=== PATIENT | female | born 1950 | race Caucasian/White ===

== ENCOUNTER 2025-06-26 08:58 | Outpatient (AMB) | payer MEDICARE, SELFPAY ==
--- NOTE | 2025-06-26 09:21 | MHC.OFFVIS ---
Intake Visit Reasons: 2 month syncope Allergies Sulfa (Sulfonamide Antibiotics) Allergy (Unknown, Verified 06/21/25 10:07) Unknown HPI Comments Details: No further syncopal episodes. She did not have her 30 -day event monitor. She had a single syncopal episode on 01/12/25.? When she went to bed the night before she was feeling fine.? She got up in the early hours of the morning and that she was returning from the bathroom she suddenly felt extremely dizzy and wanted to sit on the floor but apparently passed out and fell down and fractured her coccyx.? She found herself on the floor.? Her slept through this as? he also has Alzheimer's disease.? When she got up and sat on the chair and felt very weak.? She was seen at the hospital the next day and was admitted to [facility] for 2 or 3 days and with a negative workup.? She apparently had an extensive workup including imaging studies, cardiac monitoring and EEG which were all negative.? She developed a UTI and was discharged on an antibiotic? but a few days after discharge she developed sepsis from the UTI with a temperature of 104 with?encephalopathy, chills and was readmitted to [facility] for 3 more days for a change of antibiotics.? She has since recovered from it, but she still feels like she has a slight brain fog and feels generally weak.? She's had no further syncopal episodes. Also c/o chronic low back pain , s/p fusion of L spine at [facility] about 11 years ago. Has been thru PT, epidural inj without relief. [facility] Medical History (Updated 06/26/25 @ 09:30 by Joan Kilpatrick MD) Syncope Review of Systems Const Details: Sleep:? Difficulty getting to sleepadmits.? Difficulty maintaining sleepadmits.? Urge to move legsadmits.? Teeth grindingadmits.? Shouting or Kicking during sleepdenies.? Abnormal behavior during sleepdenies.? Excessive sleepdenies.? Snoringadmits.? Daytime sleepinessdenies. ???General/Constitutional:? Change in appetitedenies.? Chillsdenies.? Fatigueadmits.? Feverdenies.? Weight gaindenies.? Weight lossdenies. ???Ophthalmologic:? Blurred visiondenies.? Diminished visual acuitydenies. ???ENT:? Stuffinessdenies.? Decreased hearingadmits.? Dry mouthdenies.? Ear paindenies.? Nosebleeddenies.? Ringing in the earsdenies.? Sinus paindenies.? Sore throatdenies.? Swollen glandsdenies. ???Endocrine:? Cold intolerancedenies.? Excessive thirstdenies.? Frequent urinationdenies.? Heat intolerancedenies. ???Respiratory:? Shortness of breathdenies.? Chest paindenies.? Coughdenies. ???Breast:? Breast lumpdenies.? Nipple dischargedenies. ???Cardiovascular:? Chest pain at restdenies.? Chest pain with exertiondenies.? Claudicationdenies.? Dizzinessdenies.? Fluid accumulation in the legsdenies.? Irregular heartbeatdenies.? Palpitationsdenies. ???Gastrointestinal:? Abdominal paindenies.? Constipationdenies.? Diarrheadenies.? Difficulty swallowingdenies.? Heartburndenies.? Nauseadenies.? Rectal bleedingdenies. ???Hematology:? Easy bruisingadmits.? Prolonged bleedingdenies. ???Genitourinary:? Frequent urinationadmits.? Urgencydenies.? Incontinencedenies.? Erectile Dysfunctiondenies. ???Musculoskeletal:? Neck painadmits.? Back painadmits.? Muscle achesadmits.? Painful jointsadmits.? Sciaticadenies.? Weaknessdenies. ???Podiatric:? Difficulty walkingdenies.? Foot numbnessdenies. ???Neurologic:? Difficulty swallowingdenies.? Balance difficultyadmits.? Coordinationnormal.? Difficulty speakingdenies.? Dizzinessadmits.? Faintingadmits.? Gait abnormalitydenies.? Headacheadmits.? Loss of strengthdenies.? Loss of use of extremitydenies.? Low back paindenies.? Memory lossadmits.? Seizuresdenies.? Ticsdenies.? Tingling/Numbnessdenies.? Transient loss of visiondenies.? Tremordenies. ???Psychiatric:? Anxietyadmits.? Auditory/visual hallucinationsdenies.? Delusionsdenies.? Depressed moodadmits.? Stressorsadmits.? Substance abusedenies.? Suicidal thoughtsdenies. Physical Exam Neuro Other: Neurological: Abnormal neurological findings:??none.?Mental Status:??alert and oriented X 3,?Normal attention, orientation, memory and affect.?Cranial Nerves:??Pupils are equal, round and reactive to light. Fundoscopy shows normal disc bilaterally. External occular muscles are intact. Visual nichols are full, no ptosis. Face is symmetrical, no facial weakness or droop. Facial sensations are normal. Tongue protrudes in midline. Palate elevates symmetrically. Shoulder shrugging is normal..?Motor Examination:??Normal muscle tone, bulk and strength,?No atrophy or fasciculations,?No drift of the extended upper extremities,?Deep tendon reflexes are 2+?,?Plantars are flexor?.?Motor Strength:?Proximal Muscles (out of 5):5Distal Muscles (out of 5):5Neck Flexors (out of 5):5Neck Extensors (out of 5):5Deltoid (out of 5):5Biceps (out of 5):5Triceps (out of 5):5Serratus Anterior (out of 5):5Wrist Extensors (out of 5):5APB (out of 5):5Finger Spread (out of 5):5Ileopsoas (out of 5):5Quadriceps (out of 5):5Hamstrings (out of 5):5Tibialis Anterior (out of 5):5Peronei (out of 5):5EDB (out of 5):5Gastrocnemius (out of 5):5Straight Leg Raising:??90 degrees.?Sensory Exam:??Normal light touch, temperature, pinprick, vibration and joint-position sensations?,?Rhomberg sign is absent.?Coordination:??no ataxia,?no titubation,?rmzbcv-ij-ckke, rodd-juuw-vcwa test and rapid alternating movements were normal.?Gait Exam:??Within normal limits.?Cerebellar Signs:??Jtqkuf-tn-nizz and oqin-hw-fyvo is normal,?no dysdiadochokinesia?.?Extrapyramidal System:??No tremor, rigidity with normal facial expressions,?No bradykinesia, no bradyphrenia. Normal arm swing and posture. No propulsion or retropulsion.?Speech:??Normal,?no dysphasia or dysarthria..? Mini Mental Status Exam: Level of Consciousness:??Alert.?Orientation:??Knows correct year, month, date, day and season,?Knows correct city, county and state. Knows correct location and floor.?Registration:??Able to register 3 objects.?Attention:??Serial 7's performed accurately.?Recall:??Able to recall 3 out of 3 objects.?Language:??Normal spontaneous speech, fluency, repetition,naming, comprehension, reading and writing.?Total Score:??30/30.? General Examination: GENERAL APPEARANCE:??normal,?in no acute distress.?HEAD:??normocephalic,?atraumatic.?EYES:??sclera non-icteric,?conjunctiva clear.?EARS:??auditory canal clear,?tympanic membrane intact, clear.?NOSE:??no lesions.?ORAL CAVITY:??gums normal,?mucosa moist,?no lesions.?THROAT:??clear.?NECK/THYROID:??no cervical lymphadenopathy,?thyroid normal,?neck supple, full range of motion,?no carotid bruit.?SKIN:??no rashes,?no significant birthmarks.?HEART:??S1, S2 normal,?no murmurs.?LUNGS:??clear anteriorly and posteriorly.?CHEST:??no gross rib deformity,?clear to auscultation.?BACK:??normal exam of spine.?EXTREMITIES:??no edema.?PERIPHERAL PULSES:??normal.?PSYCH:??alert, oriented,?cognitive function intact,?cooperative with exam.? Assessment & Plan Assessment & Plan (1) Syncope: Code(s): R55 - Syncope and collapse Category: Medical Plan: Negative w/u at [facility]. Did not have 30 day event monitor (2) Chronic low back pain: Code(s): M54.50 - Low back pain, unspecified; G89.29 - Other chronic pain Category: Medical Plan: Will gather records including last imaging studies. Will advise after review of her imaging studies. Coding Level of Care Code Est Pt Level 4 (73166) Diagnoses Syncope R55 Chronic low back pain M54.50; G89.29
== END 2025-06-26 09:39 | disposition home or self-care (01) ==
LOC: HO.HSM 08:59
PROVIDERS: PCP Family Medicine Sports Medicine; Visit Provider Psychiatry & Neurology Neurology
DX: R55 Syncope and collapse (principal); M54.50 Low back pain, unspecified; G89.29 Other chronic pain
CPT/HCPCS: 99214

== ENCOUNTER → 2025-06-26 08:58 | Outpatient (BNVA) | payer MEDICARE, SELFPAY | PROVIDERS: PCP Family Medicine Sports Medicine; Visit Provider Psychiatry & Neurology Neurology | DX: R55 Syncope and collapse (principal); M54.50 Low back pain, unspecified; G89.29 Other chronic pain | CPT/HCPCS: 99212 ==

== ENCOUNTER 2025-06-28 11:44 | Outpatient (REF) | payer MEDICARE, SELFPAY ==
--- OUTSIDE RECORDS SUMMARY | 2025-06-28 12:50 | XMS_ITS | Encounter Summary ---
Author Organization [facility] Address [facility] [employer] [facility] [address] [place] [address] Phone Care Team Providers Care Wine Steward Name Role Phone Jailyn Grewal DO Unavailable Sondra Bettyeminh Leggett DIETITIAN CONSULTANT Unavailable [phone] Ninoska Sanchez MD Unavailable [phone] Best Aaron MD Unavailable [phone] Saurav Cornelius MD Unavailable [phone] Best Aaron MD Unavailable Best Aaron MD Primary Care Provider [phone] Pippa Shirley MD Primary Care Provider [phone] Jailyn Grewal DO Unavailable Pippa Shirley MD Unavailable Encounter Details Date Type Department Care Team (Late st Contact Info) Description 07/08/2023 Procedure Pass [facility], [facility] - [address] [place] [address] Social History Tobacco Use Types Packs/Day Years Used Date Smoking Tobacco: Never Smokeless Tobacco: Never Comments:Never Alcohol Use Standard Drinks/Week Comments Yes 1 (1 standard drink = 0.6 oz pur e alcohol) Occasional Child or Family Care Answer Date Record ed Do you have problems with on e of the following making it difficult for you to work, study, or receive health care? No 04/01/2021 Education Answer Date Recorded Are you interested in more education? Not on navdeep e 04/04/2023 Are you concerned about learning? Not on file 04/04/2023 No 04/04/2023 No 04/04/2023 Food Answer Date Recorded Within the past 6 months we worried whether our food would run out before we got money to buy more. Never True 04/01/2021 Within the past 6 months the food we bought just didn't last and we didn't have enough money to get more. Never True Paying for Meds Answer Date Recorded Do you have trouble paying for medicines? No 04/01/2021 Paying Utility Bills Answer Date Record ed Do you have trouble paying your heating or elect ricity bill? No 04/01/2021 Transportation Answer Date Recorded Has the lack of transportati on kept you from medical appointments or from getting medications? No 04/01/2021 Unemployment Answer Date Recorded Are you currently unemployed or working on a part-time or temporary basis, and looking for work? No 04/01/2021 Digital Access Answer Date Recorded No 04/08/2023 No 04/08/2023 Reliable internet access at home? Not on file 04/08/2023 Device with a working camera? Not on file Comments No Sex and Gender Information Value Date Recorded Sex Assigned at Female 06/14/2018 11:15 PM EDT Legal Sex Female 5:49 PM EST Gender Identity Female 07/01/2024 1:45 PM EDT Sexual Orientation Straight 06/14/2018 11 :15 PM EDT Occupation Industry Job Start Date Job End Date Retired Not on file Not on file Not on file documented as of this encounter Plan of Treatment Upcoming Encounters Date Type Department Care Team (Late st Contact Info) Description 07/04/2025 8:45 AM EDT Office Visit [facility] General Surgical Care [address] [place] [address] Bettye Amaro, DIETITIAN CONSULTANT 15 [facility], [address] [place] [address] 08/16/2025 4:30 PM EDT Office Visit [facility] Medicine [address] [place] [address] Pippa Shirley MD [address] [address] [email or web address] 02/28/2026 8:30 AM EDT Office Visit [facility] Neurology [address] [place] [address] Albert Lynn MD [address] [address] documented as of this encounter Visit Diagnoses Not on filedocumented in this encounter Additional Health Concerns Assessment Noted Time PHQ-2 Depression Total Score: 2 09/08/20 22 4:13 PM EDT documented as of this encounter Care Teams Wine Steward Relationship Specialty Start Date End Date Best Aaron MD [address] [place] [address] 7 [place] [address] PCP - General Family Medicine 10/19/19 02/09/24 Pippa Shirley MD [address] [place] [address] 7 [place] [address] [email or web address] PCP - General Family Medicine 02/10/24 Jailyn Grewal DO [address] [place] [address] [address] [place] [address] Historical LMR Provider 09/04/17 Sondra Bettye Betsey, ROBERTO [address] [place] [address], [address] [place] [address] Historical LMR Provider 09/04/17 Ninoska Sanchez MD [address] [place] [address] 7 [place] [address] Historical LMR Provider 09/04/17 Best Aaron MD [address] [place] [address] 7 [place] [address] Historical LMR Provider 09/04/17 Saurav Cornelius MD [address] [place], [place] [address] [place] [phone] [email or web address] Historical LMR Provider 09/04/17 Best Aaron MD [address] [place] [address] 7 [place] [address] Insurance Assigned Provider 09/18/1702/19/24 Jailyn Grewal DO [address] [place] [address] [address] [place] [address] Insurance Assigned Provider 02/19/24 Pippa Shirley MD [address] [place] [address], [address] [place] [address] [email or web address] Insurance Assigned Provider 02/18/25 documented as of this encounter Additional Source Comments The information contained in this document represents components of the legal health record. It is not the complete legal health record.[facility]
== END 2025-06-28 11:45 | disposition home or self-care (01) ==
LOC: CF 11:44
DX: Z13.89 Encounter for screening for other disorder (principal)

== ENCOUNTER 2025-09-17 15:34 | Outpatient (AMB) | payer MEDICARE, BC, SELFPAY ==
--- NOTE | 2025-09-17 15:35 | MHC.OFFVIS ---
Vital Signs 09/17/25 16:21 Height 5 ft 7 in BMI Reason not done Patient refused/unable BP 134/70 Blood Pressure Location Rt brachial Position Sitting Pulse 72 Pulse Source Pulse Oximeter Pulse Oximetry (%) 98 Oxygen Delivery Method Room Air Intake Visit Reasons: Chronic Bilateral Low Back Pain Allergies Sulfa (Sulfonamide Antibiotics) Allergy (Unknown, Verified 06/21/25 10:07) Unknown HPI Comments Details: The patient is a 75-year-old female presenting with chronic lower back pain. The pain has been persistent since 2014 following a back surgery, specifically a non-instrumented laminectomy from L3 through L5. Imaging has shown facet arthropathy and ligamentum flavum hypertrophy and multilevel lumbar spinal stenosis per lumbar MRI of 2022, contributing to her symptoms. The patient describes her pain as constant, with a severity of 7 to 8 out of 10 during movement, and slightly better when sitting or by evening. The pain is characterized as pinching, cramping, crushing, stabbing, and sharp, often making her feel tired and dull. It radiates to her buttocks and into lateral hips and lower extremities laterally and anteriorly with associated heaviness, weakness, numbness and tingling in her lower legs and toes and affects her daily activities, mobility, including caring for herself, functioning, and sleeping. Patient reports right leg pain and associated symptoms are more severe than the left leg. The patient has a history of multilevel degenerative changes in the cervical spine, with no acute fracture or malalignment noted on recent CT imaging. 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 She has tried various interventions including nbmd-whv-dwvivbo ibuprofen and Tylenol, nerve blocks, disc and epidural injections at [facility], physical therapy, and acupuncture, all with minimal relief. The patient denies smoking and uses alcohol very seldom, consuming three regular cups of decaf coffee daily. She lives alone and has experienced falls, with difficulty regaining balance, standing, pushing, or pulling without significant pain. In January of this year, she was hospitalized for a urinary tract infection and sepsis, following concerns of internal bleeding after a fall. She was treated for the infection but experienced hallucinations and required further hospitalization. 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 - Onset: Chronic since 2015 following back surgery - Quality: Constant, pinching, cramping, crushing, stabbing, sharp, thorbbing, radiating, numbness, tingling - Location: Lower back, radiating to buttocks, hips and legs with associated weakness, loss of balance and occasional falls - Severity: 7 to 8 out of 10 during movement, slightly better when sitting or by evening - Exacerbating factors: Movement, walking, standing, pushing, pulling - Relieving factors: Sitting, evening rest, minimal relief with Tylenol and Ibuprofen - Interference: Affects daily activities, mobility, caring for self, functioning, sleeping - Affect: Pain causes fatigue and impacts daily functioning - Analgesia: Currently using sznr-uej-vaseqzj ibuprofen and Tylenol with minimal relief; pain level at 7 to 8 out of 10 - Adverse Effects: None reported from current medications - Activities of Daily Living: Pain interferes with self-care, mobility, and sleep - Aberrant Drug Related Behaviors: None reported Oswestry Low Back Pain Disability Score=27 [facility] Medical History (Updated 09/17/25 @ 20:32 by JACQUI Winchester) Syncope Review of Systems Const Details: - Musculoskeletal: Reports chronic lower back pain, radiating to buttocks, hips and legs, weakness in legs, and groin pain - Neurological: Reports tingling and numbness in legs - General: Reports fatigue and difficulty with balance All systems reviewed & are unremarkable except as noted in HPI and below Physical Exam Vital Signs: Last Vital Signs Pulse 72 09/17/25 16:21 BP 134/70 09/17/25 16:21 Pulse Ox 98 09/17/25 16:21 Oxygen Delivery Method Room Air 09/17/25 16:21 General: Appears afebrile. Alert and oriented. Mood and affect appropriate. Follows and participates in conversation appropriately. Respiratory effort is unlabored. No cough. Able to transition from sit to stand unassisted. Difficulty getting up from sitting position due to pain. Ambulates with bilaterally normal heel strike and toe off, reports weakness and pain in both legs, R>L. General: Yes no CVA tenderness Back/Spine/Pelvis Other: Limited lumbar ROM due to pain and unsteadiness associated with moderate-severe pain episodes. Lumbar flexion and bending forward reproduces iyecgzhl-gy-sakjhx pain, lumbar extension and axial rotations reproduce otom-bq-xndomewp pain. Demonstrates 5/5 left and 4/5 right strength of quadriceps bilaterally as well as flexion/dorsiflexion of bilateral feet against resistance. 2+ pedal pulses bilaterally. Seated/Supine straight leg rise with dorsiflexion negative bilaterally. +1 patellar and diminished achilles reflexes bilaterally. Facet loading test positive bilaterally. Limited Josemanuel?s, Pelvic compression and Stinchfield tests are positive bilaterally. Mild to moderate groin pain with I/E left hip rotations. Valsalva maneuver is positive. Back: no CVA tenderness Cervical Spine: cervical ROM normal, cervical muscular tenderness, pain with cervical ROM and No Cervical spine tenderness Thoracic/Lumbar Spine: thoracic and lumbar spine normal to inspection, Thoracic/lumbar spine scar(s), Lasegue's sign positive bilateral and localized, pain with thoraco-lumbar ROM, paraspinal muscle tenderness, thoraco-lumbar ROM limited, Thoracic/lumbar scoliosis, No thoracic spinal tenderness and lumbar spinal tenderness Sacroiliac joints: bilaterally tender to palpation Extrem General: Yes capillary refill normal, Yes no clubbing, cyanosis or edema and Yes no calf tenderness Results Reviewed Results Reviewed: Assessment & Plan Assessment & Plan (1) Chronic low back pain: Code(s): M54.50 - Low back pain, unspecified; G89.29 - Other chronic pain Category: Medical (2) Lumbar post-laminectomy syndrome: Code(s): M96.1 - Postlaminectomy syndrome, not elsewhere classified Category: Medical (3) Lumbosacral spondylosis: Code(s): M47.817 - Spondylosis without myelopathy or radiculopathy, lumbosacral region Category: Medical (4) Sacroiliac joint pain: Code(s): M53.3 - Sacrococcygeal disorders, not elsewhere classified Category: Medical (5) Degenerative lumbar spinal stenosis: Code(s): M48.061 - Spinal stenosis, lumbar region without neurogenic claudication Category: Medical (6) Lumbar scoliosis: Code(s): M41.9 - Scoliosis, unspecified Category: Medical (7) Spondylolisthesis, lumbar region: Code(s): M43.16 - Spondylolisthesis, lumbar region Category: Medical Plan The plan includes obtaining updated x-rays to assess for degenerative changes in the spine and lumbar spine MRI to assess for neural integrity and compression and follow up on previous MRI findings. Interventional pain management options were discussed, including therapeutic versus diagnostic injections, neuromodulation with PNS trial, SCS trial vs implant and radiofrequency ablation. Patient will return to the clinic to discuss results of the MRI and xray findings when it is done and consider interventional therapy vs Neurosurgical evaluation as indicated. Patient is aware to call if pain worsens or if she develops any red flag symptoms to seek emergency care. All questions and concerns have been answered and patient agreed with the treatment plan. Follow up for MRI/xray results and sooner as needed. Patient was informed and verbally consented to the use of an ambient scribe for clinic note documentation during this visit. Orders: Orders MR lumbar spine wo con Today M41.9 - Scoliosis, unspecified, M43.16 - Spondylolisthesis, lumbar region, M47.817 - Spondylosis without myelopathy or radiculopathy, lumbosacral region, M48.061 - Spinal stenosis, lumbar region without neurogenic claudication, M96.1 - Postlaminectomy syndrome, not elsewhere classified XR lumbar spine 6V w bending Today G89.29 - Other chronic pain, M47.817 - Spondylosis without myelopathy or radiculopathy, lumbosacral region, M54.50 - Low back pain, unspecified, M96.1 - Postlaminectomy syndrome, not elsewhere classified XR sacroiliac joint min 3V Today M53.3 - Sacrococcygeal disorders, not elsewhere classified, M96.1 - Postlaminectomy syndrome, not elsewhere classified Coding Level of Care Code New Pt Level 4 (59153) Diagnoses Chronic low back pain M54.50; G89.29 Lumbar post-laminectomy syndrome M96.1 Lumbosacral spondylosis M47.817 Sacroiliac joint pain M53.3 Degenerative lumbar spinal stenosis M48.061 Lumbar scoliosis M41.9 Spondylolisthesis, lumbar region M43.16
[2025-09-17 16:21] VITALS: BP 134/70; PULSE 72; O2SAT 98
--- OUTSIDE RECORDS SUMMARY | 2025-09-17 16:43 | XMS_ITS | Encounter Summary ---
Author Organization [facility] Address [facility] [email or web address] [facility] [place] [address] [place] [address] Phone Care Team Providers Care Caisson Worker Name Role Phone Jailyn Grewal DO Unavailable Sondra Bettyeminh Leggett FOOD SERVICE TRAY ATTENDANT Unavailable Ninoska Sanchez MD Unavailable [phone] Best Aaron MD Unavailable [phone] Saurav Cornelius MD Unavailable [phone] Best Aaron MD Unavailable Best Aaron MD Primary Care Provider Pippa Shirley MD Primary Care Provider [phone] Jailyn Grewal DO Unavailable Pippa Shirley MD Unavailable Encounter Details Date Type Department Care Team (Late st Contact Info) Description 07/08/2023 Procedure Pass [facility], [facility] - [address] [place] [address] Social History Tobacco Use Types Packs/Day Years [...] Care Team (Late st Contact Info) Description 05/01/2025 Procedure Pass [facility], Ct Scan - [address] [address] 10/18/2025 3:15 PM EST Appointment [facility], Ct Scan [address] [address] Vladimir Mccoy MD [address] [place] [address] [email or web address] 12/20/2025 2:00 PM EST Office Visit [address] [address] Pippa Shirley MD [address] [place] [address] 7 [place] [address] [email or web address] 12/31/2025 11:30 AM EST Office Visit [facility] [address] [place] [address] Unknown, Unknown, Angela Sen PA-C [address] [place] [address] [email or web address] 02/28/2026 8:30 AM EDT Office Visit [facility] Neurology [address] [place] [address] Albert Lynn MD [address] [facility], 2nd [place] [address] [email or web address] documented as of this encounter Visit Diagnoses Not on filedocumented in this encounter Additional Health Concerns Assessment Noted Time PHQ-2 Depression Total Score: 2 09/08/20 22 4:13 PM EDT documented as of this encounter Care Teams Caisson Worker Relationship Specialty Start Date End Date Best Aaron MD [address] [place] [address] 7 [place] [id number] PCP - General Family Medicine 10/19/19 02/09/24 Pippa Shirley MD [address] [place] [address] 7 [place] [address] [email or web address] PCP - General Family Medicine 02/10/24 Jailyn Grewal DO [address] [place] [address] 7 [place] [phone] [email or web address] Historical LMR Provider 09/04/17 Bettye Amaro CNP [address] [place] [address] [email or web address] Historical LMR Provider 09/04/17 Ninoska Sanchez MD [address] [place] [address] 7 [place] [id number] [email or web address] Historical LMR Provider 09/04/17 Best Aaron MD [address] [place] [address] 7 [place] [id number] [email or web address] Historical LMR Provider 09/04/17 Saurav Cornelius MD [address] [place], [place] [address] [place] [phone] [email or web address] Historical LMR Provider 09/04/17 Best Aaron MD [address] [place] [address] 7 [place] [phone] Insurance Assigned Provider 09/18/1702/19/24 Jailyn Grewal DO [address] [place] [address], [address] [place] [id number] Insurance Assigned Provider 02/19/24 Pippa Shirley MD [address] [place] [address], [address] [place] [id number] [email or web address] Insurance Assigned Provider 02/18/25 documented as of this encounter Additional Source Comments The information contained in this document represents components of the legal health record. It is not the complete legal health record.[facility]
--- OUTSIDE RECORDS SUMMARY | 2025-09-17 16:44 | XMS_ITS | Encounter Summary ---
Author Organization [facility] Address [address] [employer] [facility] [address] [place] [address] Phone Care Team Providers Care Security Systems Specialist Name Role Phone Jailyn Grewal DO Unavailable Bettye Amaro DIRECTOR OF HEALTH CARE MARKETING Unavailable Ninoska Sanchez MD Unavailable Best Aaron MD Unavailable Saurav Cornelius MD Unavailable Pippa Shirley MD Primary Care Provider Jailyn Grewal DO Unavailable Pippa Shirley MD Unavailable [phone] Encounter Details Date Type Department Care Team (Late st Contact Info) Description 07/01/2024 Procedure Pass [facility], Ct Scan - [address] [address] Social History Tobacco Use Types Packs/Day Years [...] on file documented as of this encounter Functional Status * Calculated C-SSRS Risk Score (Lifetime/Recent) Answer Date of Assessment Author No Risk Indicated 07/01/2024 1:45 PM EDT Bessie Guadarrama, RN * [place] Suicide Severity Rating Scale (Screener/Recent Self-Report) Question Answer Date of Assessment Author 1. Wish to be (Past 1 Month) No 024 1:45 PM EDT Bessie Hines, RN 2. Non-Specific Active Suici wayne Thoughts (Past 1 Month) No 07/01/2024 1:45 PM EDT Jose Hines RN 6. Suicidal Behavior (Lifetime) No 1:45 PM EDT Bessie Hines, RN documented as of this encounter Plan of Treatment Upcoming Encounters Date Type Department Care Team (Late st Contact Info) Description 05/01/2025 Procedure Pass [address] [address] 10/18/2025 3:15 PM EST Appointment [address] [address] Vladimir Mccoy MD [address] [place] [address] 12/20/2025 2:00 PM EST Office Visit [address] [address] Pippa Shirley MD [address] [place] [address], [facility] 7 [place] [address] [email or web address] 12/31/2025 11:30 AM EST Office Visit [facility] [address] [place], [place] [phone] Unknown, Unknown, Angela Sen PA-C [address] [phone] [email or web address] 02/28/2026 8:30 AM EDT Office Visit [facility] [address] [place] [address] Albert Lynn MD 22 [facility], [address] [place] [address] documented as of this encounter Visit Diagnoses Not on filedocumented in this encounter Additional Health Concerns Assessment Noted Time PHQ-2 Depression Total Score: 2 09/08/20 22 4:13 PM EDT documented as of this encounter Care Teams Security Systems Specialist Relationship Specialty Start Date End Date Pippa Shirley MD [address] [place] [address] 7 [place] [address] [email or web address] PCP - General Family Medicine 02/10/24 Jailyn Grewal DO [address] [place] [address] 7 [place] [address] Historical LMR Provider 09/04/17 Bettye Amaro CNP [address] [address] Historical LMR Provider 09/04/17 Ninoska Sanchez MD [address] [place] [address] 7 [place] [address] Historical LMR Provider 09/04/17 Best Aaron MD [address] [place] [address] 7 [place] [address] Historical LMR Provider 09/04/17 Saurav Cornelius MD [address] [place], [place] [address] [place] [phone] [email or web address] Historical LMR Provider 09/04/17 Jailyn Grewal DO [address] [place] [address], [address] [place] [address] [email or web address] Insurance Assigned Provider 02/19/24 Pippa Shirley MD [address] [place] [address], [address] [place] [address] [email or web address] Insurance Assigned Provider 02/18/25 documented as of this encounter Additional Source Comments The information contained in this document represents components of the legal health record. It is not the complete legal health record.[facility]
--- OUTSIDE RECORDS SUMMARY | 2025-09-17 16:44 | XMS_ITS | Clinical Summary ---
Author Organization [facility] Address Formerly [facility] [place] ([facility]) [facility] [address] [place] [id number] Phone Care Team Providers Care Factory Representative Name Role Phone Jailyn Grewal DO Unavailable [phone] Bettye Amaro CRAFT SUPERINTENDENT Unavailable Ninoska Sanchez MD Unavailable Best Aaron MD Unavailable Saurav Cornelius MD Unavailable Pippa Shirley MD Primary Care Provider Pippa Shirley MD Unavailable [phone] Allergies Active Allergy Reactions Criticality Noted Date Comments Bupropion Hcl 12/29/2023 Side effects Sumatriptan Other (See Comments) High 07/09/2017 Feels like blood rushing through my body Sulfa (Sulfonamide Antibiotics) Itching,Rash High 04/07/2012 Medications cholecalciferol (VITAMIN D3) 5,000 unit capsule Take 1,000 Units by mouth 2 (two) times a day. 1 Active valacyclovir HCl (VALACYCLOVIR ORAL) Apply 1 application. topically as needed (cold sores). apply every 3 hours as needed for coldsores x 7 days 1 Active sodium fluoride-potassiu m nitrate (PREVIDENT 5000 SENSITIVE) 1.1-5 % Pste 2 Active atorvastatin (LIPITOR) 10 MG tabletIndications :Hyperlipidemia TAKE ONE TABLET BY MOUTH EVERY DAY 90 tablet 3 5 Active chlorthalidone (HYGROTON) 25 MG tabletIndications :Essential hypertension Take 1 tablet (25 mg total) by mouth every morning. 5 Active traZODone (DESYREL) 50 MG tablet TAKE ONE TABLET BY MOUTH DAILY AT BEDTIME 90 tablet 3 5 Active sertraline (ZOLOFT) 100 MG tabletIndications :Moderate episode of recurrent major depressive disorder Take 2 tablets (200 mg total) by mouth daily. 180 tablet 1 5 Active LORazepam (ATIVAN) 0.5 MG tablet Take 2 tablets (1 mg total) by mouth every 8 (eight) hours as needed for anxiety. 60 tablet 1 5 Active latanoprost (XALATAN) 0.005 % ophthalmic solution Place 1 drop into each eye daily. 2.5 mL 3 5 Active olmesartan (BENICAR) 20 mg tablet TAKE ONE TABLET BY MOUTH EVERY DAY 90 tablet 3 5 Active cephalexin (KEFLEX) 500 MG capsule Take 1 capsule (500 mg total) by mouth 2 (two) times a day for 3 days. 6 capsule 5 08/29/20 25 Active Problems Problem Noted Date Diagnosed Date Binge eating disorder 03/27/2025 Assessment & Plan (03/27/2025 4:00 PM EDT): She is using binge eating behaviors daily at this point. Her overall health has been poor and she is stressed. I recommend she start behavioral therapy and work with a dietitian experience with binge eating disorder. I am tapering her off Wellbutrin because of her general memory issues and malaise. She did not like how she felt on Wellbutrin. The GLP-1 receptor agonist treatment did put her binge eating disorder into remission, however she suffered number of other side effects and discontinued them additionally she no longer qualifies with her current body weight. Moderate recurrent major depression 03/09/2025 Assessment & Plan (03/09/2025 9:57 AM EDT): Mood stable on sertraline 150 mg daily. Continue current regimen. Normocytic anemia 02/02/2025 Assessment & Plan (08/16/2025 4:51 PM EDT): Last H/H improved, repeat ordered. No overt signs of bleeding, recent FIT negative. Assessment & Plan (06/08/2025 10:32 AM EDT): Awaiting repeat lab work, ordered today. Should H/H continue to be downtrending will provide FIT. Assessment & Plan (02/02/2025 2:27 PM EDT): Downtrending H/H on recent CBC, with no overt bleeding. She is not maintained on anticoagulation or any platelet therapy. Will evaluate further for underlying cause of anemia with lab work today. If downtrending H/H or ERI present, will evaluate with FIT for possible occult GI bleeding. Sacroiliitis, not elsewhere classified Chronic nonintractable headache 05/29/2024 Assessment & Plan (08/09/2024 2:02 PM EDT): No new red flag signs or symptoms. Recent MR Brain unremarkable. Discussed increased water intake and neck muscle stretching. Follow-up if worsen. Assessment & Plan (05/29/2024 3:39 PM EDT): Chronic intermittent non-intractable headaches, without neuro symptoms. Given new BPPV will evaluate for intracranial pathology with MR Brain. Overweight 12/08/2023 Overview (07/04/2025): Before AOM: WHO class I, AACE stage I AOM's tried: Wellbutrin (did not like how she felt on it), topiramate (caused cognitive side effects and fatigue), Zepbound (caused nausea and fatigue on the lowest dose. Had 1 episode of syncope while on it) Assessment & Plan (08/16/2025 4:52 PM EDT): Unfortunately she did not tolerate any medications for weight loss. She does meet with a nutritoinist who recommends a therapist which Frannie is not interested in currently. Assessment & Plan (07/04/2025 9:02 AM EDT): Unfortunately Peggy did not tolerate any of the antiobesity medications that we tried. She is struggling to maintain high-protein low carbohydrate diet and she is not exercising because of back pain. I do not have further pharmacotherapy to offer her. I encouraged her to start seeing a therapist and dietitian focused on binge eating disorder. She will return to care with her primary care provider Assessment & Plan (03/27/2025 3:58 PM EDT): Peggy overall has been having poor health. She tolerated GLP-1 receptor agonists side effects poorly and I agree with her decision to discontinue them. She will taper off of topiramate. She is not finding helpful for controlling her binge eating urges and it could be contributing to her general feeling of malaise and forgetfulness. She did not like how she felt on Wellbutrin. At this point I do not recommend any further pharmacotherapy for her binge eating disorder. I think she should start working with a therapist and a dietitian experienced with binge eating disorder. she will continue following with her PCP regarding her other health issues and she will follow-up here with me in 3 months. Assessment & Plan (12/13/2024 9:33 AM EST): Reduce Zepbound to 2.5. Sent pen to pharmacy. She will check casas. If > 400$ we will send vial to [facility] Reduce topiramate to 25 mg BID. Muscle mass is low. Asked her to restart resistance training. She is reluctant due to back pain. I asked her to see her PCP about this & to do PT. Needs to increase calorie intake. She was having a protein shake & a kazakh yogurt during the day & she will add that back in. FU 1 month Assessment & Plan (09/13/2024 9:00 AM EDT): Overall she is lost a good amount of weight on the various medications we have tried. She does not want to get back on Wegovy due to side effects. I think she is probably just is likely to have side effects on Saxenda. She felt very good on Zepbound but her kje-yh-ttrdch cost was still high. It is possible she had to meet a deductible so I asked her to call the pharmacy to see what the cost would be for a refill, using the savings card. In the meantime she will continue her current dose of topiramate. I emphasized the importance of her doing resistance training and getting adequate protein. She will message me about what happens with her prescription and she will follow-up in office in 3 months Assessment & Plan (08/09/2024 1:50 PM EDT): Followed by weight management clinic, previously on Wegovy but had side effects. Was prescribed Zepbound but is awaiting for paperwork to afford it. Discussed risks/benefits of further weight loss management, she will try to take the Zepbound if she is able to afford it and find it in supply. Assessment & Plan (07/19/2024 9:58 AM EDT): She discontinued Wegovy because of side effects. She is interested in trying a different GLP-1 receptor agonist. She was actually able to get her secondary prescription plan to cover the Wegovy. She was counseled both on Saxenda and Zepbound. We will try for Zepbound. She was given a printed prescription so that she could take it to any pharmacy she finds it in stock. Possible side effects were reviewed with her as below. She was advised to continue topiramate 25 mg twice daily for the time being. If she is unable to get Zepbound we can try for Saxenda. If she is unable to get that we will increase her topiramate dose she can increase her topiramate dose as previously discussed (25 mg in a.m., 50 mg in p.m.) I have recommended the following Anti-Obesity Medication: Tirzepatide I have reviewed the following possible side effects: Nausea, vomiting, constipation, gastroparesis, SBO, pancreatitis, and rats studies an increased risk of medullary thyroid cancer and MEN2, suicidal thoughts, diabetic retinopathy, optic neuropathy, low blood sugar This medication is not recommended in and in patients with a personal or family history of medullary thyroid cancer or multiple endocrine neoplasia 2A or 2B. Assessment & Plan (05/29/2024 3:35 PM EDT): Now stopped Wegovy which I think is for the best given her rapid weight loss and poor po intake leading to fatigue. Now maintained on topiramate monotherapy. Following with obesity medicine. Assessment & Plan (04/19/2024 12:41 PM EDT): In terms of her weight loss she is responding very well to Wegovy. Unfortunately she has lost some muscle mass and I emphasized the importance of regular exercise and adequate protein caloric intake. She also needs to drink more water. I reviewed the risk of sarcopenia associated with the use of these medications in older adults. She complains of malaise and weakness but states it started months before starting Wegovy. I want her to go back to the 0.25 mg dose to see if she feels any better on that dose. Assessment & Plan (01/19/2024 11:14 AM EST): I encouraged her to call around to pharmacies to see if she can find Wegovy in stock. Saxenda is not in stock in any local pharmacies. She did not tolerate Wellbutrin. She is amenable to trying topiramate They will start at start at 25 mg and we will titrate up as tolerated. I have explained that this medication works by suppressing appetite, working on the reward center of the brain, and may stimulate lipolysis in some patients. I have reviewed the following possible side effects: Taste alteration, paresthesias, memory loss, constipation, somnolence, kidney stones. Assessment & Plan (12/08/2023 4:15 PM EST): Pt was educated on the pathophysiology of obesity, which is a chronic, relapsing, often progressive neuroendocrine disease with behavioral components. We discussed treatment approaches including lifestyle changes, pharmacotherapy & bariatric surgery. We discussed their personal treatment goals. We discussed targeting a weight loss goal of 5-10% over the next 6 months as this modest amount of weight loss has been shown to decrease blood pressure, insulin resistance, sleep apnea, liver inflammation, arthritic pain and improve dyslipidemia. I recommend the following labs as part of their initial evaluation, the results of which will direct further treatment recommendations: Fasting lipid, CMP, A1c, TSH w reflex, Vit D, Uric acid, CBC, fasting insulin Patient was given the following initial meal plan recommendations:A protein shake or a protein bar or [place] yogurt or cottage cheese to be consumed at breakfast and mid afternoon daily. 4 -6 ounces of protein with 6 ounces of vegetables or small salad with a noncreamy salad dressing of not more than 2 tablespoons at lunch and dinner daily. At dinner the patient may half 1/2 cup of carbohydrate. A small protein based snack or serving of fruit may also be consumed 2-3 hours after dinner. They should aim to drink 64 oz of water daily. I recommend they not regularly drink soda, juice, alcohol, high calorie caffeinated beverages. We discussed the innumerable benefits of daily exercise. I recommend patient work with our dietitian and movement specialist, Meagan Genao RD and have asked them to schedule an appt. We discussed obesogenic medications that she is on. She does not feel she is particularly benefiting from gabapentin so she is going to try reducing the dose from 600 mg to 300 mg daily Her obesity is complicated by depression & BED. We are starting Wellbutrin for obesity & these comorbid conditions. Possible side effects reviewed. Hypercalcemia 04/28/2022 Assessment & Plan (08/16/2025 4:52 PM EDT): Due for repeat BMP, ordered. Can discontinue chlorthalidone should she continue to have hypercalcemia. Assessment & Plan (02/02/2025 2:22 PM EDT): Possible that chlorthalidone is causing persistent hypercalcemia, mildly elevated on last check. Will continue to monitor this. Given multiple recent medication changes will hold off on discontinuing this medication this time. Will consider at follow-up visit. Assessment & Plan (08/09/2024 1:57 PM EDT): Persistent hypercalcemia with prior PTH WNL on semi-recent testing. Will recheck BMP. Discussed if still elevated will refer to endocrinology for further evaluation. No symptoms of hypercalcemia currently. Assessment & Plan (04/19/2024 12:40 PM EDT): She is concerned about her high calcium level. This is chronic. She had a borderline PTH in the past. She is seeing her PCP in a few days. I ordered a PTH for them to review when she sees him Caregiver stress 07/08/2021 Assessment & Plan (03/09/2025 9:58 AM EDT): Caregiver for her with Alzheimer's. Supportive listening provided for patient today. Discussed supportive care for the patient to avoid caregiver fatigue and burnout. Assessment & Plan (08/09/2024 1:46 PM EDT): Caregiver for her with Alzheimer's. Discussed supportive care for the patient to avoid caregiver fatigue and burnout. Slow transit constipation 07/08/2021 Assessment & Plan (08/09/2024 2:01 PM EDT): >>ASSESSMENT AND PLAN FOR CONSTIPATION WRITTEN ON 07/23/2021 1:28 PM BY ERIKA COOK MD Reviewed use of miralax, can increase the dose Q 3days until desired results achieved, may be best to continue that dose a month then taper off Assessment & Plan (08/09/2024 2:01 PM EDT): Maintained on PRN Miralax and docusate. Discussed fiber intake and increased water intake. Continue current regimen. Degenerative lumbar spinal stenosis 01/08/2021 Assessment & Plan (08/16/2025 4:53 PM EDT): Requesting referral for neuromodulator with physiatry, referral to [facility] placed. Degenerative disc disease, lumbar 08/06/2020 Assessment & Plan (05/29/2024 3:39 PM EDT): Chronic back pain following spinal surgery 8 years ago, requesting referral to neurosurgery at [facility]. Referral placed today. No red flag s/s. Chronic bilateral low back pain without sciatica 02/19/2020 Assessment & Plan (02/19/2020 11:51 AM EDT): Recommend NSAID, gentle stretching, gabapentin at bedtime. POssible med side effects reviewed. Sent HEP via [place]. Since she is already going to PT will see if they can also do LBP work on her. Pt advised to follow up if sx worsen or fail to improve. Granuloma annulare 11/16/2019 Assessment & Plan (08/09/2024 1:59 PM EDT): Followed by dermatology with regular CSI injections Situational stress 11/01/2018 Vitamin D insufficiency 03/21/2018 Assessment & Plan (08/09/2024 1:58 PM EDT): Last Vit D level elevated, decreased to 2000 IU daily. Will recheck Vit D level today. Anxiety 09/26/2017 Assessment & Plan (06/08/2025 10:33 AM EDT): Has had increased anxiety symptoms in the setting of caring for her with Alzheimer's. Patient is not interested in meeting with a therapist at this time given time constraints. Will increase sertraline to 200 mg daily as well as increase lorazepam to 1 mg every 8 hours as needed. Follow-up in 8 weeks to reassess. Depression 09/26/2017 Assessment & Plan (08/16/2025 4:53 PM EDT): Mood overall stable with sertraline 150mg daily, although does have significant stressors. Will CTM. Assessment & Plan (08/09/2024 1:51 PM EDT): Mood stable with sertraline 150mg daily. Is looking to get involved in a support group. Continue current regimen. Assessment & Plan (05/29/2024 3:38 PM EDT): Mood stable with sertraline 150mg daily. Continue current medication. Eczema 09/26/2017 Essential hypertension 09/26/2017 Assessment & Plan (08/16/2025 4:51 PM EDT): BP at goal, continue olmesartan 20 mg daily with chlorthalidone 25mg daily. Assessment & Plan (06/08/2025 10:32 AM EDT): BP at goal, continue olmesartan 20 mg daily. Assessment & Plan (03/09/2025 9:57 AM EDT): BP at goal today, now maintained on olmesartan due to AE to lisinopril. Continue current regimen. Assessment & Plan (02/02/2025 2:21 PM EDT): BP at goal today, currently maintained on lisinopril and chlorthalidone. Concerned that lisinopril is causing a dry nonproductive cough. Given this we will switch lisinopril to olmesartan 20 mg daily. Follow-up in 4 weeks to reassess, will repeat BMP at that time. Assessment & Plan (01/17/2025 11:23 AM EST): Was hypotensive in the hospital. Chlorthalidone held, continue to hold for now and monitor BP. Follow up with PCP as scheduled. Assessment & Plan (08/09/2024 1:47 PM EDT): BP at goal today, maintained on lisinopril 40mg daily and chlorthalidone 25mg daily. Continue current regimen. Assessment & Plan (05/29/2024 3:34 PM EDT): BP at goal today, maintained on lisinopril 40mg daily and chlorthalidone 25mg daily. Continue current regimen. Assessment & Plan (09/30/2020 6:13 PM EST): BP is above goal. I do think anxiety is contributing to her elevated pressures. Treatment options discussed. Restart HCTZ at 12.5mg daily. I have asked her to check her BP no more than twice per day over the next week. Reviewed proper techniques to checking BP. EKG in office WNL. FU with 1wk. Migraine 09/26/2017 Mixed hyperlipidemia 09/26/2017 Assessment & Plan (08/16/2025 4:52 PM EDT): Due for repeat lipid panel, ordered. Assessment & Plan (08/09/2024 1:53 PM EDT): Last LDL-C acceptable, maintained on atorvastatin 10mg. Continue current regimen. Muscle tension headache 09/26/2017 Assessment & Plan (02/02/2025 2:22 PM EDT): Advised can get massage therapy however this not covered by insurance. I have also advised her to discuss her cervical muscle strain with the A physical therapist. HEP provided for patient to start daily stretching. Follow-up in 4 weeks to reassess Primary insomnia 09/26/2017 Assessment & Plan (08/16/2025 4:53 PM EDT): Sleep has been good with trazodone 50mg nightly. Assessment & Plan (08/09/2024 1:52 PM EDT): Maintained on trazodone 50mg nightly which works well for her, discussed trying to cut back to 25mg dosage nightly. Primary osteoarthritis involving multiple joints 09/26/2017 Assessment & Plan (06/08/2025 10:33 AM EDT): Discussed ibuprofen and acetaminophen dosing for arthritis pain. Discussed consideration of CSI, she is not interested at this time. Tendinitis of right rotator cuff 09/26/2017 Osteoarthritis of hip 09/05/2012 Overview (01/05/2015): Osteoarthritis of hip - 715.15 Resolved Problems Problem Noted Date Diagnosed Date Resolved Date Generalized abdominal pain 03/12/2025 1 Assessment & Plan (06/08/2025 10:34 AM EDT): Ongoing generalized abdominal pain, s/p imaging which was unremarkable and prior workup which was unremarkable. Patient thinks her abdominal pain is related to her underlying stress and anxiety. Discussed referral to gastroenterology for further evaluation, she declines. Not having any urinary symptoms, will hold off on repeat urinalysis at this time. Assessment & Plan (03/12/2025 5:35 PM EDT): Patient has had worsening generalized abdominal pain, both in bilateral lower quadrants as well as epigastric locations, reproducible with mild palpation on exam today. No fevers but subjective chills. Unclear etiology of symptoms, will obtain lab work as well as CT A/P to further evaluate. As she has had an atypical presentation of urosepsis I will go ahead and send out her urine for culture. No indication for empiric antibiotics at this time. Discussed close follow-up should symptoms worsen. Chronic cough 02/02/2025 06/08/2025 Assessment & Plan (03/09/2025 9:57 AM EDT): Resolved after discontinuation of ACEi. Hold off on additional imaging at this time. Assessment & Plan (02/02/2025 2:25 PM EDT): Chronic nonproductive cough, concerned this is secondary to her lisinopril. Will switch to ARB as discussed separately. Follow-up in 4 weeks to reassess. Will get imaging at that time should symptoms persist. Lungs are CTAB on exam today. BPPV (benign paroxysmal positional vertigo) 05/29/2024 02/02/2025 Assessment & Plan (08/09/2024 1:58 PM EDT): No recent issues. Assessment & Plan (05/29/2024 3:37 PM EDT): Improved with meclizine use. Referral to vestibular PT placed today. Class 1 obesity due to exces s calories without serious comorbidity with body mass index (BMI) of 31.0 to 31.9 in adult 05/31/2023 Assessment & Plan (05/31/2023 2:53 PM EDT): Peggy previous provider placed her on week IV for weight loss and she has noticed about a few pounds weight loss since initiation. Would like to go up on this med. I wrote for 0.5 mg-injected once a week for the next 4 weeks. She denies any side effects to this medication. Follow-up in a month. She will try to go back on weight watchers. Exercise is difficult secondary to back pain. She will call if there are any other issues or concerns. She understands and agrees. Class 1 obesity due to exces s calories with serious comorbidity and body mass index (BMI) of 33.0 to 33.9 in adult 04/16/2023 12/08/2023 Overview (12/08/2023): WHO class I, AACE stage I Sore throat 11/23/2022 12/11/2022 Assessment & Plan (11/23/2022 12:35 PM EST): Did discuss this is very likely from flu a give her 's recent illness. Flu and strep negative in office, covid pending. Advised to continue supportive management, can also drink warm tea with honey, throat lozenges, and chloroseptic. Intertriginous candidiasis 09/28/2022 0 08/09/2024 Overview (09/28/2022): Right groin and under pannus area Assessment & Plan (09/28/2022 10:37 AM EST): Recommend using chronically a medicated nontalcum powder, and I sent a prescription for nystatin to use twice daily until this is better Urinary frequency 07/08/2021 03/09/2025 Overview (07/23/2021): X 3 weeks, UA is completely normal Assessment & Plan (02/02/2025 2:24 PM EDT): Ongoing urinary frequency and dysuria, with POC urine dip positive for WBC and blood. She is currently day 2 of Macrobid without improvement in symptoms. Given this we will ensure adequate antibiosis with urine culture, ordered for today. Continue Macrobid until culture results return. No evidence of ascending infection at this time. Assessment & Plan (08/09/2024 2:04 PM EDT): Chronic urinary frequency, worse in the last 1.5 months. Will evaluate with U/A today, if negative may be related to OAB as had been discussed previously. Assessment & Plan (07/23/2021 1:27 PM EDT): May be OAB or related to the severe constipation If the BMs improve and the urine frequency does not, may be OAB' would avoid anticholniergic at this time as that would worsen the constipation Rosacea 08/06/2020 08/09/2024 Status post right rotator cuff repair 12/28/2019 08/09/2024 PONV (postoperative nausea and vomiting) 11/16/2019 12/13/2024 Syncope 11/16/2019 05/29/2024 Poison tip 07/03/2019 07/23/2021 Assessment & Plan (07/03/2019 8:41 AM EDT): Peggy presents with poison tip which is still present likely due to the inappropriate usage of the steroid taper. I dosed her back on 40 mg and we will taper this down as per my new script today. I went over this taper at length and she is understanding of this now. I also advised her to use cold compresses as needed. She will call if there is any other issues. S/P left rotator cuff repair 11/01/2018 08/09/2024 Chronic pain of both shoulders 03/21/2018 10/22/2022 Proximal leg weakness 03/21/20182024 Sicca syndrome 03/21/2018 04/01/2021 Chronic fatigue 03/21/2018 08/16/2025 GERD (gastroesophageal reflux disease) 09/26/2017 08/06/2022 Overactive bladder 09/26/2017 Sleep apnea 09/26/2017 01/10/2025 Assessment & Plan (05/29/2024 3:34 PM EDT): Upcoming sleep medicine consultation to re-evaluate given daytime somnolence. Encounters Date Type Department Care Team Description 09/04/2025 10:30 AM EDT Office Visit [address] [id number] Roxi Virgen MD Visit for suture removal (Primary Dx); Skin tear of left upper arm without complication, initial encounter 08/29/2025 Telephone [facility] -[facility] [address] [place] [address] Pippa Shirley MD Care Coordination ([facility] Virtual AWV Outreach/) 08/28/[address] [address] Pippa Shirley MD Follow-up (UC) 08/26/2025 2:40 PM EDT Office Visit [facility] at [address] [place] [address] Yrn Lentz PA-C Laceration of skin of left hand, initial encounter (Primary Dx) 08/16/2025 4:30 PM EDT Office Visit [address] [address] Pippa Shirley MD Mixed hyperlipidemia (Primary Dx); Screening for condition; Chronic bilateral low back pain without sciatica; Normocytic anemia; Essential hypertension; Hypercalcemia; Overweight; Degenerative lumbar spinal stenosis; Primary insomnia; Moderate episode of recurrent major depressive disorder 08/07/2025 5:07 PM EDT - 08/07/2025 11:59 PM EDT Hospital Encounter [facility] Specimen Processing [address] [place] [address] Pippa Shirley MD Discharge Disposition: Home or Self Care 07/04/2025 8:45 AM EDT Office Visit [facility] [address] [place] [address] Bettye Amaro CNP Moderate binge-eating disorder (Primary Dx); Overweight from Last 3 Months Immunizations Immunization Administration Dates Next Due COVID-19 (Pre-09/06) Pfizer Vaccine, mRNA, PF 01/27/2021,12/18/2020 INFLUENZA, SPLIT VIRUS, TRIV ALENT W/ PRESERVATIVE IM 08/21/2016,10/09/2015,09/05/2014 Influenza High-Dose Quadriva lent Preservative Free IM 11/25/2023,08/06/2022,08/06/2020 Influenza High-Dose Trivalen t Preservative Free IM 08/16/2025,08/09/2024,09/21/2019,09/02,08/31/2017,08/21/2016,10/01/2015 Influenza Quadrivalent Adjuv anted Preservative Free IM 09/01/2021 Influenza Quadrivalent Prese rvative Free IM 09/23/2010 Influenza trivalent preserva tive free intradermal 08/22/2013,08/18/2012,09/03/2009 Pneumococcal conjugate PCV13 10/09/2015 Pneumococcal polysaccharide PPSV23 12/03,10/01/2015,09/10/2011(Defer red: Other - n/a) RSV Vaccine (bivalent) 08/20/2025 Td (adult) 5 Lf Tetanus Toxo id, PF, Adsorbed 02/18/1994 Tdap 08/26/2025,06/07/2020,01/19/2013 Zoster live 01/19/2013 Zoster recombinant 08/20/2020,09/13/2019 Family History Medical History Relation Comments CV disease Father Breast cancer Maternal Aunt 1 Breast cancer Maternal Aunt 2 Diabetes mellitus Maternal Grandmother Breast cancer Mother CV disease Mother Diabetes mellitus Mother CV disease Paternal Grandfather Relation Status Comments Father Maternal Aunt 1 Maternal Aunt 2 Maternal Grandmother Mother Paternal Grandfather Social History Tobacco Use Types Packs/Day Years Used Date Smoking Tobacco: Never Smokeless Tobacco: Never Tobacco Cessation:Counseling Given: Not Answered Comments:Never Alcohol Use Standard Drinks/Week Comments Not Currently 3 (1 standard drink = 0.6 oz pur [...] with a working camera? Not on file Intimate Partner Violence Answer Date R ecorded Are you denied basic needs s uch as food, clothing, or medical care? No 01/11/2025 In the past 12 months have y ou been in a relationship with a person who hurts, threatens, or tries to control you? No 01/11/2025 Are you denied basic needs s uch as food, clothing, or medical care? No 01/11/2025 In the past 12 months have y ou been in a relationship with a person who hurts, threatens, or tries to control you? No 01/11/2025 Comments No Sex and Gender Information Value Date Recorded Sex Assigned at Female 06/14/2018 11:15 PM EDT Legal Sex Female 5:49 PM EST Gender Identity Female 07/01/2024 1:45 PM EDT Sexual Orientation Straight 06/14/2018 11 :15 PM EDT Occupation Industry Job Start Date Job End Date Retired Not on file Not on file Not on file Last Filed Vital Signs Vital Sign Reading Time Taken Comments Blood Pressure 128/82 09/04/2025 10:31 AM EDT Pulse 64 09/04/2025 10:31 AM EDT Temperature 36.9 C (98.5 F) 08/26/2025 3:40 PM EDT Respiratory Rate 20 08/26/2025 3:40 PM EDT Oxygen Saturation 98% 09/04/2025 10:31 AM EDT Inhaled Oxygen Concentration 21% 01/11/2021 4 :20 PM EST Weight 79.4 kg (175 lb) 08/26/2025 3:40 PM EDT Height 170.2 cm (5' 7 ) 09/04/2025 10:31 AM EDT Body Mass Index 27.41 08/26/2025 3:40 PM EDT Plan of Treatment Upcoming Encounters Date Type Department Care Team (Late st Contact Info) Description 05/01/2025 Procedure Pass [address] [address] 10/18/2025 3:15 PM EST Appointment [address] [address] Vladimir Mccoy MD [address] [place] [address] 12/20/2025 2:00 PM EST Office Visit [facility] [address] [place] [address] Pippa Shirley MD 234 [facility], [address] [place] [address] [email or web address] 12/31/2025 11:30 AM EST Office Visit [facility] [address] [place] [address] Unknown, Unknown, Angela Sen PA-C [address] [place] [address] [email or web address] 02/28/2026 8:30 AM EDT Office Visit [facility] Neurology [address] [place] [address] Albert Lynn MD 22 [facility], 2nd [place] [address] [email or web address] Health Maintenance Due Date Last Done Comments HEPATITIS C SCREENING 01/27/1968 COLOGUARD 1995 FOBT 1995 SIGMOIDOSCOPY 1995 VIRTUAL COLONOSCOPY 1995 DEPRESSION SCREENING 08/08/2025 08/08/2024 COVID-19 VACCINE ( season) 2025 08/20/2025, 08/09/2024, 11/25/2023, Additional history exists MAMMOGRAM 02/27/2026 02/27/2025, 11/0 05/2023, 07/07/2022, Additional history exists BLOOD PRESSURE 03/05/2026 09/04/2025 CREATININE LEVEL 03/13/2026 03/13/2025, , 01/17/2025, Additional history exists POTASSIUM LEVEL 03/13/2026 03/13/2025, 01/14, 01/17/2025, Additional history exists FIT TEST 08/07/2026 08/07/2025 LIPID PANEL 04/21/2029 04/21/2024, 01/13, 01/23/2022, Additional history exists COLONOSCOPY 10/22/2033 10/22/2023, 06/23/2018 COLORECTAL CANCER SCREENING 10/22/2033 Adult Td,Tdap Booster 08/26/2035 08/26/2025 , 06/07/2020, 01/19/2013, Additional history exists PNEUMOCOCCAL VACCINES (50+ years) Completed 12/03/2016, 10/09/2015, 10/01/2015 OSTEOPOROSIS SCREENING INITIAL (ONE-TIME) Completed 08/17/2019 ZOSTER VACCINES Completed 08/20/2020, 08/17, 01/19/2013 INFLUENZA VACCINE Completed 08/16/2025, , 11/25/2023, Additional history exists SMOKING STATUS SCREENING (Once After 26 Yrs) Completed 08/16/2025 RSV VACCINE Completed 08/20/2025 HEPATITIS A VACCINES Aged Out No long er eligible based on patient's age to complete this topic HIB VACCINES Aged Out No longer eligi ble based on patient's age to complete this topic MENINGOCOCCAL VACCINES (ACWY) Aged Out No longer eligible based on patient's age to complete this topic MENINGOCOCCAL VACCINES (B) Aged Out N o longer eligible based on patient's age to complete this topic Medical Devices Implanted Type Area Insurance Counselor Device Identifier Shelf Expiration Date Model / Serial / Lot Right Hip Woodbridge Suture 6.5mm Cuff Wedge Titanium Bx/5ea - [id number] Implanted:Qty: 1 on 08/18/2018 by Prince Rodriguez MD at [facility] Left: Shoulder [employer] 03/09/2020 3910-100- 045 / / [id number] Description:The implant type , laterality (when applicable), size, and expiration date have been visually and verbally confirmed by the Surgeon, Circulating RN and Scrub Personnel. Woodbridge Suture 6.5mm Wedge Ii Titanium 2 Strand Force Fiber Bx/5ea - [id number] Implanted:Qty: 1 on 11/23/2019 by Prince Rodriguez MD at [facility] Right: Shoulder [employer] 04/27/2021 3910-100- 045 / / [id number] Description:The implant type , laterality (when applicable), size, and expiration date have been visually and verbally confirmed by the Surgeon, Circulating RN and Scrub Personnel. Woodbridge Suture 6.5mm Wedge Ii Titanium 2 Strand Force Fiber Bx/5ea - [id number] Implanted:Qty: 1 on 11/23/2019 by Prince Rodriguez MD at [facility] Right: Shoulder [employer] 01/22/2021 3910-100- 045 / / [id number] Description:The implant type , laterality (when applicable), size, and expiration date have been visually and verbally confirmed by the Surgeon, Circulating RN and Scrub Personnel. Procedures Procedure Name Priority Date/Time Associated Diagnosis Comments LACERATION REPAIR Routine 08/26/2025 4:5 6 PM EDT Laceration of skin of left hand, initial encounter FECAL IMMUNOCHEMICAL BLOOD TEST X1 (FIT) Routine 08/07/2025 5:07 PM EDT Anemia, unspecified type COMPREHENSIVE METABOLIC PANEL (CMP) Routine 03/13/2025 3:57 PM EDT Generalized abdominal pain BI MAMMOGRAM SCREENING WITH TOMOSYNTHESIS WITH CAD (BILATERAL) Routine 02/27/2025 7:55 AM EDT Breast screening LIPID PANEL Routine 04/21/2024 11:22 AM EDT Mixed hyperlipidemia HM COLONOSCOPY FOR RESULT ENTRY ONLY Routine 10/22/2023 1:55 PM EST BD DXA AXIAL (SPINE) WITH HIP Routine 08/17/2019 7:59 AM EDT Screening for condition from Last 3 Months or Most Recently Relevant to Health Maintenance Results * LACERATION REPAIR (08/26/2025 4:56 PM EDT) Other Narrative Yrn Lentz PA-C - 08/26/2025 4:56 PM EDT Yrn Lentz PA-C 08/26/2025 5:00 PM Laceration/Wound Repair Date/Time: 08/26/2025 4:56 PM Performed by: Yrn Lentz PA-C Authorized by: Yrn Lentz PA-C Injury: Body area: Upper extremity Location details: Left hand Laceration length (cm): 5 Foreign bodies: No foreign bodies Tendon involvement: None Nerve involvement: None Vascular damage?: No Patient sedated?: No Anesthesia: Local anesthesia used? Yes Local anesthetic: lidocaine 1% without epinephrine Lidocaine without Epinephrine total (ml): 3 Procedure Details: Preparation: Patient was prepped and draped in usual sterile fashion Irrigation solution: Saline Irrigation method: Syringe Amount of cleaning: Standard Debridement: None Undermining: None Skin closure: 3-0 Prolene, Steri-Strips and glue Number of sutures: 3 Suture technique: Simple Approximation: Close Dressinx4 sterile gauze, antibiotic ointment and non-adhesive packing strip Patient tolerance: Patient tolerated the procedure well with no immediate complications us Yrn trujillo PA-C PROCEDURE/MINOR SURGICAL ORDERABLES Final Result * Fecal immunochemical test x1 (FIT) (08/07/2025 5:07 PM EDT) Pathologist [facility] Immuno Fecal Occult Negative Negative [facility] Stool (Stool) 08/07/2025 5:0 7 PM EDT 08/07/2025 5:10 PM EDT us Pippa Shirley MD LAB BODY FLUIDS AND STOOL O RDERABLES Final Result [address] [address] * (ABNORMAL) Comprehensive metabolic panel (03/13/2025 3:57 PM EDT) [facility] SODIUM 136 133 - 146 mmol/L [facility] POTASSIUM 3.9 3.3 - 5.1 mmol/L [facility] CHLORIDE 100 96 - 108 mmol/L [facility] CO2 27 21 - 35 mmol/L [facility] BUN 22(H) 6 - 19 mg/dL [facility] CREATININE 0.80 0.5 - 1.5 mg/dL [facility] GLUCOSE 88 70 - 99 mg/dL [facility] ALBUMIN 4.3 3.9 - 4.8 g/dL [facility] TOTAL PROTEIN 6.8 6.5 - 8.0 g/dL [facility] CALCIUM 10.3 8.4 - 10.3 mg/dL [facility] ALKALINE PHOSPHATASE 110 39 - 117 U/L [facility] TOTAL BILIRUBIN 0.4 0.0 - 1.2 mg/dL [facility] AST 34 0 - 37 U/L [facility] ALT 36 0 - 40 U/L [facility] GLOBULIN 2.5 1 - 4.8 g/dL [facility] EGFR 77 >59 mL/min/1.7 3m2 [facility] Comment:Estimated glomerular filtration rate calculated using the CKD-EPI refit equation. ANION GAP 13 10 - 20 mmol/L [facility] Blood 03/13/2025 3:57 PM EDT 03/13/2025 4:00 PM EDT us Pippa Shirley MD LAB BLOOD BKR ORDERABLES Fi nal Result [address] [address] * BI MAMMOGRAM SCREENING WITH TOMOSYNTHESIS WITH CAD (BILATERAL) (02/27/2025 7:55 AM EDT) Anatomical Region Laterality Modality Breast Left, Breast Right, Breast Bilateral Bila teral Mammography 02/27/2025 12:0 4 PM EDT Impressions 02/27/2025 12:06 PM EDT No mammographic evidence of malignancy in either breast. Annual screening mammography is recommended. BI-RADS 1 NEGATIVE The patient will be notified of the results and recommendations. Narrative 02/27/2025 12:06 PM EDT BI MAMMOGRAM SCREENING WITH TOMOSYNTHESIS WITH CAD (BILATERAL) Additional patient information: Screening. COMPARISON: Comparison is made with relevant prior imaging. Breast composition: There are scattered areas of fibroglandular density. FINDINGS: No abnormal masses, suspicious calcifications, or other significant findings are identified mammographically in either breast. Procedure Note Karen Pittman MD - 02/27/2025 BI MAMMOGRAM SCREENING WITH TOMOSYNTHESIS WITH CAD (BILATERAL) Additional patient information: Screening. COMPARISON: Comparison is made with relevant prior imaging. Breast composition: There are scattered areas of fibroglandular density. FINDINGS: No abnormal masses, suspicious calcifications, or other significantfindings are identified mammographically in either breast. IMPRESSION: No mammographic evidence of malignancy in either breast. Annual screening mammography is recommended. BI-RADS 1 NEGATIVE The patient will be notified of the results and recommendations. us Pippa Shirley MD IMG MG EXAMS Final Resul t * (ABNORMAL) Lipid panel (04/21/2024 11:22 AM EDT) HDL 62 mg/dL [facility] Comment: Interpretation <40 mg/dL: Low HDL cholesterol (major risk factor for CHD) Greater than or equal to 60 mg/dL: High HDL cholesterol ( negative risk factor for CHD) HDL - cholesterol is affected by a number of factors, e.g. smoking, excerise, hormones, sex and age. CHOLESTEROL 193 0 - 240 mg/dL [facility] TRIGLYCERIDES 116 30 - 160 mg/dL [facility] LDL 108 50 - 129 mg/dL [facility] Comment: LDL levels in terms of risk for coronary heart disease: <100 mg/dL: Optimal 100-129 mg/dL: Near or above optimal 130-159 mg/dL: Borderline high 160-189 mg/dL: High >190 mg/dL: Very High CARDIAC RISK RATIO 3.1(L) 3.3 - 4.4 C [facility] Blood 04/21/2024 11:2 2 AM EDT 04/21/2024 11:31 AM EDT us Best Aaron MD LAB BLOOD BKR ORDERABLES Jennifer l Result [address] [address] * COLONOSCOPY FOR RESULT ENTRY ONLY (10/22/2023 1:55 PM EST) us Historical Provider HEALTH MAINTENANCE Final Result * BD DXA AXIAL (SPINE) WITH HIP (08/17/2019 7:59 AM EDT) Anatomical Region Laterality Modality Bone Density Bone Density 08/17/2019 8:11 AM EDT Impressions 08/17/2019 8:13 AM EDT New lumbar spine osteopenia. Normal left hip bone density. POS - [id number] Narrative 08/17/2019 8:13 AM EDT COMPARISON: 01/05/2007. BONE DENSITY FINDINGS: History: This is a 69-year-old postmenopausal female. Evaluation of the lumbar spine and left hip was performed and felt to be technically adequate. Patient has a right hip replacement. Mild mid lumbar dextroscoliosis. Total bone mineral density in the L1-L4 vertebral bodies was calculated at 0.931 gm/cm2 with a T-score of -1.1 falling within the WHO classification of osteopenia. Z-score of 1.0.Fracture risk increased. 13.4% decrease in bone density which is statistically significant. Total bone mineral density in the left hip was calculated at 0.924 gm/cm2 with a T-score of -0.2 falling within the WHO classification of normal. Z-score of 1.3. Procedure Note Blaine May MD - 08/17/2019 COMPARISON: 01/05/2007. BONE DENSITY FINDINGS: History: This is a 69-year-old postmenopausal female. Evaluation of the lumbar spine and left hip was performed and felt to betechnically adequate. Patient has a right hip replacement. Mild mid lumbar dextroscoliosis. Total bone mineral density in the L1-L4 vertebral bodies was calculated at0.931 gm/cm2 with a T-score of -1.1 falling within the WHO classificationof osteopenia. Z-score of 1.0.Fracture risk increased. 13.4% decreasein bone density which is statistically significant. Total bone mineral density in the left hip was calculated at 0.924 gm/if5pvsx a T-score of -0.2 falling within the WHO classification of normal.Z-score of 1.3. IMPRESSION: New lumbar spine osteopenia. Normal left hip bone density. POS - [id number] Best DUGGAN BD BONE DENSITY DEXA Jennifer l Result from Last 3 Months or Most Recently Relevant to Health Maintenance Insurance MEDICARE PART A & B [facility] MEDICARE PART A & B [facility] MEDIC[facility] PART A & B [facility] MEDIC[facility] A & B [facility] MEDICARE PART A & B [facility] MEDIC[facility] A & B [facility] MEDICARE PART A & B [facility] MEDICARE PART A & B MEDICARE PART A & B MEDICARE PART A & B [facility] Advance Directives For more information, please contact: [phone] (9AM - 5PM [facility], Wednesday-Wednesday) Documents on File Type Date Recorded Patient Orthotist Expl anation Healthcare Proxy 01/06/2021 Living Will 01/06/2021 * Full Code (Latest Code Status on File) Date Activated Date Inactivated Comments 01/08/2021 12:24 PM Question Answer Comments Code Status Confirmed With: Patient Healthcare Agents on File Name Relationship Healthcare Agent Pepperar p Communication Lola Marques Daughter .Primary Health Care Agent (Proxy form on file) [email or web address] Factory Representative Relationship Specialty Start Date End Date Pippa Shirley MD [address] [place] [address], [address] [place] [address] [email or web address] PCP - General Family Medicine 02/10/24 Jailyn Grewal DO [address] [place] [address], [address] [place] [address] Historical LMR Provider 09/04/17 Bettye Amaro CNP [address] [facility], 2nd [place] [address] Historical LMR Provider 09/04/17 Ninoska Sanchez MD [address] [place] [address], [address] [place] [address] Historical LMR Provider 09/04/17 Best Aaron MD [address] [place] [address] [place] [address] Historical LMR Provider 09/04/17 Saurav Cornelius MD [address] [place], [place] [address] [place] [phone] [email or web address] Historical LMR Provider 09/04/17 Pippa Shirley MD [address] [place] [address] [place] [address] [email or web address] Insurance Assigned Provider 02/18/25 Additional Source Comments The information contained in this document represents components of the legal health record. It is not the complete legal health record.[facility]
--- OUTSIDE RECORDS SUMMARY | 2025-09-17 16:44 | XMS_ITS | Encounter Summary ---
Author Organization [facility] Address [address] [employer] [facility] [address] [place] [address] Phone Care Team Providers Care Solution Lead Name Role Phone Jailyn Grewal DO Unavailable Bettye Amaro ONLINE AFFILIATE MARKETING MANAGER Unavailable Ninoska Sanchez MD Unavailable Best Aaron MD Unavailable Saurav Cornelius MD Unavailable Pippa Shirley MD Primary Care Provider Jailyn Grewal DO Unavailable Pippa Shirley MD Unavailable Encounter Details Date Type Department Care Team (Late st Contact Info) Description 07/01/2024 Procedure Pass [facility], Ct Scan - [address] [address] Social History Tobacco Use Types Packs/Day Years [...] 1:45 PM EDT Bessie Guadarrama, RN * [place] Suicide Severity Rating Scale (Screener/Recent Self-Report) Question [...] st Contact Info) Description 05/01/2025 Procedure Pass [address] [address] 10/18/2025 3:15 PM EST Appointment [address] [address] Vladimir Mccoy MD 30 [place] [address] 12/20/2025 2:00 PM EST Office Visit [address] [address] Pippa Shirley MD [address] [place] [address], [facility] 7 [place] [address] [email or web address] 12/31/2025 11:30 AM EST Office Visit [facility] 10 [place], [place] [phone] Unknown, Unknown, Angela Sen PA-C [address] [id number] [email or web address] 02/28/2026 8:30 AM EDT Office Visit [facility] Neurology [address] [place] [address] Albert Lynn MD 22 [facility], [address] [place] [address] documented as of this encounter Visit Diagnoses Not on filedocumented in this encounter Additional Health Concerns Assessment Noted Time PHQ-2 Depression Total Score: 2 09/08/20 22 4:13 PM EDT documented as of this encounter Care Teams Solution Lead Relationship Specialty Start Date End Date Pippa Shirley MD [address] [place] [address] 7 [place] [address] [email or web address] PCP - General Family Medicine 02/10/24 Jailyn Grewal DO [address] [place] [address] 7 [place] [address] Historical LMR Provider 09/04/17 Bettye Amaro CNP [address] [address] Historical LMR Provider 09/04/17 Ninoska Sanchez MD [address] [place] [address] 7 [place] [address] Historical LMR Provider 09/04/17 Best Aaron MD [address] [place] [address] 7 [place] [address] Historical LMR Provider 09/04/17 Saurav Cornelius MD [address] [place], [place] [address] [place] [phone] [email or web address] Historical LMR Provider 09/04/17 Jailyn Grewal DO [address] [place] [address], [address] [place] [address] [email or web address] Insurance Assigned Provider 02/19/24 Pippa Shirley MD [address] [place] [address], [address] [place] [address] [email or web address] Insurance Assigned Provider 02/18/25 documented as of this encounter Additional Source Comments The information contained in this document represents components of the legal health record. It is not the complete legal health record.[facility]
--- OUTSIDE RECORDS SUMMARY | 2025-09-17 16:44 | XMS_ITS | Encounter Summary ---
Author Organization [facility] Address [facility] [address] [place] [address] Phone Care Team Providers Care Belt Press Operator Name Role Phone Jailyn Grewal DO Unavailable Sondra Bettyeminh Leggett MIDDLE STITCHER Unavailable Ninoska Sanchez MD Unavailable [phone] Best Aaron MD Unavailable [phone] Saurav Cornelius MD Unavailable [phone] Best Aaron MD Unavailable Best Aaron MD Primary Care Provider Pippa Shirley MD Primary Care Provider [phone] Jailyn Grewal DO Unavailable Pippa Shirley MD Unavailable Encounter Details Date Type Department Care Team (Late st Contact Info) Description 03/09/2023 Procedure Pass [facility] Endoscopy Admitting Dept Virtual Department [address] [place] [address] Social History Tobacco Use Types Packs/Day Years [...] Answer Date Recorded Are you interested in help w ith more adult education (for example, completing high school, GED, job training, learning the [place] language, technical skills, or developing parenting skills)? No 04/01/2021 Food Answer Date Recorded Within the past [...] basis, and looking for work? No 04/01/2021 Comments No Sex and Gender Information Value [...] Encounters Date Type Department Care Team (Late Contact Info) Description 05/01/2025 Procedure Pass [facility], [facility] Scan - [facility] 30 [place] [address] 10/18/2025 3:15 PM EST Appointment [facility], Ct Scan - [facility] 30 [place] [address] Vladimir Mccoy MD 30 [place] [address] 12/20/2025 2:00 PM EST Office Visit [facility] [address] [place] [address] Pippa Shirley MD 234 [facility], [facility] 7 [place] [address] [email or web address] 12/31/2025 11:30 AM EST Office Visit [facility] 10 [place] [address] Unknown, Unknown, Angela Sen PA-C [address] [place] [address] [email or web address] 02/28/2026 8:30 AM EDT Office Visit [facility] Neurology [address] [place] [address] Albert Lynn MD [address] [place] [address], 2nd [place] [address] [email or web address] documented as of this encounter Visit Diagnoses Not on filedocumented in this encounter Additional Health Concerns Infection Onset Date Last Indicated Resolved Time COVID-19 06/15/2023 06/15/2023 07/06/2023 1:23 AM EDT Assessment Noted Time PHQ-2 Depression Total Score: 2 09/08/20 22 4:13 PM EDT documented as of this encounter Care Teams Belt Press Operator Relationship Specialty Start Date End Date Best Aaron MD [address] [place] [address], [address] [place] [address] PCP - General Family Medicine 10/19/19 02/09/24 Pippa Shirley MD [address] [place] [address], [facility] 7 [place] [address] [email or web address] PCP - General Family Medicine 02/10/24 Jailyn Grewal DO [address] [place] [address], [facility] 7 [place] [address] Historical LMR Provider 09/04/17 Bettye Amaro CNP [address] [place] [address], [address] [place] [address] [email or web address] Historical LMR Provider 09/04/17 Ninoska Sanchez MD [address] [place] [address] 7 [place] [address] [email or web address] Historical LMR Provider 09/04/17 Best Aaron MD [address] [place] [address] 7 [place] [address] [email or web address] Historical LMR Provider 09/04/17 Saurav Cornelius MD [address] [place], [place] [address] [place] [phone] [email or web address] Historical LMR Provider 09/04/17 Best Aaron MD [address] [place] [address] 7 [place] [address] Insurance Assigned Provider 09/18/1702/19/24 Jailyn Grewal DO [address] [place] [address], [address] [place] [address] Insurance Assigned Provider 02/19/24 Pippa Shirley MD [address] [place] [address], [address] [place] [address] [email or web address] Insurance Assigned Provider 02/18/25 documented as of this encounter Additional Source Comments The information contained in this document represents components of the legal health record. It is not the complete legal health record.[facility]
--- OUTSIDE RECORDS SUMMARY | 2025-09-17 16:44 | XMS_ITS | Encounter Summary ---
Author Organization [facility] Address [facility] [address] [place] [address] Phone Care Team Providers Care It Trainer Name Role Phone Alysa Benito RAILROAD DISPATCHER Unavailable Jailyn Grewal DO Unavailable Esperanza Cisneros RAILROAD DISPATCHER Unavailable Bettye Amaro WARD AIDE Unavailable Caprice Johns RAILROAD DISPATCHER Unavailable [phone] Noe Fitzpatrick MD Unavailable Adelaida Awad MD Unavailable Kadi Nazario RAILROAD DISPATCHER Unavailable Ninoska Sanchez MD Unavailable Best Aaron MD Unavailable Yashira Felix RAILROAD DISPATCHER Unavailable [phone] Belinda Wolfe MD Unavailable [phone] Carlos Miranda MD Unavailable Juanis Boyd MD Unavailable Saurav Cornelius MD Unavailable Giulia Alarcon MD Unavailable Albert Ley MD Unavailable [phone] Luis Carlos De Jesus WARD AIDE Unavailable Best Aaron MD Unavailable Best Aaron MD Primary Care Provider [phone] [facility] Primary Care Provider [phone] Jailyn Grewal DO Unavailable [phone] Pippa Shirley MD Unavailable [phone] Encounter Details Date Type Department Care Team (Latest Contact Info) Description 04/03/2021 Transcribe Orders Virtual Department 30 [place] [address] Shaina Hebert MD [address] [place] [address], [facility] 102 [place] [address] [email or web address] Breast screening (Primary Dx) Social History Tobacco Use Types Packs/Day Years [...] high school, GED, job training, learning the [place] language, technical skills, or developing parenting skills)? [...] st Contact Info) Description 05/01/2025 Procedure Pass [address] [address] 10/18/2025 3:15 PM EST Appointment [address] [address] Vladimir Mccoy MD 30 [place] [address] 12/20/2025 2:00 PM EST Office Visit [facility] Medicine 234 [place] [address] Pippa Shirley MD 234 [facility], [address] [place] [address] [email or web address] 12/31/2025 11:30 AM EST Office Visit [facility] 10 [place] [address] Unknown, Unknown, Angela Sen PA-C [address] [address] [email or web address] 02/28/2026 8:30 AM EDT Office Visit [facility] Neurology 22 [place] [address] Albert Lynn MD 22 [facility], 2nd [place] [address] [email or web address] documented as of this encounter Results * BI MAMMOGRAM SCREENING WITH TOMOSYNTHESIS WITH CAD (BILATERAL) (07/03/2021 9:17 AM EDT) Anatomical Region Laterality Modality Breast Left, Breast Right, Breast Bilateral Bila teral Mammography 07/03/2021 10:2 4 AM EDT Impressions 07/03/2021 10:27 AM EDT No findings suspicious for malignancy. In the absence of a worrisome palpable abnormality, annual screening mammography is recommended. BI-RADS CATEGORY: 2 - Benign finding. DENSITY: There are scattered fibroglandular densities. Narrative 07/03/2021 10:27 AM EDT COMPARISON: 03/08/2015 through 07/02/2020. Bilateral 3-D tomosynthesis with 2-D reconstructions in the CC and MLO projection. Computer-aided detection system also utilized. No new mass, asymmetry, architectural distortion or suspicious calcifications have become apparent on either side. Scattered bilateral subcentimeter circumscribed masses unchanged. Procedure Note Pawan Quezada MD - 07/03/2021 COMPARISON: 03/08/2015 through 07/02/2020. Bilateral 3-D tomosynthesis with 2-D reconstructions in the CC and MLOprojection. Computer-aided detection system also utilized. No new mass, asymmetry, architectural distortion or suspiciouscalcifications have become apparent on either side. Scattered bilateral subcentimeter circumscribed masses unchanged. IMPRESSION: No findings suspicious for malignancy. In the absence of a worrisomepalpable abnormality, annual screening mammography is recommended. BI-RADS CATEGORY: 2 - Benign finding. DENSITY: There are scattered fibroglandular densities. Shaina Hebert MD IMG MG EXAMS Final Result documented in this encounter Visit Diagnoses Diagnosis Breast screening- Primary Breast screening, unspecified Breast screening Breast screening, unspecified documented in this encounter Additional Health Concerns Infection Onset Date Last Indicated Resolved Time CoV-Risk 03/10/2022 03/10/2022 03/21/2022 1:24 AM EDT CoV-Risk 11/23/2022 11/23/2022 12/04/2022 1:22 AM EST COVID-19 06/15/2023 06/15/2023 07/06/2023 1:23 AM EDT Assessment Noted Time PHQ-2 Depression Total Score: 1 06/06/20 9:11 AM EDT documented as of this encounter Care Teams It Trainer Relationship Specialty Start Date End Date Best Aaron MD [address] [place] [address] 7 [place] [address] [email or web address] PCP - General Family Medicine 10/19/19 02/09/24 Pippa Shirley MD [address] [place] [address] 7 [place] [address] [email or web address] PCP - General Family Medicine 02/10/24 Alysa Benito NP 1 [facility] [place] [address] Historical LMR Provider 09/04/17 2 Jailyn Grewal DO [address] [place] [address], [address] [place] [address] [email or web address] Historical LMR Provider 09/04/17 Esperanza Cisneros, BRIEN 29 [place] [address] Historical LMR Provider 09/04/17 2 Bettye Amaro, ROBERTO [address] [address] [email or web address] Historical LMR Provider 09/04/17 Caprice Johns NP [address] [place] [address] [email or web address] Historical LMR Provider 09/04/17 11/22/21 Noe Fitzpatrick MD [address] [place] [address] [email or web address] Historical LMR Provider 09/04/17 11/22/21 Adelaida Awad MD [address] [place] [address] [email or web address] Historical LMR Provider 09/04/17 Kadi Nazario NP [address] [place] [address] Historical LMR Provider 09/04/17 2 Ninoska Sanchez MD [address] [place] [address], [address] [place] [address] Historical LMR Provider 09/04/17 Best Aaron MD [address] [place] [address] Historical LMR Provider 09/04/17 Yashira Felix NP [address] [place] [address] Historical LMR Provider 09/04/17 2 Belinda Wolfe MD [address] [place] [address] Historical LMR Provider 09/04/17 2 Carlos Miranda MD [address] [place] [address] Historical LMR Provider 09/04/17 11/22/21 Juanis Boyd MD [address] [place] [address] Historical LMR Provider 09/04/17 11/22/21 Saurav Cornelius MD [address] [place], [place] [address] [place] [address] [email or web address] Historical LMR Provider 09/04/17 Giulia Alarcon MD [address] [place] [address] Historical LMR Provider 09/04/17 11/22/21 Albert Ley MD [address] [place] [address] Historical LMR Provider 09/04/17 2 Luis Carlos De Jesus CNP [address] [place] [address], [address] [place] [address] [email or web address] Historical LMR Provider 09/04/17 Best Aaron MD [address] [place] [address] 7 [place] [address] Insurance Assigned Provider 09/18/17 02/19/24 Jailyn Grewal DO [address] [place] [address] 7 [place] [address] [email or web address] Insurance Assigned Provider 02/19/24 02/18/25 Pippa Shirley MD [address] [place] [address] 7 [place] [address] [email or web address] Insurance Assigned Provider 02/18/25 documented as of this encounter Additional Source Comments The information contained in this document represents components of the legal health record. It is not the complete legal health record.[facility]
--- OUTSIDE RECORDS SUMMARY | 2025-09-17 16:44 | XMS_ITS | Encounter Summary ---
Author Organization [facility] Address [facility] [employer] [facility] [address] [place] [address] Phone Care Team Providers Care Injection Molding Machine Setter Name Role Phone Jailyn Grewal DO Unavailable Sondra Bettyeminh Leggett MANAGER PERFORMANCE IMPROVEMENT Unavailable Ninoska Sanchez MD Unavailable [phone] Best Aaron MD Unavailable [phone] Saurav Cornelius MD Unavailable [phone] Best Aaron MD Unavailable Best Aaron MD Primary Care Provider [phone] Pippa Shirley MD Primary Care Provider [phone] Jailyn Grewal DO Unavailable Pippa Shirley MD Unavailable [phone] Reason for Referral * MRI/CAT Scan - Closed Specialty Diagnoses / Procedures Referred By Controbert t Referred To Contact Radiology Diagnoses Radiculopathy, lumbar region History of falling Spinal stenosis, lumbar region with neurogenic claudication Procedures MRI Lumbar Spine Marquita Roldan NP Phone: tel: fax: [email or web address] Referral ID Status Reason Start Date Expiration Date Visits Re quested Visits Authorized [id number] Closed 07/08/2023 1 1 Encounter Details Date Type Department Care Team (Latest Contact Info) Description 07/08/2023 Transcribe Orders Virtual Department 30 [place] [address] Marquita Roldan NP [address] [place] [phone] [email or web address] Radiculopathy, lumbar region (Primary Dx); History of falling; Spinal stenosis, lumbar region with neurogenic claudication Social History Tobacco Use Types Packs/Day Years [...] st Contact Info) Description 05/01/2025 Procedure Pass [address] [address] 10/18/2025 3:15 PM EST Appointment [address] [address] Vladimir Mccoy MD 30 [place] [address] 12/20/2025 2:00 PM EST Office Visit [facility] 234 [place] [address] Pippa Shirley MD 234 [facility], [address] [place] [address] [email or web address] 12/31/2025 11:30 AM EST Office Visit [facility] 10 [place] [address] Unknown, Unknown, Angela Sen PA-C [address] [place] [address] [email or web address] 02/28/2026 8:30 AM EDT Office Visit [facility] Neurology [address] [place] [address] [place] [address] Albert Lynn MD [address] [place] [address], 2[address] [place] [address] documented as of this encounter Results * MRI LUMBAR SPINE (BONE) WITHOUT CONTRAST (08/02/2023 6:12 PM EDT) Anatomical Region Laterality Modality L-spine Magnetic Resonan ce 08/05/2023 5:10 PM EDT Impressions 08/06/2023 12:29 AM EDT L3-S1 posterior decompression. Adjacent segment degeneration with worsening left paracentral disc protrusion at L2-3. This causes moderate left lateral recess, mild spinal canal, and severe left neuroforaminal stenoses. There is likely compression of the transiting left L3 nerve root. Similar moderate to severe right and mild left neuroforaminal stenosis at L4-5. Similar mild neuroforaminal stenosis at L3-4. L2-3 endplate marrow edema, may reflect an axial pain generator. Narrative 08/06/2023 12:29 AM EDT MRI LUMBAR SPINE (BONE) WITHOUT CONTRAST TECHNIQUE: MRI LUMBAR SPINE (BONE) WITHOUT CONTRAST COMPARISON: MRI LUMBAR SPINE (NEURO) WITHOUT CONTRAST FINDINGS: ALIGNMENT: Dextroconvex lumbar scoliosis centered at L2 with a rotatory component. 2 mm L3-4 anterolisthesis. MARROW: No compression fracture or marrow replacing lesion. DISCS: Disc desiccation L1-L5. Endplate marrow edema at L2-3. CONUS: Normal appearance and terminates at L1-L2. PARASPINAL SOFT TISSUES: Mild to moderate posterior paraspinal muscle atrophy. Post surgical changes from L3-L4, L4-5, and L5-S1 laminectomy. FINDINGS BY LEVEL: T12-L1:Facet arthropathy and thickening of ligamentum flavum. No spinal canal neuroforaminal stenosis. L1-2: Facet arthropathy. No spinal canal or neuroforaminal stenosis. L2-3: Diffuse disc bulge with worsening left paracentral disc protrusion (5:22), facet arthropathy, and thickening of ligamentum flavum. Mild spinal canal stenosis. Moderate left lateral recess stenosis. Severe left and no right neuroforaminal stenosis. L3-4: Diffuse disc bulge, facet arthropathy, and thickening of ligamentum flavum. No spinal canal stenosis. Mild neuroforaminal stenosis. L4-5: Posterior decompression. Diffuse disc bulge with posterior annular fissure and facet arthropathy. No spinal canal stenosis. Moderate to severe right and mild left neuroforaminal stenosis. L5-S1: Severe decompression. Facet arthropathy. No spinal canal or neuroforaminal stenosis. Procedure Note Sung Velazquez MD - 08/06/2023 MRI LUMBAR SPINE (BONE) WITHOUT CONTRAST TECHNIQUE: MRI LUMBAR SPINE (BONE) WITHOUT CONTRAST COMPARISON: MRI LUMBAR SPINE (NEURO) WITHOUT CONTRAST FINDINGS: ALIGNMENT: Dextroconvex lumbar scoliosis centered at L2 with a rotatorycomponent. 2 mm L3-4 anterolisthesis. MARROW: No compression fracture or marrow replacing lesion. DISCS: Disc desiccation L1-L5. Endplate marrow edema at L2-3. CONUS: Normal appearance and terminates at L1-L2. PARASPINAL SOFT TISSUES: Mild to moderate posterior paraspinal muscleatrophy. Post surgical changes from L3-L4, L4-5, and L5-S1 laminectomy. FINDINGS BY LEVEL: T12-L1:Facet arthropathy and thickening of ligamentum flavum. No spinalcanal neuroforaminal stenosis. L1-2: Facet arthropathy. No spinal canal or neuroforaminal stenosis. L2-3: Diffuse disc bulge with worsening left paracentral disc protrusion(5:22), facet arthropathy, and thickening of ligamentum flavum. Mildspinal canal stenosis. Moderate left lateral recess stenosis. Severe leftand no right neuroforaminal stenosis. L3-4: Diffuse disc bulge, facet arthropathy, and thickening of ligamentumflavum. No spinal canal stenosis. Mild neuroforaminal stenosis. L4-5: Posterior decompression. Diffuse disc bulge with posterior annularfissure and facet arthropathy. No spinal canal stenosis. Moderate tosevere right and mild left neuroforaminal stenosis. L5-S1: Severe decompression. Facet arthropathy. No spinal canal orneuroforaminal stenosis. IMPRESSION: L3-S1 posterior decompression. Adjacent segment degeneration with worsening left paracentral discprotrusion at L2-3. This causes moderate left lateral recess, mild spinalcanal, and severe left neuroforaminal stenoses. There is likelycompression of the transiting left L3 nerve root. Similar moderate to severe right and mild left neuroforaminal stenosis atL4-5. Similar mild neuroforaminal stenosis at L3-4. L2-3 endplate marrow edema,may reflect an axial pain generator. Marquita Roldan NP IMG MR XSPECIALTY Final Result documented in this encounter Visit Diagnoses Diagnosis Radiculopathy, lumbar region- Primary Thoracic or lumbosacral neuritis or radiculitis, unspecified History of falling Spinal stenosis, lumbar region with neurogenic claudication Radiculopathy, lumbar region Thoracic or lumbosacral neuritis or radiculitis, unspecified History of falling Spinal stenosis, lumbar region with neurogenic claudication documented in this encounter Additional Health Concerns Assessment Noted Time PHQ-2 Depression Total Score: 2 09/08/20 22 4:13 PM EDT documented as of this encounter Care Teams Injection Molding Machine Setter Relationship Specialty Start Date End Date Best Aaron MD [address] [place] [address], [facility] 7 [place] [address] PCP - General Family Medicine 10/19/19 02/09/24 Pippa Sihrley MD [address] [place] [address], [address] [place] [address] [email or web address] PCP - General Family Medicine 02/10/24 Jailyn Grewal DO [address] [place] [address] 7 [place] [address] Historical LMR Provider 09/04/17 Sondra Bettye Betsey, ROBERTO [address] [place] [address], 2nd [place] [address] Historical LMR Provider 09/04/17 Ninoska Sanchez MD [address] [place] [address] 7 [place] [address] Historical LMR Provider 09/04/17 Best Aaron MD [address] [place] [address] 7 [place] [address] Historical LMR Provider 09/04/17 Saurav Cornelius MD [address] [place], [place] [address] [place] [address] [email or web address] Historical LMR Provider 09/04/17 Best Aaron MD [address] [place] [address] 7 [place] [address] [email or web address] Insurance Assigned Provider 09/18/1702/19/24 Jailyn Grewal DO [address] [place] [address] 7 [place] [address] Insurance Assigned Provider 02/19/24 Pippa Shirley MD [address] [place] [address], [address] [place] [address] [email or web address] Insurance Assigned Provider 02/18/25 documented as of this encounter Additional Source Comments The information contained in this document represents components of the legal health record. It is not the complete legal health record.[facility]
--- OUTSIDE RECORDS SUMMARY | 2025-09-17 16:44 | XMS_ITS | Encounter Summary ---
Author Organization [facility] Address [facility] [employer] [facility] [address] [place] [address] Phone Care Team Providers Care Paper Baling Machine Operator Name Role Phone Jailyn Grewal DO Unavailable Sondra Bettyeminh Leggett SERVICE CENTER MANAGER Unavailable Ninsoka Sanchez MD Unavailable [phone] Best Aaron MD Unavailable [phone] Saurav Cornelius MD Unavailable [phone] Best Aaron MD Unavailable Best Aaron MD Primary Care Provider Pippa Shirley MD Primary Care Provider [phone] Jailyn Grewal DO Unavailable Pippa Shirley MD Unavailable [phone] Encounter Details Date Type Department Care Team (Latest Contact Info) Description 07/07/2023 Ancillary Orders [facility], X-Ray - [facility] [address] [place] [address] Marquita Roldan, PIN DRAFTING MACHINE OPERATOR [address] [place] [address] [email or web address] Vertebrogenic low back pain; History of fall Social History Tobacco Use Types Packs/Day Years [...] st Contact Info) Description 05/01/2025 Procedure Pass [facility], Ct Scan - [address] [address] 10/18/2025 3:15 PM EST Appointment [facility], Ct Scan [address] [address] Vladimir Mccoy MD 30 [place] [address] 12/20/2025 2:00 PM EST Office Visit [address] [address] Pippa Shirley MD [address] [place] [address], [facility] [address] [place] [address] [email or web address] 12/31/2025 11:30 AM EST Office Visit [facility] [address] [place] [address] Unknown, Unknown, Angela Sen PA-C [address] [place] [address] [email or web address] 02/28/2026 8:30 AM EDT Office Visit [facility] Neurology [address] [place] [address] [place] [address] Albert Lynn MD [address] [place] [address], 2nd [place] [address] documented as of this encounter Results * XR LUMBOSACRAL SPINE 4 OR MORE VIEWS (07/07/2023 11:23 AM EDT) Anatomical Region Laterality Modality L-spine Computed Radiogr aphy 07/09/2023 11:0 2 PM EDT Impressions 07/09/2023 11:06 PM EDT Similar dextroconvex lumbar scoliosis centered at L2. Post surgical changes from L4-5 posterior decompression Similar moderate facet predominant lumbar spine degenerative change. Narrative 07/09/2023 11:06 PM EDT XR LUMBOSACRAL SPINE 4 OR MORE VIEWS COMPARISON: XR LUMBOSACRAL SPINE 4 OR MORE VIEWS FINDINGS: ALIGNMENT: Dextroconvex scoliosis centered at L2. 4 mm L3-4 anterolisthesis. VERTEBRAE: Vertebral body heights preserved. L4-5 posterior decompression without fusion. DISCS: Disc height loss at the lower thoracic spine, L2-3, L4-5, and L5-S1. FACETS: Facet arthropathy L2-S1. PARASPINAL SOFT TISSUES: Constipation. Right hip arthroplasty. Procedure Note Sung Velazquez MD - 07/09/2023 XR LUMBOSACRAL SPINE 4 OR MORE VIEWS COMPARISON: XR LUMBOSACRAL SPINE 4 OR MORE VIEWS FINDINGS: ALIGNMENT: Dextroconvex scoliosis centered at L2. 4 mm L3-4anterolisthesis. VERTEBRAE: Vertebral body heights preserved. L4-5 posterior decompressionwithout fusion. DISCS: Disc height loss at the lower thoracic spine, L2-3, L4-5, andL5-S1. FACETS: Facet arthropathy L2-S1. PARASPINAL SOFT TISSUES: Constipation. Right hip arthroplasty. IMPRESSION: Similar dextroconvex lumbar scoliosis centered at L2. Post surgical changes from L4-5 posterior decompression Similar moderate facet predominant lumbar spine degenerative change. Marquita Roldan PIN DRAFTING MACHINE OPERATOR IMG XR SPINE Final Result documented in this encounter Visit Diagnoses Diagnosis Vertebrogenic low back pain History of fall Personal history of fall Vertebrogenic low back pain History of fall Personal history of fall documented in this encounter Additional Health Concerns Assessment Noted Time PHQ-2 Depression Total Score: 2 09/08/20 22 4:13 PM EDT documented as of this encounter Care Teams Paper Baling Machine Operator Relationship Specialty Start Date End Date Best Aaron MD [address] [place] [address] 7 [place] [address] PCP - General Family Medicine 10/19/19 02/09/24 Pippa Shirley MD [address] [place] [address] 7 [place] [address] [email or web address] PCP - General Family Medicine 02/10/24 Jailyn Grewal DO [address] [place] [address] 7 [place] [address] Historical LMR Provider 09/04/17 Bettye Amaro CNP [address] [place] [address] Historical LMR Provider 09/04/17 Ninoska Sanchez MD [address] [place] [address] 7 [place] [address] Historical LMR Provider 09/04/17 Best Aaron MD [address] [place] [address] 7 [place] [address] Historical LMR Provider 09/04/17 Saurav Cornelius MD [address] [place], [place] [address] [place] [phone] [email or web address] Historical LMR Provider 09/04/17 Best Aaron MD [address] [place] [address], [address] [place] [address] [email or web address] Insurance Assigned Provider 09/18/1702/19/24 Jailyn Grewal DO [address] [place] [address], [address] [place] [address] Insurance Assigned Provider 02/19/24 Pippa Shirley MD [address] [place] [address], [address] [place] [address] [email or web address] Insurance Assigned Provider 02/18/25 documented as of this encounter Additional Source Comments The information contained in this document represents components of the legal health record. It is not the complete legal health record.[facility]
--- OUTSIDE RECORDS SUMMARY | 2025-09-17 16:44 | XMS_ITS | Encounter Summary ---
Author Organization [facility] Address [facility] [employer] [facility] [address] [place] [address] Phone Care Team Providers Care Rides Attendant Name Role Phone Jailyn Grewal DO Unavailable Sondra Bettyeminh Leggett SEED PELLETER Unavailable Ninoska Sanchez MD Unavailable [phone] Best Aaron MD Unavailable [phone] Saurav Cornelius MD Unavailable [phone] Best Aaron MD Unavailable Best Aaron MD Primary Care Provider Pippa Shirley MD Primary Care Provider [phone] Jailyn Grewal DO Unavailable Pippa Shirley MD Unavailable [phone] Encounter Details Date Type Department Care Team (Late st Contact Info) Description 01/13/2022 Procedure Pass [facility], [place] [address] [place] [address] Social History Tobacco Use Types Packs/Day Years [...] high school, GED, job training, learning the Colombian language, technical skills, or developing parenting skills)? [...] (Late Contact Info) Description 05/01/2025 Procedure Pass [facility], Ct Scan - [address] [address] 10/18/2025 3:15 PM EST Appointment [facility], Ct Scan - [facility] 30 [place] [address] Vladimir Mccoy MD 30 [place] [address] 12/20/2025 2:00 PM EST Office Visit [facility] [address] [place] [address] Pippa Shirley MD 234 [facility] 7 [place] [address] [email or web address] 12/31/2025 11:30 AM EST Office Visit [facility] Gastroenterology Clinic 10 [place] [address] Unknown, Unknown, Angela Sen PA-C [address] [address] [email or web address] 02/28/2026 8:30 AM EDT Office Visit [facility] Neurology [address] [place] [address] Albert Lynn MD [address] [place] [address], 2nd [place] [address] [email or web address] documented as of this encounter Visit Diagnoses Not on filedocumented in this encounter Additional Health Concerns Infection Onset Date Last Indicated Resolved Time CoV-Risk 03/10/2022 03/10/2022 03/21/2022 1:24 AM EDT CoV-Risk 11/23/2022 11/23/2022 12/04/2022 1:22 AM EST COVID-19 06/15/2023 06/15/2023 07/06/2023 1:23 AM EDT Assessment Noted Time PHQ-2 Depression Total Score: 1 06/06/20 19 9:11 AM EDT documented as of this encounter Care Teams Rides Attendant Relationship Specialty Start Date End Date Best Aaron MD [address] [place] [address] 7 [place] [address] PCP - General Family Medicine 10/19/19 02/09/24 Pippa Shirley MD [address] [place] [address] 7 [place] [address] [email or web address] PCP - General Family Medicine 02/10/24 Jailyn Grewal DO [address] [place] [address] 7 [place] [address] Historical LMR Provider 09/04/17 Bettye Amaro, ROBERTO [address] [place] [address], 2nd [place] [address] Historical LMR Provider 09/04/17 Ninoska Sanchez MD [address] [place] [address] 7 [place] [address] Historical LMR Provider 09/04/17 Best Aaron MD [address] [place] [address] 7 [place] [address] Historical LMR Provider 09/04/17 Saurav Cornelius MD [address] [place], [place] [address] [place] [address] [email or web address] Historical LMR Provider 09/04/17 Best Aaron MD [address] [place] [address], [facility] 7 [place] [address] [email or web address] Insurance Assigned Provider 09/18/1702/19/24 Jailyn Grewal DO [address] [place] [address] 7 [place] [address] [email or web address] Insurance Assigned Provider 02/19/24 Pippa Shirley MD [address] [place] [address] 7 [place] [address] [email or web address] Insurance Assigned Provider 02/18/25 documented as of this encounter Additional Source Comments The information contained in this document represents components of the legal health record. It is not the complete legal health record.[facility]
--- OUTSIDE RECORDS SUMMARY | 2025-09-17 16:44 | XMS_ITS | Encounter Summary ---
Author Organization [facility] Address [employer] [facility] [address] [place] [address] Phone Care Team Providers Care Dining Room Busser Name Role Phone Jailyn Grewal DO Unavailable Sondra Bettyeminh Leggett TEAM ASSEMBLY LINE MACHINE OPERATOR Unavailable Ninoska Sanchez MD Unavailable Best Aaron MD Unavailable aSurav Cornelius MD Unavailable Pippa Shirley MD Primary Care Provider [phone] Jailyn Grewal DO Unavailable Pippa Shirley MD Unavailable Encounter Details Date Type Department Care Team (Latest Contact Info) Description 09/05/2024 Transcribe Orders [facility] Department [address] [place] [address] Pippa Shirley MD 234 [facility], [address] [place] [address] [email or web address] Breast screening (Primary Dx) Social History Tobacco [...] as food, clothing, or medical care? No 08/08/2024 In the past 12 months have y ou been in a relationship with a person who hurts, threatens, or tries to control you? No 08/08/2024 Are you denied basic needs s uch as food, clothing, or medical care? No 08/08/2024 In the past 12 months have y ou been in a relationship with a person who hurts, threatens, or tries to control you? No 08/08/2024 Comments No Sex and Gender Information Value [...] st Contact Info) Description 05/01/2025 Procedure Pass [facility], [address] [address] 10/18/2025 3:15 PM EST Appointment [address] [address] Vladimir Mccoy MD 30 [place] [address] 12/20/2025 2:00 PM EST Office Visit [facility] [address] [address] Pippa Shirley MD [address] [place] [address], [address] [place] [address] [email or web address] 12/31/2025 11:30 AM EST Office Visit [facility] 10 [place] [address] Unknown, Unknown, Angela Sen PA-C [address] [place] [address] [email or web address] 02/28/2026 8:30 AM EDT Office Visit [facility] Neurology [address] [place] [address] [place] [address] Albert Lynn MD 22 [facility], 2nd [place] [address] [email or web address] documented as of this encounter Results * [...] be notified of the results and recommendations. Pippa Shirley MD IMG MG EXAMS Final Resul t documented in this encounter Visit Diagnoses Diagnosis Breast screening- Primary Breast screening, unspecified Breast screening Breast screening, unspecified documented in this encounter Additional Health Concerns Assessment Noted Time PHQ-2 Depression Total Score: 2 08/08/20 24 5:13 PM EDT documented as of this encounter Care Teams Dining Room Busser Relationship Specialty Start Date End Date Pippa Shirley MD [address] [place] [address] 7 [place] [address] [email or web address] PCP - General Family Medicine 02/10/24 Jailyn Grewal DO [address] [place], [place] [address] [address] Historical LMR Provider 09/04/17 Bettye Amaro CNP [address] [place] [address], [address] [place] [address] Historical LMR Provider 09/04/17 Ninoska Sanchez MD [address] [place] [address] 7 [place] [address] Historical LMR Provider 09/04/17 Best Aaron MD [address] [place] [address] 7 [place] [address] Historical LMR Provider 09/04/17 Saurav Cornelius MD [address] [place], [place] [address] [place] [address] [email or web address] Historical LMR Provider 09/04/17 Jailyn Grewal DO [address] [place] [address], [address] [place] [address] [email or web address] Insurance Assigned Provider 02/19/24 Pippa Shirley MD 234 [facility] 7 [place] [address] [email or web address] Insurance Assigned Provider 02/18/25 documented as of this encounter Additional Source Comments The information contained in this document represents components of the legal health record. It is not the complete legal health record.[facility]
--- OUTSIDE RECORDS SUMMARY | 2025-09-17 16:44 | XMS_ITS | Encounter Summary ---
Author Organization [facility] Address [facility] [employer] [facility] [address] [place] [address] Phone Care Team Providers Care Oil Driller Name Role Phone Alysa Benito LEATHER FLESHER Unavailable Jailyn Grewal DO Unavailable Esperanza Cisneros LEATHER FLESHER Unavailable Bettye Amaro PERIANESTHESIA RN Unavailable Caprice Johns LEATHER FLESHER Unavailable [phone] Noe Fitzpatrick MD Unavailable Adelaida Awad MD Unavailable Kadi Nazario LEATHER FLESHER Unavailable Ninoska Sanchez MD Unavailable Best Aaron MD Unavailable Yashira Felix LEATHER FLESHER Unavailable Belinda Wolfe MD Unavailable Carlos Miranda MD Unavailable Juanis Boyd MD Unavailable Saurav Cornelius MD Unavailable Giulia Alarcon MD Unavailable Albert Ley MD Unavailable [phone] LalitomarineLuis Carlos king PERIANESTHESIA RN Unavailable Best Aaron MD Unavailable Best Aaron MD Primary Care Provider [phone] Pippa Shirley MD Primary Care Provider Jailyn Grewal DO Unavailable Pippa Shirley MD Unavailable [phone] Reason for Visit * Reason Comments Medication Refill Encounter Details Date Type Department Care Team (Late st Contact Info) Description 08/12/2021 Refill [facility] [address] [place] [address] Jailyn Grewal, DO 234 [facility], [address] [place] [address] [email or web address] Medication Refill Social History Tobacco Use Types Packs/Day Years [...] high school, GED, job training, learning the Albanian language, technical skills, or developing parenting skills)? [...] on file documented as of this encounter Progress Notes * Chika Torres [place] - 08/12/2021 7:21 AM EDT Lipid pended CHOLESTEROL MEDICATION REFILL Last office visit: 07/08/2021 Next office visit: 10/21/2021 Last lipid panel: Lab Results Component Value Date CHOL 211 05/30/2020 HDL 89 05/30/2020 LDL 105 05/30/2020 TRIG 85 05/30/2020 CHOLHDL 2.4 (L) 05/30/2020 Last CMP/BMP: Lab Results Component Value Date NA 137 02/25/2021 K 4.2 02/25/2021 CL 100 02/25/2021 CO2 27 02/25/2021 BUN 14 02/25/2021 CRE 0.60 02/25/2021 GLU 93 02/25/2021 CA 10.8 (H) 02/25/2021 GFR 92 02/25/2021 ANION 14 02/25/2021 documented in this encounter Plan of Treatment Upcoming Encounters Date Type Department Care Team (Late st Contact Info) Description 05/01/2025 Procedure Pass [facility], Ct Scan - [address] [address] 10/18/2025 3:15 PM EST Appointment [facility], Ct Scan - [address] [address] Vladimir Mccoy MD 30 [place] [address] 12/20/2025 2:00 PM EST Office Visit [address] [address] Pippa Shirley MD [address] [place] [address], [address] [place] [address] [email or web address] 12/31/2025 11:30 AM EST Office Visit [facility] Gastroenterology Clinic 10 [place] [address] Unknown, Unknown, Angela Sen PA-C [address] [place] [address] [email or web address] 02/28/2026 8:30 AM EDT Office Visit [facility] [address] [place] [address] [place] [address] Albert Lynn MD 22 [facility], 2nd [place] [address] documented as of this encounter Visit Diagnoses Diagnosis Hyperlipidemia Other and unspecified hyperlipidemia documented in this encounter Additional Health Concerns Infection Onset Date Last Indicated Resolved Time CoV-Risk 03/10/2022 03/10/2022 03/21/2022 1:24 AM EDT CoV-Risk 11/23/2022 11/23/2022 12/04/2022 1:22 AM EST COVID-19 06/15/2023 06/15/2023 07/06/2023 1:23 AM EDT Assessment Noted Time PHQ-2 Depression Total Score: 1 06/06/20 19 9:11 AM EDT documented as of this encounter Care Teams Oil Driller Relationship Specialty Start Date End Date Best Aaron MD [address] [place] [address] 7 [place] [address] PCP - General Family Medicine 10/19/19 02/09/24 Pippa Shirley MD [address] [place] [address] 7 [place] [address] [email or web address] PCP - General Family Medicine 02/10/24 Alysa Benito NP 1 [place] [address] Historical LMR Provider 09/04/17 2 Jailyn Grewal DO [address] [place] [address] 7 [place] [address] [email or web address] Historical LMR Provider 09/04/17 Esperanza Cisneros NP 29 [place] [address] Historical LMR Provider 09/04/17 2 Bettye Amaro CNP [address] [address] Historical LMR Provider 09/04/17 Caprice Johns NP 30 [place] [address] [email or web address] Historical LMR Provider 09/04/17 11/22/21 Noe Fitzpatrick MD [address] [place] [address] [email or web address] Historical LMR Provider 09/04/17 11/22/21 Adelaida wAad MD [address] [place] [address], [address] [place] [address] [email or web address] Historical LMR Provider 09/04/17 Kadi Nazario NP [address] [place] [address] Historical LMR Provider 09/04/17 2 Ninoska Sanchez MD [address] [place] [address] 7 [place] [address] [email or web address] Historical LMR Provider 09/04/17 Best Aaron MD [address] [place] [address] 7 [place] [address] [email or web address] Historical LMR Provider 09/04/17 Yashira Felix NP 30 [place] [address] Historical LMR Provider 09/04/17 2 Belinda Wolfe MD [address], [place] [address] Historical LMR Provider 09/04/17 2 Carlos Miranda MD [address] [place] [address] Historical LMR Provider 09/04/17 11/22/21 Juanis Boyd MD [address] [place] [address] 7 [place] [address] [email or web address] Historical LMR Provider 09/04/17 11/22/21 Saurav Cornelius MD [address] [place] [address] [address] [place] [address] [email or web address] Historical LMR Provider 09/04/17 Giulia Alarcon MD [address] [place] [address] Historical LMR Provider 09/04/17 11/22/21 Albert Ley MD [address] [place] [address] Historical LMR Provider 09/04/17 2 Luis Carlos De Jesus, ROBERTO [address] [place] [address], [address] [place] [address] Historical LMR Provider 09/04/17 Best Aaron MD [address] [place] [address] 7 [place] [address] Insurance Assigned Provider 09/18/17 02/19/24 Jailyn Grewal DO 234 [facility], [address] [place] [address] [email or web address] Insurance Assigned Provider 02/19/24 02/18/25 Pippa Shirley MD 234 [facility], [address] [place] [address] [email or web address] Insurance Assigned Provider 02/18/25 documented as of this encounter Additional Source Comments The information contained in this document represents components of the legal health record. It is not the complete legal health record.[facility]
--- OUTSIDE RECORDS SUMMARY | 2025-09-17 16:44 | XMS_ITS | Encounter Summary ---
Author Organization [facility] Address Formerly [facility] [employer] [facility] [address] [place] [address] Phone Care Team Providers Care Pharmacy Technician Name Role Phone Jailyn Grewal DO Unavailable Sondra Bettyeminh Leggett PARTY PLAN SALES AGENT Unavailable Ninoska Sanchez MD Unavailable Best Aaron MD Unavailable Saurav Cornelius MD Unavailable Pippa Shirley MD Primary Care Provider Jailyn Grewal DO Unavailable Pippa Shirley MD Unavailable [phone] Encounter Details Date Type Department Care Team (Late st Contact Info) Description 05/29/2024 Procedure Pass [address] [place] [address] Social History Tobacco Use Types Packs/Day Years [...] st Contact Info) Description 05/01/2025 Procedure Pass [facility], Ct Scan [address] [address] 10/18/2025 3:15 PM EST Appointment [address] [address] Vladimir Mccoy MD 30 [place] [address] 12/20/2025 2:00 PM EST Office Visit [address] [address] Pippa Shirley MD [address] [place] [address] 7 [place] [address] [email or web address] 12/31/2025 11:30 AM EST Office Visit [facility] [address] [place] [address] Unknown, Ceferino, Angela Sen PA-C [address] [place] [address] [email or web address] 02/28/2026 8:30 AM EDT Office Visit [facility] Neurology [address] [place] [address] Albert Lynn MD [address] [place] [address] documented as of this encounter Visit Diagnoses Not on filedocumented in this encounter Additional Health Concerns Assessment Noted Time PHQ-2 Depression Total Score: 2 09/08/20 22 4:13 PM EDT documented as of this encounter Care Teams Pharmacy Technician Relationship Specialty Start Date End Date Pippa Shirley MD [address] [place] [address], [facility] 7 [place] [address] [email or web address] PCP - General Family Medicine 02/10/24 Jailyn Grewal DO [address] [place] [address] 7 [place] [address] Historical LMR Provider 09/04/17 Bettye Amaro, ROBERTO [address] [place] [address], [address] [place] [address] Historical LMR Provider 09/04/17 Ninoska Sanchez MD [address] [place] [address] [address] [place] [address] Historical LMR Provider 09/04/17 Best Aaron MD [address] [place] [address] [address] [place] [address] Historical LMR Provider 09/04/17 Saurav Cornelius MD [address] [place], [place] [address] [place] [address] [email or web address] Historical LMR Provider 09/04/17 Jaiyln Grewal DO [address] [place] [address] [address] [place] [address] Insurance Assigned Provider 02/19/24 Pippa Shirley MD [address] [place] [address], [address] [place] [address] [email or web address] Insurance Assigned Provider 02/18/25 documented as of this encounter Additional Source Comments The information contained in this document represents components of the legal health record. It is not the complete legal health record.[facility]
--- OUTSIDE RECORDS SUMMARY | 2025-09-17 16:44 | XMS_ITS | Encounter Summary ---
Author Organization [facility] Address [facility] [facility] [address] [place] [address] Phone Care Team Providers Care Labor Relations Supervisor Name Role Phone Jailyn Grewal DO Unavailable Sondra Bettyeminh Leggett BURNER OPERATOR Unavailable [phone] Ninoska Sanchez MD Unavailable [phone] Best Aaron MD Unavailable [phone] Saurav Cornelius MD Unavailable [phone] Best Aaron MD Unavailable Best Aaron MD Primary Care Provider Pippa Shirley MD Primary Care Provider [phone] Jailyn Grewal DO Unavailable Pippa Shirley MD Unavailable Encounter Details Date Type Department Care Team (Late st Contact Info) Description 03/29/2023 Procedure Pass [facility], [facility] - [address] [place] [address] Social History Tobacco Use Types Packs/Day Years [...] high school, GED, job training, learning the Namibian language, technical skills, or developing parenting skills)? [...] st Contact Info) Description 05/01/2025 Procedure Pass [facility], Ct Scan - [facility] 30 [place] [address] 10/18/2025 3:15 PM EST Appointment [facility], Ct Scan - [facility] 30 [place] [address] Vladimir Mccoy MD 30 [place] [address] 12/20/2025 2:00 PM EST Office Visit [facility] [address] [place] [address] Pippa Shirley MD [address] [facility], [facility] 7 [place] [address] [email or web address] 12/31/2025 11:30 AM EST Office Visit [facility] 10 [place] [address] Unknown, Unknown, Angela Sen PA-C [address] [place] [address] [email or web address] 02/28/2026 8:30 AM EDT Office Visit [facility] Neurology [address] [place] [address] Albert Lynn MD [address] [place] [address], 2nd [place] [address] [email or web address] documented as of this encounter Visit Diagnoses Not on filedocumented in this encounter Additional Health Concerns Infection Onset Date Last Indicated Resolved Time COVID-19 06/15/2023 06/15/2023 07/06/2023 1:23 AM EDT Assessment Noted Time PHQ-2 Depression Total Score: 2 09/08/20 22 4:13 PM EDT documented as of this encounter Care Teams Labor Relations Supervisor Relationship Specialty Start Date End Date Best Aaron MD [address] [place] [address], [address] [place] [address] PCP - General Family Medicine 10/19/19 02/09/24 Pippa Shirley MD [address] [place] [address], [facility] 7 [place] [address] [email or web address] PCP - General Family Medicine 02/10/24 Jailyn Grewal DO [address] [place] [address], [facility] 7 [place] [address] Historical LMR Provider 09/04/17 Bettye Amaro CNP [address] [place] [address], [address] [place] [address] [email or web address] Historical LMR Provider 09/04/17 Ninoska Sanchez MD [address] [place] [address] 7 [place] [address] [email or web address] Historical LMR Provider 09/04/17 Best Aaron MD [address] [place] [address] 7 [place] [address] [email or web address] Historical LMR Provider 09/04/17 Saurav Cornelius MD [address] [place], [place] [address] [place] [phone] [email or web address] Historical LMR Provider 09/04/17 Best Aaron MD [address] [place] [address] 7 [place] [address] Insurance Assigned Provider 09/18/1702/19/24 Jailyn Grewal DO [address] [place] [address], [address] [place] [address] Insurance Assigned Provider 02/19/24 Pippa Shirley MD [address] [place] [address], [address] [place] [address] [email or web address] Insurance Assigned Provider 02/18/25 documented as of this encounter Additional Source Comments The information contained in this document represents components of the legal health record. It is not the complete legal health record.[facility]
--- OUTSIDE RECORDS SUMMARY | 2025-09-17 16:44 | XMS_ITS | Encounter Summary ---
Author Organization [facility] Address [address] [facility] [address] [place] [address] Phone Care Team Providers Care Produce Team Member Name Role Phone Jailyn Grewal DO Unavailable Bettye Amaro RETAIL SALES CONSULTANT Unavailable Ninoska Sanchez MD Unavailable Best Aaron MD Unavailable Saurav Cornelius MD Unavailable Pippa Shirley MD Primary Care Provider [phone] Jailny Grewal DO Unavailable Pippa Shirley MD Unavailable [phone] Encounter Details Date Type Department Care Team (Late st Contact Info) Description 01/11/2025 Procedure Pass [facility], Ct Scan - [address] [address] Social History Tobacco Use Types Packs/Day Years Used Date Smoking Tobacco: Never Smokeless Tobacco: Never Comments:Never Alcohol Use Standard Drinks/Week Comments Not Currently 1 (1 standard drink = 0.6 oz [...] Date of Assessment Author No Risk Indicated 01/11/2025 1:49 PM Alessandra Victor RN * Shannon Suicide Severity Rating Scale (Screener/Recent Self-Report) Question Answer Date of Assessment Author 1. Wish to be (Past 1 Month) No 01/11/2025 1:49 PM Puma Victor ph, RN 2. Non-Specific Active Suici wayne Thoughts (Past 1 Month) No 01/11/2025 1:49 PM Puma Victor RN 6. Suicidal Behavior (Lifetime) No 1:49 PM Puma Victor RN documented as of this encounter Plan of Treatment Upcoming Encounters Date Type Department Care Team (Late st Contact Info) Description 05/01/2025 Procedure Pass [address] [address] 10/18/2025 3:15 PM EST Appointment [address] [address] Vladimir Mccoy MD 30 [place] [address] 12/20/2025 2:00 PM EST Office Visit [facility] Medicine [address] [place] [address] Pippa Shirley MD [address] [place] [address], [address] [place] [address] [email or web address] 12/31/2025 11:30 AM EST Office Visit [facility] 10 [place] [address] Unknown, Unknown, Angela Sen PA-C [address] [address] [email or web address] 02/28/2026 8:30 AM EDT Office Visit [facility] Neurology 22 [place] [address] Alebrt Lynn MD [address] [address] [email or web address] documented as of this encounter Visit Diagnoses Not on filedocumented in this encounter Additional Health Concerns Assessment Noted Time PHQ-2 Depression Total Score: 2 08/08/20 24 5:13 PM EDT documented as of this encounter Care Teams Produce Team Member Relationship Specialty Start Date End Date Pippa Shirley MD 234 [facility] 7 [place] [address] [email or web address] [email or web address] PCP - General Family Medicine 02/10/24 Jailyn Grewal DO [address] [place] [address], [facility] 7 [place] [address] [email or web address] Historical LMR Provider 09/04/17 Bettye Amaro, RETAIL SALES CONSULTANT [address] [address] [email or web address] Historical LMR Provider 09/04/17 Ninoska Sanchez MD [address] [place] [address] 7 [place] [address] Historical LMR Provider 09/04/17 Best Aaron MD [address] [place] [address] 7 [place] [address] Historical LMR Provider 09/04/17 Saurav Cornelius MD [address] [place], [place] [address] [place] [phone] [email or web address] Historical LMR Provider 09/04/17 Jailyn Grewal DO [address] [place] [address], [address] [place] [address] Insurance Assigned Provider 02/19/24 Pippa Shirley MD [address] [place] [address], [address] [place] [address] [email or web address] [email or web address] Insurance Assigned Provider 02/18/25 documented as of this encounter Additional Source Comments The information contained in this document represents components of the legal health record. It is not the complete legal health record.[facility]
--- OUTSIDE RECORDS SUMMARY | 2025-09-17 16:44 | XMS_ITS | Encounter Summary ---
Author Organization [facility] Address [facility] [place] [address] [place] [address] Phone Care Team Providers Care Track Announcer Name Role Phone Jailyn Grewal DO Unavailable Sondra Bettyeminh Leggett PLANT ASSIGNER Unavailable Ninoska Sanchez MD Unavailable [phone] Best Aaron MD Unavailable [phone] Saurav Cornelius MD Unavailable [phone] Best Aaron MD Unavailable Best Aaron MD Primary Care Provider Pippa Shirley MD Primary Care Provider [phone] Jailyn Grewal DO Unavailable Pippa Shirley MD Unavailable Encounter Details Date Type Department Care Team (Late st Contact Info) Description 05/15/2022 Procedure Pass [facility] - [address] [place] [address] Social History Tobacco Use Types Packs/Day Years [...] GED, job training, learning the [place] language, technical skills, or developing parenting skills)? [...] st Contact Info) Description 05/01/[address] [facility], Ct Scan - [address] [address] 10/18/2025 3:15 PM EST Appointment [facility], Ct Scan - [address] [address] Vladimir Mccoy MD 30 [place] [address] 12/20/2025 2:00 PM EST Office Visit [facility] 234 [place] [address] Pippa Shirley MD 234 [facility], [facility] 7 [place] [address] [email or web address] 12/31/2025 11:30 AM EST Office Visit [facility] 10 [place] [address] Unknown, Unknown, Angela Sen PA-C [address] [address] [email or web address] 02/28/2026 8:30 AM EDT Office Visit [facility] Neurology [address] [place] [address] Albert Lynn MD [address] [place] [address], 2nd [place] [address] documented as of this encounter Visit Diagnoses Not on filedocumented in this encounter Additional Health Concerns Infection Onset Date Last Indicated Resolved Time CoV-Risk 11/23/2022 11/23/2022 12/04/2022 1:22 AM EST COVID-19 06/15/2023 06/15/2023 07/06/2023 1:23 AM EDT Assessment Noted Time PHQ-2 Depression Total Score: 1 06/06/20 9:11 AM EDT documented as of this encounter Care Teams Track Announcer Relationship Specialty Start Date End Date Best Aaron MD [address] [place] [address] 7 [place] [address] PCP - General Family Medicine 10/19/19 02/09/24 Pippa Shirley MD [address] [place] [address] 7 [place] [address] [email or web address] PCP - General Family Medicine 02/10/24 Jailyn Grewal DO [address] [place] [address] 7 [place] [address] Historical LMR Provider 09/04/17 Bettye Amaro CNP [address] [place] [address], 2nd [place] [address] Historical LMR Provider 09/04/17 Ninoska Sanchez MD [address] [place] [address] 7 [place] [address] Historical LMR Provider 09/04/17 Best Aaron MD [address] [place] [address] 7 [place] [address] Historical LMR Provider 09/04/17 Saurav Cornelius MD [address] [place], [place] [address] [place] [phone] [email or web address] Historical LMR Provider 09/04/17 Best Aaron MD [address] [place] [address], [address] [place] [address] [email or web address] Insurance Assigned Provider 09/18/1702/19/24 Jailyn Grewal DO [address] [place] [address], [facility] 7 [place] [address] [email or web address] Insurance Assigned Provider 02/19/24 Pippa Shirley MD [address] [place] [address], [address] [place] [address] [email or web address] Insurance Assigned Provider 02/18/25 documented as of this encounter Additional Source Comments The information contained in this document represents components of the legal health record. It is not the complete legal health record.[facility]
--- OUTSIDE RECORDS SUMMARY | 2025-09-17 16:44 | XMS_ITS | Encounter Summary ---
Author Organization [facility] Address [facility] [email or web address] [facility] [address] [place] [address] Phone Care Team Providers Care Chair Springer Name Role Phone Jailyn Grewal DO Unavailable Sondra Bettyeminh Leggett POLE INSPECTOR Unavailable Ninoska Sanchez MD Unavailable [phone] Best Aaron MD Unavailable [phone] Saurav Cornelius MD Unavailable [phone] Best Aaron MD Unavailable Best Aaron MD Primary Care Provider Pippa Shirley MD Primary Care Provider [phone] Jailyn Grewal DO Unavailable Pippa Shirley MD Unavailable [phone] Encounter Details Date Type Department Care Team (Latest Contact Info) Description 03/27/2023 Ancillary Orders [facility], X-Ray - [facility] [address] [place] [address] Marquita Roldan, CORPORATE INVESTIGATOR [address] [place] [id number] [email or web address] Postlaminectomy syndrome Social History Tobacco Use Types Packs/Day Years [...] high school, GED, job training, learning the [place] language, technical skills, or developing parenting skills)? [...] st Contact Info) Description 05/01/2025 Procedure Pass [facility], Ct Scan - [address] [address] 10/18/2025 3:15 PM EST Appointment [facility] Ct Scan - [address] [address] Vladimir Mccoy MD 30 [place] [address] 12/20/2025 2:00 PM EST Office Visit [address] [address] Pippa Shirley MD [address] [place] [address], [address] [place] [address] [email or web address] 12/31/2025 11:30 AM EST Office Visit [facility] [address] [place] [address] Unknown, Unknown, Angela Sen PA-C [address] [place] [address] [email or web address] 02/28/2026 8:30 AM EDT Office Visit [facility] Neurology [address] [place] [address] Albert Lynn MD 22 [facility], 2nd [place] [address] [email or web address] documented as of this encounter Results * XR LUMBOSACRAL SPINE 4 OR MORE VIEWS (03/27/2023 11:00 AM EDT) Anatomical Region Laterality Modality L-spine Computed Radiogr aphy 03/28/2023 11:0 4 PM EDT Impressions 03/28/2023 11:09 PM EDT Dextro convex lumbar scoliosis centered at L2 with a rotatory component. Findings of prior L4-L5 posterior decompression. Facet predominant degenerative changes, most pronounced at L4-5 and L5-S1. Narrative 03/28/2023 11:09 PM EDT XR LUMBOSACRAL SPINE 4 OR MORE VIEWS COMPARISON: XR LUMBOSACRAL SPINE 2-3 VIEWS FINDINGS: ALIGNMENT: Dextroconvex lumbar scoliosis centered at L2 with a rotatory component. VERTEBRAE: Vertebral body heights preserved. L4-L5 posterior decompression. DISCS: Disc height loss and endplate sclerosis and marginal osteophytes L3-4, L4-5, and L5-S1. FACETS: Facet arthropathy at L2-S1. PARASPINAL SOFT TISSUES: Partially visualized right total hip arthroplasty. Minimal sacroiliac joint degenerative change. Mild aortic vascular calcification. Procedure Note Sung Velazquez MD - 03/28/2023 XR LUMBOSACRAL SPINE 4 OR MORE VIEWS COMPARISON: XR LUMBOSACRAL SPINE 2-3 VIEWS FINDINGS: ALIGNMENT: Dextroconvex lumbar scoliosis centered at L2 with a rotatorycomponent. VERTEBRAE: Vertebral body heights preserved. L4-L5 posteriordecompression. DISCS: Disc height loss and endplate sclerosis and marginal osteophytesL3-4, L4- 5, and L5-S1. FACETS: Facet arthropathy at L2-S1. PARASPINAL SOFT TISSUES: Partially visualized right total hiparthroplasty. Minimal sacroiliac joint degenerative change. Mild aorticvascular calcification. IMPRESSION: Dextro convex lumbar scoliosis centered at L2 with a rotatory component. Findings of prior L4-L5 posterior decompression. Facet predominant degenerative changes, most pronounced at L4-5 andL5-S1. Marquita Roldan NP IMG XR SPINE Final Result documented in this encounter Visit Diagnoses Diagnosis Postlaminectomy syndrome Postlaminectomy syndrome documented in this encounter Additional Health Concerns Infection Onset Date Last Indicated Resolved Time COVID-19 06/15/2023 06/15/2023 07/06/2023 1:23 AM EDT Assessment Noted Time PHQ-2 Depression Total Score: 2 09/08/20 22 4:13 PM EDT documented as of this encounter Care Teams Chair Springer Relationship Specialty Start Date End Date Best Aaron MD [address] [place] [address] 7 [place] [address] PCP - General Family Medicine 10/19/19 02/09/24 Pippa Shirley MD [address] [place] [address] [place] [address] [email or web address] PCP - General Family Medicine 02/10/24 Jailyn Grewal DO [address] [place] [address] [place] [address] Historical LMR Provider 09/04/17 Bettye Amaro CNP [address] [place] [address], [address] [place] [address] Historical LMR Provider 09/04/17 Ninoska Sanchez MD [address] [place] [address] 7 [place] [address] Historical LMR Provider 09/04/17 Best Aaron MD [address] [place] [address] 7 [place] [address] Historical LMR Provider 09/04/17 Saurav Cornelius MD [address] [place] [address] [address] [place] [phone] [email or web address] Historical LMR Provider 09/04/17 Best Aaron MD [address] [place] [address], [address] [place] [address] Insurance Assigned Provider 09/18/1702/19/24 Jailyn Grewal DO [address] [place] [address], [address] [place] [address] Insurance Assigned Provider 02/19/24 Pippa Shirley MD [address] [place] [address], [address] [place] [address] [email or web address] Insurance Assigned Provider 02/18/25 documented as of this encounter Additional Source Comments The information contained in this document represents components of the legal health record. It is not the complete legal health record.[facility]
--- OUTSIDE RECORDS SUMMARY | 2025-09-17 16:44 | XMS_ITS | Encounter Summary ---
Author Organization [facility] Address [facility] [address] [place] [address] Phone Care Team Providers Care Senior Qa Automation Engineer Name Role Phone Alysa Benito DRAGGER Unavailable Jailyn Grewal DO Unavailable Esperanza Cisneros DRAGGER Unavailable Bettye Amaro OFFICE COORDINATOR RECEPTIONIST Unavailable Caprice Johns DRAGGER Unavailable [phone] Noe Fitzpatrick MD Unavailable Adelaida Awad MD Unavailable Kadi Nazario DRAGGER Unavailable Ninoska Sanchez MD Unavailable Best Aaron MD Unavailable Yashira Felix DRAGGER Unavailable Belinda Wolfe MD Unavailable [phone] Carlos Miranda MD Unavailable [phone] Juanis Boyd MD Unavailable Saurav Cornelius MD Unavailable Giulia Alarcon MD Unavailable Albert Ley MD Unavailable [phone] LalitomarineLuis Carlos king OFFICE COORDINATOR RECEPTIONIST Unavailable Best Aaron MD Unavailable [phone] Best Aaron MD Primary Care Provider [phone] Pippa Shirley MD Primary Care Provider [phone] Jailyn Grewal DO Unavailable [phone] Pippa Shirley MD Unavailable [phone] Encounter Details Date Type Department Care Team (Late st Contact Info) Description 04/03/2021 Procedure Pass [facility] - [address] [place] [address] Social History Tobacco Use Types Packs/Day Years [...] high school, GED, job training, learning the Djiboutian language, technical skills, or developing parenting skills)? [...] st Contact Info) Description 05/01/2025 Procedure Pass [address] [address] 10/18/2025 3:15 PM EST Appointment [address] [address] Vladimir Mccoy MD 30 [place] [address] 12/20/2025 2:00 PM EST Office Visit [facility] [address] [place] [address] Pippa Shirley MD [address] [facility], [address] [place] [address] [email or web address] 12/31/2025 11:30 AM EST Office Visit [facility] 10 [place] [address] Unknown, Unknown, Angela Sen PA-C [address] [place] [address] [email or web address] 02/28/2026 8:30 AM EDT Office Visit [facility] Neurology 22 [place] [address] Albert Lynn MD 22 [facility], 2nd [place] [address] [email or web address] documented as of this encounter Visit Diagnoses Not on filedocumented in this encounter Additional Health Concerns Infection Onset Date Last Indicated Resolved Time CoV-Risk 03/10/2022 03/10/2022 03/21/2022 1:24 AM EDT CoV-Risk 11/23/2022 11/23/2022 12/04/2022 1:22 AM EST COVID-19 06/15/2023 06/15/2023 07/06/2023 1:23 AM EDT Assessment Noted Time PHQ-2 Depression Total Score: 1 06/06/20 9:11 AM EDT documented as of this encounter Care Teams Senior Qa Automation Engineer Relationship Specialty Start Date End Date Best Aaron MD [address] [place] [address] [email or web address] PCP - General Family Medicine 10/19/19 02/09/24 Pippa Shirley MD [address] [place] [address] 7 [place] [address] [email or web address] PCP - General Family Medicine 02/10/24 Alysa Benito DRAGGER [address] [place] [address] [place] [address] Historical LMR Provider 09/04/17 2 Jailyn Grewal DO [address] [place] [address] 7 [place] [address] [email or web address] Historical LMR Provider 09/04/17 Esperanza Cisneros NP 29 [place] [address] Historical LMR Provider 09/04/17 2 Bettye Amaro, ROBERTO [address] [address] [email or web address] Historical LMR Provider 09/04/17 Caprice Johns NP [address] [place] [address] [email or web address] Historical LMR Provider 09/04/17 11/22/21 Noe Fitzpatrick MD 4 [place] [address] [email or web address] Historical LMR Provider 09/04/17 11/22/21 Adelaida Awad MD [address] [address] [email or web address] Historical LMR Provider 09/04/17 Kadi Nazario, BRIEN [address] [place] [address] Historical LMR Provider 09/04/17 2 Ninoska Sanchez MD [address] [place] [address], [facility] 7 [place] [address] Historical LMR Provider 09/04/17 Best Aaron MD [address] [place] [address] Historical LMR Provider 09/04/17 Yashira Felix NP [address] [place] [address] Historical LMR Provider 09/04/17 2 Belinda Wolfe MD [address] [place] [address] Historical LMR Provider 09/04/17 2 Carlos Miranda MD [address] [place] [address] Historical LMR Provider 09/04/17 11/22/21 Juanis Boyd MD [address] [place] [address] Historical LMR Provider 09/04/17 11/22/21 Saurav Cornelius MD [address] [place], [place] [address] [place] [address] [email or web address] Historical LMR Provider 09/04/17 Giulia Alarcon MD [address] [place] [address] Historical LMR Provider 09/04/17 11/22/21 Albert Ley MD 61 [place] [address] Historical LMR Provider 09/04/17 2 Luis Carlos De Jesus CNP 22 [facility] [place] [address] Historical LMR Provider 09/04/17 Best Aaron MD [address] [place] [address], [facility] 7 [place] [address] Insurance Assigned Provider 09/18/17 02/19/24 Jailyn Grewal DO [address] [place] [address], [facility] 7 [place] [address] Insurance Assigned Provider 02/19/24 02/18/25 Pippa Shirley MD [address] [place] [address], [facility] 7 [place] [address] [email or web address] Insurance Assigned Provider 02/18/25 documented as of this encounter Additional Source Comments The information contained in this document represents components of the legal health record. It is not the complete legal health record.[facility]
--- OUTSIDE RECORDS SUMMARY | 2025-09-17 16:44 | XMS_ITS | Encounter Summary ---
Author Organization [facility] Address [facility] [employer] [facility] [address] [place] [address] Phone Care Team Providers Care Manager Supply Chain Planning Name Role Phone Jailyn Grewal DO Unavailable Sondra Bettyeminh Leggett NUCLEAR WORKER TECHNICIAN Unavailable Ninoska Sanchez MD Unavailable [phone] Best Aaron MD Unavailable [phone] Saurav Cornelius MD Unavailable [phone] Best Aaron MD Unavailable Best Aaron MD Primary Care Provider Pippa Shirley MD Primary Care Provider [phone] Jailyn Grewal DO Unavailable Pippa Shirley MD Unavailable [phone] Encounter Details Date Type Department Care Team (Late st Contact Info) Description 03/27/2023 Ancillary Orders [facility] Main [address] [place] [address] Marquita Roldan, RADIO DIVISION LIEUTENANT [address] [place] [phone] [email or web address] Social History Tobacco Use Types Packs/Day Years [...] high school, GED, job training, learning the Ukrainian language, technical skills, or developing parenting skills)? [...] st Contact Info) Description 05/01/2025 Procedure Pass [facility] - [address] [address] 10/18/2025 3:15 PM EST Appointment [facility] - [address] [address] Vladimir Mccoy MD 30 [place] [address] 12/20/2025 2:00 PM EST Office Visit [address] [address] Pippa Shirley MD [address] [place] [address], [facility] 7 [place] [address] [email or web address] 12/31/2025 11:30 AM EST Office Visit [facility] G[facility]ology Clinic [address] [place] [address] Unknown, Unknown, Angela Sen PA-C [address] [address] [email or web address] 02/28/2026 8:30 AM EDT Office Visit [facility] Neurology [address] [place] [address] Albert Lynn MD [address] [place] [address], 2nd [place] [address] [email or web address] documented as of this encounter Visit Diagnoses Not on filedocumented in this encounter Additional Health Concerns Infection Onset Date Last Indicated Resolved Time COVID-19 06/15/2023 06/15/2023 07/06/2023 1:23 AM EDT Assessment Noted Time PHQ-2 Depression Total Score: 2 09/08/20 22 4:13 PM EDT documented as of this encounter Care Teams Manager Supply Chain Planning Relationship Specialty Start Date End Date Best Aaron MD [address] [place] [address] 7 [place] [address] PCP - General Family Medicine 10/19/19 02/09/24 Pippa Shirley MD [address] [place] [address] 7 [place] [address] [email or web address] PCP - General Family Medicine 02/10/24 Jailyn Grewal DO [address] [place] [address] 7 [place] [address] Historical LMR Provider 09/04/17 Bettye Amaro CNP [address] [place] [address], 2nd [place] [address] Historical LMR Provider 09/04/17 Ninoska Sanchez MD [address] [place] [address] 7 [place] [address] Historical LMR Provider 09/04/17 Best Aaron MD [address] [place] [address] 7 [place] [address] Historical LMR Provider 09/04/17 Saurav Cornelius MD [address] [place], [place] [address] [place] [phone] [email or web address] Historical LMR Provider 09/04/17 Best Aaron MD [address] [place] [address] 7 [place] [address] [email or web address] Insurance Assigned Provider 09/18/1702/19/24 Jailyn Grewal DO [address] [place] [address] 7 [place] [address] [email or web address] Insurance Assigned Provider 02/19/24 Pippa Shirley MD [address] [place] [address] 7 [place] [address] [email or web address] Insurance Assigned Provider 02/18/25 documented as of this encounter Additional Source Comments The information contained in this document represents components of the legal health record. It is not the complete legal health record.[facility]
--- OUTSIDE RECORDS SUMMARY | 2025-09-17 16:44 | XMS_ITS | Encounter Summary ---
Author Organization [facility] Address [facility] [employer] [facility] [address] [place] [address] Phone Care Team Providers Care Ticketing Agent Name Role Phone Jailyn Grewla DO Unavailable Sondra Bettyeminh Leggett GATEHOUSE ATTENDANT Unavailable Ninoska Sanchez MD Unavailable [phone] Best Aaron MD Unavailable [phone] Saurav Cornelius MD Unavailable [phone] Best Aaron MD Unavailable Best Aaron MD Primary Care Provider Pippa Shirley MD Primary Care Provider [phone] Jailyn Grewal DO Unavailable Pippa Shirley MD Unavailable [phone] Reason for Referral * Physical Therapy (Routine) - Closed Specialty Diagnoses / Procedures Referred By Burke t Referred To Contact Physical Therapy Diagnoses Encounter for rehabilitation Marquita Roldan NP Phone: tel: fax: mailto:[email or web address] [address] [place] [address] Phone: tel: Referral ID Status Reason Start Date Expiration Date Visits Re quested Visits Authorized [id number] Closed 10/20/2023 99 99 Encounter Details Date Type Department Care Team (Latest Contact Info) Description 10/20/2023 Transcribe Orders [facility] [address] [place] [address] Marquita Roldan NP [address] [place] [phone] [email or web address] Encounter for rehabilitation (Primary Dx) Social History Tobacco Use Types [...] st Contact Info) Description 05/01/2025 Procedure Pass [address] [address] 10/18/2025 3:15 PM EST Appointment [address] [address] Vladimir Mccoy MD 30 [place] [address] 12/20/2025 2:00 PM EST Office Visit [facility] [address] [place] [address] Pippa Shirley MD 234 [facility], [address] [place] [address] [email or web address] 12/31/2025 11:30 AM EST Office Visit [facility] Gastro[facility] Clinic 10 [place] [address] Unknown, Unknown, Angela Sen PA-C [address] [place] [address] [email or web address] 02/28/2026 8:30 AM EDT Office Visit [facility] Neurology [address] [place] [address] Albert Lynn MD [address] [place] [address], 2nd [place] [address] [email or web address] documented as of this encounter Procedures Procedure Name Priority Date/Time Associated Diagnosis Comments AMB REFERRAL TO [facility] PHYSICAL THERAPY Routine 12/21/2023 1:47 PM EST Encounter for rehabilitation documented in this encounter Results * Ambulatory referral to [facility] Physical Therapy (12/21/2023 1:47 PM EST) Other us Marquita Roldan SOFTWARE INSTALLER AMB [facility] REFERRALS Final Result documented in this encounter Visit Diagnoses Diagnosis Encounter for rehabilitation- Primary documented in this encounter Additional Health Concerns Assessment Noted Time PHQ-2 Depression Total Score: 2 09/08/20 22 4:13 PM EDT documented as of this encounter Care Teams Ticketing Agent Relationship Specialty Start Date End Date Best Aaron MD [address] [place] [address], [facility] 7 [place] [address] [email or web address] PCP - General Family Medicine 10/19/19 02/09/24 Pippa Shirley MD [address] [place] [address], [address] [place] [address] [email or web address] PCP - General Family Medicine 02/10/24 Jailyn Grewal DO [address] [place] [address], [address] [place] [address] Historical LMR Provider 09/04/17 Sondra Bettye Betsey, ROBERTO [address] [place] [address], 2nd [place] [address] Historical LMR Provider 09/04/17 Ninoska Sanchez MD [address] [place] [address] 7 [place] [address] Historical LMR Provider 09/04/17 Best Aaron MD [address] [place] [address] 7 [place] [address] Historical LMR Provider 09/04/17 Saurav Cornelius MD [address] [place], [place] [address] [place] [phone] [email or web address] Historical LMR Provider 09/04/17 Best Aaron MD [address] [place] [address] [place] [address] [email or web address] Insurance Assigned Provider 09/18/1702/19/24 Jailyn Grewal DO [address] [place] [address], [address] [place] [address] Insurance Assigned Provider 02/19/24 Pippa Shirley MD [address] [place] [address], [address] [place] [address] [email or web address] Insurance Assigned Provider 02/18/25 documented as of this encounter Additional Source Comments The information contained in this document represents components of the legal health record. It is not the complete legal health record.[facility]
--- OUTSIDE RECORDS SUMMARY | 2025-09-17 16:44 | XMS_ITS | Encounter Summary ---
Author Organization [facility] Address [address] [employer] [facility] [address] [place] [address] Phone Care Team Providers Care World History Teacher Name Role Phone Jailyn Grewal DO Unavailable Bettye Amaro OUTREACH SPECIALIST Unavailable Ninoska Sanchez MD Unavailable Best Aaron MD Unavailable Saurav Cornelius MD Unavailable Pippa Shirley MD Primary Care Provider Jailyn Grewal DO Unavailable Pippa Shirley MD Unavailable Encounter Details Date Type Department Care Team (Late st Contact Info) Description 01/11/2025 Procedure Pass [facility] Ct Scan - [address] [address] Social History Tobacco Use Types Packs/Day Years [...] 01/11/2025 1:49 PM Alessandra Victor RN * [place] Suicide Severity Rating Scale (Screener/Recent Self-Report) Question [...] st Contact Info) Description 05/01/2025 Procedure Pass [address] [address] 10/18/2025 3:15 PM EST Appointment [address] [address] Vladimir Mccoy MD 30 [place] [address] 12/20/2025 2:00 PM EST Office Visit [facility] Medicine [address] [place] [address] Pippa Shirley MD [address] [place] [address], [address] [place] [address] [email or web address] 12/31/2025 11:30 AM EST Office Visit [facility] Gastroenterology Clinic 10 [place] [address] Unknown, Unknown, Angela Sen PA-C [address] [address] [email or web address] 02/28/2026 8:30 AM EDT Office Visit [facility] Neurology 22 [place] [address] Albert Lynn MD [address] [address] [email or web address] documented as of this encounter Visit Diagnoses Not on filedocumented in this encounter Additional Health Concerns Assessment Noted Time PHQ-2 Depression Total Score: 2 08/08/20 24 5:13 PM EDT documented as of this encounter Care Teams World History Teacher Relationship Specialty Start Date End Date Pippa Shirley MD 234 [facility] 7 [place] [address] [email or web address] PCP - General Family Medicine 02/10/24 Jailyn Grewal DO [address] [place] [address], [facility] 7 [place] [address] [email or web address] Historical LMR Provider 09/04/17 Bettye Amaro, OUTREACH SPECIALIST [address] [address] [email or web address] Historical LMR Provider 09/04/17 Ninoska Sanchez MD [address] [place] [address] 7 [place] [address] Historical LMR Provider 09/04/17 Best Aaron MD [address] [place] [address] [place] [address] Historical LMR Provider 09/04/17 Saurav Cornelius MD [address] [place], [place] [address] [place] [phone] [email or web address] Historical LMR Provider 09/04/17 Jailyn Grewal DO [address] [place] [address], [address] [place] [address] Insurance Assigned Provider 02/19/24 Pippa Shirley MD [address] [place] [address], [address] [place] [address] [email or web address] Insurance Assigned Provider 02/18/25 documented as of this encounter Additional Source Comments The information contained in this document represents components of the legal health record. It is not the complete legal health record.[facility]
--- OUTSIDE RECORDS SUMMARY | 2025-09-17 16:44 | XMS_ITS | Encounter Summary ---
Author Organization [facility] Address [address] [facility] [address] [place] [address] Phone Care Team Providers Care Patient Portal Concierge Name Role Phone Jailyn Grewal DO Unavailable Bettye Amaro PAINT SPRAYER SANDBLASTER Unavailable Ninoska Sanchez MD Unavailable Best Aaron MD Unavailable Saurav Cornelius MD Unavailable Pippa Shirley MD Primary Care Provider Jailyn Grewal DO Unavailable Pippa Shirley MD Unavailable Encounter Details Date Type Department Care Team (Late st Contact Info) Description 01/11/2025 Procedure Pass [facility] Ct Scan - [address] [address] Social History Tobacco Use Types Packs/Day Years [...] 01/11/2025 1:49 PM Alessandra Victor RN * [place] Suicide Severity Rating Scale (Screener/Recent Self-Report) Question [...] st Contact Info) Description 05/01/2025 Procedure Pass [address] [address] 10/18/2025 3:15 PM EST Appointment [address] [address] Vladimir Mccoy MD 30 [place] [address] 12/20/2025 2:00 PM EST Office Visit [facility] [address] [place] [address] Pippa Shirley MD [address] [place] [address], [address] [place] [address] [email or web address] 12/31/2025 11:30 AM EST Office Visit [facility] Gastroenterology Clinic 10 [place] [address] Unknown, Unknown, Angela Sen PA-C [address] [address] [email or web address] 02/28/2026 8:30 AM EDT Office Visit [facility] Neurology 22 [place] [address] Albert Lynn MD [address] [address] [email or web address] documented as of this encounter Visit Diagnoses Not on filedocumented in this encounter Additional Health Concerns Assessment Noted Time PHQ-2 Depression Total Score: 2 08/08/20 24 5:13 PM EDT documented as of this encounter Care Teams Patient Portal Concierge Relationship Specialty Start Date End Date Pippa Shirley MD 234 [facility] 7 [place] [address] [email or web address] PCP - General Family Medicine 02/10/24 Jailyn Grewal DO [address] [place] [address], [facility] 7 [place] [address] [email or web address] Historical LMR Provider 09/04/17 Bettye Amaro, PAINT SPRAYER SANDBLASTER [address] [address] [email or web address] Historical LMR Provider 09/04/17 Ninoska Sanchez MD [address] [place] [address] 7 [place] [address] Historical LMR Provider 09/04/17 Best Aaron MD [address] [place] [address] [place] [address] Historical LMR Provider 09/04/17 Saurav Cornelius MD [address] [place], [place] [address] [place] [phone] [email or web address] Historical LMR Provider 09/04/17 Jailyn Grewal DO [address] [place] [address], [address] [place] [address] Insurance Assigned Provider 02/19/24 Pippa Shirley MD [address] [place] [address], [address] [place] [address] [email or web address] Insurance Assigned Provider 02/18/25 documented as of this encounter Additional Source Comments The information contained in this document represents components of the legal health record. It is not the complete legal health record.[facility]
--- OUTSIDE RECORDS SUMMARY | 2025-09-17 16:44 | XMS_ITS | Encounter Summary ---
Author Organization [facility] Address [facility] [employer] [facility] [address] [place] [address] Phone Care Team Providers Care Flight Dispatcher Name Role Phone Alysa Benito CLAY MINER Unavailable Jailyn Grewal DO Unavailable Esperanza Cisneros CLAY MINER Unavailable Bettye Amaro SOFTWARE PROJECT ENGINEER Unavailable Caprice Johns CLAY MINER Unavailable [phone] Noe Fitzpatrick MD Unavailable Adelaida Awad MD Unavailable Kadi Nazario CLAY MINER Unavailable Ninoska Sanchez MD Unavailable Best Aaron MD Unavailable Yashira Felix CLAY MINER Unavailable [phone] Belinda Wolfe MD Unavailable [phone] Carlos Miranda MD Unavailable Juanis Boyd MD Unavailable Saurav Cornelius MD Unavailable Giulia Alarcon MD Unavailable Albert Ley MD Unavailable [phone] Luis Carlos De Jesus CNP Unavailable Best Aaron MD Unavailable Best Aaron MD Primary Care Provider [phone] [facility] Primary Care Provider Jailyn Grewal DO Unavailable Pippa Shirley MD Unavailable [phone] Encounter Details Date Type Department Care Team (Late st Contact Info) Description 07/10/2020 Telephone [facility] [address] [place] [address] Best Aaron MD [address] [place] [address], [address] [place] [address] [email or web address] Social History Tobacco Use Types Packs/Day Years Used Date Smoking Tobacco: Never Smokeless Tobacco: Never Comments:Never Alcohol Use Standard Drinks/Week Comments Yes 1 (1 standard drink = 0.6 oz pur e alcohol) Occasional Comments No Sex and Gender Information Value Date Recorded Sex Assigned at Female 06/14/2018 11:15 PM EDT Legal Sex Female 5:49 PM EST Gender Identity Female 07/01/2024 1:45 PM EDT Sexual Orientation Straight 06/14/2018 11 :15 PM EDT documented as of this encounter Plan of Treatment Upcoming Encounters Date Type Department Care Team (Late st Contact Info) Description 05/01/2025 Procedure Pass [facility], Ct Scan - [address] [address] 10/18/2025 3:15 PM EST Appointment [facility], Ct Scan - [facility] 30 [place] [address] Vladimir Mccoy MD 30 [place] [address] 12/20/2025 2:00 PM EST Office Visit [facility] 234 [place] [address] Pippa Shirley MD 234 [facility], [facility] 7 [place] [address] [email or web address] 12/31/2025 11:30 AM EST Office Visit [facility] 10 [place] [address] Unknown, Unknown, Angela Sen PA-C [address] [place] [address] [email or web address] 02/28/2026 8:30 AM EDT Office Visit [facility] Neurology [address] [place] [address] Albert Lynn MD [address] [place] [address], 2nd [place] [address] [email or web address] documented as of this encounter Visit Diagnoses Not on filedocumented in this encounter Additional Health Concerns Infection Onset Date Last Indicated Resolved Time CoV-Exposed Comment:Dc from rehab facility 01/20 full PPE fro 14 days 01/23/2021 01/23/2021 02/04/2021 1:23 AM EDT CoV-Risk 03/10/2022 03/10/2022 03/21/2022 1:24 AM EDT CoV-Risk 11/23/2022 11/23/2022 12/04/2022 1:22 AM EST COVID-19 06/15/2023 06/15/2023 07/06/2023 1:23 AM EDT Assessment Noted Time PHQ-2 Depression Total Score: 1 06/06/20 19 9:11 AM EDT documented as of this encounter Care Teams Flight Dispatcher Relationship Specialty Start Date End Date Best Aaron MD [address] [place] [address] 7 [place] [address] PCP - General Family Medicine 10/19/19 02/09/24 Pippa Shirley MD [address] [place] [address] 7 [place] [address] [email or web address] PCP - General Family Medicine 02/10/24 Alysa Benito NP 1 [place] [address] Historical LMR Provider 09/04/17 2 Jailyn Grewal DO [address] [place] [address] 7 [place] [address] [email or web address] Historical LMR Provider 09/04/17 Esperanza Cisneros NP 29 [place] [address] Historical LMR Provider 09/04/172 2 Bettye Amaro CNP 15 [facility], 2nd [place] [address] [email or web address] Historical LMR Provider 09/04/17 Caprice Johns NP 30 [place] [address] [email or web address] Historical LMR Provider 09/04/17 11/22/21 Noe Fitzpatrick MD 4 [place] [address] [email or web address] Historical LMR Provider 09/04/17 11/22/21 Adelaida Awad MD [address] [address] [email or web address] Historical LMR Provider 09/04/17 Kadi Nazario NP [address] [place] [address] Historical LMR Provider 09/04/17 2 Ninoska Sanchez MD [address] [place] [address] 7 [place] [address] [email or web address] Historical LMR Provider 09/04/17 Best Aaron MD [address] [place] [address] 7 [place] [address] [email or web address] Historical LMR Provider 09/04/17 Yashira Felix NP 30 [place] [address] Historical LMR Provider 09/04/17 2 Belinda Wolfe MD [address] [place] [address] Historical LMR Provider 09/04/17 2 Carlos Miranda MD [address] [place] [address] Historical LMR Provider 09/04/17 11/22/21 Juanis Boyd MD [address] [place] [address] 7 [place] [address] Historical LMR Provider 09/04/17 11/22/21 Saurav Cornelius MD [address] [place], [place] [address] [place] [address] [email or web address] Historical LMR Provider 09/04/17 Giulia Alarcon MD [address] [place] [address] Historical LMR Provider 09/04/17 11/22/21 Albert Ley MD [address] [place] [address] Historical LMR Provider 09/04/17 2 Luis Carlos De Jesus CNP [address] [place] [address], [address] [place] [address] Historical LMR Provider 09/04/17 Best Aaron MD [address] [place] [address] 7 [place] [address] Insurance Assigned Provider 09/18/17 02/19/24 Jailyn Grewal DO 234 [facility], [address] [place] [address] [email or web address] Insurance Assigned Provider 02/19/24 02/18/25 Pippa Shirley MD 234 [facility], [address] [place] [address] [email or web address] Insurance Assigned Provider 02/18/25 documented as of this encounter Additional Source Comments The information contained in this document represents components of the legal health record. It is not the complete legal health record.[facility]
--- OUTSIDE RECORDS SUMMARY | 2025-09-17 16:44 | XMS_ITS | Encounter Summary ---
Author Organization [facility] Address [facility] [place] [address] [place] [address] Phone Care Team Providers Care Online Marketing Strategist Name Role Phone Jailyn Grewal DO Unavailable Sondra Bettyeminh Leggett [facility] Unavailable [phone] Ninoska Sanchez MD Unavailable [phone] Best Aaron MD Unavailable [phone] Saurav Cornelius MD Unavailable [phone] Best Aaron MD Unavailable Best Aaron MD Primary Care Provider Pippa Shirley MD Primary Care Provider [phone] Jailyn Grewal DO Unavailable Pippa Shirley MD Unavailable [phone] Encounter Details Date Type Department Care Team (Late st Contact Info) Description 08/20/2023 Procedure Pass [facility] - [address] [place] [address] Social History Tobacco Use Types Packs/Day Years [...] st Contact Info) Description 05/01/2025 Procedure Pass [facility], Ct Scan [address] [address] 10/18/2025 3:15 PM EST Appointment [facility], Ct Scan [address] [address] Vladimir Mccoy MD 30 [place] [address] 12/20/2025 2:00 PM EST Office Visit [address] [address] Pippa Shirley MD [address] [place] [address], [address] 7 [place] [address] [email or web address] 12/31/2025 11:30 AM EST Office Visit [facility] [address] [place] [address] Unknown, Unknown, Angela Sen PA-C [address] [place] [address] [email or web address] 02/28/2026 8:30 AM EDT Office Visit [facility] Neurology [address] [place] [address] Albert Lynn MD 22 [facility], 2nd [place] [address] [email or web address] documented as of this encounter Visit Diagnoses Not on filedocumented in this encounter Additional Health Concerns Assessment Noted Time PHQ-2 Depression Total Score: 2 09/08/20 22 4:13 PM EDT documented as of this encounter Care Teams Online Marketing Strategist Relationship Specialty Start Date End Date Best Aaron MD [address] [place] [address] 7 [place] [address] PCP - General Family Medicine 10/19/19 02/09/24 Pippa Shirley MD [address] [place] [address] 7 [place] [address] [email or web address] PCP - General Family Medicine 02/10/24 Jailyn Grewal DO [address] [place] [address] 7 [place] [address] Historical LMR Provider 09/04/17 Bettye Amaro CNP [address] [place] [address] [email or web address] Historical LMR Provider 09/04/17 Ninoska Sanchez MD [address] [place] [address] 7 [place] [address] [email or web address] Historical LMR Provider 09/04/17 Best Aaron MD [address] [place] [address] 7 [place] [address] [email or web address] Historical LMR Provider 09/04/17 Saurav Cornelius MD [address] [place], [place] [address] [place] [phone] [email or web address] Historical LMR Provider 09/04/17 Best Aaron MD [address] [place] [address], [address] [place] [address] [email or web address] Insurance Assigned Provider 09/18/1702/19/24 Jailyn Grewal DO [address] [place] [address], [address] [place] [address] Insurance Assigned Provider 02/19/24 Pippa Shirley MD [address] [place] [address], [address] [place] [address] [email or web address] Insurance Assigned Provider 02/18/25 documented as of this encounter Additional Source Comments The information contained in this document represents components of the legal health record. It is not the complete legal health record.[facility]
--- OUTSIDE RECORDS SUMMARY | 2025-09-17 16:45 | XMS_ITS | Encounter Summary ---
Author Organization [facility] Address [facility] [employer] [facility] [address] [place] [address] Phone Care Team Providers Care Elevator Repairer Helper Name Role Phone Best Aaron MD Primary Care Provider Alysa Benito CHIEF OF STAFF DOCTOR Unavailable Jailyn Grewal DO Unavailable Esperanza Cisneros CHIEF OF STAFF DOCTOR Unavailable Bettye Amaro MANAGER CULINARY Unavailable Caprice Johns CHIEF OF STAFF DOCTOR Unavailable [phone] Noe Fitzpatrick MD Unavailable Adelaida Awad MD Unavailable Kadi Nazario CHIEF OF STAFF DOCTOR Unavailable Ninoska Sanchez MD Unavailable Best Aaron MD Unavailable Isidro Yashira Mehdi TESFAYE Unavailable [phone] Belinda Wolfe MD Unavailable [phone] Carlos Miranda MD Unavailable Juanis Boyd MD Unavailable Saurav Cornelius MD Unavailable Giulia Alarcon MD Unavailable Albert Ley MD Unavailable [phone] Luis Carlos De Jesus MANAGER CULINARY Unavailable Best Aaron MD Unavailable Best Aaron MD Primary Care Provider Pippa Shirley MD Primary Care Provider Jailyn Grewal DO Unavailable Pippa Shirley MD Unavailable Encounter Details Date Type Department Care Team (Late st Contact Info) Description 08/18/2018 Procedure Pass [facility] PERIOPERATIVE DEPT [address] [place] [address] Social History Tobacco Use Types Packs/Day Years [...] st Contact Info) Description 05/01/2025 Procedure Pass [facility], [address] [address] 10/18/2025 3:15 PM EST Appointment [address] [place] [address] Vladimir Mccoy MD 30 [place] [address] [email or web address] 12/20/2025 2:00 PM EST Office Visit [facility] 234 [place] [address] Pippa [place] MD 234 [facility], [address] [place] [address] [email or web address] 12/31/2025 11:30 AM EST Office Visit [facility] 10 [place] [address] Unknown, Unknown, Angela Sen PA-C [address] [place] [address] [email or web address] 02/28/2026 8:30 AM EDT Office Visit [facility] Neurology [address] [place] [address] Albert Lynn MD 22 [facility], 2nd [place] [address] [email or web address] documented as of this encounter Visit Diagnoses [...] Assessment Noted Time PHQ-2 Depression Total Score: 0 03/29/20 18 3:26 PM EDT documented as of this encounter Care Teams Elevator Repairer Helper Relationship Specialty Start Date End Date Best Aaron MD [address] [place] [address] [place] [address] [email or web address] PCP - General 09/02/17 10/18/19 Best Aaron MD [address] [place] [address] [place] [address] [email or web address] PCP - General Family Medicine 10/19/19 02/09/24 Pippa Shirley MD [address] [place] [address] [email or web address] PCP - General Family Medicine 02/10/24 Alysa Benito CHIEF OF STAFF DOCTOR 1 [place] [address] Historical LMR Provider 09/04/17 2 Jailyn Grewal DO [address] [place] [address] [email or web address] Historical LMR Provider 09/04/17 Esperanza Cisneros, BRIEN 29 [place] [address] Historical LMR Provider 09/04/17 2 Bettye Amaro, ROBERTO 15 [facility], 2nd [place] [address] [email or web address] Historical LMR Provider 09/04/17 Caprice Johns NP [address] [place] [address] [email or web address] Historical LMR Provider 09/04/17 11/22/21 Noe Fitzpatrick MD [address] [place] [address] [email or web address] Historical LMR Provider 09/04/17 11/22/21 Adelaida Awad MD [address] [place] [address] [email or web address] Historical LMR Provider 09/04/17 Kadi Nazario NP [address] [place] [address] Historical LMR Provider 09/04/17 2 Ninoska Sanchez MD [address] [place] [address] [email or web address] Historical LMR Provider 09/04/17 Best Aaron MD [address] [place] [address] [email or web address] Historical LMR Provider 09/04/17 Yashira Felix NP [address] [place] [address] Historical LMR Provider 09/04/17 2 Belinda Wolfe MD [address] [place] [address] Historical LMR Provider 09/04/17 2 Carlos Miranda MD [address] [place] [address] Historical LMR Provider 09/04/17 11/22/21 Juanis Boyd MD [address] [place] [address] 7 [place] [address] Historical LMR Provider 09/04/17 11/22/21 Saurav Cornelius MD [address] [place] [address] [address] [place] [id number] [email or web address] Historical LMR Provider 09/04/17 Giulia Alarcon MD [address] [place] [address] [email or web address] Historical LMR Provider 09/04/17 11/22/21 Albert Ley MD [address] [place] [address] Historical LMR Provider 09/04/17 2 Luis Carlos De Jesus, ROBERTO [address] [place] [address], [address] [place] [address] [email or web address] Historical LMR Provider 09/04/17 Best Aaron MD [address] [place] [address] 7 [place] [address] [email or web address] Insurance Assigned Provider 09/18/17 02/19/24 Jailyn Grewal DO [address] [place] [address], [address] [place] [address] [email or web address] Insurance Assigned Provider 02/19/24 02/18/25 Pippa [place] MD [address] [place] [address], [address] [place] [address] [email or web address] Insurance Assigned Provider 02/18/25 documented as of this encounter Additional Source Comments The information contained in this document represents components of the legal health record. It is not the complete legal health record.[facility]
--- OUTSIDE RECORDS SUMMARY | 2025-09-17 16:45 | XMS_ITS | Encounter Summary ---
Author Organization [facility] Address [facility] [employer] [facility] [address] [place] [address] Phone Care Team Providers Care Deckhand Name Role Phone Alysa Benito NETWORK ADMINISTRATOR Unavailable Jailyn Grewal DO Unavailable Esperanza Cisneros NETWORK ADMINISTRATOR Unavailable Bettye Amaro IMPORT/EXPORT SPECIALIST Unavailable Caprice Johns NETWORK ADMINISTRATOR Unavailable [phone] Noe Fitzpatrick MD Unavailable Adelaida Awad MD Unavailable Kadi Nazario NETWORK ADMINISTRATOR Unavailable Ninoska Sanchez MD Unavailable Best Aaron MD Unavailable Yashira Felix NETWORK ADMINISTRATOR Unavailable [phone] Belinda Wolfe MD Unavailable [phone] Carlos Miranda MD Unavailable Juanis Boyd MD Unavailable Saurav Cornelius MD Unavailable Giulia Alarcon MD Unavailable Albert Ley MD Unavailable [phone] Luis Carlos De Jesus CNP Unavailable Best Aaron MD Unavailable Best Aaron MD Primary Care Provider [phone] Pippa Shirley MD Primary Care Provider [phone] Jailyn Grewal DO Unavailable [phone] Pippa Shirley MD Unavailable [phone] Encounter Details Date Type Department Care Team (Late st Contact Info) Description 01/08/2021 Procedure Pass [facility] Periop [address] [place] [address] Social History Tobacco Use Types Packs/Day Years [...] Date of Assessment Author No Risk Indicated 01/08/2021 9:00 PM EST Reshma Sanders RN * [place] Suicide Severity Rating Scale (Screener/Recent Self-Report) Question Answer Date of Assessment Author 1. Wish to be (Past 1 Month) No 01/08/2021 9:00 PM EST Corrine Parker RN 2. Non-Specific Active Suicidal Thoughts (Past 1 Month) No 01/08/2021 9:00 PM Corrine Watkins RN 6. Suicidal Behavior (Lifetime) No 01/08/2021 9:00 PM Corrine Watkins RN documented as of this encounter Plan of Treatment Upcoming Encounters Date Type Department Care Team (Late st Contact Info) Description 05/01/2025 Procedure Pass [facility], Ct Scan [address] [address] 10/18/2025 3:15 PM EST Appointment [facility] Ct Scan [address] [address] Vladimir Mccoy MD 30 [place] [address] 12/20/2025 2:00 PM EST Office Visit [address] [address] Pippa [place] MD [address] [place] [address], [address] [place] [address] [email or web address] 12/31/2025 11:30 AM EST Office Visit [facility] 10 [place] [address] Unknown, Unknown, Angela Sen PA-C [address] [address] [email or web address] 02/28/2026 8:30 AM EDT Office Visit [facility] Neurology [address] [place] [address] Albert Lynn MD [address] [place] [address] [email or web address] documented as of this [...] documented as of this encounter Care Teams Deckhand Relationship Specialty Start Date End Date Best Aaron MD [address] [place] [address] 7 [place] [address] [email or web address] PCP - General Family Medicine 10/19/19 02/09/24 Pippa Shirley MD [address] [place] [address] 7 [place] [address] [email or web address] PCP - General Family Medicine 02/10/24 Alysa Benito NETWORK ADMINISTRATOR 1 [facility] [place] [address] Historical LMR Provider 09/04/17 2 Jailyn Grewal DO [address] [place] [address] 7 [place] [address] [email or web address] Historical LMR Provider 09/04/17 Esperanza Cisneros NP 29 [place] [address] Historical LMR Provider 09/04/17 2 Sondra Bettye Betsey, ROBERTO [address] [address] [email or web address] Historical LMR Provider 09/04/17 Caprice Johns NETWORK ADMINISTRATOR [address] [place] [address] [email or web address] Historical LMR Provider 09/04/17 11/22/21 Noe Fitzpatrick MD [address] [place] [address] [email or web address] Historical LMR Provider 09/04/17 11/22/21 Adelaida Awad MD [address] [address] [email or web address] Historical LMR Provider 09/04/17 Kadi Nazario, BRIEN [address] [place] [address] Historical LMR Provider 09/04/17 2 Ninoska Sanchez MD [address] [place] [address] 7 [place] [address] [email or web address] Historical LMR Provider 09/04/17 Best Aaron MD [address] [place] [address] 7 [place] [address] Historical LMR Provider 09/04/17 Yashira Felix NP 30 [place] [address] Historical LMR Provider 09/04/17 2 Belinda Wolfe MD [address] [place] [address] Historical LMR Provider 09/04/17 2 Carlos Miranda MD [address] [place] [address] Historical LMR Provider 09/04/17 11/22/21 Juanis Boyd MD [address] [place] [address] Historical LMR Provider 09/04/17 11/22/21 Saurav Cornelius MD [address] [place], [place] [address] [place] [phone] [email or web address] Historical LMR Provider 09/04/17 Giulia Alarcon MD [address] [place] [address] Historical LMR Provider 09/04/17 11/22/21 Albert Ley MD 61 [place] [address] Historical LMR Provider 09/04/17 2 Luis Carlos De Jesus CNP 22 [facility], [address] [place] [address] [email or web address] Historical LMR Provider 09/04/17 Best Aaron MD [address] [place] [address], [facility] 7 [place] [address] [email or web address] Insurance Assigned Provider 09/18/17 02/19/24 Jailyn Grewal DO [address] [place] [address] 7 [place] [address] [email or web address] Insurance Assigned Provider 02/19/24 02/18/25 Pippa Shirley MD [address] [place] [address] 7 [place] [address] [email or web address] Insurance Assigned Provider 02/18/25 documented as of this encounter Additional Source Comments The information contained in this document represents components of the legal health record. It is not the complete legal health record.[facility]
--- OUTSIDE RECORDS SUMMARY | 2025-09-17 16:45 | XMS_ITS | Encounter Summary ---
Author Organization [facility] Address [facility] [employer] [facility] [address] [place] [address] Phone Care Team Providers Care Business Solutions Analyst Name Role Phone Best Aaron MD Primary Care Provider [phone] Alysa Benito MARINE METEOROLOGIST Unavailable Jailyn Grewal DO Unavailable Esperanza Cisneros MARINE METEOROLOGIST Unavailable Bettye Amaro CHURN OPERATOR Unavailable Caprice Johns MARINE METEOROLOGIST Unavailable [phone] Noe Fitzpatrick MD Unavailable Adelaida Awad MD Unavailable Kadi Nazario MARINE METEOROLOGIST Unavailable Ninoska Sanchez MD Unavailable [phone] Best Aaron MD Unavailable IsidroYashira Mehdi MARINE METEOROLOGIST Unavailable [phone] Belinda Wolfe MD Unavailable [phone] Carlos Miranda MD Unavailable Juanis Boyd MD Unavailable Saurav Cornelius MD Unavailable Giulia Alarcon MD Unavailable Albert Ley MD Unavailable [phone] Luis Carlos De Jesus CHURN OPERATOR Unavailable Best Aaron MD Unavailable Best Aaron MD Primary Care Provider Pippa Shirley MD Primary Care Provider [phone] Jailyn Grewal DO Unavailable [phone] Pippa Shirley MD Unavailable Reason for Referral * Physical Therapy (Routine) - Closed Specialty Diagnoses / Procedures Referred By Burke gomez Referred To Contact Physical Therapy Diagnoses Encounter for rehabilitation Prince Rodriguez MD Phone: tel: fax: [email or web address] [address] [place] [address] Phone: tel: Referral ID Status Reason Start Date Expiration Date Visits Re quested Visits Authorized [id number] Closed 08/01/2018 08/01/2019 99 99 Encounter Details Date Type Department Care Team (Latest Contact Info) Description 08/01/2018 Transcribe Orders [facility] [address] [place] [address] Prince Rodriguez MD [address] [place] [address] Encounter for rehabilitation (Primary Dx) Social History Tobacco Use Types Packs/Day Years Used Date Smoking Tobacco: Never Smokeless Tobacco: Never Alcohol Use Standard Drinks/Week Comments Yes 1 (1 standard drink = 0.6 oz pur e alcohol) Comments No Sex and Gender Information Value Date Recorded Sex Assigned at Female 06/14/2018 11:15 PM EDT Legal Sex Female 5:49 PM EST Gender Identity Female 07/01/2024 1:45 PM EDT Sexual Orientation Straight 06/14/2018 11 :15 PM EDT documented as of this encounter Plan of Treatment Upcoming Encounters Date Type Department Care Team (Late st Contact Info) Description 05/01/2025 Procedure Pass [address] [address] 10/18/2025 3:15 PM EST Appointment [address] [address] Vladimir Mccoy MD [address] [place] [address] 12/20/2025 2:00 PM EST Office Visit [address] [address] Pippa Shirley MD [address] [place] [address], [address] [place] [address] [email or web address] 12/31/2025 11:30 AM EST Office Visit [facility] [address] [place] [address] Unknown, Unknown, Angela Sen PA-C [address] [phone] [email or web address] 02/28/2026 8:30 AM EDT Office Visit [facility] Neurology [address] [place] [address] Albert Lynn MD [address] [facility], 2nd [place] [address] [email or web address] Scheduled Referrals Name Type Priority Associated Diagnoses Orde r Schedule Ambulatory referral to [facility] Physical Therapy Outpatient Referral Routine Encounter for rehabilitation Ordered: 08/01/2018 documented as of this encounter Visit Diagnoses Diagnosis Encounter for [...] Time PHQ-2 Depression Total Score: 0 03/29/20 3:26 PM EDT documented as of this encounter Care Teams Business Solutions Analyst Relationship Specialty Start Date End Date Best Aaron MD [address] [place] [address] [email or web address] PCP - General 09/02/17 10/18/19 Best Aaron MD [address] [place] [address] 7 [place] [address] [email or web address] PCP - General Family Medicine 10/19/19 02/09/24 Pippa Shirley MD [address] [place] [address] [email or web address] PCP - General Family Medicine 02/10/24 Alysa Benito MARINE METEOROLOGIST 1 [place] [address] Historical LMR Provider 09/04/17 2 Jailyn Grewal DO [address] [place] [address], [address] [place] [address] Historical LMR Provider 09/04/17 Esperanza Cisneros, BRIEN [address] [place] [address] Historical LMR Provider 09/04/17 2 Bettye Amaro, ROBERTO [address] [address] Historical LMR Provider 09/04/17 Caprice Johns NP [address] [place] [address] [email or web address] Historical LMR Provider 09/04/17 11/22/21 Noe Fitzpatrick MD [address] [place] [address] [email or web address] Historical LMR Provider 09/04/17 11/22/21 Adelaida Awad MD [address] [address] Historical LMR Provider 09/04/17 Kadi Nazario, BRIEN [address] [place] [address] Historical LMR Provider 09/04/17 2 Ninoska Sanchez MD [address] [place] [address] [email or web address] Historical LMR Provider 09/04/17 Best Aaron MD [address] [place] [address] Historical LMR Provider 09/04/17 Yashira Felix NP [address] [place] [address] Historical LMR Provider 09/04/17 2 Belinda Wolfe MD [address] [place] [address] Historical LMR Provider 09/04/17 2 Carlos Miranda MD [address] [place] [address] Historical LMR Provider 09/04/17 11/22/21 Juanis Boyd MD [address] [place] [address] Historical LMR Provider 09/04/17 11/22/21 Saurav Cornelius MD [address] [place], [place] [address] [place] [phone] [email or web address] Historical LMR Provider 09/04/17 Giulia Alarcon MD [address] [facility], [address] [place] [address] Historical LMR Provider 09/04/17 11/22/21 Albert Ley MD [address] [place] [address] Historical LMR Provider 09/04/17 2 Luis Carlos De Jesus CNP [address] [facility] [place] [address] [email or web address] Historical LMR Provider 09/04/17 Best Aaron MD [address] [place] [address] 7 [place] [address] [email or web address] Insurance Assigned Provider 09/18/17 02/19/24 Jailyn Grewal DO [address] [place] [address] 7 [place] [address] [email or web address] Insurance Assigned Provider 02/19/24 02/18/25 Pippa Shirley MD [address] [place] [address] 7 [place] [address] [email or web address] Insurance Assigned Provider 02/18/25 documented as of this encounter Additional Source Comments The information contained in this document represents components of the legal health record. It is not the complete legal health record.[facility]
--- OUTSIDE RECORDS SUMMARY | 2025-09-17 16:45 | XMS_ITS | Encounter Summary ---
Author Organization [facility] Address [facility] [address] [place] [address] Phone Care Team Providers Care Hemodialysis Lab Technician Name Role Phone Best Aaron MD Primary Care Provider Alysa Benito SHELTER ADVOCATE Unavailable [phone] Jailyn Grewal DO Unavailable Esperanza Cisneros SHELTER ADVOCATE Unavailable Bettye Amaro [employer]IG[employer] P[employer]ER [employer]ADER Unavailable Caprice Johns SHELTER ADVOCATE Unavailable [phone] Noe Fitzpatrick MD Unavailable Adelaida Awad MD Unavailable Kadi Nazario SHELTER ADVOCATE Unavailable Ninoska Sanchez MD Unavailable Best Aaron MD Unavailable Yashira Felix NP Unavailable [phone] Belinda Wolfe MD Unavailable [phone] Carlos Miranda MD Unavailable Juanis Boyd MD Unavailable Saurav Cornelius MD Unavailable Giulia Alarcon MD Unavailable Albert Ley MD Unavailable [phone] Luis Carlos De Jesus CIGAR PACKER [employer] SHADER Unavailable Best Aaron MD Unavailable Best Aaron MD Primary Care Provider [phone] Pippa Shirley MD Primary Care Provider [phone] Jailyn Grewal DO Unavailable Pippa Shirley MD Unavailable [phone] Reason for Referral * MRI/CAT Scan - Closed Specialty Diagnoses / Procedures Referred By Burke gomez Referred To Contact Radiology Diagnoses Sprain of right rotator cuff capsule, sequela Procedures MRI Shoulder (Right) Marquita Roldan NP Phone: tel: fax: [email or web address]:[email or web address] Referral ID Status Reason Start Date Expiration Date Visits Re quested Visits Authorized [id number] Closed 03/21/2018 03/21/2019 1 1 Encounter Details Date Type Department Care Team (Late st Contact Info) Description 03/21/2018 Ancillary Orders [facility] External Provider Virtual Department [address] [place] [address] Marquita Roldan NP [address] [place] [phone] [email or web address] Sprain of right rotator cuff capsule, sequela Social History Tobacco Use Types Packs/Day Years Used Date Smoking Tobacco: Never Smokeless Tobacco: Former Alcohol Use Standard Drinks/Week Comments Yes 0 (1 standard drink = 0.6 oz pur e alcohol) rare Comments Unknown Sex and Gender Information Value Date Recorded Sex Assigned at Female 06/14/2018 11:15 PM EDT Legal Sex Female 5:49 PM EST Gender Identity Female 07/01/2024 1:45 PM EDT Sexual Orientation Straight 06/14/2018 11 :15 PM EDT documented as of this encounter Plan of Treatment Upcoming Encounters Date Type Department Care Team (Late st Contact Info) Description 05/01/2025 Procedure Pass [address] [address] 10/18/2025 3:15 PM EST Appointment [address] [address] Vladimir Mccoy MD 30 [place] [address] 12/20/2025 2:00 PM EST Office Visit [facility] [address] [place] [address] Pippa Shirley MD [address] [place] [address], [address] [place] [address] [email or web address] 12/31/2025 11:30 AM EST Office Visit [facility] 10 [place], [place] [phone] Unknown, Unknown, Angela Sen PA-C [address] [phone] [email or web address] 02/28/2026 8:30 AM EDT Office Visit [facility] Neurology [address] [place] [address] Albert Lynn MD [address] [place] [address], 2nd [place] [address] [email or web address] documented as of this encounter Results * MRI SHOULDER WITHOUT CONTRAST (RIGHT) (03/29/2018 1:10 PM EDT) Anatomical Region Laterality Modality Shoulder Right Magnetic Resonan ce 03/29/2018 1:51 PM EDT Impressions 03/29/2018 2:00 PM EDT 1. High-grade tear of the distal supraspinatus tendon, likely a full-thickness tear. 2. Degenerative changes and probable synovitis at the clavicular joint. Degenerative changes may predispose to impingement. POS - [id number] Narrative 03/29/2018 2:00 PM EDT HISTORY: Pain, recent fall, weakness and limited range of motion with crepitus. COMPARISON: Right shoulder x-rays 01/12/2018. TECHNIQUE: Exam performed on a 1.5 Marilu high-field MRI scanner. Axial T1 and proton density with fat suppression, oblique coronal proton density with fat suppression and T2 with fat suppression, oblique sagittal T1 and T2 with fat suppression sequences were obtained. MRI SHOULDER FINDINGS: Rotator cuff tendons: High-grade tear of the distal supraspinatus tendon. This is likely a full-thickness tear. No evidence of tears of the infraspinatus or subscapularis tendon. Biceps tendon: Intact. Rotator cuff muscles: No significant abnormalities. Glenoid labrum: Grossly intact. Bursae: Small-moderate amount of fluid in the subacromial/subdeltoid bursa. Joints: Hypertrophic changes at the acromioclavicular joint which appear more moderate on MRI. Small amount of fluid within the acromioclavicular joint Bones: No suspicious marrow signal abnormalities. Other soft tissues: No evidence of soft tissue masses. Procedure Note Murphy Cesar MD - 03/29/2018 HISTORY: Pain, recent fall, weakness and limited range of motion withcrepitus. COMPARISON: Right shoulder x-rays 01/12/2018. TECHNIQUE: Exam performed on a 1.5 Marilu high-field MRI scanner. Axial T1and proton density with fat suppression, oblique coronal proton densitywith fat suppression and T2 with fat suppression, oblique sagittal T1 andT2 with fat suppression sequences were obtained. MRI SHOULDER FINDINGS: Rotator cuff tendons: High-grade tear of the distal supraspinatus tendon.This is likely a full-thickness tear. No evidence of tears of theinfraspinatus or subscapularis tendon. Biceps tendon: Intact. Rotator cuff muscles: No significant abnormalities. Glenoid labrum: Grossly intact. Bursae: Small-moderate amount of fluid in the subacromial/subdeltoidbursa. Joints: Hypertrophic changes at the acromioclavicular joint which appearmore moderate on MRI. Small amount of fluid within the acromioclavicularjoint Bones: No suspicious marrow signal abnormalities. Other soft tissues: No evidence of soft tissue masses. IMPRESSION: 1. High-grade tear of the distal supraspinatus tendon, likely afull-thickness tear. 2. Degenerative changes and probable synovitis at the clavicular joint.Degenerative changes may predispose to impingement. POS - [id number] Marquita Roldan NP IM MR EXTREMITY Final Result documented in this encounter Visit Diagnoses Diagnosis Sprain of right rotator cuff capsule, sequela Sprain of right rotator cuff capsule, sequela documented in this encounter Additional Health Concerns Infection Onset Date Last Indicated Resolved Time CoV-Exposed Comment:Dc from rehab facility 01/20 full PPE fro 14 days 01/23/2021 01/23/2021 02/04/2021 1:23 AM EDT CoV-Risk 03/10/2022 03/10/2022 03/21/2022 1:24 AM EDT CoV-Risk 11/23/2022 11/23/2022 12/04/2022 1:22 AM EST COVID-19 06/15/2023 06/15/2023 07/06/2023 1:23 AM EDT documented as of this encounter Care Teams Hemodialysis Lab Technician Relationship Specialty Start Date End Date Best Aaron MD [address] [place] [address] 7 [place] [address] PCP - General 09/02/17 10/18/19 Best Aaron MD [address] [place] [address], [address] [place] [address] PCP - General Family Medicine 10/19/19 02/09/24 Pippa Shirley MD [address] [place] [address], [address] [place] [address] [email or web address] PCP - General Family Medicine 02/10/24 Alysa Benito NP 1 [place] [address] Historical LMR Provider 09/04/17 2 Jailyn Grewal DO [address] [place] [address], [facility] 7 [place] [address] Historical LMR Provider 09/04/17 Esperanza Cisneros NP 29 [place] [address] Historical LMR Provider 09/04/17 2 Bettye Amaro CNP 15 [facility], 2nd [place] [address] Historical LMR Provider 09/04/17 Caprice Johns SHELTER ADVOCATE [address] [place] [address] Historical LMR Provider 09/04/17 11/22/21 Neo Fitzpatrick MD 4 [place] [address] [email or web address] Historical LMR Provider 09/04/17 11/22/21 Adelaida Awad MD 15 [facility], 2nd [place] [address] [email or web address] Historical LMR Provider 09/04/17 Kadi Nazario NP [address] [place] [address] Historical LMR Provider 09/04/17 2 Ninoska Sanchez MD [address] [place] [address] [email or web address] Historical LMR Provider 09/04/17 Best Aaron MD [address] [place] [address] [email or web address] Historical LMR Provider 09/04/17 Yashira Felix NP [address] [place] [address] Historical LMR Provider 09/04/17 2 Belinda Wolfe MD [address], [place] [address] Historical LMR Provider 09/04/17 2 Carlos Miranda MD [address] [place] [address] [address] Historical LMR Provider 09/04/17 11/22/21 Juanis Boyd MD [address] [place] [address] 7 [place] [address] Historical LMR Provider 09/04/17 11/22/21 Saurav Cornelius MD [address] [place] [address] [address] [place] [address] [email or web address] Historical LMR Provider 09/04/17 Giulia Alarcon MD [address] [place] [address] Historical LMR Provider 09/04/17 11/22/21 Albert Ley MD [address] [place] [address] Historical LMR Provider 09/04/17 2 Luis Carlos De Jesus CNP [address] [place] [address], [address] [place] [address] Historical LMR Provider 09/04/17 Best Aaron MD [address] [place] [address] 7 [place] [address] Insurance Assigned Provider 09/18/17 02/19/24 Jailyn Grewal DO [address] [place] [address] 7 [place] [address] [email or web address] Insurance Assigned Provider 02/19/24 02/18/25 Pippa Shirley MD 234 [facility] 7 [place] [address] [email or web address] Insurance Assigned Provider 02/18/25 documented as of this encounter Additional Source Comments The information contained in this document represents components of the legal health record. It is not the complete legal health record.[facility]
--- OUTSIDE RECORDS SUMMARY | 2025-09-17 16:45 | XMS_ITS | Encounter Summary ---
Author Organization [facility] Address [facility] [employer] [facility] [address] [place] [address] Phone Care Team Providers Care Rivet Bucker Name Role Phone Jailyn Grewal DO Unavailable Sondra Bettyeminh Leggett REPLACER Unavailable Ninoska Sanchez MD Unavailable [phone] Best Aaron MD Unavailable [phone] Saurav Cornelius MD Unavailable [phone] Best Aaron MD Unavailable Best Aaron MD Primary Care Provider Pippa Shirley MD Primary Care Provider [phone] Jailyn Grewal DO Unavailable Pippa Shirley MD Unavailable [phone] Encounter Details Date Type Department Care Team (Latest Contact Info) Description 05/15/2022 Transcribe Orders Virtual Department [address] [place] [address] Best Aaron MD [address] [place] [address], [address] [place] [address] [email or web address] Breast screening (Primary Dx) Social History Tobacco [...] Description 05/01/2025 Procedure Pass [facility], Ct Scan [address] [address] 10/18/2025 3:15 PM EST Appointment [facility] Ct Scan [address] [address] Vladimir Mccoy MD 30 [place] [address] 12/20/2025 2:00 PM EST Office Visit [address] [address] Pippa Shirley MD [address] [place] [address], [address] [place] [address] [email or web address] 12/31/2025 11:30 AM EST Office Visit [facility] [address] [place] [address] Unknown, Unknown, Angela Sen PA-C [address] [place] [address] [email or web address] 02/28/2026 8:30 AM EDT Office Visit [facility] Neurology [address] [place] [address] Albert Lynn MD 22 [facility], 2nd [place] [address] [email or web address] documented as of this encounter Results * BI MAMMOGRAM SCREENING WITH TOMOSYNTHESIS WITH CAD (BILATERAL) (07/07/2022 10:29 AM EDT) Anatomical Region Laterality Modality Breast Left, Breast Right, Breast Bilateral Bila teral Mammography 07/07/2022 4:37 PM EDT Impressions 07/07/2022 4:39 PM EDT BILATERAL BREASTS: Negative, no specific mammographic evidence of malignancy. Normal interval follow-up is recommended in 12 months. BI-RADS: BI-RADS CATEGORY: 1 - Negative. DENSITY: There are scattered fibroglandular densities. Narrative 07/07/2022 4:39 PM EDT STUDY: Bilateral screening mammography with tomosynthesis and CAD TECHNIQUE: Bilateral full-field digital screening mammography is obtained and read in conjunction with computer-aided detection. Tomosynthesis as well as 2-D C view imaging were obtained. COMPARISON: Comparison made to multiple prior, most recent July 03, 2021, and most remote March 08, 2015. BREAST COMPOSITION: There are scattered areas of fibroglandular density BILATERAL BREASTS: No significant masses, suspicious calcifications or other abnormalities are seen in either breast. Procedure Note Eduardo Mays MD - 07/07/2022 STUDY: Bilateral screening mammography with tomosynthesis and CAD TECHNIQUE: Bilateral full-field digital screening mammography is obtainedand read in conjunction with computer-aided detection. Tomosynthesis aswell as 2-D C view imaging were obtained. COMPARISON: Comparison made to multiple prior, most recent June, and most remote March 08, 2015. BREAST COMPOSITION: There are scattered areas of fibroglandulardensity BILATERAL BREASTS: No significant masses, suspicious calcifications orother abnormalities are seen in either breast. IMPRESSION: BILATERAL BREASTS: Negative, no specific mammographic evidence ofmalignancy. Normal interval follow-up is recommended in 12 months. BI-RADS: BI-RADS CATEGORY: 1 - Negative. DENSITY: There are scattered fibroglandular densities. us Best Aaron MD IMG MG EXAMS Final Result documented [...] documented as of this encounter Care Teams Rivet Bucker Relationship Specialty Start Date End Date Best Aaron MD [address] [place] [address] 7 [place] [address] PCP - General Family Medicine 10/19/19 02/09/24 Pippa Shirley MD [address] [place] [address] 7 [place] [address] [email or web address] PCP - General Family Medicine 02/10/24 Jailyn Grewal DO [address] [place] [address] 7 [place] [address] Historical LMR Provider 09/04/17 Bettye Amaro CNP [address] [place] [address], 2nd [place] [address] Historical LMR Provider 09/04/17 Ninoska Sanchez MD [address] [place] [address] 7 [place] [address] Historical LMR Provider 09/04/17 Best Aaron MD [address] [place] [address] 7 [place] [address] Historical LMR Provider 09/04/17 Saurav Cornelius MD [address] [place] [address] [address] [place] [phone] [email or web address] Historical LMR Provider 09/04/17 Best Aaron MD [address] [place] [address], [address] [place] [address] Insurance Assigned Provider 09/18/1702/19/24 Jailyn Grewal DO [address] [place] [address], [address] [place] [address] Insurance Assigned Provider 02/19/24 Pippa Shirley MD [address] [place] [address], [address] [place] [address] [email or web address] Insurance Assigned Provider 02/18/25 documented as of this encounter Additional Source Comments The information contained in this document represents components of the legal health record. It is not the complete legal health record.[facility]
--- OUTSIDE RECORDS SUMMARY | 2025-09-17 16:45 | XMS_ITS | Encounter Summary ---
Author Organization [facility] Address [facility] [employer] [facility] [address] [place] [address] Phone Care Team Providers Care Slusher Operator Name Role Phone Alysa Benito SALES AND SERVICE ASSOCIATE Unavailable Jailyn Grewal DO Unavailable Esperanza Cisneros SALES AND SERVICE ASSOCIATE Unavailable Bettye Amaro GRANITE CUTTER APPRENTICE Unavailable Caprice Johns SALES AND SERVICE ASSOCIATE Unavailable [phone] Noe Fitzpatrick MD Unavailable Adelaida Awad MD Unavailable Kadi Nazario SALES AND SERVICE ASSOCIATE Unavailable Ninoska Sanchez MD Unavailable Best Aaron MD Unavailable Yashira Felix SALES AND SERVICE ASSOCIATE Unavailable [phone] Belinda Wolfe MD Unavailable [phone] Carlos Miranda MD Unavailable Juanis Boyd MD Unavailable Saurav Cornelius MD Unavailable Giulia Alarcon MD Unavailable Albert Ley MD Unavailable Luis Carlos De Jesus CNP Unavailable Best Aaron MD Unavailable Best Aaron MD Primary [facility] Primary Care Provider Jailyn Grewal DO Unavailable Pippa Shirley MD Unavailable Encounter Details Date Type Department Care Team (Late st Contact Info) Description 04/10/2020 Ancillary Orders [facility] [address] [place] [address] Shaina Hebert MD [address] [place] [address], [address] [place] [address] [email or web address] Breast screening Social History Tobacco Use Types Packs/Day Years [...] st Contact Info) Description 05/01/2025 Procedure Pass [facility], Ct Scan [address] [address] 10/18/2025 3:15 PM EST Appointment [facility], [address] [address] Vladimir Mccoy MD 30 [place] [address] 12/20/2025 2:00 PM EST Office Visit [facility] [address] [place] [address] Pippa Shirley MD [address] [place] [address] 7 [place] [address] [email or web address] 12/31/2025 11:30 AM EST Office Visit [facility] 10 [place] [address] Unknown, Unknown, Angela Sen PA-C [address] [address] [email or web address] 02/28/2026 8:30 AM EDT Office Visit [facility] Neurology [address] [place] [address] Albert Lynn MD [address] [place] [address], 2nd [place] [address] documented as of this encounter Results * BI MAMMOGRAM SCREENING WITH TOMOSYNTHESIS WITH CAD (BILATERAL) (07/02/2020 8:16 AM EDT) Anatomical Region Laterality Modality Breast Left, Breast Right, Breast Bilateral Bila teral Mammography 07/02/2020 9:12 AM EDT Impressions 07/02/2020 9:16 AM EDT No mammographic evidence of malignancy. BI-RADS CATEGORY: 1 - Negative. DENSITY: There are scattered fibroglandular densities. Narrative 07/02/2020 9:16 AM EDT Standard digital full-field 2-D C view and two-plane tomographic imaging was performed and compared with multiple prior studies, most recently 03/27/2019, with utilization of computer-aided detection. The breasts are composed of scattered fibroglandular densities. The stromal markings are essentially unchanged in overall appearance and distribution. No dominant spiculated mass, suspicious clustered microcalcifications, or focal zone of pathologic skin thickening or retraction are noted to have arisen in the interim. Procedure Note Katie Miranda MD - 07/02/2020 Standard digital full-field 2-D C view and two-plane tomographic imagingwas performed and compared with multiple prior studies, most iodnfzgi40/13/2019, with utilization of computer-aided detection. The breasts are composed of scattered fibroglandular densities. Thestromal markings are essentially unchanged in overall appearance anddistribution. No dominant spiculated mass, suspicious clusteredmicrocalcifications, or focal zone of pathologic skin thickening orretraction are noted to have arisen in the interim. IMPRESSION: No mammographic evidence of malignancy. BI-RADS CATEGORY: 1 - Negative. DENSITY: There are scattered fibroglandular densities. Shaina Hebert MD IMG MG EXAMS Final Result documented in this encounter Visit Diagnoses Diagnosis Breast screening Breast screening, unspecified Breast screening Breast screening, [...] documented as of this encounter Care Teams Slusher Operator Relationship Specialty Start Date End Date Best Aaron MD [address] [place] [address], [facility] 7 [place] [address] PCP - General Family Medicine 10/19/19 02/09/24 Pippa Shirley MD [address] [place] [address] 7 [place] [address] [email or web address] PCP - General Family Medicine 02/10/24 Alysa Benito SALES AND SERVICE ASSOCIATE 1 [place] [address] Historical LMR Provider 09/04/17 2 Jailyn Grewal DO [address] [place] [address] 7 [place] [address] Historical LMR Provider 09/04/17 Esperanza Cisneros, SALES AND SERVICE ASSOCIATE 29 [place] [address] Historical LMR Provider 09/04/17 2 Bettye Amaro, ROBERTO 15 [facility], 2nd [place] [address] Historical LMR Provider 09/04/17 Caprice Johns, SALES AND SERVICE ASSOCIATE [address] [place] [address] Historical LMR Provider 09/04/17 11/22/21 Noe Fitzpatrick MD 4 [place] [address] [email or web address] Historical LMR Provider 09/04/17 11/22/21 Adelaida Awad MD 15 [facility], 2nd [place] [address] [email or web address] Historical LMR Provider 09/04/17 Kadi Nazario NP [address] [place] [address] Historical LMR Provider 09/04/17 2 Ninoska Sanchez MD [address] [place] [address] [email or web address] Historical LMR Provider 09/04/17 Best Aaron MD [address] [place] [address] [email or web address] Historical LMR Provider 09/04/17 Yashira Felix NP [address] [place] [address] Historical LMR Provider 09/04/17 2 Belinda Wolfe MD [address] [address] Historical LMR Provider 09/04/17 2 Carlos Miranda MD [address] [address] Historical LMR Provider 09/04/17 11/22/21 Juanis Boyd MD [address] [place] [address] 7 [place] [address] Historical LMR Provider 09/04/17 11/22/21 Saurav Cornelius MD [address] [place] [address] [address] [place] [address] [email or web address] Historical LMR Provider 09/04/17 Giulia Alarcon MD [address] [place] [address], [facility] 102 [place] [address] Historical LMR Provider 09/04/17 11/22/21 Albert Ley MD [address] [place] [address] Historical LMR Provider 09/04/17 2 Luis Carlos De Jesus CNP [address] [place] [address], [address] [place] [address] Historical LMR Provider 09/04/17 Best Aaron MD [address] [place] [address] 7 [place] [address] Insurance Assigned Provider 09/18/17 02/19/24 Jailyn Grewal DO [address] [place] [address] 7 [place] [address] [email or web address] Insurance Assigned Provider 02/19/24 02/18/25 Pippa Shirley MD [address] [place] [address] [address] [place] [address] [email or web address] Insurance Assigned Provider 02/18/25 documented as of this encounter Additional Source Comments The information contained in this document represents components of the legal health record. It is not the complete legal health record.[facility]
--- OUTSIDE RECORDS SUMMARY | 2025-09-17 16:45 | XMS_ITS | Encounter Summary ---
Author Organization [facility] Address [facility], [facility] [email or web address] [facility] [address] [place] [address] Phone Care Team Providers Care Commercial Drone Pilot Name Role Phone Best Aaron MD Primary Care Provider Alysa Benito HAND VIOLIN MAKER Unavailable [phone] Jailyn Grewal DO Unavailable Esperanza Cisneros HAND VIOLIN MAKER Unavailable Bettye Amaro STORE RECEIVING CLERK Unavailable Caprice Johns HAND VIOLIN MAKER Unavailable [phone] Noe Fitzpatrick MD Unavailable Adelaida Awad MD Unavailable Kadi Nazario HAND VIOLIN MAKER Unavailable Ninoska Sanchez MD Unavailable Best Aaron MD Unavailable Yashira Felix NP Unavailable [phone] Belinda Wolfe MD Unavailable [phone] Carlos Miranda MD Unavailable Juanis Boyd MD Unavailable Saurav Cornelius MD Unavailable Giulia Alarcon MD Unavailable Albert Ley MD Unavailable [phone] Luis Carlos De Jesus STORE RECEIVING CLERK Unavailable Best Aaron MD Unavailable Best Aaron MD Primary Care Provider Pippa Shirley MD Primary Care Provider Jailyn Grewal DO Unavailable Pippa Shirley MD Unavailable Encounter Details Date Type Department Care Team (Late st Contact Info) Description 06/23/2018 Procedure Pass [facility] Endoscopy Admitting Dept Virtual Department [address] [place] [address] Social History Tobacco Use Types Packs/Day Years [...] (Late Contact Info) Description 05/01/2025 Procedure Pass [facility], [address] [address] 10/18/2025 3:15 PM EST Appointment [facility] 30 [place] [address] Vladimir Mccoy MD 30 [place] [address] 12/20/2025 2:00 PM EST Office Visit [facility] 234 [place] [address] Pippa Shirley MD 234 [facility], [address] [place] [address] [email or web address] 12/31/2025 11:30 AM EST Office Visit [facility] [address] [place] [address] Unknown, Ceferino, Angela Sen PA-C [address] [place] [address] [email or web address] 02/28/2026 8:30 AM EDT Office Visit [facility] Neurology [address] [place] [address] Albert Lynn MD [address] [place] [address], 2nd [place] [address] [email or web address] documented as of this encounter Visit Diagnoses [...] documented as of this encounter Care Teams Commercial Drone Pilot Relationship Specialty Start Date End Date Best Aaron MD [address] [place] [address] 7 [place] [address] [email or web address] PCP - General 09/02/17 10/18/19 Best Aaron MD [address] [place] [address] [place] [address] [email or web address] PCP - General Family Medicine 10/19/19 02/09/24 Pippa Shirley MD [address] [place] [address] [place] [address] [email or web address] PCP - General Family Medicine 02/10/24 Alysa Benito HAND VIOLIN MAKER 1 [place] [address] Historical LMR Provider 09/04/17 2 Jailyn Grewal DO [address] [place] [address] [place] [address] [email or web address] Historical LMR Provider 09/04/17 Esperanza Cisneros, BRIEN 29 [place] [address] Historical LMR Provider 09/04/17 2 Bettye Amaro CNP [facility] 2nd [place] [address] [email or web address] Historical LMR Provider 09/04/17 Caprice Johns NP [address] [place] [address] [email or web address] Historical LMR Provider 09/04/17 11/22/21 Noe Fitzpatrick MD [address] [place] [address] [email or web address] Historical LMR Provider 09/04/17 11/22/21 Adelaida Awad MD [address] [place] [address] [email or web address] Historical LMR Provider 09/04/17 Kadi Nazario NP [address] [place] [address] Historical LMR Provider 09/04/17 2 Ninoska Sanchez MD [address] [place] [address] [email or web address] Historical LMR Provider 09/04/17 Best Aaron MD [address] [place] [address] [email or web address] Historical LMR Provider 09/04/17 Yashira Felix NP [address] [place] [address] Historical LMR Provider 09/04/17 2 Belinda Wolfe MD [address] [place] [address] Historical LMR Provider 09/04/17 2 Carlos Miranda MD [address] [place] [address] Historical LMR Provider 09/04/17 11/22/21 Juanis Boyd MD [address] [place] [address] Historical LMR Provider 09/04/17 11/22/21 Saurav Cornelius MD [address] [place], [place] [address] [place] [id number] [email or web address] Historical LMR Provider 09/04/17 Giulia Alarcon MD [address] [place] [address] Historical LMR Provider 09/04/17 11/22/21 Albert Ley MD [address] [place] [address] Historical LMR Provider 09/04/17 2 Luis Carlos De Jesus, ROBERTO [address] [place] [address], [address] [place] [address] Historical LMR Provider 09/04/17 Best Aaron MD [address] [place] [address] 7 [place] [address] [email or web address] Insurance Assigned Provider 09/18/17 02/19/24 Jailyn Grewal DO [address] [place] [address], [facility] 7 [place] [address] [email or web address] Insurance Assigned Provider 02/19/24 02/18/25 Pippa Shirley MD [address] [place] [address], [address] [place] [address] [email or web address] Insurance Assigned Provider 02/18/25 documented as of this encounter Additional Source Comments The information contained in this document represents components of the legal health record. It is not the complete legal health record.[facility]
--- OUTSIDE RECORDS SUMMARY | 2025-09-17 16:45 | XMS_ITS | Encounter Summary ---
Author Organization [facility] Address [facility] [address] [place] [address] Phone Care Team Providers Care Grain Cleaner Name Role Phone Jailyn Grewal DO Unavailable Sondra Bettyeminh Leggett EQUIPMENT PROCESSOR Unavailable Ninoska Sanchez MD Unavailable [phone] Best Aaron MD Unavailable [phone] Saurav Cornelius MD Unavailable [phone] Best Aaron MD Unavailable Best Aaron MD Primary Care Provider Pippa Shirley MD Primary Care Provider [phone] Jailyn Grewal DO Unavailable Pippa Shirley MD Unavailable Encounter Details Date Type Department Care Team (Late st Contact Info) Description 07/21/[address] [facility], Ct Scan [address] [address] Social History Tobacco Use Types Packs/Day Years [...] high school, GED, job training, learning the Trin[place] language, technical skills, or developing parenting skills)? [...] [facility], Ct Scan - [address] [address] 10/18/2025 3:15 PM EST Appointment [facility], Ct Scan - [address] [address] Vladimir Mccoy MD 30 [place] [address] 12/20/2025 2:00 PM EST Office Visit [facility] 234 [place] [address] Pippa Shirley MD 234 [facility], [facility] 7 [place] [address] [email or web address] 12/31/2025 11:30 AM EST Office Visit [facility] 10 [place] [address] Unknown, Unknown, Angela Sen PA-C [address] [address] [email or web address] 02/28/2026 8:30 AM EDT Office Visit [facility] Neurology [address] [place] [address] Albert Lynn MD [address] [place] [address], 2nd [place] [address] documented as of this encounter Visit Diagnoses Not on filedocumented in this encounter Additional Health Concerns Infection Onset Date Last Indicated Resolved Time CoV-Risk 11/23/2022 11/23/2022 12/04/2022 1:22 AM EST COVID-19 06/15/2023 06/15/2023 07/06/2023 1:23 AM EDT Assessment Noted Time PHQ-2 Depression Total Score: 1 06/06/20 9:11 AM EDT documented as of this encounter Care Teams Grain Cleaner Relationship Specialty Start Date End Date Best Aaron MD [address] [place] [address] 7 [place] [address] PCP - General Family Medicine 10/19/19 02/09/24 Pippa Shirley MD [address] [place] [address] 7 [place] [address] [email or web address] PCP - General Family Medicine 02/10/24 Jailyn Grewal DO [address] [place] [address] 7 [place] [address] Historical LMR Provider 09/04/17 Bettye Amaro CNP [address] [place] [address], 2nd [place] [address] Historical LMR Provider 09/04/17 Ninoska Sanchez MD [address] [place] [address] 7 [place] [address] Historical LMR Provider 09/04/17 Best Aaron MD [address] [place] [address] 7 [place] [address] Historical LMR Provider 09/04/17 Saurav Cornelius MD [address] [place], [place] [address] [place] [address] [email or web address] Historical LMR Provider 09/04/17 Best Aaron MD [address] [place] [address], [address] [place] [address] [email or web address] Insurance Assigned Provider 09/18/1702/19/24 Jailyn Grewal DO [address] [place] [address], [facility] 7 [place] [address] [email or web address] Insurance Assigned Provider 02/19/24 Pippa Shirley MD [address] [place] [address], [address] [place] [address] [email or web address] Insurance Assigned Provider 02/18/25 documented as of this encounter Additional Source Comments The information contained in this document represents components of the legal health record. It is not the complete legal health record.[facility]
--- OUTSIDE RECORDS SUMMARY | 2025-09-17 16:45 | XMS_ITS | Encounter Summary ---
Author Organization [facility] Address [facility] [employer] [facility] [address] [place] [address] Phone Care Team Providers Care It Business Systems Analyst Name Role Phone Best Aaron MD Primary Care Provider Alysa Benito E COMMERCE ANALYST Unavailable Jailyn Grewal DO Unavailable Esperanza Cisneros E COMMERCE ANALYST Unavailable Bettye Amaro DIALYSIS PATIENT CARE TECHNICIAN Unavailable Caprice Johns E COMMERCE ANALYST Unavailable [phone] Noe Fitzpatrick MD Unavailable Adelaida Awad MD Unavailable Kadi Nazario E COMMERCE ANALYST Unavailable Ninoska Sanchez MD Unavailable Best Aaron MD Unavailable Yashira Felix NP Unavailable [phone] Belinda Wolfe MD Unavailable [phone] Carlos Miranda MD Unavailable Juanis Boyd MD Unavailable Saurav Cornelius MD Unavailable Giulia Alarcon MD Unavailable Albert Ley MD Unavailable [phone] Luis Carlos De Jesus DIALYSIS PATIENT CARE TECHNICIAN Unavailable Best Aaron MD Unavailable Best Aaron MD Primary Care Provider Pippa [place] MD Primary Care Provider Jailyn Grewal DO Unavailable Pippa Shirley MD Unavailable Encounter Details Date Type Department Care Team (Late st Contact Info) Description 07/12/2018 Procedure Pass [address] [place] [address] Social History Tobacco Use Types Packs/Day Years [...] PM EDT documented as of this encounter Last Filed Vital Signs Vital Sign Reading Time Taken Comments Blood Pressure - - Pulse - - Temperature - - Respiratory Rate - - Oxygen Saturation - - Inhaled Oxygen Concentration - - Weight 88.5 kg (195 lb) 07/13/2018 9:54 AM EDT Height 170.2 cm (5' 7 ) 07/13/2018 9:54 AM EDT Body Mass Index 30.54 07/13/2018 9:54 AM EDT documented in this encounter Plan of Treatment Upcoming Encounters Date Type Department Care Team (Late st Contact Info) Description 05/01/2025 Procedure Pass [facility], Ct Scan - [address] [address] 10/18/2025 3:15 PM EST Appointment [facility], Ct Scan - [address] [address] Vladimir Mccoy MD 30 [place] [address] 12/20/2025 2:00 PM EST Office Visit [address] [address] Pippa [place] MD [address] [place] [address], [address] [place] [address] [email or web address] 12/31/2025 11:30 AM EST Office Visit [facility] [address] [place] [address] Unknown, Unknown, Angela Sen PA-C [address] [place] [address] [email or web address] 02/28/2026 8:30 AM EDT Office Visit [facility] Neurology [address] [place] [address] Albert Lynn MD 22 [facility], 2nd [place] [address] [email or web address] documented as of this encounter Visit Diagnoses [...] as of this encounter Care Teams It Business Systems Analyst Relationship Specialty Start Date End Date Best Aaron MD [address] [place] [address] 7 [place] [address] [email or web address] PCP - General 09/02/17 10/18/19 Best Aaron MD [address] [place] [address] 7 [place] [address] [email or web address] PCP - General Family Medicine 10/19/19 02/09/24 Pippa Shirley MD [address] [place] [address] 7 [place] [address] [email or web address] PCP - General Family Medicine 02/10/24 [facility] [address] Historical LMR Provider 09/04/17 2 Jailyn Grewal DO [address] [place] [address] [address] [place] [address] [email or web address] Historical LMR Provider 09/04/17 Esperanza Cisneros NP 29 [place] [address] Historical LMR Provider 09/04/17 2 Bettye Amaro CNP [address] [address] [email or web address] Historical LMR Provider 09/04/17 Caprice Johns E COMMERCE ANALYST [address] [place] [address] [email or web address] Historical LMR Provider 09/04/17 11/22/21 Noe Fitzpatrick MD [address] [place] [address] [email or web address] Historical LMR Provider 09/04/17 11/22/21 Adelaida Awad MD [address] [address] [email or web address] Historical LMR Provider 09/04/17 Kadi Nazario, BRIEN [address] [place] [address] Historical LMR Provider 09/04/17 2 Ninoska Sanchez MD [address] [place] [address] 7 [place] [address] [email or web address] Historical LMR Provider 09/04/17 Best Aaron MD [address] [place] [address] 7 [place] [address] Historical LMR Provider 09/04/17 Yashira Felix NP 30 [place] [address] Historical LMR Provider 09/04/17 2 Belinda Wolfe MD [address] [place] [address] Historical LMR Provider 09/04/17 2 Carlos Miranda MD [address] [place] [address] Historical LMR Provider 09/04/17 11/22/21 Juanis Boyd MD [address] [place] [address] [email or web address] Historical LMR Provider 09/04/17 11/22/21 Saurav Cornelius MD [address] [place], [place] [address] [place] [id number] [email or web address] Historical LMR Provider 09/04/17 Giulia Alarcon MD [address] [place] [address] Historical LMR Provider 09/04/17 11/22/21 Albert Ley MD [address] [place] [address] Historical LMR Provider 09/04/17 2 Luis Carlos De Jesus CNP 22 [facility], [address] [place] [address] [email or web address] Historical LMR Provider 09/04/17 Best Aaron MD [address] [place] [address], [facility] 7 [place] [address] [email or web address] Insurance Assigned Provider 09/18/17 02/19/24 Jailyn Grewal DO [address] [place] [address], [facility] 7 [place] [address] [email or web address] Insurance Assigned Provider 02/19/24 02/18/25 Pippa Shirley MD [address] [place] [address], [facility] 7 [place] [address] [email or web address] Insurance Assigned Provider 02/18/25 documented as of this encounter Additional Source Comments The information contained in this document represents components of the legal health record. It is not the complete legal health record.[facility]
--- OUTSIDE RECORDS SUMMARY | 2025-09-17 16:45 | XMS_ITS | Encounter Summary ---
Author Organization [facility] Address [facility] [employer] [facility] ([place], [place]) [address] [place] [address] Phone Care Team Providers Care Antenna Rigger Name Role Phone Best Aaron MD Primary Care Provider [phone] Alysa Benito DRUG AND ALCOHOL COUNSELLOR Unavailable Jailyn Grewal DO Unavailable Esperanza Cisneros DRUG AND ALCOHOL COUNSELLOR Unavailable Bettye Amaro DIRECTOR OF CORPORATE SALES Unavailable Caprice Johns DRUG AND ALCOHOL COUNSELLOR Unavailable Noe Fitzpatrick MD Unavailable Adelaida Awad MD Unavailable Kadi Nazario DRUG AND ALCOHOL COUNSELLOR Unavailable Ninoska Sanchez MD Unavailable [phone] Best Aaron MD Unavailable Yashira Felix NP Unavailable Belinda Wolfe MD Unavailable [phone] Carlos Miranda MD Unavailable Juanis Boyd MD Unavailable Saurav Cornelius MD Unavailable Giulia Alarcon MD Unavailable Albert Ley MD Unavailable [phone] Luis Carlos De Jesus DIRECTOR OF CORPORATE SALES Unavailable Best Aaron MD Unavailable Best Aaron MD Primary Care Provider Pippa Shirley MD Primary Care Provider [phone] Jailyn Grewal DO Unavailable Pippa Shirley MD Unavailable [phone] Encounter Details Date Type Department Care Team (Late st Contact Info) Description 02/21/2018 Ancillary Orders [facility] [address] [phone] Best Aaron MD [address] [place] [address], [address] [place], [place] [phone] [email or web address] Breast screening Social History Tobacco Use Types [...] st Contact Info) Description 05/01/2025 Procedure Pass [facility], Ct Scan - [address] [address] 10/18/2025 3:15 PM EST Appointment [facility] Ct Scan - [facility] [address] [place] [address] Vladimir Mccoy MD 30 [place] [address] 12/20/2025 2:00 PM EST Office Visit [facility] [address] [place] [address] Pippa Shirley MD [address] [place] [address], [address] [place] [address] [email or web address] 12/31/2025 11:30 AM EST Office Visit [facility] [address] [place] [address] Unknown, Unknown, Angela Sen PA-C [address] [place] [address] [email or web address] 02/28/2026 8:30 AM EDT Office Visit [facility] Neurology [address] [place] [address] Albert [place] MD [address] [place] [address], 2nd [place] [address] documented as of this encounter Results * BI MAMMOGRAM SCREENING WITH TOMOSYNTHESIS WITH CAD (BILATERAL) (03/24/2018 9:31 AM EDT) Anatomical Region Laterality Modality Breast Left, Breast Right, Breast Bilateral Bila teral Mammography 03/24/2018 11:2 2 AM EDT Impressions 03/24/2018 11:32 AM EDT Bilateral breasts: Negative, no evidence of malignancy. Normal interval follow- up is recommended in 12 months. BI-RADS CATEGORY: 1 - Negative. DENSITY: There are scattered fibroglandular densities. POS - CDHMAMA Edited by: Radha Moralez on 03/24/2018 11:27 AM Narrative 03/24/2018 11:32 AM EDT Bilateral mammography is performed in conjunction with computed aided detection. 3-D tomography along with 2-D C view imaging was also performed. Comparison made to previous dated as far back as February 04, 2012 and as recent as March 22, 2017. Bilateral breasts: No significant masses, calcifications or other abnormalities are seen. Procedure Note Eduardo Mays MD - 03/24/2018 Bilateral mammography is performed in conjunction with computed aideddetection. 3-D tomography along with 2-D C view imaging was alsoperformed. Comparison made to previous dated as far back as February 03nd as recent as March 22, 2017. Bilateral breasts: No significant masses, calcifications or other abnormalities are seen. IMPRESSION: Bilateral breasts: Negative, no evidence of malignancy. Normal intervalfollow-up is recommended in 12 months. BI-RADS CATEGORY: 1 - Negative. DENSITY: There are scattered fibroglandular densities. POS - CDHMAMA Edited by: Radha Moralez on 03/24/2018 11:27 AM Best Aaron MD IMG MG EXAMS Final [...] documented as of this encounter Care Teams Antenna Rigger Relationship Specialty Start Date End Date Best Aaron MD [address] [place] [address] 7 [place] [address] PCP - General 09/02/17 10/18/19 Best Aaron MD [address] [place] [address] [place] [address] [email or web address] PCP - General Family Medicine 10/19/19 02/09/24 Pippa Shirley MD [address] [place] [address] [place] [address] [email or web address] PCP - General Family Medicine 02/10/24 Alysa Benito, DRUG AND ALCOHOL COUNSELLOR 1 [place] [address] Historical LMR Provider 09/04/17 2 Jailyn Grewal DO [address] [place] [address] [email or web address] Historical LMR Provider 09/04/17 Esperanza Cisneros, BRIEN [address] [place] [address] Historical LMR Provider 09/04/17 2 Bettye Amaro, ROBERTO [facility] 2nd [place] [address] [email or web address] Historical LMR Provider 09/04/17 Caprice Johns DRUG AND ALCOHOL COUNSELLOR [address] [place] [address] [email or web address] Historical LMR Provider 09/04/17 11/22/21 Noe Fitzpatrick MD [address] [place] [address] [email or web address] Historical LMR Provider 09/04/17 11/22/21 Adelaida Awad MD [address] [place] [address] [email or web address] Historical LMR Provider 09/04/17 Kadi Nazario NP [address] [place] [address] Historical LMR Provider 09/04/17 2 Ninoska Sanchez MD [address] [place] [address] [email or web address] Historical LMR Provider 09/04/17 Best Aaron MD [address] [place] [address] [email or web address] Historical LMR Provider 09/04/17 Yashira Felix NP [address] [place] [address] Historical LMR Provider 09/04/17 2 Belinda Wolfe MD [address] [place] [address] Historical LMR Provider 09/04/17 2 Carlos Miranda MD [address] [place] [address] Historical LMR Provider 09/04/17 11/22/21 Juanis Boyd MD [address] [place] [address] [email or web address] Historical LMR Provider 09/04/17 11/22/21 Saurav Cornelius MD [address] [place], [place] [address] [place] [address] [email or web address] Historical LMR Provider 09/04/17 Giulia Alarcon MD [address] [place] [address] [email or web address] Historical LMR Provider 09/04/17 11/22/21 Albert Ley MD [address] [place] [address] Historical LMR Provider 09/04/17 2 Luis Carlos De Jesus CNP [address] [place] [address], [address] [place] [address] [email or web address] Historical LMR Provider 09/04/17 Best Aaron MD [address] [place] [address] [email or web address] Insurance Assigned Provider 09/18/17 02/19/24 Jailyn Grewal DO [address] [place] [address], [address] [place] [address] [email or web address] Insurance Assigned Provider 02/19/24 02/18/25 Pippa Shirley MD [address] [place] [address], [address] [place] [address] [email or web address] Insurance Assigned Provider 02/18/25 documented as of this encounter Additional Source Comments The information contained in this document represents components of the legal health record. It is not the complete legal health record.[facility]
--- OUTSIDE RECORDS SUMMARY | 2025-09-17 16:46 | XMS_ITS | Encounter Summary ---
Author Organization [facility] Address Formerly [facility] [address] [place] [address] Phone Care Team Providers Care Repair Servicer Name Role Phone Best Aaron MD Primary Care Provider Alysa Benito TRAUMA COORDINATOR Unavailable Jailyn Grewal DO Unavailable [phone] Esperanza Cisneros TRAUMA COORDINATOR Unavailable Bettye Amaro ALL ROUND LOGGER Unavailable Caprice Johns TRAUMA COORDINATOR Unavailable [phone] Noe Fitzpatrick MD Unavailable Adelaida Awad MD Unavailable Kadi Nazario TRAUMA COORDINATOR Unavailable Ninoska Sanchez MD Unavailable Best Aaron MD Unavailable Yashira Felix NP Unavailable [phone] Belinda Wolfe MD Unavailable [phone] Carlos Miranda MD Unavailable Juanis Boyd MD Unavailable Saurav Cornelius MD Unavailable Giulia Alarcon MD Unavailable Albert Ley MD Unavailable [phone] Luis Carlos De Jesus ALL ROUND LOGGER Unavailable Best Aaron MD Unavailable Best Aaron MD Primary Care Provider Pippa Shirley MD Primary Care Provider Jailyn Grewal DO Unavailable Pippa Shirley MD Unavailable Encounter Details Date Type Department Care Team (Late st Contact Info) Description 09/29/2017 Ancillary Orders [address] [address] Best Aaron MD [address] [place] [address], [address] [place], [place] [id number] [email or web address] Bilateral hip pain; Pain Social History Tobacco Use Types Packs/Day Years Used Date Smoking Tobacco: Never Smokeless Tobacco: Former Comments Unknown Sex and Gender Information Value Date Recorded Sex Assigned at Female 06/14/2018 11:15 PM EDT Legal Sex Female 5:49 PM EST Gender Identity Female 07/01/2024 1:45 PM EDT Sexual Orientation Straight 06/14/2018 11 :15 PM EDT documented as of this encounter Plan of Treatment Upcoming Encounters Date Type Department Care Team (Late st Contact Info) Description 05/01/2025 Procedure Pass [facility], Ct Scan - [address] [address] 10/18/2025 3:15 PM EST Appointment [facility], Ct Scan - [address] [address] Vladimir Mccoy MD 30 [place] [address] 12/20/2025 2:00 PM EST Office Visit [facility] [address] [place] [address] Pippa Shirley MD 234 [facility], [facility] 7 [place] [address] [email or web address] 12/31/2025 11:30 AM EST Office Visit [facility]ology [facility] 10 [place] [address] Unknown, Unknown, Angela Sen PA-C [address] [address] [email or web address] 02/28/2026 8:30 AM EDT Office Visit [facility] Neurology [address] [place] [address] Albert Lynn MD [address] [place] [address], 2nd [place] [address] [email or web address] documented as of this encounter Results * XR HIP 2-3 VW RIGHT (09/29/2017 2:29 PM EST) Anatomical Region Laterality Modality Hip Right Radiographic Ashley ging 09/29/2017 2:37 PM EST Impressions 09/29/2017 2:39 PM EST Status post right total hip arthroplasty. No explanation for right hip pain is seen. S/S: Right hip pain, status post right total hip arthroplasty POS - [id number] Narrative 09/29/2017 2:39 PM EST COMPARISON: None FINDINGS: Two views of the right hip are obtained. The patient has had a right total hip arthroplasty. No adverse features are seen. No acute bony injury or bony displacement is seen. No periarticular calcifications are evident. Procedure Note Yuval Hargrove MD - 09/29/2017 COMPARISON: None FINDINGS: Two views of the right hip are obtained. The patient has had a right total hip arthroplasty. No adverse featuresare seen. No acute bony injury or bony displacement is seen. No periarticular calcifications are evident. IMPRESSION: Status post right total hip arthroplasty. No explanation for right hippain is seen. S/S: Right hip pain, status post right total hip arthroplasty POS - [id number] us eBst Aaron MD IMG XR PELVIS Final Result * XR HIP 2-3 VW LEFT (09/29/2017 2:29 PM EST) Anatomical Region Laterality Modality Hip Left Radiographic Ashley ging 09/29/2017 2:36 PM EST Impressions 09/29/2017 2:37 PM EST Unremarkable evaluation of the left hip. S/S: Left hip pain POS - [id number] Narrative 09/29/2017 2:37 PM EST COMPARISON: None FINDINGS: Two views of the left hip are obtained. No joint space narrowing or spurring of concern is seen. No periarticular calcifications are evident. No osteopenia or erosive changes are noted. No acute bony injury is seen. Procedure Note Yuval Hargrove MD - 09/29/2017 COMPARISON: None FINDINGS: Two views of the left hip are obtained. No joint space narrowing or spurring of concern is seen. No periarticular calcifications are evident. No osteopenia or erosive changes are noted. No acute bony injury is seen. IMPRESSION: Unremarkable evaluation of the left hip. S/S: Left hip pain POS - [id number] Best Aaron MD IMG XR PELVIS Final Result * XR PELVIS 1 VIEW (09/29/2017 2:29 PM EST) Anatomical Region Laterality Modality Pelvis Radiographic Ashley ging 09/29/2017 2:34 PM EST Impressions 09/29/2017 2:36 PM EST Status post right total hip replacement. Unremarkable evaluation of the left hip. No specific explanation for bilateral hip pain is seen. S/S: Bilateral hip pain, right hip replacement POS - [id number] Narrative 09/29/2017 2:36 PM EST COMPARISON: None FINDINGS: An AP film of the pelvis is obtained. The patient has a right total hip replacement. There are negligible degenerative changes in the left hip. No prior to the calcifications are seen. The SI joints are unremarkable. No acute bony injury or bony displacement is evident. Procedure Note Yuval Hargrove MD - 09/29/2017 COMPARISON: None FINDINGS: An AP film of the pelvis is obtained. The patient has a right total hip replacement. There are negligible degenerative changes in the left hip. No prior to thecalcifications are seen. The SI joints are unremarkable. No acute bony injury or bony displacement is evident. IMPRESSION: Status post right total hip replacement. Unremarkable evaluation of the left hip. No specific explanation for bilateral hip pain is seen. S/S: Bilateral hip pain, right hip replacement POS - [id number] Best Aaron MD IMG XR PELVIS Final Result documented in this encounter Visit Diagnoses Diagnosis Bilateral hip pain Pain in joint, pelvic region and thigh Pain Generalized pain Bilateral hip pain Pain in joint, pelvic region and thigh Pain Generalized pain documented in this encounter Additional Health Concerns Infection Onset Date Last Indicated Resolved Time CoV-Exposed Comment:Dc from rehab facility 01/20 full PPE fro 14 days 01/23/2021 01/23/2021 02/04/2021 1:23 AM EDT CoV-Risk 03/10/2022 03/10/2022 03/21/2022 1:24 AM EDT CoV-Risk 11/23/2022 11/23/2022 12/04/2022 1:22 AM EST COVID-19 06/15/2023 06/15/2023 07/06/2023 1:23 AM EDT documented as of this encounter Care Teams Repair Servicer Relationship Specialty Start Date End Date Best Aaron MD [address] [place] [address] 7 [place] [address] PCP - General 09/02/17 10/18/19 Best Aaron MD [address] [place] [address] [place] [address] PCP - General Family Medicine 10/19/19 02/09/24 Pippa Shirley MD [address] [place] [address] 7 [place] [address] [email or web address] PCP - General Family Medicine 02/10/24 Alysa Benito TRAUMA COORDINATOR 1 [place] [address] Historical LMR Provider 09/04/17 2 Jailyn Grewal DO [address] [place] [address] 7 [place] [address] Historical LMR Provider 09/04/17 Esperanza Cisneros NP 29 [place] [address] Historical LMR Provider 09/04/17 2 Bettye Amaro, ROBERTO [address] [place] [address] [email or web address] Historical LMR Provider 09/04/17 Caprice Johns NP [address] [place] [address] [email or web address] Historical LMR Provider 09/04/17 11/22/21 Noe Fitzpatrick MD [address] [place] [address] [email or web address] Historical LMR Provider 09/04/17 11/22/21 Adelaida Awad MD [address] [place] [address] [email or web address] Historical LMR Provider 09/04/17 Kadi Nazario NP [address] [place] [address] Historical LMR Provider 09/04/17 2 Ninoska Sanchez MD [address] [place] [address] [email or web address] Historical LMR Provider 09/04/17 Best Aaron MD [address] [place] [address] [email or web address] Historical LMR Provider 09/04/17 Yashira Felix NP [address] [place] [address] Historical LMR Provider 09/04/17 2 Belinda Wolfe MD [address] [place] [address] Historical LMR Provider 09/04/17 2 Carlos Miranda MD [address] [place] [address] Historical LMR Provider 09/04/17 11/22/21 Juanis Boyd MD [address] [place] [address] Historical LMR Provider 09/04/17 11/22/21 Saurav Cornelius MD [address] [place] [address] [address] [place] [id number] [email or web address] Historical LMR Provider 09/04/17 Giulia Alarcon MD [address] [place] [address] Historical LMR Provider 09/04/17 11/22/21 Albert Ley MD [address] [place] [address] Historical LMR Provider 09/04/17 2 Luis Carlos De Jesus, ROBERTO [address] [place] [address], [address] [place] [address] [email or web address] Historical LMR Provider 09/04/17 Best Aaron MD [address] [place] [address] 7 [place] [address] [email or web address] Insurance Assigned Provider 09/18/17 02/19/24 Jailyn Grewal DO [address] [place] [address] 7 [place] [address] [email or web address] Insurance Assigned Provider 02/19/24 02/18/25 Pippa Shirley MD [address] [place] [address] 7 [place] [address] [email or web address] Insurance Assigned Provider 02/18/25 documented as of this encounter Additional Source Comments The information contained in this document represents components of the legal health record. It is not the complete legal health record.[facility]
--- OUTSIDE RECORDS SUMMARY | 2025-09-17 16:46 | XMS_ITS | Encounter Summary ---
Author Organization [facility] Address [address] [facility] [address] [place] [address] Phone Care Team Providers Care Soup Person Name Role Phone Jailyn Grewal DO Unavailable Bettye Amaro AXLE TURNER Unavailable Ninoska Sanchez MD Unavailable Best Aaron MD Unavailable Saurav Cornelius MD Unavailable Pippa Shirley MD Primary Care Provider Jailyn Grewal DO Unavailable Pipap Shirley MD Unavailable Encounter Details Date Type Department Care Team (Late st Contact Info) Description 09/05/2024 Procedure Pass [facility] 30 [place] [address] Social History Tobacco Use Types Packs/Day Years [...] st Contact Info) Description 05/01/2025 Procedure Pass [facility], Ct Scan [address] [address] 10/18/2025 3:15 PM EST Appointment [facility] Ct Scan [address] [address] Vladimir Mccoy MD 30 [place] [address] 12/20/2025 2:00 PM EST Office Visit [address] [address] Pippa Shirley MD [address] [place] [address] 7 [place] [address] [email or web address] 12/31/2025 11:30 AM EST Office Visit [facility] G[facility]ology Clinic [address] [place] [address] Unknown, Unknown, Angela Sen PA-C [address] [place] [address] [email or web address] 02/28/2026 8:30 AM EDT Office Visit [facility] Neurology [address] [place] [address] Albert Lynn MD [address] [place] [address], 2nd Floor [place], [place] [phone] documented as of this encounter Visit Diagnoses Not on filedocumented in this encounter Additional Health Concerns Assessment Noted Time PHQ-2 Depression Total Score: 2 08/08/20 24 5:13 PM EDT documented as of this encounter Care Teams Soup Person Relationship Specialty Start Date End Date Pippa Shirley MD [address] [place] [address] 7 [place] [address] [email or web address] PCP - General Family Medicine 02/10/24 Jailyn Grewal DO [address] [place] [address] 7 [place] [address] Historical LMR Provider 09/04/17 Bettye Amaro CNP [address] [place] [address], 2nd [place] [address] Historical LMR Provider 09/04/17 Ninoska Sanchez MD [address] [place] [address] 7 [place] [address] Historical LMR Provider 09/04/17 Best Aaron MD [address] [place] [address] 7 [place] [address] Historical LMR Provider 09/04/17 Saurav Cornelius MD [address] [place], [place] [address] [place] [address] [email or web address] Historical LMR Provider 09/04/17 Jailyn Grewal DO [address] [place] [address], [address] [place] [address] [email or web address] Insurance Assigned Provider 02/19/24 Pippa Shirley MD 234 [facility] 7 [place] [address] [email or web address] Insurance Assigned Provider 02/18/25 documented as of this encounter Additional Source Comments The information contained in this document represents components of the legal health record. It is not the complete legal health record.[facility]
--- OUTSIDE RECORDS SUMMARY | 2025-09-17 16:46 | XMS_ITS | Encounter Summary ---
Author Organization [facility] Address [address] [facility] [address] [place] [address] Phone Care Team Providers Care Examining Officer Name Role Phone Jailyn Grewal DO Unavailable Sondra Bettyeminh [employer] SALES [employer]PERATIONS Unavailable Ninoska Sanchez MD Unavailable Best Aaron MD Unavailable Saurav Cornelius MD Unavailable Pippa Shirley MD Primary Care Provider Jailyn Grewal DO Unavailable Pippa Shirley MD Unavailable Encounter Details Date Type Department Care Team (Late st Contact Info) Description 04/21/2024 Procedure Pass [facility] 30 [place] [address] Social History Tobacco Use Types Packs/Day Years [...] st Contact Info) Description 05/01/2025 Procedure Pass [facility], Ct Scan - [address] [address] 10/18/2025 3:15 PM EST Appointment [facility], Ct Scan - [address] [address] Vladimir Mccoy MD 30 [place] [address] [email or web address] 12/20/2025 2:00 PM EST Office Visit [facility] 234 [place] [address] Pippa Shirley MD [address] [place] [address] 7 [place] [address] [email or web address] 12/31/2025 11:30 AM EST Office Visit [facility] G[facility] Clinic [address] [place] [address] Unknown, Unknown, Angela Sen PA-C [address] [place] [address] [email or web address] 02/28/2026 8:30 AM EDT Office Visit [facility] Neurology [address] [place] [address] Albert Lynn MD [address] [place] [address], 2nd [place] [address] [email or web address] documented as of this encounter Visit Diagnoses Not on filedocumented in this encounter Additional Health Concerns Assessment Noted Time PHQ-2 Depression Total Score: 2 09/08/20 22 4:13 PM EDT documented as of this encounter Care Teams Examining Officer Relationship Specialty Start Date End Date Pippa Shirley MD [address] [place] [address], [facility] 7 [place] [address] [email or web address] PCP - General Family Medicine 02/10/24 Jailyn Grewal DO [address] [place] [address] 7 [place] [address] Historical LMR Provider 09/04/17 Bettye Amaro, ROBERTO [address] [place] [address], [address] [place] [address] [email or web address] Historical LMR Provider 09/04/17 Ninoska Sanchez MD [address] [place] [address] 7 [place] [address] [email or web address] Historical LMR Provider 09/04/17 Best Aaron MD [address] [place] [address] 7 [place] [address] [email or web address] Historical LMR Provider 09/04/17 Saurav Cornelius MD [address] [place], [place] [address] [place] [address] [email or web address] Historical LMR Provider 09/04/17 Jailyn Grewal DO [address] [place] [address] 7 [place] [address] Insurance Assigned Provider 02/19/24 Pippa Shirley MD [address] [place] [address] [address] [place] [address] [email or web address] Insurance Assigned Provider 02/18/25 documented as of this encounter Additional Source Comments The information contained in this document represents components of the legal health record. It is not the complete legal health record.[facility]
--- OUTSIDE RECORDS SUMMARY | 2025-09-17 16:46 | XMS_ITS | Encounter Summary ---
Author Organization [facility] Address Count includes the [facility] [address] [place] [address] Phone Care Team Providers Care Medical Translator Name Role Phone Best Aaron MD Primary Care Provider Alysa Benito INTERNET MEDIA PLANNER Unavailable Jailyn Grewal DO Unavailable Esperanza Cisneros INTERNET MEDIA PLANNER Unavailable Bettye Amaro GUEST ROOM ATTENDANT Unavailable Caprice Johns INTERNET MEDIA PLANNER Unavailable [phone] Noe Fitzpatrick MD Unavailable Adelaida Awad MD Unavailable Kadi Nazario INTERNET MEDIA PLANNER Unavailable Ninoska Sanchez MD Unavailable Best Aaron MD Unavailable Yashira Felix NP Unavailable [phone] Belinda Wolfe MD Unavailable [phone] Carlos Miranda MD Unavailable Juanis Boyd MD Unavailable Saurav Cornelius MD Unavailable Giulia Alarcon MD Unavailable Albert Ley MD Unavailable [phone] Luis Carlos De Jesus CNP Unavailable Best Aaron MD Unavailable Best Aaron MD Primary Care Provider Pippa Shirley MD Primary Care Provider Jailyn Grewal DO Unavailable Pippa Shirley MD Unavailable Encounter Details Date Type Department Care Team (Late st Contact Info) Description 03/21/2018 Procedure Pass [address] [place] [address] Social History Tobacco Use Types Packs/Day Years Used Date Smoking Tobacco: Never Smokeless Tobacco: Former Alcohol Use Standard Drinks/Week Comments Yes 0 (1 standard drink = 0.6 oz pur e alcohol) rare Comments No Sex and Gender Information Value Date Recorded Sex Assigned at Female 06/14/2018 11:15 PM EDT Legal Sex Female 5:49 PM EST Gender Identity Female 07/01/2024 1:45 PM EDT Sexual Orientation Straight 06/14/2018 11 :15 PM EDT documented as of this encounter Plan of Treatment Upcoming Encounters Date Type Department Care Team (Late st Contact Info) Description 05/01/2025 Procedure Pass [facility] 30 [place] [address] 10/18/2025 3:15 PM EST Appointment [facility] 30 [place] [address] Vladimir Mccoy MD 30 [place] [address] 12/20/2025 2:00 PM EST Office Visit [facility] 234 [place] [address] Pippa Shirley MD [address] [facility], [address] [place] [address] [email or web address] 12/31/2025 11:30 AM EST Office Visit [facility] Gastroenterology Clinic [address] [place] [address] Unknown, Ceferino, Angela Sen PA-C [address] [place] [address] [email or web address] 02/28/2026 8:30 AM EDT Office Visit [facility] Neurology [address] [place] [address] Albert Lynn MD [address] [place] [address], 2nd [place] [address] [email or web address] documented as of this encounter Visit Diagnoses [...] documented as of this encounter Care Teams Medical Translator Relationship Specialty Start Date End Date Best Aaron MD [address] [place] [address] [place] [address] [email or web address] PCP - General 09/02/17 10/18/19 Best Aaron MD [address] [place] [address] [place] [address] [email or web address] PCP - General Family Medicine 10/19/19 02/09/24 Pippa Shirley MD [address] [place] [address] [place] [address] [email or web address] PCP - General Family Medicine 02/10/24 Alysa Benito INTERNET MEDIA PLANNER 1 [place] [address] Historical LMR Provider 09/04/17 2 Jailyn Grewal DO [address] [place] [address] [email or web address] Historical LMR Provider 09/04/17 Esperanza Cisneros, BRINE 29 [place] [address] Historical LMR Provider 09/04/172 2 Bettye Amaro CNP [facility], 2nd [place] [address] [email or web address] Historical LMR Provider 09/04/17 Caprice Johns NP [address] [place] [address] [email or web address] Historical LMR Provider 09/04/17 11/22/21 Noe Fitzpatrick MD [address] [place] [address] [email or web address] Historical LMR Provider 09/04/17 11/22/21 Adelaida Awad MD [address] [place] [address] [email or web address] Historical LMR Provider 09/04/17 Kadi Nazario NP [address] [place] [address] Historical LMR Provider 09/04/17 2 Ninoska Sanchez MD [address] [place] [address] [email or web address] Historical LMR Provider 09/04/17 Best Aaron MD [address] [place] [address] [email or web address] Historical LMR Provider 09/04/17 Yashira Felix NP [address] [place] [address] Historical LMR Provider 09/04/17 2 Belinda Wolfe MD [address] [place] [address] Historical LMR Provider 09/04/17 2 Carlos Miranda MD [address] [place] [address] Historical LMR Provider 09/04/17 11/22/21 Juanis Boyd MD [address] [place] [address] [email or web address] Historical LMR Provider 09/04/17 11/22/21 Saurav Cornelius MD [address] [place], [place] [address] [place] [address] [email or web address] Historical LMR Provider 09/04/17 Giulia Alarcon MD [address] [place] [address] Historical LMR Provider 09/04/17 11/22/21 Albert Ley MD [address] [place] [address] Historical LMR Provider 09/04/17 2 Luis Carlos De Jesus, ROBERTO [address] [place] [address], [address] [place] [address] [email or web address] Historical LMR Provider 09/04/17 Best Aaron MD [address] [place] [address] 7 [place] [address] [email or web address] Insurance Assigned Provider 09/18/17 02/19/24 Jailyn Grewal DO [address] [place] [address], [facility] 7 [place] [address] [email or web address] Insurance Assigned Provider 02/19/24 02/18/25 Pippa Shirley MD [address] [place] [address], [address] [place] [address] [email or web address] Insurance Assigned Provider 02/18/25 documented as of this encounter Additional Source Comments The information contained in this document represents components of the legal health record. It is not the complete legal health record.[facility]
--- OUTSIDE RECORDS SUMMARY | 2025-09-17 16:46 | XMS_ITS | Encounter Summary ---
Author Organization [facility] Address [facility] [employer] [facility] [address] [place] [address] Phone Care Team Providers Care Video Production Assistant Name Role Phone Best Aaron MD Primary Care Provider Alysa Benito DIET ATTENDANT Unavailable Jailyn Grewal DO Unavailable [phone] Esperanza Cisneros DIET ATTENDANT Unavailable [phone] Bettye Amaro LOSS PREVENTION CONSULTANT Unavailable Caprice Johns DIET ATTENDANT Unavailable Noe Fitzpatrick MD Unavailable Adelaida Awad MD Unavailable Kadi Nazario DIET ATTENDANT Unavailable Ninoska Sanchez MD Unavailable Best Aaron MD Unavailable Isidro Yashira A DIET ATTENDANT Unavailable [phone] Belinda Wolfe MD Unavailable [phone] Carlos Miranda MD Unavailable Juanis Boyd MD Unavailable Saurav Cornelius MD Unavailable Giulia Alarcon MD Unavailable Albert Ley MD Unavailable [phone] Luis Carlos De Jesus LOSS PREVENTION CONSULTANT Unavailable Best Aaron MD Unavailable Best Aaron MD Primary Care Provider [phone] Pippa Shirley MD Primary Care Provider Jailyn Grewal DO Unavailable Pippa Shirley MD Unavailable [phone] Encounter Details Date Type Department Care Team (Latest Contact Info) Description 10/22/2017 Transcribe Orders [address] [address] Best Aaron MD [address] [place] [address], [address] [place] [address] [email or web address] Chronic low back pain without sciatica, unspecified back pain laterality Social History Tobacco Use Types Packs/Day Years [...] st Contact Info) Description 05/01/2025 Procedure Pass [facility], Ct Scan - [facility] [address] [place] [address] 10/18/2025 3:15 PM EST Appointment [facility], Ct Scan [facility] [address] [place] [address] Vladimir Mccoy MD 30 [place] [address] 12/20/2025 2:00 PM EST Office Visit [facility] [address] [place] [address] Pippa Shirley MD 234 [facility] 7 [place] [address] [email or web address] 12/31/2025 11:30 AM EST Office Visit [facility] 10 [place] [address] Unknown, Unknown, Angela Sen PA-C [address] [address] [email or web address] 02/28/2026 8:30 AM EDT Office Visit [facility] Neurology [address] [place] [address] Albert Lynn MD [address] [place] [address], 2nd [place] [address] documented as of this encounter Procedures Procedure Name Priority Date/Time Associated Diagnosis Comments COMPREHENSIVE METABOLIC PANEL (CMP) Routine 10/22/2017 10:25 AM EST Chronic low back pain without sciatica, unspecified back pain laterality CBC AND DIFFERENTIAL Routine 10/22/2017 10:25 AM EST Chronic low back pain without sciatica, unspecified back pain laterality documented in this encounter Results * (ABNORMAL) Comprehensive metabolic panel (10/22/2017 10:25 AM EST) SODIUM 137 133 - 146 mmol/L [facility] POTASSIUM 4.5 3.3 - 5.1 mmol/L [facility] CHLORIDE 98 96 - 108 mmol/L [facility] CO2 25 21 - 35 mmol/L [facility] BUN 15 6 - 19 mg/dL [facility] CREATININE 0.80 0.5 - 1.5 mg/dL [facility] GLUCOSE 124(H) 70 - 99 mg/dL [facility] ALBUMIN 4.4 3.9 - 4.8 g/dL [facility] TOTAL PROTEIN 7.4 6.5 - 8.0 g/dL [facility] CALCIUM 10.2 8.4 - 10.3 mg/dL [facility] ALKALINE PHOSPHATASE 103 39 - 117 U/L [facility] TOTAL BILIRUBIN 0.3 0 - 1.2 mg/dL [facility] AST 19 0 - 37 U/L [facility] ALT 19 0 - 40 U/L [facility] GLOBULIN 3.0 1 - 4.8 g/dL [facility] EGFR >60 60 - 1000 mL/min/1.7 3m2 [facility] Comment:Abnormal if <60. If patient is -Grenadian, multiply the result by 1.21. ANION GAP 19 10 - 20 mmol/L [facility] Blood 10/22/2017 10:2 5 AM EST 10/22/2017 10:26 AM EST us Best Aaron MD LAB BLOOD BKR ORDERABLES Jennifer seaman Result [facility] [address] [place] [address] * CBC and differential (10/22/2017 10:25 AM EST) WBC 7.41 3.40 - 11.20 K/uL [facility] RBC 4.07 3.80 - 4.80 M/uL [facility] HGB 12.3 12.0 - 15.0 g/dL [facility] HCT 36.9 36.0 - 46.0 % [facility] PLT 284 130 - 400 K/uL [facility] MCV 90.7 79.0 - 98.0 fL [facility] MCH 30.2 27.0 - 34.8 pg [facility] MCHC 33.3 31.5 - 36.0 g/dL [facility] RDW 13.6 10.8 - 14.6 % [facility] MPV 10.2 9.4 - 12.4 fl [facility] NRBC 0.00 /100 WBCs [facility] ABSOLUTE NRBC 0.00 K/uL [facility] DIFF METHOD Auto [facility] NEUTS 73.3 45.30 - 77.70 % [facility] LYMPHS 16.5 12.30 - 39.70 % [facility] MONOS 6.6 4.10 - 12.80 % [facility] EOS 2.8 0 - 7.2 % [facility] BASOS 0.4 0 - 2.80 % [facility] Granulocytes, immature (%) 0.4 0.0 - 0.9 % [facility] ABSOLUTE NEUTS 5.43 1.40 - 7.70 K/uL [facility] ABSOLUTE LYMPHS 1.22 0.60 - 3.20 K/uL [facility] ABSOLUTE MONOS 0.49 0.11 - 0.59 K/uL [facility] ABSOLUTE EOS 0.21 0.01 - 0.50 K/uL [facility] ABSOLUTE BASOS 0.03 0.00 - 0.08 K/uL [facility] Granulocytes, immature 0.03 0.00 - 0.05 K/uL [facility] Blood 10/22/2017 10:2 5 AM EST 10/22/2017 10:26 AM EST us Best Aaron MD LAB BLOOD BKR ORDERABLES Jennifer seaman Result [facility] [address] [place] [address] documented in this encounter Visit Diagnoses Diagnosis Chronic low back pain without sciatica, unspecified back pain laterality documented in this encounter Additional Health Concerns Infection Onset Date Last Indicated Resolved Time CoV-Exposed Comment:Dc from rehab facility 01/20 full PPE fro 14 days 01/23/2021 01/23/2021 02/04/2021 1:23 AM EDT CoV-Risk 03/10/2022 03/10/2022 03/21/2022 1:24 AM EDT CoV-Risk 11/23/2022 11/23/2022 12/04/2022 1:22 AM EST COVID-19 06/15/2023 06/15/2023 07/06/2023 1:23 AM EDT documented as of this encounter Care Teams Video Production Assistant Relationship Specialty Start Date End Date Best Aaron MD [address] [place] [address] 7 [place] [address] [email or web address] PCP - General 09/02/17 10/18/19 Best Aaron MD [address] [place] [address] 7 [place] [address] PCP - General Family Medicine 10/19/19 02/09/24 Pippa Shirley MD [address] [place] [address] 7 [place] [address] [email or web address] PCP - General Family Medicine 02/10/24 Alysa Benito NP [address] [place] [address] Historical LMR Provider 09/04/17 2 Jailyn Grewal DO [address] [place] [address] 7 [place] [address] [email or web address] Historical LMR Provider 09/04/17 Esperanza Cisneros NP [address] [place] [address] Historical LMR Provider 09/04/17 2 Bettye Amaro CNP [address] [place] [address] [email or web address] Historical LMR Provider 09/04/17 Caprice Johns DIET ATTENDANT [address] [place] [address] [email or web address] Historical LMR Provider 09/04/17 11/22/21 Noe Fitzpatrick MD [address] [place] [address] [email or web address] Historical LMR Provider 09/04/17 11/22/21 Adelaida Awad MD [address] [place] [address] [email or web address] Historical LMR Provider 09/04/17 Kadi Nazario, BRIEN [address] [place] [address] Historical LMR Provider 09/04/17 2 Ninoska Sanchez MD [address] [place] [address] 7 [place] [address] [email or web address] Historical LMR Provider 09/04/17 Best Aaron MD [address] [place] [address] 7 [place] [address] [email or web address] Historical LMR Provider 09/04/17 Yashira Felix NP [address] [place] [address] Historical LMR Provider 09/04/17 2 Belinda Wolfe MD [address] [place] [address] Historical LMR Provider 09/04/17 2 Carlos Miarnda MD [address] [place] [address] Historical LMR Provider 09/04/17 11/22/21 Juanis Boyd MD [address] [place] [address] [email or web address] Historical LMR Provider 09/04/17 11/22/21 Saurav Cornelius MD [address] [place], [place] [address] [place] [phone] [email or web address] Historical LMR Provider 09/04/17 Giulia Alarcon MD [address] [address] Historical LMR Provider 09/04/17 11/22/21 Albert Ley MD [address] [place] [address] Historical LMR Provider 09/04/17 2 Luis Carlos De Jesus, ROBERTO [address] [place] [address], [address] [place] [address] [email or web address] Historical LMR Provider 09/04/17 Best Aaron MD [address] [place] [address] 7 [place] [address] [email or web address] Insurance Assigned Provider 09/18/17 02/19/24 Jailyn Grewal DO [address] [place] [address], [facility] 7 [place] [address] [email or web address] Insurance Assigned Provider 02/19/24 02/18/25 Pippa Shirley MD [address] [place] [address] 7 [place] [address] [email or web address] Insurance Assigned Provider 02/18/25 documented as of this encounter Additional Source Comments The information contained in this document represents components of the legal health record. It is not the complete legal health record.[facility]
--- OUTSIDE RECORDS SUMMARY | 2025-09-17 16:46 | XMS_ITS | Encounter Summary ---
Author Organization [facility] Address [facility] [address] [place] [address] Phone Care Team Providers Care Nuclear Waste Process Operator Name Role Phone Best Aaron MD Primary Care Provider Alysa Benito TENSIONING MACHINE OPERATOR Unavailable Jailyn Grewal DO Unavailable Esperanza Cisneros TENSIONING MACHINE OPERATOR Unavailable Bettye Amaro SHOE PACKER Unavailable Caprice Johns TENSIONING MACHINE OPERATOR Unavailable [phone] Noe Fitzpatrick MD Unavailable Adelaida Awad MD Unavailable Kadi Nazario TENSIONING MACHINE OPERATOR Unavailable Ninoska Sanchez MD Unavailable Best Aaron MD Unavailable Yashira Felix NP Unavailable [phone] Belinda Wolfe MD Unavailable [phone] Carlos Miranda MD Unavailable Juanis Boyd MD Unavailable Sauarv Cornelius MD Unavailable Giulia Alarcon MD Unavailable Albert Ley MD Unavailable [phone] Luis Carlos De Jesus CNP Unavailable Best Aaron MD Unavailable Best Aaron MD Primary Care Provider Pippa Shirley MD Primary Care Provider Jailyn Grewal DO Unavailable Pippa Shirley MD Unavailable [phone] Reason for Referral * MRI/CAT Scan - Closed Specialty Diagnoses / Procedures Referred By Burke gomez Referred To Contact Radiology Diagnoses Cervical radiculopathy Procedures MRI Cervical Spine Marquita Roldan NP Phone: tel: fax: mailto:[email or web address] Referral ID Status Reason Start Date Expiration Date Visits Re quested Visits Authorized [id number] Closed 2018 2019 1 1 Encounter Details Date Type Department Care Team (Latest Contact Info) Description 2018 Ancillary Orders Virtual Department 30 [place] [address] Marquita Roldan NP [address] [place] [phone] [email or web address] Cervical radiculopathy Social History Tobacco Use Types Packs/Day Years [...] st Contact Info) Description 05/01/2025 Procedure Pass [place], Ct Scan [address] [address] 10/18/2025 3:15 PM EST Appointment [address] [address] Vladimir Mccoy MD 30 [place] [address] 12/20/2025 2:00 PM EST Office Visit [address] [address] Pippa Shirley MD [address] [place] [address], [address] [place] [address] [email or web address] 12/31/2025 11:30 AM EST Office Visit [facility] [address] [place] [address] Unknown, Unknown, Angela Sen PA-C [address] [place] [address] [email or web address] 02/28/2026 8:30 AM EDT Office Visit [facility] Neurology [address] [place] [address] [place] [address] Albert Lynn MD [address] [place] [address] 2nd [place] [address] [email or web address] documented as of this encounter Results * MRI CERVICAL SPINE (NEURO) FOCUS WITHOUT CONTRAST (02/02/2018 3:20 PM EDT) Anatomical Region Laterality Modality C-spine Magnetic Resonan ce 02/02/2018 3:25 PM EDT Impressions 02/02/2018 3:34 PM EDT Small to moderate-sized broad-based/right paramedian C5-6 disc protrusion. Moderate broad-based C4-5 disc bulge. Left C5-6 and C6-7 neural foraminal narrowing. POS - [id number] Narrative 02/02/2018 3:34 PM EDT COMPARISON:07/05/2017 radiographs TECHNIQUE: Exam performed on a 1.5 Marilu high-field MRI scanner. Sagittal T1, T2 and STIR, axial T2* gradient echo and 3-D bright fluid sequences were obtained. FINDINGS: C2-3: No focal disc protrusion, central canal stenosis, or neural foraminal compromise. Mild degenerative changes are present at the atlantodens articulation. C3-4: No focal disc protrusion, central canal stenosis, or significant neural foraminal narrowing. Mild disc bulge. C4-5: No focal disc the protrusion or central canal stenosis. Moderate disc bulge approximating the ventral margin of thecal sac. Neural foramina appear patent. C5-6: There is disc space narrowing and a small to moderate-sized broad- based/right paramedian disc protrusion approximating the ventral margin of the cord with the AP dimensions of the central canal measuring approximately 10 mm. Uncovertebral spurring appears to cause mild left neural foraminal narrowing. Right neural foramen is grossly patent. C6-7: No focal disc protrusion or central canal stenosis. Uncovertebral spurring causes left neural foraminal narrowing, as demonstrated on radiographs, with the right neural foramen patent. C7-T1: No focal disc protrusion, central canal stenosis, or significant neural foraminal compromise. On the sagittal sequences no focal disc protrusion or central canal stenosis are suggested at the T1-2 or T2-3 levels. No significant abnormality of vertebral body marrow signal is noted. No gross cord lesion is demonstrated. Visualized paraspinal musculature is unremarkable. The vertebral soft tissues are not thickened. Procedure Note Katie Miranda MD - 02/02/2018 COMPARISON:07/05/2017 radiographs TECHNIQUE: Exam performed on a 1.5 Marilu high-field MRI scanner. SagittalT1, T2 and STIR, axial T2* gradient echo and 3-D bright fluid sequenceswere obtained. FINDINGS: C2-3: No focal disc protrusion, central canal stenosis, or neuralforaminal compromise. Mild degenerative changes are present at theatlantodens articulation. C3-4: No focal disc protrusion, central canal stenosis, or significantneural foraminal narrowing. Mild disc bulge. C4-5: No focal disc the protrusion or central canal stenosis. Moderatedisc bulge approximating the ventral margin of thecal sac. Neuralforamina appear patent. C5-6: There is disc space narrowing and a small to pboahyzt-izicdadqpz-tzrwy/right paramedian disc protrusion approximating the ventralmargin of the cord with the AP dimensions of the central canal measuringapproximately 10 mm. Uncovertebral spurring appears to cause mild leftneural foraminal narrowing. Right neural foramen is grossly patent. C6-7: No focal disc protrusion or central canal stenosis. Uncovertebralspurring causes left neural foraminal narrowing, as demonstrated onradiographs, with the right neural foramen patent. C7-T1: No focal disc protrusion, central canal stenosis, or significantneural foraminal compromise. On the sagittal sequences no focal disc protrusion or central canalstenosis are suggested at the T1-2 or T2-3 levels. No significant abnormality of vertebral body marrow signal is noted. Nogross cord lesion is demonstrated. Visualized paraspinal musculature isunremarkable. The vertebral soft tissues are not thickened. IMPRESSION: Small to moderate-sized broad-based/right paramedian C5-6 disc protrusion.Moderate broad-based C4-5 disc bulge. Left C5-6 and C6-7 neuralforaminal narrowing. POS - [id number] Marquita Roldan NP IMG MR XSPECIALTY Final Result documented in this encounter Visit Diagnoses Diagnosis Cervical radiculopathy Brachial neuritis or radiculitis nos Cervical radiculopathy Brachial neuritis or radiculitis nos documented in this encounter Additional Health Concerns Infection Onset Date Last Indicated Resolved Time CoV-Exposed Comment:Dc from rehab facility 01/20 full PPE fro 14 days 01/23/2021 01/23/2021 02/04/2021 1:23 AM EDT CoV-Risk 03/10/2022 03/10/2022 03/21/2022 1:24 AM EDT CoV-Risk 11/23/2022 11/23/2022 12/04/2022 1:22 AM EST COVID-19 06/15/2023 06/15/2023 07/06/2023 1:23 AM EDT documented as of this encounter Care Teams Nuclear Waste Process Operator Relationship Specialty Start Date End Date Best Aaron MD [address] [place] [address] 7 [place] [phone] [email or web address] PCP - General 09/02/17 10/18/19 Best Aaron MD [address] [place] [address] 7 [place] [address] [email or web address] PCP - General Family Medicine 10/19/19 02/09/24 Pippa Shirley MD [address] [place] [address] 7 [place] [address] [email or web address] PCP - General Family Medicine 02/10/24 Alysa Benito NP [address] [place] [address] Historical LMR Provider 09/04/17 1 2 Jailyn Grewal DO [address] [place] [address] 7 [place] [address] [email or web address] Historical LMR Provider 09/04/17 Esperanza Cisneros NP 29 [place] [address] Historical LMR Provider 09/04/17 2 Bettye Amaro CNP [address] [place] [address] [email or web address] Historical LMR Provider 09/04/17 Caprice Johns NP [address] [place] [address] [email or web address] Historical LMR Provider 09/04/17 11/22/21 Noe Fitzpatrick MD [address] [place] [address] [email or web address] Historical LMR Provider 09/04/17 11/22/21 Adelaida Awad MD [address] [address] [email or web address] Historical LMR Provider 09/04/17 Kadi Nazario NP [address] [place] [address] Historical LMR Provider 09/04/17 2 Ninoska Sanchez MD [address] [place] [address] 7 [place] [address] [email or web address] Historical LMR Provider 09/04/17 Best Aaron MD [address] [place] [address] [email or web address] Historical LMR Provider 09/04/17 Yashira Felix NP 30 [place] [address] Historical LMR Provider 09/04/17 2 Belinda Wolfe MD [address], [place] [address] Historical LMR Provider 09/04/17 2 Carlos Miranda MD [address] [place] [address] [email or web address] Historical LMR Provider 09/04/17 11/22/21 Juanis Boyd MD [address] [place] [address] [email or web address] Historical LMR Provider 09/04/17 11/22/21 Saurav Cornelius MD [address] [place], [place] [address] [place] [address] [email or web address] Historical LMR Provider 09/04/17 Giulia Alarcon MD [address] [place] [address] [email or web address] Historical LMR Provider 09/04/17 11/22/21 Albert Ley MD [address] [place] [address] Historical LMR Provider 09/04/17 2 Luis Carlos De Jesus CNP [address] [facility], [address] [place] [address] [email or web address] Historical LMR Provider 09/04/17 Best Aaron MD [address] [place] [address], [address] [place] [address] [email or web address] Insurance Assigned Provider 09/18/17 02/19/24 Jailyn Grewal DO [address] [place] [address], [facility] 7 [place] [address] Insurance Assigned Provider 02/19/24 02/18/25 Pippa Shirley MD [address] [place] [address], [address] [place] [address] [email or web address] Insurance Assigned Provider 02/18/25 documented as of this encounter Additional Source Comments The information contained in this document represents components of the legal health record. It is not the complete legal health record.[facility]
--- OUTSIDE RECORDS SUMMARY | 2025-09-17 16:46 | XMS_ITS | Encounter Summary ---
Author Organization [facility] Address [facility] [address] [place] [address] Phone Care Team Providers Care County Surveyor Name Role Phone Best Aaron MD Primary Care Provider Alysa Benito DISTRIBUTION SALES REPRESENTATIVE Unavailable Jailyn Grewal DO Unavailable Esperanza Cisneros DISTRIBUTION SALES REPRESENTATIVE Unavailable Bettye Amaro TRIMMING DEPARTMENT BLOCKER Unavailable Caprice Johns DISTRIBUTION SALES REPRESENTATIVE Unavailable [phone] Noe Fitzpatrick MD Unavailable Adelaida Awad MD Unavailable Kadi Nazario DISTRIBUTION SALES REPRESENTATIVE Unavailable Ninoska Sanchez MD Unavailable Best Aaron MD Unavailable Yashira Felix NP Unavailable [phone] Belinda Wolfe MD Unavailable [phone] Carlos Miranda MD Unavailable Juanis Boyd MD Unavailable Saurav Cornelius MD Unavailable Giulia Alarcon MD Unavailable Albert Ley MD Unavailable Luis Carlos De Jesus CNP Unavailable Best Aaron MD Unavailable Best Aaron MD Primary Care Provider Pippa Shirley MD Primary Care Provider Jailyn Grewal DO Unavailable Pippa Shirley MD Unavailable Encounter Details Date Type Department Care Team (Late st Contact Info) Description 2018 Procedure Pass [address] [place] [address] Social History Tobacco Use Types Packs/Day Years [...] Contact Info) Description 05/01/2025 Procedure Pass [address] [address] 10/18/2025 3:15 PM EST Appointment [facility] [address] [place] [address] Vladimir Mccoy MD 30 [place] [address] 12/20/2025 2:00 PM EST Office Visit [facility] [address] [place] [address] Pippa Shirley MD 234 [facility], [address] [place] [address] [email or web address] 12/31/2025 11:30 AM EST Office Visit [facility] G[facility]ology Clinic [address] [place] [address] Unknown, Ceferino, Angela Sen PA-C [address] [place] [address] [email or web address] 02/28/2026 8:30 AM EDT Office Visit [facility] Neurology [address] [place] [address] Albert Lynn MD [address] [place] [address], 2nd [place] [address] [email or web address] documented as of this encounter Visit Diagnoses [...] documented as of this encounter Care Teams County Surveyor Relationship Specialty Start Date End Date Best Aaron MD [address] [place] [address] 7 [place] [address] [email or web address] PCP - General 09/02/17 10/18/19 Best Aaron MD [address] [place] [address] 7 [place] [address] [email or web address] PCP - General Family Medicine 10/19/19 02/09/24 Pippa Shirley MD [address] [place] [address] [email or web address] PCP - General Family Medicine 02/10/24 Alysa Benito NP 1 [place] [address] Historical LMR Provider 09/04/17 2 Jailyn Grewal DO [address] [place] [address] Historical LMR Provider 09/04/17 Esperanza Cisneros NP 29 [place] [address] Historical LMR Provider 09/04/17 2 Bettye Amaro CNP 15 [facility], 2nd [place] [address] Historical LMR Provider 09/04/17 Caprice Johns NP [address] [place] [address] [email or web address] Historical LMR Provider 09/04/17 11/22/21 Noe Fitzpatrick MD [address] [place] [address] [email or web address] Historical LMR Provider 09/04/17 11/22/21 Adelaida Awad MD [address] [place] [address] [email or web address] Historical LMR Provider 09/04/17 Kadi Nazario NP [address] [place] [address] Historical LMR Provider 09/04/17 2 Ninoska Sanchez MD [address] [place] [address] [email or web address] Historical LMR Provider 09/04/17 Best Aaron MD [address] [place] [address] [email or web address] Historical LMR Provider 09/04/17 Yashira Felix NP [address] [place] [address] Historical LMR Provider 09/04/17 2 Belinda Wolfe MD [address] [place] [address] Historical LMR Provider 09/04/17 2 Carlos Miranda MD [address] [place] [address] Historical LMR Provider 09/04/17 11/22/21 Juanis Boyd MD [address] [place] [address] 7 [place] [address] Historical LMR Provider 09/04/17 11/22/21 Saurav Cornelius MD [address] [place], [place] [address] [place] [phone] [email or web address] Historical LMR Provider 09/04/17 Giulia Alarcon MD [address] [place] [address] Historical LMR Provider 09/04/17 11/22/21 Albert Ley MD [address] [place] [address] Historical LMR Provider 09/04/17 2 Luis Carlos De Jesus CNP [address] [place] [address], [address] [place] [address] Historical LMR Provider 09/04/17 Best Aaron MD [address] [place] [address] 7 [place] [address] [email or web address] Insurance Assigned Provider 09/18/17 02/19/24 Jailyn Grewal DO [address] [place] [address] 7 [place] [address] [email or web address] Insurance Assigned Provider 02/19/24 02/18/25 Pippa Shirley MD [address] [place] [address] 7 [place] [address] [email or web address] Insurance Assigned Provider 02/18/25 documented as of this encounter Additional Source Comments The information contained in this document represents components of the legal health record. It is not the complete legal health record.[facility]
--- OUTSIDE RECORDS SUMMARY | 2025-09-17 16:46 | XMS_ITS | Encounter Summary ---
Author Organization [facility] Address [facility] [address] [facility] [address] [place] [address] Phone Care Team Providers Care Catalogue Maker Name Role Phone Jailyn Grewal DO Unavailable Bettye Amaro SECRETARY OF STATE Unavailable Ninoska Sanchez MD Unavailable Best Aaron MD Unavailable Saurav Cornelius MD Unavailable Pippa Shirley MD Primary Care Provider [phone] Pippa Shirley MD Unavailable [phone] Encounter Details Date Type Department Care Team (Late st Contact Info) Description 04/26/2025 Procedure Pass [facility] Cardiovascular And Interventional Radiology 30 [place] [address] Social History Tobacco Use Types Packs/Day Years [...] st Contact Info) Description 05/01/2025 Procedure Pass [facility], Ct Scan - [address] [address] 10/18/2025 3:15 PM EST Appointment [facility] Ct Scan [address] [address] Vladimir Mccoy MD 30 [place] [address] [email or web address] 12/20/2025 2:00 PM EST Office Visit [address] [address] Pippa Shirley MD [address] [place] [address], [facility] 7 [place] [address] [email or web address] 12/31/2025 11:30 AM EST Office Visit [facility] [address] [place] [address] Unknown, Unknown, Angela Sen PA-C [address] [place] [address] [email or web address] 02/28/2026 8:30 AM EDT Office Visit [facility] Neurology [address] [place] [address] Albert Lynn MD [address] [place] [address], 2nd [place] [address] documented as of this encounter Visit Diagnoses Not on filedocumented in this encounter Additional Health Concerns Assessment Noted Time PHQ-2 Depression Total Score: 2 08/08/20 24 5:13 PM EDT documented as of this encounter Care Teams Catalogue Maker Relationship Specialty Start Date End Date Pippa Shirley MD [address] [place] [address], [facility] 7 [place] [address] [email or web address] PCP - General Family Medicine 02/10/24 Jailyn Grewal DO [address] [place] [address] 7 [place] [address] Historical LMR Provider 09/04/17 Bettye Amaro CNP [address] [place] [address], 2nd [place] [address] [email or web address] Historical LMR Provider 09/04/17 Ninoska Sanchez MD [address] [place] [address] 7 [place] [address] [email or web address] Historical LMR Provider 09/04/17 Best Aaron MD [address] [place] [address] 7 [place] [address] Historical LMR Provider 09/04/17 Saurav Cornelius MD [address] [place], [place] [address] [place] [address] [email or web address] Historical LMR Provider 09/04/17 Pippa Shirley MD [address] [place] [address] 7 [place] [address] [email or web address] Insurance Assigned Provider 02/18/25 documented as of this encounter Additional Source Comments The information contained in this document represents components of the legal health record. It is not the complete legal health record.[facility]
--- OUTSIDE RECORDS SUMMARY | 2025-09-17 16:46 | XMS_ITS | Encounter Summary ---
Author Organization [facility] Address [facility] [employer] [facility] [address] [place] [address] Phone Care Team Providers Care Service Line Bus Cleaner Name Role Phone Best Aaron MD Primary Care Provider [phone] Alysa Benito RETAIL LOSS PREVENTION SPECIALIST Unavailable Jailyn Grewal DO Unavailable Esperanza Cisneros RETAIL LOSS PREVENTION SPECIALIST Unavailable Bettye Amaro HEALTH INFORMATION SPECIALIST Unavailable Caprice Johns RETAIL LOSS PREVENTION SPECIALIST Unavailable [phone] Noe Fitzpatrick MD Unavailable Adelaida Awad MD Unavailable Kadi Nazario RETAIL LOSS PREVENTION SPECIALIST Unavailable Ninoska Sanchez MD Unavailable Best Aaron MD Unavailable Yashira Felix RETAIL LOSS PREVENTION SPECIALIST Unavailable [phone] Belinda Wolfe MD Unavailable [phone] Carlos Miranda MD Unavailable Juanis Boyd MD Unavailable Saurav Cornelius MD Unavailable Giulia Alarcon MD Unavailable Albert Ley MD Unavailable [phone] Luis Carlos De Jesus HEALTH INFORMATION SPECIALIST Unavailable Best Aaron MD Unavailable Best Aaron MD Primary Care Provider Pippa Shirley MD Primary Care Provider Jailyn Grewal DO Unavailable Pippa Shirley MD Unavailable Encounter Details Date Type Department Care Team (Late Contact Info) Description 01/12/2018 Ancillary Orders [facility], X-Ray - [address] [place] [address] Marquita Roldan, RETAIL LOSS PREVENTION SPECIALIST [address] [place] [phone] [email or web address] Right shoulder pain, unspecified chronicity Social History Tobacco Use Types Packs/Day Years [...] st Contact Info) Description 05/01/2025 Procedure Pass [facility], Ct Scan - [address] [address] 10/18/2025 3:15 PM EST Appointment [place], Ct Scan [address] [address] Vladimir Mccoy MD 30 [place] [address] 12/20/2025 2:00 PM EST Office Visit [address] [address] Pippa Shirley MD [address] [place] [address], [facility] 7 [place] [address] [email or web address] 12/31/2025 11:30 AM EST Office Visit [facility] 10 [place] [address] Unknown, Unknown, Angela Sen PA-C [address] [place] [address] [email or web address] 02/28/2026 8:30 AM EDT Office Visit [facility] Neurology 22 [place] [address] Albert Lynn MD 22 [facility], 2nd [place] [address] documented as of this encounter Results * XR SHOULDER 2 VIEWS (RIGHT) (01/12/2018 6:00 PM EST) Anatomical Region Laterality Modality Shoulder Right Radiographic Ashley ging 01/12/2018 6:11 PM EST Impressions 01/12/2018 6:13 PM EST Mild degenerative change at the acromioclavicular joint. Minimal degenerative change at the glenohumeral joint. POS - [id number] Narrative 01/12/2018 6:13 PM EST HISTORY: Pain. COMPARISON: None. FINDINGS: Three views. Mild hypertrophic change at the acromioclavicular joint. Minimal spurring at the glenohumeral joint. No fractures, subluxations or dislocations. No suspicious lytic or blastic lesions within the bones. No evidence of suspicious soft tissue calcifications. Procedure Note Murphy Cesar MD - 01/12/2018 HISTORY: Pain. COMPARISON: None. FINDINGS: Three views. Mild hypertrophic change at the acromioclavicular joint. Minimal spurringat the glenohumeral joint. No fractures, subluxations or dislocations.No suspicious lytic or blastic lesions within the bones. No evidence ofsuspicious soft tissue calcifications. IMPRESSION: Mild degenerative change at the acromioclavicular joint. Minimaldegenerative change at the glenohumeral joint. POS - [id number] Marquita Roldan RETAIL LOSS PREVENTION SPECIALIST IMG XR UPPER EXTREMITY Final Res ult documented in this encounter Visit Diagnoses Diagnosis Right shoulder pain, unspecified chronicity Right shoulder pain, unspecified chronicity documented in this encounter Additional Health Concerns Infection Onset Date Last Indicated Resolved Time CoV-Exposed Comment:Dc from rehab facility 01/20 full PPE fro 14 days 01/23/2021 01/23/2021 02/04/2021 1:23 AM EDT CoV-Risk 03/10/2022 03/10/2022 03/21/2022 1:24 AM EDT CoV-Risk 11/23/2022 11/23/2022 12/04/2022 1:22 AM EST COVID-19 06/15/2023 06/15/2023 07/06/2023 1:23 AM EDT documented as of this encounter Care Teams Service Line Bus Cleaner Relationship Specialty Start Date End Date Best Aaron MD [address] [place] [address], [address] [place] [address] PCP - General 09/02/17 10/18/19 Best Aaron MD [address] [place] [address] 7 [place] [address] PCP - General Family Medicine 10/19/19 02/09/24 Pippa Shirley MD [address] [place] [address] 7 [place] [address] [email or web address] PCP - General Family Medicine 02/10/24 Alysa Benito NP 1 [place] [address] Historical LMR Provider 09/04/17 2 Jailyn Grewal DO [address] [place] [address] 7 [place] [address] Historical LMR Provider 09/04/17 Esperanza Cisneros NP 29 [place] [address] Historical LMR Provider 09/04/17 2 Bettye Amaro CNP 15 [facility], 2nd [place] [address] Historical LMR Provider 09/04/17 Caprice Johns NP [address] [place] [address] Historical LMR Provider 09/04/17 11/22/21 Noe Fitzpatrick MD 4 [place] [address] [email or web address] Historical LMR Provider 09/04/17 11/22/21 Adelaida Awad MD 15 [facility] [place] [address] [email or web address] Historical LMR Provider 09/04/17 Kadi Nazario NP [address] [place] [address] Historical LMR Provider 09/04/17 2 Ninoska Sanchez MD [address] [place] [address] [email or web address] Historical LMR Provider 09/04/17 Best Aaron MD [address] [place] [address] [email or web address] Historical LMR Provider 09/04/17 Yashira Felix NP [address] [place] [address] Historical LMR Provider 09/04/17 2 Belinda Wolfe MD [address], [place] [address] Historical LMR Provider 09/04/17 2 Carlos Miranda MD [address] [place] [address] [facility] 102 [place] [address] Historical LMR Provider 09/04/17 11/22/21 Juanis Boyd MD [address] [place] [address] 7 [place] [address] Historical LMR Provider 09/04/17 11/22/21 Saurav Cornelius MD [address] [place] [address] [address] [place] [address] [email or web address] Historical LMR Provider 09/04/17 Giulia Alarcon MD [address] [place] [address] Historical LMR Provider 09/04/17 11/22/21 Albert Ley MD [address] [place] [address] Historical LMR Provider 09/04/17 2 Luis Carlos De Jesus CNP [address] [place] [address], [address] [place] [address] Historical LMR Provider 09/04/17 Best Aaron MD [address] [place] [address] 7 [place] [address] Insurance Assigned Provider 09/18/17 02/19/24 Jailyn Grewal DO [address] [place] [address] 7 [place] [address] [email or web address] Insurance Assigned Provider 02/19/24 02/18/25 Pippa Shirley MD [address] [place] [address] 7 [place] [address] [email or web address] Insurance Assigned Provider 02/18/25 documented as of this encounter Additional Source Comments The information contained in this document represents components of the legal health record. It is not the complete legal health record.[facility]
--- OUTSIDE RECORDS SUMMARY | 2025-09-17 16:46 | XMS_ITS | Encounter Summary ---
Author Organization [facility] Address [facility] [address] [place] [address] Phone Care Team Providers Care Web Communications Specialist Name Role Phone Best Aaron MD Primary Care Provider Alysa Benito DRAWSTRING KNOTTER Unavailable Jailyn Grewal DO Unavailable Esperanza Cisneros DRAWSTRING KNOTTER Unavailable Bettye Amaro SETTLEMENT TECHNICIAN Unavailable Caprice Johns DRAWSTRING KNOTTER Unavailable [phone] Noe Fitzpatrick MD Unavailable Adelaida Awad MD Unavailable Kadi Nazario DRAWSTRING KNOTTER Unavailable Ninoska Sanchez MD Unavailable Best Aaron MD Unavailable Yashira Felix NP Unavailable [phone] Belinda Wolfe MD Unavailable [phone] Carlos Miranda MD Unavailable Juanis Boyd MD Unavailable Saurav Cornelius MD Unavailable Giulia Alarcon MD Unavailable Albert Ley MD Unavailable [phone] Luis Carlos De Jesus SETTLEMENT TECHNICIAN Unavailable Best Aaron MD Unavailable Best Aaron MD Primary Care Provider iPppa Shirley MD Primary Care Provider Jailyn Grewal DO Unavailable Pippa Shirley MD Unavailable Encounter Details Date Type Department Care Team (Late st Contact Info) Description 10/05/2017 Procedure Pass [facility], [address] [address] Social History Tobacco Use Types Packs/Day Years [...] - Inhaled Oxygen Concentration - - Weight 86.2 kg (190 lb) 10/05/2017 10:23 AM EST Height - - Body Mass Index 30 10/05/2017 8:07 AM EST documented in this encounter Plan of Treatment Upcoming Encounters Date Type Department Care Team (Late st Contact Info) Description 05/01/2025 Procedure Pass [facility], Ct Scan - [address] [address] 10/18/2025 3:15 PM EST Appointment [facility], Ct Scan - [facility] 30 [place] [address] Vladimir Mccoy MD 30 [place] [address] 12/20/2025 2:00 PM EST Office Visit [address] [address] Pippa Shirley MD [address] [place] [address], [facility] 7 [place] [address] [email or web address] 12/31/2025 11:30 AM EST Office Visit [facility] 10 [place] [address] Unknown, Unknown, Angela Sen PA-C [address] [place] [address] [email or web address] 02/28/2026 8:30 AM EDT Office Visit [facility] Neurology [address] [place] [address] [place] [address] Albert Lynn MD [address] [place] [address], 2nd [place] [address] documented as of this encounter Visit Diagnoses [...] documented as of this encounter Care Teams Web Communications Specialist Relationship Specialty Start Date End Date Best Araon MD [address] [place] [address] 7 [place] [address] [email or web address] PCP - General 09/02/17 10/18/19 Best Aaron MD [address] [place] [address] [place] [address] [email or web address] PCP - General Family Medicine 10/19/19 02/09/24 Pippa Shirley MD [address] [place] [address] 7 [place] [address] [email or web address] PCP - General Family Medicine 02/10/24 Alysa Benito DRAWSTRING KNOTTER [address] [place] [address] Historical LMR Provider 09/04/17 2 Jailyn Grewal DO [address] [place] [address] 7 [place] [address] [email or web address] Historical LMR Provider 09/04/17 Esperanza Cisneros, BRIEN [address] [place] [address] Historical LMR Provider 09/04/17 2 Bettye Amaro, ROBERTO [address] [place] [address] [email or web address] Historical LMR Provider 09/04/17 Caprice Johns NP [address] [place] [address] [email or web address] Historical LMR Provider 09/04/17 11/22/21 Noe Fitzpatrick MD [address] [place] [address] [email or web address] Historical LMR Provider 09/04/17 11/22/21 Adelaida Awad MD [address] [place] [address] [email or web address] Historical LMR Provider 09/04/17 Kadi Nazario NP [address] [place] [address] Historical LMR Provider 09/04/17 2 Ninoska Sanchez MD [address] [place] [address] 7 [place] [address] [email or web address] Historical LMR Provider 09/04/17 Best Aaron MD [address] [place] [address] [email or web address] Historical LMR Provider 09/04/17 Yashira Felix NP [address] [place] [address] Historical LMR Provider 09/04/17 2 Belinda Wolfe MD [address] [place] [address] Historical LMR Provider 09/04/17 2 Carlos Miranda MD [address] [place] [address] Historical LMR Provider 09/04/17 11/22/21 Juanis Boyd MD [address] [place] [address] [email or web address] Historical LMR Provider 09/04/17 11/22/21 Saurav Cornelius MD [address] [place] [address] [address] [place] [id number] [email or web address] Historical LMR Provider 09/04/17 Giulia Alarcon MD [address] [place] [address] Historical LMR Provider 09/04/17 11/22/21 Albert Ley MD [address] [place] [address] Historical LMR Provider 09/04/17 2 Luis Carlos De Jesus CNP [address] [place] [address], [address] [place] [address] Historical LMR Provider 09/04/17 Best Aaron MD [address] [place] [address] [address] [place] [address] [email or web address] Insurance Assigned Provider 09/18/17 02/19/24 Jailyn Grewal DO [address] [place] [address] 7 [place] [address] [email or web address] Insurance Assigned Provider 02/19/24 02/18/25 Pippa Shirley MD [address] [place] [address] 7 [place] [address] [email or web address] Insurance Assigned Provider 02/18/25 documented as of this encounter Additional Source Comments The information contained in this document represents components of the legal health record. It is not the complete legal health record.[facility]
--- OUTSIDE RECORDS SUMMARY | 2025-09-17 16:46 | XMS_ITS | Encounter Summary ---
Author Organization [facility] Address [facility] [address] [place] [address] Phone Care Team Providers Care Glass Mechanic Name Role Phone Jailyn Grewal DO Unavailable Bettye Amaro WOOD ROOM HAND Unavailable Ninoska Sanchez MD Unavailable Best Aaron MD Unavailable [phone] Saurav Cornelius MD Unavailable Pippa Shirley MD Primary Care Provider Pippa Shirley MD Unavailable Encounter Details Date Type Department Care Team (Late st Contact Info) Description 03/28/2025 Procedure Pass [facility], [address] [address] Social History Tobacco Use Types Packs/Day Years [...] Procedure Pass [facility], Ct Scan [address] [address] 10/18/2025 3:15 PM EST Appointment [place], Ct Scan [address] [address] Vladimir Mccoy MD 30 [place] [address] 12/20/2025 2:00 PM EST Office Visit [address] [address] Pippa Shirley MD 234 [facility], [facility] 7 [place] [address] [email or web address] 12/31/2025 11:30 AM EST Office Visit [facility] [address] [place] [address] Unknown, Unknown, Angela Sen PA-C [address] [place] [address] [email or web address] 02/28/2026 8:30 AM EDT Office Visit [facility] Neurology [address] [place] [address] Albert Lynn MD [address] [place] [address], 2nd [place] [address] documented as of this encounter Visit Diagnoses Not on filedocumented in this encounter Additional Health Concerns Assessment Noted Time PHQ-2 Depression Total Score: 2 08/08/20 24 5:13 PM EDT documented as of this encounter Care Teams Glass Mechanic Relationship Specialty Start Date End Date Pippa Shirley MD [address] [place] [address] 7 [place] [address] [email or web address] PCP - General Family Medicine 02/10/24 Jailyn Grewal DO [address] [place] [address] 7 [place] [address] [email or web address] Historical LMR Provider 09/04/17 Bettye Amaro CNP [address] [place] [address], 2nd [place] [address] [email or web address] Historical LMR Provider 09/04/17 Ninoska Sanchez MD [address] [place] [address] 7 [place] [address] [email or web address] Historical LMR Provider 09/04/17 Best Aaron MD [address] [place] [address] 7 [place] [address] [email or web address] Historical LMR Provider 09/04/17 Saurav Cornelius MD [address] [place], [place] [address] [place] [address] [email or web address] Historical LMR Provider 09/04/17 Pippa Shirley MD [address] [place] [address] 7 [place] [address] [email or web address] Insurance Assigned Provider 02/18/25 documented as of this encounter Additional Source Comments The information contained in this document represents components of the legal health record. It is not the complete legal health record.[facility]
--- OUTSIDE RECORDS SUMMARY | 2025-09-17 16:46 | XMS_ITS | Encounter Summary ---
Author Organization [facility] Address [facility] [place] [address] [place] [address] Phone Care Team Providers Care Buffer Chrome Name Role Phone Alysa Benito SENIOR QUALITY ANALYST Unavailable Jailyn Grewal DO Unavailable Esperanza Cisneros SENIOR QUALITY ANALYST Unavailable Bettye Amaro CLINICAL STUDIES SPECIALIST Unavailable Caprice Jonhs SENIOR QUALITY ANALYST Unavailable [phone] Noe Fitzpatrick MD Unavailable Adelaida Awad MD Unavailable Kadi Nazario SENIOR QUALITY ANALYST Unavailable Ninoska Sanchez MD Unavailable Best Aaron MD Unavailable Yashira Felix SENIOR QUALITY ANALYST Unavailable [phone] Belinda Wolfe MD Unavailable [phone] Carlos Miranda MD Unavailable Juanis Boyd MD Unavailable Saurav Cornelius MD Unavailable Giulia Alarcon MD Unavailable Albert Ley MD Unavailable [phone] Luis Carlos De Jesus CNP Unavailable Best Aaron MD Unavailable Best Aaron MD Primary Care Provider [phone] Pippa Shirley MD Primary Care Provider Jailyn Grewal DO Unavailable Pippa Shirley MD Unavailable Encounter Details Date Type Department Care Team (Late st Contact Info) Description 11/23/2019 Procedure Pass [facility] PERIOPERATIVE DEPT [address] [place] [address] Social History Tobacco Use Types [...] st Contact Info) Description 05/01/2025 Procedure Pass [address] [address] 10/18/2025 3:15 PM EST Appointment [address] [address] Vladimir Mccoy MD 30 [place] [address] [email or web address] 12/20/2025 2:00 PM EST Office Visit [facility] [address] [place] [address] Pippa Shirley MD 234 [facility], [address] [place] [address] [email or web address] 12/31/2025 11:30 AM EST Office Visit [facility] 10 [place] [address] Unknown, Unknown, Angela Sen PA-C [address] [address] [email or web address] [email or web address] 02/28/2026 8:30 AM EDT Office Visit [facility] Neurology 22 [place] [address] Albert Lynn MD 22 [facility], 2nd [place] [address] [email or web address] documented as of this encounter Visit [...] documented as of this encounter Care Teams Buffer Chrome Relationship Specialty Start Date End Date Best Aaron MD [address] [place] [address] 7 [place] [address] PCP - General Family Medicine 10/19/19 02/09/24 Pippa Shirley MD [address] [place] [address] 7 [place] [address] [email or web address] PCP - General Family Medicine 02/10/24 Alysa Benito NP [address] [place] [address] Historical LMR Provider 09/04/17 2 Jailyn Grewal DO [address] [place] [address] Historical LMR Provider 09/04/17 Esperanza Cisneros NP [address] [place] [address] Historical LMR Provider 09/04/17 2 Bettye Amaro CNP 15 [facility], 2nd [place] [address] Historical LMR Provider 09/04/17 Caprice Johns SENIOR QUALITY ANALYST [address] [place] [address] Historical LMR Provider 09/04/17 11/22/21 Noe Fitzpatrick MD 4 [place] [address] [email or web address] Historical LMR Provider 09/04/17 11/22/21 Adelaida Awad MD 15 [facility], 2nd [place] [address] [email or web address] Historical LMR Provider 09/04/17 Kadi Nazario NP [address] [place] [address] Historical LMR Provider 09/04/17 2 Ninoska Sanchez MD [address] [place] [address] 7 [place] [address] [email or web address] Historical LMR Provider 09/04/17 Best Aaron MD [address] [place] [address] [email or web address] Historical LMR Provider 09/04/17 Yashira Felix NP [address] [place] [address] Historical LMR Provider 09/04/17 2 Belinda Wolfe MD [address], [place] [address] Historical LMR Provider 09/04/17 2 Carlos Miranda MD 22 [facility] [address] [place] [address] Historical LMR Provider 09/04/17 11/22/21 Juanis Boyd MD [address] [place] [address] 7 [place] [address] Historical LMR Provider 09/04/17 11/22/21 Saurav Cornelius MD [address] [place] [address] [address] [place] [id number] [email or web address] Historical LMR Provider 09/04/17 Giulia Alarcon MD [address] [place] [address] [address] [place] [address] Historical LMR Provider 09/04/17 11/22/21 Albert Ley MD [address] [place] [address] Historical LMR Provider 09/04/17 2 Luis Carlos De Jesus, ROBERTO [address] [place] [address], [address] [place] [address] Historical LMR Provider 09/04/17 Best Aaron MD [address] [place] [address] 7 [place] [address] Insurance Assigned Provider 09/18/17 02/19/24 Jailyn Grewal DO [address] [place] [address] 7 [place] [address] [email or web address] Insurance Assigned Provider 02/19/24 02/18/25 Pippa Shirley MD [address] [place] [address] 7 [place] [address] [email or web address] Insurance Assigned Provider 02/18/25 documented as of this encounter Additional Source Comments The information contained in this document represents components of the legal health record. It is not the complete legal health record.[facility]
--- OUTSIDE RECORDS SUMMARY | 2025-09-17 16:46 | XMS_ITS | Encounter Summary ---
Author Organization [facility] Address [facility] [employer] [facility] [address] [place] [address] Phone Care Team Providers Care Deputy Attorney General Name Role Phone Alysa Benito AUTOMATION OPERATOR Unavailable Jailyn Grewal DO Unavailable Esperanza Cisneros AUTOMATION OPERATOR Unavailable Bettye Amaro REFRIGERATION SERVICE INSPECTOR Unavailable Caprice Johns AUTOMATION OPERATOR Unavailable [phone] Noe Fitzpatrick MD Unavailable Adelaida Awad MD Unavailable Kadi Nazario AUTOMATION OPERATOR Unavailable Ninoska Sanchez MD Unavailable Best Aaron MD Unavailable Yashira Felix AUTOMATION OPERATOR Unavailable [phone] Belinda Wolfe MD Unavailable [phone] Carlos Miranda MD Unavailable Juanis Boyd MD Unavailable Saurav Cornelius MD Unavailable Giulia Alarcon MD Unavailable Albert Ley MD Unavailable [phone] Luis Carlos De Jesus CNP Unavailable Best Aaron MD Unavailable Best Aaron MD Primary Care Provider [phone] Pippa Shirley MD Primary Care Provider Josh Grewalssisha Ventura DO Unavailable Pippa Shirley MD Unavailable Encounter Details Date Type Department Care Team (Late st Contact Info) Description 07/01/2020 Procedure Pass [facility] Imaging, [place] [address] [place] [address] Social History Tobacco Use Types Packs/Day Years [...] - Inhaled Oxygen Concentration - - Weight 93 kg (205 lb) 07/01/2020 12:48 PM EDT Height - - Body Mass Index 32.11 07/01/2020 11:31 AM EDT documented in this encounter Plan of Treatment Upcoming Encounters Date Type Department Care Team (Late st Contact Info) Description 05/01/2025 Procedure Pass [facility], Ct Scan - [address] [address] 10/18/2025 3:15 PM EST Appointment [facility], Ct Scan - [facility] 30 [place] [address] Vladimir Mccoy MD 30 [place] [address] 12/20/2025 2:00 PM EST Office Visit [address] [address] Pippa Shirley MD 234 [facility] 7 [place] [address] [email or web address] 12/31/2025 11:30 AM EST Office Visit [facility] 10 [place] [address] Unknown, Unknown, Angela Sen PA-C [address] [address] [email or web address] 02/28/2026 8:30 AM EDT Office Visit [facility] Neurology [address] [place] [address] Albert Lynn MD [address] [place] [address], 2nd [place] [address] documented as of this encounter Visit Diagnoses [...] documented as of this encounter Care Teams Deputy Attorney General Relationship Specialty Start Date End Date Best Aaron MD [address] [place] [address] 7 [place] [address] PCP - General Family Medicine 10/19/19 02/09/24 Pippa Shirley MD [address] [place] [address] 7 [place] [address] [email or web address] PCP - General Family Medicine 02/10/24 Alysa Benito AUTOMATION OPERATOR 1 [place] [address] Historical LMR Provider 09/04/17 2 Jailyn Grewal DO [address] [place] [address] 7 [place] [address] Historical LMR Provider 09/04/17 Esperanza Cisneros, BRIEN 29 [place] [address] Historical LMR Provider 09/04/17 2 Bettye Amaro, ROBERTO 15 [facility], 2nd [place] [address] Historical LMR Provider 09/04/17 Caprice Johns AUTOMATION OPERATOR [address] [place] [address] [email or web address] Historical LMR Provider 09/04/17 11/22/21 Noe Fitzpatrick MD [address] [place] [address] [email or web address] Historical LMR Provider 09/04/17 11/22/21 Adelaida Awad MD [address] [place] [address] [email or web address] Historical LMR Provider 09/04/17 Kadi Nazario NP [address] [place] [address] Historical LMR Provider 09/04/17 2 Ninoska Sanchez MD [address] [place] [address] [email or web address] Historical LMR Provider 09/04/17 Best Aaron MD [address] [place] [address] [email or web address] Historical LMR Provider 09/04/17 Yashira Felix NP [address] [place] [address] Historical LMR Provider 09/04/17 2 Belinda Wolfe MD [address] [place] [address] Historical LMR Provider 09/04/17 2 Carlos Miranda MD [address] [place] [address] Historical LMR Provider 09/04/17 11/22/21 Juanis Boyd MD [address] [place] [address] Historical LMR Provider 09/04/17 11/22/21 Saurav Cornelius MD [address] [place], [place] [address] [place] [phone] [email or web address] Historical LMR Provider 09/04/17 Giulia Alarcon MD [address] [place] [address] Historical LMR Provider 09/04/17 11/22/21 Albert Ley MD [address] [place] [address] Historical LMR Provider 09/04/17 2 Luis Carlos De Jesus, ROBERTO [address] [place] [address], [address] [place] [address] [email or web address] Historical LMR Provider 09/04/17 Best Aaron MD [address] [place] [address] 7 [place] [address] [email or web address] Insurance Assigned Provider 09/18/17 02/19/24 Jailyn Grewal DO [address] [place] [address] 7 [place] [address] [email or web address] Insurance Assigned Provider 02/19/24 02/18/25 Pippa Shirley MD [address] [place] [address] 7 [place] [address] [email or web address] Insurance Assigned Provider 02/18/25 documented as of this encounter Additional Source Comments The information contained in this document represents components of the legal health record. It is not the complete legal health record.[facility]
--- OUTSIDE RECORDS SUMMARY | 2025-09-17 16:46 | XMS_ITS | Encounter Summary ---
Author Organization [facility] Address [facility] [address] [place] [address] Phone Care Team Providers Care Line Fisher Name Role Phone Jailyn Grewal DO Unavailable [phone] Bettye Amaro LOCOMOTIVE LUBRICATING SYSTEMS CLERK Unavailable Ninoska Sanchez MD Unavailable [phone] Best Aaron MD Unavailable [phone] Saurav Cornelius MD Unavailable Pippa Shirley MD Primary Care Provider [phone] Pippa Shirley MD Unavailable Encounter Details Date Type Department Care Team (Late st Contact Info) Description 03/12/2025 Procedure Pass [facility], Ct Scan - [address] [address] Social History Tobacco Use Types Packs/Day Years [...] st Contact Info) Description 05/01/2025 Procedure Pass [facility], Ct Scan [address] [address] 10/18/2025 3:15 PM EST Appointment [facility] Ct Scan [address] [address] Vladimir Mccoy MD 30 [place] [address] 12/20/2025 2:00 PM EST Office Visit [address] [address] Pippa Shirley MD 234 [facility] 7 [place] [address] [email or web address] 12/31/2025 11:30 AM EST Office Visit [facility] Gastro[facility]ology Clinic [address] [place] [address] Unknown, Unknown, Angela Sen PA-C [address] [place] [address] [email or web address] 02/28/2026 8:30 AM EDT Office Visit [facility] Neurology [address] [place] [address] Albert Lynn MD [address] [place] [address], 2nd [place] [address] documented as of this encounter Visit Diagnoses Not on filedocumented in this encounter Additional Health Concerns Assessment Noted Time PHQ-2 Depression Total Score: 2 08/08/20 24 5:13 PM EDT documented as of this encounter Care Teams Line Fisher Relationship Specialty Start Date End Date Pippa Shirley MD [address] [place] [address] 7 [place] [address] [email or web address] PCP - General Family Medicine 02/10/24 Jailyn Grewal DO [address] [place] [address] 7 [place] [address] [email or web address] Historical LMR Provider 09/04/17 Bettye Amaro CNP [address] [place] [address], 2nd [place] [address] [email or web address] Historical LMR Provider 09/04/17 Ninoska Sanchez MD [address] [place] [address] [email or web address] Historical LMR Provider 09/04/17 Best Aaron MD [address] [place] [address] [address] [email or web address] Historical LMR Provider 09/04/17 Saurav Cornelius MD [address] [place], [place] [address] [place] [address] [email or web address] Historical LMR Provider 09/04/17 Pippa Shirley MD [address] [place] [address] RO[place] [address] [email or web address] Insurance Assigned Provider 02/18/25 documented as of this encounter Additional Source Comments The information contained in this document represents components of the legal health record. It is not the complete legal health record.[facility]
== END 2025-09-17 16:12 | disposition home or self-care (01) ==
LOC: HO.PMC 15:34
PROVIDERS: PCP Student in an Organized Health Care Education/Training Program; Referring Provider Student in an Organized Health Care Education/Training Program; Visit Provider Nurse Practitioner Family
DX: M54.50 Low back pain, unspecified (principal); G89.29 Other chronic pain; M96.1 Postlaminectomy syndrome, not elsewhere classified; M47.817 Spondylosis without myelopathy or radiculopathy, lumbosacral region; M53.3 Sacrococcygeal disorders, not elsewhere classified; M48.061 Spinal stenosis, lumbar region without neurogenic claudication; M41.9 Scoliosis, unspecified; M43.16 Spondylolisthesis, lumbar region
CPT/HCPCS: 99204

== ENCOUNTER 2025-09-17 15:34 | Outpatient (REF) | payer MEDICARE, BC, SELFPAY ==
--- NOTE | ~2025-09-17 | XR_ITS ---
EXAMINATION: XR SACROILIAC JOINTS CLINICAL INFORMATION: M53.3 - Sacrococcygeal disorders, not elsewhere classified COMPARISON: None available. TECHNIQUE: 3 views of the sacroiliac joints FINDINGS: There is minimal degenerative irregularity of both SI joints without erosions or ankylosis. The proximal end of total right hip prosthesis is partially imaged. XR/XR sacroiliac joint min 3V IMPRESSION: Normal sacroiliac joints. Electronically signed by: Rancho Lucas MD 09/17/2025 05:28 PM NELLY CUMMINS
--- NOTE | ~2025-09-17 | XR_ITS ---
EXAMINATION: XR LUMBOSACRAL SPINE CLINICAL INFORMATION: M54.50 - Low back pain, unspecified COMPARISON: Correlated to MRI from an outside institution dated July 31, 2023 TECHNIQUE: Lateral views in neutral, flexion and extension position. AP and oblique views. FINDINGS: Dextroconvex rotoscoliosis apex at L2-3. Multilevel marginal osteophyte formation and endplate sclerosis with decreased intervertebral disc height. Decreased mineralization. No acute cortical disruption or gross malalignment. Bilateral laminectomies, L4-5, L5-S1 and likely L3-4. No gross malalignment. No gross motion during flexion and/or extension position. Metallic prosthesis in the right hip no fully included in the [id number]. XR/XR lumbar spine 6V w bending IMPRESSION: Multilevel thoracolumbar spondylosis and dextroconvex rotoscoliosis without acute fracture or listhesis. No gross instability. Osteopenia versus osteoporosis. Electronically signed by: Sebastien Glynn MD 09/18/2025 06:52 AM NELLY
== END 2025-09-17 15:35 | disposition home or self-care (01) ==
LOC: HO.XRAY 15:34
PROVIDERS: PCP Student in an Organized Health Care Education/Training Program; Referring Provider Student in an Organized Health Care Education/Training Program; Visit Provider Nurse Practitioner Family
DX: M47.817 Spondylosis without myelopathy or radiculopathy, lumbosacral region (principal); M96.1 Postlaminectomy syndrome, not elsewhere classified; M53.3 Sacrococcygeal disorders, not elsewhere classified; M48.061 Spinal stenosis, lumbar region without neurogenic claudication; M41.9 Scoliosis, unspecified; M43.16 Spondylolisthesis, lumbar region; G89.29 Other chronic pain
CPT/HCPCS: 72114; 72202; 99202

== ENCOUNTER → 2025-09-17 16:23 | Outpatient (BNV) | payer MEDICARE, BC, SELFPAY | PROVIDERS: PCP Student in an Organized Health Care Education/Training Program; Referring Provider Student in an Organized Health Care Education/Training Program; Visit Provider Radiology Diagnostic Radiology | DX: M54.50 Low back pain, unspecified (principal) | CPT/HCPCS: 72114 ==

== ENCOUNTER 2025-10-18 12:56 | Outpatient (AMB) | payer MEDICARE, BC, SELFPAY ==
--- NOTE | 2025-10-18 13:00 | MHC.OFFVIS ---
Vital Signs 10/18/25 13:03 Height 5 ft 7 in BP 123/67 Blood Pressure Location Rt brachial Position Sitting Pulse 67 Pulse Source Pulse Oximeter Pulse Oximetry (%) 98 Oxygen Delivery Method Room Air Intake Visit Reasons: DISCUSS MRI/X-RAY RESULTS Intake Note: Pain today 05/24 Commercial Accountant Required: No Accompanied by: Self / Same As Patient Allergies bupropion Allergy (Unknown, Verified 10/18/25 13:30) Unknown Sulfa (Sulfonamide Antibiotics) Allergy (Unknown, Verified 10/18/25 13:30) Unknown sumatriptan Allergy (Unknown, Verified 10/18/25 13:30) Unknown HPI Comments Details: The patient is a 75 year old female presenting for a follow-up visit for chronic back and leg pain and to discuss recent MRI and X-ray results. She has a history of previous back surgery, including laminectomies at L3-L5. Despite the surgery, she continues to experience grinding back pain and leg pain, which has recently been worse in the right leg. Low back pain with movements, especially with bending causes dysfunctional pain and is more significant on most days then leg pain. Reports leg pain limits her walking capacity. Recent MRI results show multilevel arthritis in the mid and lower back, scoliosis, bone spurs, and bulging discs. Notably, there is new moderate to severe right foraminal narrowing at L4-L5, which is consistent with her right leg symptoms, and moderate left foraminal compression at L3-L4. Imaging also suggests osteopenia or osteoporosis, and she has a bone density scan scheduled for March 2026. Her past medical history is significant for granuloma annulare, an itchy rash she has had for about five years. She also has a history of a small spot on her kidney or pancreas being monitored, with a follow-up CT scan scheduled for this afternoon. She reports a past hospitalization for a kidney infection that progressed to sepsis after she was reportedly not given antibiotics upon discharge. The patient had a negative experience with her prior back surgery, citing complications including a nicked spine and poor pain management post-operatively. Denies any recent cough, cold, infection, fever or any significant changes in medical history since last office visit. PRIOR: The patient is a 75-year-old female presenting with chronic lower back pain. The pain has been persistent since 2014 following a back surgery, specifically a non-instrumented laminectomy from L3 through L5. Imaging has shown facet arthropathy and ligamentum flavum hypertrophy and multilevel lumbar spinal stenosis per lumbar MRI of 2022, contributing to her symptoms. The patient describes her pain as constant, with a severity of 7 to 8 out of 10 during movement, and slightly better when sitting or by evening. The pain is characterized as pinching, cramping, crushing, stabbing, and sharp, often making her feel tired and dull. It radiates to her buttocks and into lateral hips and lower extremities laterally and anteriorly with associated heaviness, weakness, numbness and tingling in her lower legs and toes and affects her daily activities, mobility, including caring for herself, functioning, and sleeping. Patient reports right leg pain and associated symptoms are more severe than the left leg. The patient has a history of multilevel degenerative changes in the cervical spine, with no acute fracture or malalignment noted on recent CT imaging. 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 She has tried various interventions including rycq-pxj-gunwejm ibuprofen and Tylenol, nerve blocks, disc and epidural injections at [facility], physical therapy, and acupuncture, all with minimal relief. The patient denies smoking and uses alcohol very seldom, consuming three regular cups of decaf coffee daily. She lives alone and has experienced falls, with difficulty regaining balance, standing, pushing, or pulling without significant pain. In January of this year, she was hospitalized for a urinary tract infection and sepsis, following concerns of internal bleeding after a fall. She was treated for the infection but experienced hallucinations and required further hospitalization. 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 - Onset: Chronic since 2014 following back surgery - Quality: Constant, pinching, cramping, crushing, stabbing, sharp, thorbbing, radiating, numbness, tingling - Location: Lower back, radiating to buttocks, hips and legs with associated weakness, loss of balance and occasional falls - Severity: 7 to 8 out of 10 during movement, slightly better when sitting or by evening - Exacerbating factors: Movement, walking, standing, pushing, pulling - Relieving factors: Sitting, evening rest, minimal relief with Tylenol and Ibuprofen - Interference: Affects daily activities, mobility, caring for self, functioning, sleeping - Affect: Pain causes fatigue and impacts daily functioning - Analgesia: Currently using wtdy-ykj-kdqurbu ibuprofen and Tylenol with minimal relief; pain level at 7 to 8 out of 10 - Adverse Effects: None reported from current medications - Activities of Daily Living: Pain interferes with self-care, mobility, and sleep - Aberrant Drug Related Behaviors: None reported Oswestry Low Back Pain Disability Score=27 [facility] Medical History Chronic bilateral low back pain without sciatica Hypertension Normocytic anemia Depression Insomnia Degenerative lumbar spinal stenosis Chronic low back pain Lumbar post-laminectomy syndrome Syncope Surgical History H/O left wrist surgery History of right hip replacement History of left shoulder surgery History of right shoulder surgery Social History Alcohol intake: current Alcohol intake frequency: holidays/special occasions only Patient Tobacco Use Status: Never used Tobacco Review of Systems Const All systems reviewed & are unremarkable except as noted in HPI and below Physical Exam Vital Signs: Last Vital Signs Pulse 67 10/18/25 13:03 BP 123/67 10/18/25 13:03 Pulse Ox 98 10/18/25 13:03 Oxygen Delivery Method Room Air 10/18/25 13:03 General: Appears afebrile. Alert and oriented. Mood and affect appropriate. Follows and participates in conversation appropriately. Respiratory effort is unlabored. No cough. Able to transition from sit to stand unassisted. Difficulty getting up from sitting position due to pain. Ambulates with bilaterally normal heel strike and toe off, reports weakness and pain in both legs, R>L. General: Yes no CVA tenderness Back/Spine/Pelvis Other: Limited lumbar ROM due to pain and unsteadiness associated with moderate-severe pain episodes. Lumbar flexion and bending forward reproduces ntnpfvvn-pi-wkwtpo pain, lumbar extension and axial rotations reproduce nxeb-zh-mtjtxarl pain. Demonstrates 5/5 left and 4/5 right strength of quadriceps bilaterally as well as flexion/dorsiflexion of bilateral feet against resistance. 2+ pedal pulses bilaterally. Seated/Supine straight leg rise with dorsiflexion negative bilaterally. +1 patellar and diminished achilles reflexes bilaterally. Facet loading test positive bilaterally. Limited Josemanuel?s, Pelvic compression and Stinchfield tests are positive bilaterally. Mild to moderate groin pain with I/E left hip rotations. Valsalva maneuver is positive. Back: no CVA tenderness Cervical Spine: cervical ROM normal, cervical muscular tenderness, pain with cervical ROM and No Cervical spine tenderness Thoracic/Lumbar Spine: thoracic and lumbar spine normal to inspection, Thoracic/lumbar spine scar(s), Lasegue's sign positive bilateral and localized, pain with thoraco-lumbar ROM, paraspinal muscle tenderness, thoraco-lumbar ROM limited, Thoracic/lumbar scoliosis, No thoracic spinal tenderness and lumbar spinal tenderness Sacroiliac joints: bilaterally tender to palpation Extrem General: Yes capillary refill normal, Yes no clubbing, cyanosis or edema and Yes no calf tenderness Results Reviewed Results Reviewed: MR LUMBAR SPINE WITHOUT AND WITH CONTRAST 10/05/25 INDICATION: Back and leg pain COMPARISON: None. TECHNIQUE: Multiplanar T1 and T2-weighted imaging of the lumbar spine before and after gadolinium administration. 18 mL of intravenous Dotarem were administered via the left antecubital vein using routine protocol FINDINGS: The conus is in its normal position at the level of L1. There is dextroscoliosis present. There are Modic type I reactive degenerative endplate changes present at L2-3 and L4-5 Throughout the lumbar spine, diffuse degenerative disc changes are present with varying degrees of disc desiccation. T12-L1: The central canal and neural foramen are patent. L1-L2: Mild disc bulging is present. The central canal and neural foramen are patent. L2-3: Broad-based disc bulging is present. Moderate facet osteoarthritic changes are present. There is moderate narrowing of the lateral recesses and the central canal. There is moderate narrowing present of the left neural foramen. The right neural foramen is patent. L3-4: Broad-based disc bulging is present. There are postsurgical changes present from a central laminectomy with decompression of the central canal. Mild facet osteoarthritic changes are present. There is moderate left foraminal stenosis present. The right neural foramen is patent. L4-5: Broad-based disc bulging is present. There are postsurgical changes present from a central laminectomy with decompression of the central canal. There is moderate to severe right foraminal stenosis present. The left neural foramen is patent. L5-S1: Broad-based disc bulging is present. There are postsurgical changes present from a central laminectomy with decompression of the central canal. Mild facet osteoarthritic changes are present. There is mild narrowing present of the right neural foramen. The left neural foramen is patent. Following gadolinium administration there is no pathologic intrathecal enhancement. IMPRESSION: Spondylotic and postsurgical changes described. XR sacroiliac joint min 3V 09/17/25 IMPRESSION: Normal sacroiliac joints. XR LUMBOSACRAL SPINE 09/17/25 CLINICAL INFORMATION: M54.50 - Low back pain, unspecified COMPARISON: Correlated to MRI from an outside institution dated July 31, 2023 TECHNIQUE: Lateral views in neutral, flexion and extension position. AP and oblique views. FINDINGS: Dextroconvex rotoscoliosis apex at L2-3. Multilevel marginal osteophyte formation and endplate sclerosis with decreased intervertebral disc height. Decreased mineralization. No acute cortical disruption or gross malalignment. Bilateral laminectomies, L4-5, L5-S1 and likely L3-4. No gross malalignment. No gross motion during flexion and/or extension position. Metallic prosthesis in the right hip no fully included in the fjxvv-gv-xduq. IMPRESSION: Multilevel thoracolumbar spondylosis and dextroconvex rotoscoliosis without acute fracture or listhesis. No gross instability. Osteopenia versus osteoporosis. Assessment & Plan Assessment & Plan (1) Chronic low back pain: Code(s): M54.50 - Low back pain, unspecified; G89.29 - Other chronic pain Category: Medical (2) Lumbosacral spondylosis: Code(s): M47.817 - Spondylosis without myelopathy or radiculopathy, lumbosacral region Category: Medical (3) Lumbar post-laminectomy syndrome: Code(s): M96.1 - Postlaminectomy syndrome, not elsewhere classified Category: Medical (4) Sacroiliac joint pain: Code(s): M53.3 - Sacrococcygeal disorders, not elsewhere classified Category: Medical (5) Degenerative lumbar spinal stenosis: Code(s): M48.061 - Spinal stenosis, lumbar region without neurogenic claudication Category: Medical (6) Lumbar scoliosis: Code(s): M41.9 - Scoliosis, unspecified Category: Medical (7) Spondylolisthesis, lumbar region: Code(s): M43.16 - Spondylolisthesis, lumbar region Category: Medical Plan The patient's back pain is multifactorial, stemming from severe degenerative changes and post-surgical anatomy. Given imaging findings suggesting possible osteoporosis, steroid injections will be held until a bone density scan is completed. The patient has an appointment for this scan in March and was advised to call the facility to be placed on a cancellation list for a sooner appointment. At this time, we will consider Neurosurgical evaluation for right L4-L5 moderate severe foraminal stenosis. To address her arthritic back pain, we discussed diagnostic bilateral L3, L4, and DR L5 medial branch blocks for potential radiofrequency ablation. Expectations, risks and benefits were reviewed. Patient is aware she will be contacted to schedule this procedure. Given her complex history of previous back surgery and multifactorial back pain, a spinal cord stimulator (SCS) trial was also discussed as a comprehensive option for her back and leg pain, particularly if the diagnostic blocks are unsuccessful. As a prerequisite for the SCS trial, a referral will be sent for a behavioral evaluation. All questions and concerns have been answered and patient agreed with the treatment plan. Follow up after injections and sooner as needed. Patient was informed and verbally consented to the use of an ambient scribe for clinic note documentation during this visit. Orders: Referrals Neuro Spine Referral M48.061 - Spinal stenosis, lumbar region without neurogenic claudication, Z98.890 - Other specified postprocedural states Coding Level of Care Code Est Pt Level 4 (48053) Complex visit Add On G2211 Diagnoses Chronic low back pain M54.50; G89.29 Lumbosacral spondylosis M47.817 Lumbar post-laminectomy syndrome M96.1 Sacroiliac joint pain M53.3 Degenerative lumbar spinal stenosis M48.061 Lumbar scoliosis M41.9 Spondylolisthesis, lumbar region M43.16
[2025-10-18 13:03] VITALS: BP 123/67; PULSE 67; O2SAT 98
== END 2025-10-18 13:50 | disposition home or self-care (01) ==
LOC: HO.PMC 12:56
PROVIDERS: PCP Student in an Organized Health Care Education/Training Program; Visit Provider Nurse Practitioner Family
DX: M54.50 Low back pain, unspecified (principal); G89.29 Other chronic pain; M47.817 Spondylosis without myelopathy or radiculopathy, lumbosacral region; M96.1 Postlaminectomy syndrome, not elsewhere classified; M53.3 Sacrococcygeal disorders, not elsewhere classified; M48.061 Spinal stenosis, lumbar region without neurogenic claudication; M41.9 Scoliosis, unspecified; M43.16 Spondylolisthesis, lumbar region
CPT/HCPCS: 99214; G2211

== ENCOUNTER → 2025-10-18 12:56 | Outpatient (BNVA) | payer MEDICARE, BC, SELFPAY | PROVIDERS: PCP Student in an Organized Health Care Education/Training Program; Visit Provider Nurse Practitioner Family | DX: Z71.2 Person consulting for explanation of examination or test findings (principal); M43.16 Spondylolisthesis, lumbar region; M47.817 Spondylosis without myelopathy or radiculopathy, lumbosacral region; M96.1 Postlaminectomy syndrome, not elsewhere classified; M53.3 Sacrococcygeal disorders, not elsewhere classified; M06.1 Adult-onset Still's disease; M41.9 Scoliosis, unspecified | CPT/HCPCS: 99212 ==

== ENCOUNTER 2025-10-25 12:42 | Outpatient (AMB) | payer MEDICARE, BC, SELFPAY ==
--- NOTE | 2025-10-25 12:48 | A.SPINEOV_ITS ---
Vital Signs 10/25/25 13:04 Height 5 ft 7 in Weight 180 lb BMI 28.2 Intake Visit Reasons: lumbar stenosis Intake Note: Mrs. Marques is here today c/o low back pain. MRI done at [facility]. Director [employer] Required: No Allergies bupropion Allergy (Unknown, Verified 10/25/25 13:05) Unknown Sulfa (Sulfonamide Antibiotics) Allergy (Unknown, Verified 10/25/25 13:05) Unknown sumatriptan Allergy (Unknown, Verified 10/25/25 13:05) Unknown Physical Exam Vital Signs: BMI result Body Mass Index 28.2 Assessment & Plan Assessment & Plan (1) Chronic low back pain: Code(s): M54.50 - Low back pain, unspecified; G89.29 - Other chronic pain Category: Medical Plan Dear Lynn, Thank you for referring Mrs Marques to our office today. She is a very nice 75-year-old female who had history of an L3-S1 laminectomy with noninstrumented posterior intertransverse fusion at L3-4 done in 2020 at the [facility] by Dr. Carpenter. At the time she was having some back pain and leg pain, hip pain and it did seem to help a little bit but did not really fix things completely. Since that time she has continued to have a diffuse back pain which radiates around into her anterior thigh going into her knee. Her back just feels like it does not want to hold her up. She has been through numerous rounds of conservative treatment including multiple rounds of physical therapy. She has had numerous rounds of cortisone injections at a pain center in [place]. She has been on medications including Tylenol, ibuprofen, Excedrin. She also underwent acupuncture. Unfortunately things just continue to progress. She is unable to stand and walk for any length of time. She has to use a shopping cart when she is in the grocery store. The patient also reports a lot of difficulty just doing something simple like trying to vacuum or bend forward to get something in the kitchen. She is very frustrated because she used to be very active and now most things she can not do. She is being considered for spinal cord stimulator was sent for an evaluation to see if there is anything surgically that might be considered as well. PMH: She reports a history of hypertension, high cholesterol, headaches, depression, hip replacement on the right, rotator cuff repair and a right wrist surgery. Denies any cardiopulmonary problems, liver or renal disease, denies any major abdominal surgeries, bleeding disorders blood clots cancer, diabetes or unusual infections. Social hx: She has not smoke, rarely drinks and occasionally will use of marijuana gummy Medications: Lipitor, chlorthalidone, sertraline, latanoprost, olmesartan and trazodone Allergies: Imitrex and sulfa Physical exam: Awake alert oriented no acute distress, she is able to stand up out of a chair albeit slowly, she ambulates in the hallway with a slightly antalgic gait and scoliotic curvature to her spine. She has a well healed incision on her lower lumbar spine. She has pain in her back when she does hip flexion on the right side. This limits her strength somewhat but I do not detect any gross motor exam weakness. The rest of her motor exam is normal. Reflexes normal at the patella, absent at the Achilles. Imaging review: Lumbar MRI done at the [facility] demonstrates evidence of scoliotic curvature from L2-L5. There is some pxza-uq-derudhii foraminal stenosis at the right 3 foramen. She has I wide laminectomy done from L3-S1. There are various degrees of Modic endplate changes at the scoliotic levels. There is no significant central canal stenosis seen. X-rays done here at [place], not sure if these were in an upright position shows scoliotic curvature from L2 at L5. Impression: 75-year-old female with a history of L3-S1 laminectomies, non instrumented L3-4 inter transverse process fusion done by Dr. Carpenter at the [facility] in 2020 who has had persistent back pain and right anterior thigh pain going into her knee in the setting of ongoing scoliosis seen on her MRI and her x-rays. It is unclear on the x-ray if there is fusion between the L3 and L4 segments. She is being considered for spinal cord stimulator. And she was sent here to see if there was any surgical options that could be considered. Typically this is something Dr. Winters would treat with an oblique lumbar interbody fusion for scoliosis correction. I will need to get a set of upright x-rays and reviewed all the images with him to see if this is something he would consider. We did briefly discuss what that would mean, risks, benefits, recovery. Usually success rate as quoted at 70% and we discussed the fact that she has had a previous surgery so this plays a factor. Her bone quality also maybe suboptimal based on the x-ray images that I saw. I will review everything with Dr. Winters and get back to the patient with a final plan. For now, I am not sure if she has made up her mind if she wants to pursue surgery or go ahead with the spinal cord stimulator, but once I have a chance to have a more detailed discussion with her after speaking with Dr. Winters I will update you. Thank you for allowing us to care for your patient. The total time spent with this visit with this patient was 45 minutes reviewing history, physical exam, lumbar imaging review, and implementation of treatment plan or further diagnostic testing Alec Winters MD,PhD [facility] Orders: Orders XR lumbar spine 4V min Today G89.29 - Other chronic pain, M54.50 - Low back pain, unspecified Coding Level of Care Code New Pt Level 4 (72266) Diagnoses Chronic low back pain M54.50; G89.29
[2025-10-25 13:04] VITALS: BMI 28.2
--- OUTSIDE RECORDS SUMMARY | 2025-10-25 19:17 | XMS_ITS | Encounter Summary ---
Author Organization [facility] Address [facility] [address] [place] [phone] Phone Care Team Providers Care Information Support Project Manager Name Role Phone Jailyn Grewal DO Unavailable Sondra Bettyeminh Leggett LEASING PROPERTY MANAGER Unavailable Ninoska Sanchez MD Unavailable [phone] Best Aaron MD Unavailable [phone] Saurav Cornelius MD Unavailable [phone] Best Aaron MD Unavailable Best Aaron MD Primary Care Provider Pippa Shirley MD Primary Care Provider [phone] Jailyn Grewal DO Unavailable Pippa Shirley MD Unavailable Encounter Details Date Type Department Care Team (Late st Contact Info) Description 07/08/2023 Procedure Pass [facility], [facility] - [address] [place] [address] Social History Tobacco Use Types Packs/Day Years [...] Care Team (Late st Contact Info) Description 12/20/2025 2:00 PM EST Office Visit [facility] [address] [place] [address] Pippa Shirley MD 234 [facility] [address] [place] [address] [email or web address] 12/31/2025 11:30 AM EST Office Visit [facility] [address] [place] [id number] Unknown, Unknown, Angela Sen PA-C [address] [address] [email or web address] 02/28/2026 8:30 AM EDT Office Visit [facility] Neurology [address] [place] [id number] Albert Lynn MD 22 [facility], 2nd [place] [address] [email or web address] 03/11/2026 5:30 PM EDT Appointment [facility], Bone Density - [facility] [address] [place] [address] Pippa Shirley MD [address] [address] [email or web address] documented as of this encounter Visit Diagnoses Not on filedocumented in this encounter Additional Health Concerns Assessment Noted Time PHQ-2 Depression Total Score: 2 09/08/20 22 4:13 PM EDT documented as of this encounter Care Teams Information Support Project Manager Relationship Specialty Start Date End Date Best Aaron MD [address] [phone] PCP - General Family Medicine 10/19/19 02/09/24 Pippa Shirley MD [address] [place] [address], [address] [place] [address] [email or web address] PCP - General Family Medicine 02/10/24 Jailyn Grewal DO [address] [place] [address], [address] [place] [address] Historical LMR Provider 09/04/17 Bettye Amaro CNP [address] [place] [address], [address] [place] [address] [email or web address] Historical LMR Provider 09/04/17 Ninoska Sanchez MD [address] [place] [address] 7 [place] [address] [email or web address] Historical LMR Provider 09/04/17 Best Aaron MD [address] [place] [address] 7 [place] [id number] [email or web address] Historical LMR Provider 09/04/17 Saurav Cornelius MD [address] [place] [address] [address] [place] [phone] [email or web address] Historical LMR Provider 09/04/17 Best Aaron MD [address] [place] [address] 7 [place] [address] Insurance Assigned Provider 09/18/1702/19/24 Jailyn Grewal DO [address] [place] [address] 7 [place] [address] [email or web address] Insurance Assigned Provider 02/19/24 Pippa Shirley MD [address] [place] [address] 7 [place] [address] [email or web address] Insurance Assigned Provider 02/18/25 documented as of this encounter Additional Source Comments The information contained in this document represents components of the legal health record. It is not the complete legal health record.[facility]
--- OUTSIDE RECORDS SUMMARY | 2025-10-25 19:18 | XMS_ITS | Encounter Summary ---
Author Organization [facility] Address [address] [employer] [facility] [address] [place] [address] Phone Care Team Providers Care Pastry Wrapper Name Role Phone Jailyn Grewal DO Unavailable Bettye Amaro SR. DIRECTOR Unavailable Ninoska Sanchez MD Unavailable Best Aaron MD Unavailable Saurav Cornelius MD Unavailable Pippa Shirley MD Primary Care Provider Jailyn Grewal DO Unavailable Pippa Shirley MD Unavailable Encounter Details Date Type Department Care Team (Late st Contact Info) Description 01/11/2025 Procedure Pass [facility], Ct Scan - [address] [address] Social History Tobacco Use Types Packs/Day Years [...] you interested in more education? Not on anvdeep e 04/04/2023 Are you concerned about learning? [...] 01/11/2025 1:49 PM Alessandra Victor RN * [place] Suicide Severity Rating Scale (Screener/Recent Self-Report) Question [...] Description 12/20/2025 2:00 PM EST Office Visit [facility] [address] [place] [address] Pippa Shirley MD [address] [place] [address], [address] [place] [address] [email or web address] 12/31/2025 11:30 AM EST Office Visit [facility] [address] [place] [address] Unknown, Unknown, Angela Sen PA-C [address] [place] [address] 02/28/2026 8:30 AM EDT Office Visit [facility] [address] [place] [address] Albert Lynn MD [address] [address] 03/11/2026 5:30 PM EDT Appointment [facility], Bone Density - [address] [address] Pippa Shirley MD 234 [facility] 7 [place] [address] [email or web address] documented as of this encounter Visit Diagnoses Not on filedocumented in this encounter Additional Health Concerns Assessment Noted Time PHQ-2 Depression Total Score: 2 08/08/20 24 5:13 PM EDT documented as of this encounter Care Teams Pastry Wrapper Relationship Specialty Start Date End Date Pippa Shirley MD [address] [place] [address] [email or web address] PCP - General Family Medicine 02/10/24 Jailyn Grewal DO [address] [place] [address] Historical LMR Provider 09/04/17 Bettye Amaro CNP [address] [address] Historical LMR Provider 09/04/17 Ninoska Sanchez MD [address] [place] [address] Historical LMR Provider 09/04/17 Best Aaron MD [address] [place] [address], [address] [place] [address] [email or web address] Historical LMR Provider 09/04/17 Saurav Cornelius MD [address] [place] [address] [address] [place] [phone] [email or web address] Historical LMR Provider 09/04/17 Jailyn Grewal DO [address] [place] [address], [address] [place] [address] [email or web address] Insurance Assigned Provider 02/19/24 Pippa Shirley MD [address] [place] [address], [address] [place] [address] [email or web address] Insurance Assigned Provider 02/18/25 documented as of this encounter Additional Source Comments The information contained in this document represents components of the legal health record. It is not the complete legal health record.[facility]
--- OUTSIDE RECORDS SUMMARY | 2025-10-25 19:18 | XMS_ITS | Encounter Summary ---
Author Organization [facility] Address [facility] [address] [place] [address] Phone Care Team Providers Care Ventilator Specialist Name Role Phone Alysa Benito ENVIRONMENTAL HEALTH NURSE Unavailable Jailyn Grewal DO Unavailable Esperanza Cisneros ENVIRONMENTAL HEALTH NURSE Unavailable Bettye Amaro GLASS RIBBON MACHINE OPERATOR Unavailable Caprice Johns ENVIRONMENTAL HEALTH NURSE Unavailable [phone] Noe Fitzpatrick MD Unavailable Adelaida Awad MD Unavailable Kadi Nazario ENVIRONMENTAL HEALTH NURSE Unavailable Ninoska Sanchez MD Unavailable Best Aaron MD Unavailable Yashira Felix ENVIRONMENTAL HEALTH NURSE Unavailable [phone] Belinda Wolfe MD Unavailable [phone] Carlos Miranda MD Unavailable Juanis Boyd MD Unavailable Saurav Cornelius MD Unavailable Giulia Alarcon MD Unavailable Albert Ley MD Unavailable [phone] LalitomarineLuis Carlos king GLASS RIBBON MACHINE OPERATOR Unavailable Best Aaron MD Unavailable Best Aaron MD Primary Care Provider [phone] Pippa Shirley MD Primary Care Provider Jailyn Grewal DO Unavailable Pippa Shirley MD Unavailable Reason for Visit * Reason Comments Medication Refill Encounter Details Date Type Department Care Team (Late st Contact Info) Description 08/12/2021 Refill [facility] Medicine 234 [place] [address] Jailyn Grewal, DO 234 [facility], [address] [place] [address] [email or web address] Medication Refill Social History Tobacco Use Types [...] high school, GED, job training, learning the Kittitian language, technical skills, or developing parenting skills)? [...] Description 12/20/2025 2:00 PM EST Office Visit [facility] [address] [place] [address] Pippa Shirley MD 234 [facility], [address] [place] [address] [email or web address] 12/31/2025 11:30 AM EST Office Visit [facility] 10 [place] [address] Unknown, Unknown, Angela Sen PA-C [address] [address] [email or web address] 02/28/2026 8:30 AM EDT Office Visit [facility] Neurology [address] [place] [address] Albert Lynn MD 22 [facility], 2nd [place] [address] [email or web address] 03/11/2026 5:30 PM EDT Appointment [facility], Bone Density - [facility] 30 [place] [address] Pippa Shirley MD 234 [facility], [facility] 7 [place] [address] [email or web address] documented as of this encounter Visit [...] documented as of this encounter Care Teams Ventilator Specialist Relationship Specialty Start Date End Date Best Aaron MD [address] [place] [address], [facility] 7 [place] [address] PCP - General Family Medicine 10/19/19 02/09/24 Pippa Shirley MD [address] [place] [address] 7 [place] [address] [email or web address] PCP - General Family Medicine 02/10/24 Alysa Benito ENVIRONMENTAL HEALTH NURSE 1 [place] [address] Historical LMR Provider 09/04/17 2 Jailyn Grewal DO [address] [place] [address] 7 [place] [address] Historical LMR Provider 09/04/17 Esperanza Cisneros, BRIEN 29 [place] [address] Historical LMR Provider 09/04/17 2 Bettye Amaro CNP 15 [facility], 2nd [place] [address] Historical LMR Provider 09/04/17 Caprice Johns, ENVIRONMENTAL HEALTH NURSE [address] [place] [address] Historical LMR Provider 09/04/17 11/22/21 Noe Fitzpatrick MD 4 [place] [address] [email or web address] Historical LMR Provider 09/04/17 11/22/21 Adelaida Awad MD 15 [facility], 2nd [place] [address] [email or web address] Historical LMR Provider 09/04/17 Kadi Nazario NP [address] [place] [address] Historical LMR Provider 09/04/17 2 Ninoska Sanchez MD [address] [place] [address] [email or web address] Historical LMR Provider 09/04/17 Best Aaron MD [address] [place] [address] [email or web address] Historical LMR Provider 09/04/17 Yashira Felix NP [address] [place] [address] Historical LMR Provider 09/04/17 2 Belinda Wolfe MD [address] [address] Historical LMR Provider 09/04/17 2 Carlos Miranda MD [address] [place] [address], [address] [place] [address] Historical LMR Provider 09/04/17 11/22/21 Juanis Boyd MD [address] [place] [address] 7 [place] [address] Historical LMR Provider 09/04/17 11/22/21 Saurav Cornelius MD [address] [place] [address] [address] [place] [address] [email or web address] Historical LMR Provider 09/04/17 Giulia Alarcon MD [address] [place] [address] Historical LMR Provider 09/04/17 11/22/21 Albert Ley MD [address] [place] [address] Historical LMR Provider 09/04/17 2 Luis Carlos De Jesus CNP [address] [place] [address], [address] [place] [address] Historical LMR Provider 09/04/17 Best Aaron MD [address] [place] [address] 7 [place] [address] Insurance Assigned Provider 09/18/17 02/19/24 Jailyn Grewal DO [address] [place] [address] 7 [place] [address] [email or web address] Insurance Assigned Provider 02/19/24 02/18/25 Pippa Shirley MD 234 [facility] 7 [place] [address] [email or web address] Insurance Assigned Provider 02/18/25 documented as of this encounter Additional Source Comments The information contained in this document represents components of the legal health record. It is not the complete legal health record.[facility]
--- OUTSIDE RECORDS SUMMARY | 2025-10-25 19:18 | XMS_ITS | Encounter Summary ---
Author Organization [facility] Address [address] [email or web address] [facility] [address] [place] [address] Phone Care Team Providers Care School Psychology Professor Name Role Phone Jailyn Grewal DO Unavailable Bettye Amaro RADIOLOGY TRANSCRIPTIONIST Unavailable Ninoska Sanchez MD Unavailable Best Aaron MD Unavailable Saurav Cornelius MD Unavailable Pippa Shirley MD Primary Care Provider [phone] Jailyn Grewal DO Unavailable Pippa Shirley MD Unavailable [phone] Encounter Details Date Type Department Care Team (Late st Contact Info) Description 01/11/2025 Procedure Pass [facility], Ct Scan - [address] [address] Social History Tobacco Use Types Packs/Day Years [...] 01/11/2025 1:49 PM Alessandra Victor RN * [place] Suicide Severity Rating Scale (Screener/Recent Self-Report) Question [...] Description 12/20/2025 2:00 PM EST Office Visit [facility] 234 [place] [address] Pippa Shirley MD [address] [place] [address], [address] [place] [address] [email or web address] 12/31/2025 11:30 AM EST Office Visit [facility] G[facility]ology Clinic [address] [place] [address] Unknown, Unknown, Angela Sen PA-C [address] [place] [address] 02/28/2026 8:30 AM EDT Office Visit [facility] Neurology [address] [place] [address] Albert Lynn MD [address] [address] 03/11/2026 5:30 PM EDT Appointment [facility], Bone Density - [address] [address] Pippa Shirley MD 234 [facility] 7 [place] [address] [email or web address] documented as of this encounter Visit Diagnoses Not on filedocumented in this encounter Additional Health Concerns Assessment Noted Time PHQ-2 Depression Total Score: 2 08/08/20 24 5:13 PM EDT documented as of this encounter Care Teams School Psychology Professor Relationship Specialty Start Date End Date Pippa Shirley MD [address] [place] [address] [email or web address] PCP - General Family Medicine 02/10/24 Jailyn Grewal DO [address] [place] [address] Historical LMR Provider 09/04/17 Bettye Amaro CNP [address] [address] Historical LMR Provider 09/04/17 Ninoska Sanchez MD [address] [place] [address] Historical LMR Provider 09/04/17 Best Aaron MD [address] [place] [address], [address] [place] [address] [email or web address] Historical LMR Provider 09/04/17 Saurav Cornelius MD [address] [place] [address] [address] [place] [phone] [email or web address] Historical LMR Provider 09/04/17 Jailyn Grewal DO [address] [place] [address], [address] [place] [address] [email or web address] Insurance Assigned Provider 02/19/24 Pippa Shirley MD [address] [place] [address], [address] [place] [address] [email or web address] Insurance Assigned Provider 02/18/25 documented as of this encounter Additional Source Comments The information contained in this document represents components of the legal health record. It is not the complete legal health record.[facility]
--- OUTSIDE RECORDS SUMMARY | 2025-10-25 19:18 | XMS_ITS | Encounter Summary ---
Author Organization [facility] Address [facility] [address] [place] [address] Phone Care Team Providers Care Confectionery Laboratory Manager Name Role Phone Jailyn Grewal DO Unavailable Sondra Bettyeminh Leggett FAMILY RESOURCE MANAGEMENT SPECIALIST Unavailable Ninoska Sanchez MD Unavailable [phone] Best Aaron MD Unavailable [phone] Saurav Cornelius MD Unavailable [phone] Best Aaron MD Unavailable Best Aaron MD Primary Care Provider Pippa Shirley MD Primary Care Provider [phone] Jailyn Grewal DO Unavailable Pippa Shirley MD Unavailable [phone] Reason for Referral * MRI/CAT Scan - Closed Specialty Diagnoses / Procedures Referred By Controbert t Referred To Contact Radiology Diagnoses Radiculopathy, lumbar region History of falling Spinal stenosis, lumbar region with neurogenic claudication Procedures MRI Lumbar Spine Marquita Roldan NP Phone: tel: fax: [email or web address]:[email or web address] Referral ID Status Reason Start Date Expiration Date Visits Re quested Visits Authorized [id number] Closed 07/08/2023 1 1 Encounter Details Date Type Department Care Team (Latest Contact Info) Description 07/08/2023 Transcribe Orders Virtual Department 30 [place] [address] Marquita Roldan NP [address] [place] [phone] [email or web address] Radiculopathy, lumbar region (Primary Dx); History of [...] Description 12/20/2025 2:00 PM EST Office Visit [facility] 234 [place] [address] Pippa Shirley MD [address] [place] [address], [address] [place] [address] [email or web address] 12/31/2025 11:30 AM EST Office Visit [facility] Gastroenterology Clinic 10 [place] [address] Unknown, Unknown, Angela Sen PA-C [address] [address] [email or web address] 02/28/2026 8:30 AM EDT Office Visit [facility] Neurology [address] [place] [address] Albert Lynn MD [address] [place] [address], [address] [place] [address] 03/11/2026 5:30 PM EDT Appointment [facility], Bone Density - [address] [address] Pippa Shirley MD [address] [place] [address], [address] [place] [address] [email or web address] documented as of this encounter Results * [...] documented as of this encounter Care Teams Confectionery Laboratory Manager Relationship Specialty Start Date End Date Best Aaron MD [address] [place] [address] PCP - General Family Medicine 10/19/19 02/09/24 Pippa Shirley MD [address] [place] [address] [email or web address] PCP - General Family Medicine 02/10/24 Jailyn Grewal DO [address] [place], [place] [address], [place] [address] Historical LMR Provider 09/04/17 Bettye Amaro CNP [address] [place] [address], 2nd [place] [address] Historical LMR Provider 09/04/17 Ninoska Sanchez MD [address] [place] [address] [place] [address] Historical LMR Provider 09/04/17 Best Aaron MD [address] [place] [address] 7 [place] [address] Historical LMR Provider 09/04/17 Saurav Cornelius MD [address] [place], [place] [address] [place] [phone] [email or web address] Historical LMR Provider 09/04/17 Best Aaron MD [address] [place] [address] 7 [place] [address] [email or web address] Insurance Assigned Provider 09/18/1702/19/24 Jailyn Grewal DO [address] [place] [address], [facility] 7 [place] [address] Insurance Assigned Provider 02/19/24 Pippa Shirley MD [address] [place] [address] 7 [place] [address] [email or web address] Insurance Assigned Provider 02/18/25 documented as of this encounter Additional Source Comments The information contained in this document represents components of the legal health record. It is not the complete legal health record.[facility]
--- OUTSIDE RECORDS SUMMARY | 2025-10-25 19:19 | XMS_ITS | Encounter Summary ---
Author Organization [facility] Address [facility] [employer] [facility] [address] [place] [address] Phone Care Team Providers Care Schedule Checker Name Role Phone Alysa Benito LEATHER CARVER Unavailable Jailyn Grewal DO Unavailable Esperanza Cisneros LEATHER CARVER Unavailable Bettye Amaro VAMP MARKER Unavailable Caprice Johns LEATHER CARVER Unavailable [phone] Noe Fitzpatrick MD Unavailable Adelaida Awad MD Unavailable Kdai Nazario LEATHER CARVER Unavailable Ninoska Sanchez MD Unavailable Best Aaron MD Unavailable Yashira Felix LEATHER CARVER Unavailable [phone] Belinda Wolfe MD Unavailable [phone] Carlos Miranda MD Unavailable Juanis Boyd MD Unavailable Saurav Cornelius MD Unavailable Giulia Alarcon MD Unavailable Albert Ley MD Unavailable [phone] Luis Carlos De Jesus CNP Unavailable Best Aaron MD Unavailable Best Aaron MD Primary Care Provider [phone] [facility] Primary Care Provider Josh Grewalssisha Ventura DO Unavailable Pippa Shirley MD Unavailable [phone] Encounter Details Date Type Department Care Team (Late st Contact Info) Description 07/10/2020 Telephone [facility] 75 [place] [address] Best Aaron MD [address] [place] [address], [facility] 7 [place] [address] [email or web address] Social History Tobacco Use Types Packs/Day Years [...] Description 12/20/2025 2:00 PM EST Office Visit [facility] [address] [address] Pippa Shirley MD 234 [facility], [address] [place] [address] [email or web address] 12/31/2025 11:30 AM EST Office Visit [facility] 10 [place] [address] Unknown, Unknown, Angela Sen PA-C [address] [address] [email or web address] 02/28/2026 8:30 AM EDT Office Visit [facility] Neurology [address] [place] [address] Albert Lynn MD [address] [place] [address], 2nd [place] [address] [email or web address] 03/11/2026 5:30 PM EDT Appointment [facility], Bone Density - [address] [address] Pippa Shirley MD 234 [facility], [address] [place] [address] [email or web address] documented as of this encounter Visit Diagnoses [...] documented as of this encounter Care Teams Schedule Checker Relationship Specialty Start Date End Date Best Aaron MD [address] [place] [address] 7 [place] [address] PCP - General Family Medicine 10/19/19 02/09/24 Pippa Shirley MD [address] [place] [address] 7 [place] [address] [email or web address] PCP - General Family Medicine 02/10/24 Alysa Benito NP 1 [place] [address] Historical LMR Provider 09/04/17 2 Jailyn Grewal DO [address] [place] [address] 7 [place] [address] Historical LMR Provider 09/04/17 Esperanza Cisneros, BRIEN 29 [place] [address] Historical LMR Provider 09/04/17 2 Bettye Amaro CNP 15 [facility], 2nd [place] [address] Historical LMR Provider 09/04/17 Caprice Jonhs, LEATHER CARVER 30 [place] [address] Historical LMR Provider 09/04/17 11/22/21 Noe Fitzpatrick MD 4 [place] [address] [email or web address] Historical LMR Provider 09/04/17 11/22/21 Adelaida Awad MD 15 [facility], 2nd [place] [address] [email or web address] Historical LMR Provider 09/04/17 Kadi Nazario NP [address] [place] [address] Historical LMR Provider 09/04/17 2 Ninoska Sanchez MD [address] [place] [address] [email or web address] Historical LMR Provider 09/04/17 Best Aaron MD [address] [place] [address] [email or web address] Historical LMR Provider 09/04/17 Yashira Felix NP [address] [place] [address] Historical LMR Provider 09/04/17 2 Belinda Wolfe MD [address], [place] [address] Historical LMR Provider 09/04/17 2 Carols Miranda MD [address] [place] [address] [place] [address] Historical LMR Provider 09/04/17 11/22/21 Juanis Boyd MD [address] [place] [address] 7 [place] [address] Historical LMR Provider 09/04/17 11/22/21 Saurav Cornelius MD [address] [place] [address] [address] [place] [address] [email or web address] Historical LMR Provider 09/04/17 Giulia Alarcon MD [address] [place] [address] Historical LMR Provider 09/04/17 11/22/21 Albert Ley MD [address] [place] [address] Historical LMR Provider 09/04/17 2 Luis Carlos De Jesus CNP [address] [place] [address], [address] [place] [address] Historical LMR Provider 09/04/17 Best Aaron MD [address] [place] [address] 7 [place] [address] Insurance Assigned Provider 09/18/17 02/19/24 Jailyn Grewal DO [address] [place] [address] [place] [address] [email or web address] Insurance Assigned Provider 02/19/24 02/18/25 Pippa Shirley MD [address] [place] [address] [place] Pay[place] [address] [email or web address] Insurance Assigned Provider 02/18/25 documented as of this encounter Additional Source Comments The information contained in this document represents components of the legal health record. It is not the complete legal health record.[facility]
--- OUTSIDE RECORDS SUMMARY | 2025-10-25 19:19 | XMS_ITS | Encounter Summary ---
Author Organization [facility] Address [facility] [employer] [place] [address] [place] [address] Phone Care Team Providers Care Pockets And Pieces Necktie Operator Name Role Phone Jailyn Grewal DO Unavailable Sondra Bettyeminh Leggett ROUTER OPERATOR RADIAL Unavailable Ninoska Sanchez MD Unavailable [phone] Best Aaron MD Unavailable [phone] Saurav Cornelius MD Unavailable [phone] Best Aaron MD Unavailable Best Aaron MD Primary Care Provider Pippa Shirley MD Primary Care Provider [phone] Jailyn Grewal DO Unavailable Pippa Shirley MD Unavailable [phone] Encounter Details Date Type Department Care Team (Late Contact Info) Description 01/13/2022 Procedure Pass [facility] MR Imaging, [place] [address] [place] [address] Social History Tobacco Use Types Packs/Day Years [...] high school, GED, job training, learning the [place] language, technical skills, or developing parenting skills)? [...] Department Care Team (Late Contact Info) Description 12/20/2025 2:00 PM EST Office Visit [facility] Family Medicine [address] [place] [address] Pippa Shirley MD 234 [facility], [address] [place] [address] [email or web address] 12/31/2025 11:30 AM EST Office Visit [facility] G[facility]ology [facility] [address] [place] [address] Unknown, Unknown, Angela Sen PA-C [address] [address] [email or web address] 02/28/2026 8:30 AM EDT Office Visit [facility] Neurology [address] [place] [address] Albert Lynn MD [address] [place] [address], 2nd [place] [address] [email or web address] 03/11/2026 5:30 PM EDT Appointment [facility], Bone Density - [address] [address] Pippa Shirley MD 234 [facility], [email or web address] 7 [place] [address] [email or web address] documented as of this encounter [...] documented as of this encounter Care Teams Pockets And Pieces Necktie Operator Relationship Specialty Start Date End Date Best Aaron MD [address] [place] [address] 7 [place] [address] PCP - General Family Medicine 10/19/19 02/09/24 Pippa Shirley MD [address] [place] [address] 7 [place] [address] [email or web address] PCP - General Family Medicine 02/10/24 Jailyn Grewal DO [address] [place] [address] 7 [place] [address] Historical LMR Provider 09/04/17 Bettye Amaro CNP [address] [place] [address] [email or web address] Historical LMR Provider 09/04/17 Ninoska Sanchez MD [address] [place] [address] 7 [place] [address] [email or web address] Historical LMR Provider 09/04/17 Best Aaron MD [address] [place] [address] 7 [place] [address] [email or web address] Historical LMR Provider 09/04/17 Saurav Cornelius MD [address] [place], [place] [address] [place] [phone] [email or web address] Historical LMR Provider 09/04/17 Best Aaron MD [address] [place] [address] [address] [place] [address] [email or web address] Insurance Assigned Provider 09/18/1702/19/24 Jailyn Grewal DO [address] [place] [address], [address] [place] [address] Insurance Assigned Provider 02/19/24 Pippa Shirley MD [address] [place] [address], [address] [place] [address] [email or web address] Insurance Assigned Provider 02/18/25 documented as of this encounter Additional Source Comments The information contained in this document represents components of the legal health record. It is not the complete legal health record.[facility]
--- OUTSIDE RECORDS SUMMARY | 2025-10-25 19:19 | XMS_ITS | Encounter Summary ---
Author Organization [facility] Address Count includes the [facility] [employer] [facility] [address] [place] [address] Phone Care Team Providers Care Hairpiece Stylist Name Role Phone Jaiyln Grewal DO Unavailable Sondra Bettyeminh Leggett ASSOCIATE PROFESSOR OF BIOSTATISTICS Unavailable Ninoska Sanchez MD Unavailable [phone] Best Aaron MD Unavailable [phone] Saurav Cornelius MD Unavailable [phone] Best Aaron MD Unavailable Best Aaron MD Primary Care Provider Pippa Shirley MD Primary Care Provider [phone] Jailyn Grewal DO Unavailable Pippa Shirley MD Unavailable [phone] Encounter Details Date Type Department Care Team (Latest Contact Info) Description 07/07/2023 Ancillary Orders [facility], X-Ray - [facility] [address] [place] [address] Marquita Roldan, STEAM HEATING INSTALLER [address] [place] [address] [email or web address] Vertebrogenic low back pain; History of fall [...] Description 12/20/2025 2:00 PM EST Office Visit [facility] Medicine [address] [place] [address] Pippa Shirley MD 234 [facility] 7 [place] [address] [email or web address] 12/31/2025 11:30 AM EST Office Visit [facility] Gastroenterology Clinic 10 [place] [address] Unknown, Unknown, Angela Sen PA-C [address] [address] [email or web address] 02/28/2026 8:30 AM EDT Office Visit [facility] Neurology [address] [place] [address] Albert Lynn MD [address] [place] [address], 2nd [place] [address] 03/11/2026 5:30 PM EDT Appointment [facility], Bone Density - [facility] 30 [place] [address] Pippa Shirley MD 234 [facility], [facility] 7 [place] [address] [email or web address] documented as of this encounter Results * [...] predominant lumbar spine degenerative change. Marquita Roldan NP IMG XR SPINE Final [...] documented as of this encounter Care Teams Hairpiece Stylist Relationship Specialty Start Date End Date Best Aaron MD [address] [place] [address] 7 [place] [address] PCP - General Family Medicine 10/19/19 02/09/24 Pippa Shirley MD [address] [place] [address] 7 [place] [address] [email or web address] PCP - General Family Medicine 02/10/24 Jailyn Grewal DO [address] [place] [address] 7 [place] [address] Historical LMR Provider 09/04/17 Bettye Amaro, ROBERTO [address] [place] [address], 2nd [place] [address] Historical LMR Provider 09/04/17 Ninoska Sanchez MD [address] [place] [address] 7 [place] [address] Historical LMR Provider 09/04/17 Best Aaron MD [address] [place] [address] 7 [place] [address] Historical LMR Provider 09/04/17 Saurav Cornelius MD [address] [place], [place] [address] [place] [phone] [email or web address] Historical LMR Provider 09/04/17 Best Aaron MD [address] [place] [address] 7 [place] [address] [email or web address] Insurance Assigned Provider 09/18/1702/19/24 Jailyn Grewal DO [address] [place] [address] 7 [place] [address] [email or web address] Insurance Assigned Provider 02/19/24 Pippa Shirley MD [address] [place] [address] 7 [place] [address] [email or web address] Insurance Assigned Provider 02/18/25 documented as of this encounter Additional Source Comments The information contained in this document represents components of the legal health record. It is not the complete legal health record.[facility]
--- OUTSIDE RECORDS SUMMARY | 2025-10-25 19:20 | XMS_ITS | Encounter Summary ---
Author Organization [facility] Address [facility] [employer] [facility] [address] [place] [address] Phone Care Team Providers Care Lay Out Machine Operator Name Role Phone Jailyn Grewal DO Unavailable Sondra Bettyeminh Leggett BIOLOGIST AIDE Unavailable [phone] Ninoska Sanchez MD Unavailable [phone] Best Aaron MD Unavailable [phone] Saurav Cornelius MD Unavailable [phone] Best Aaron MD Unavailable Best Aaron MD Primary Care Provider Pippa Shirley MD Primary Care Provider [phone] Jailyn Grewal DO Unavailable Pippa Shirley MD Unavailable [phone] Encounter Details Date Type Department Care Team (Late st Contact Info) Description 08/20/2023 Procedure Pass [facility] - [address] [place] [address] Social History Tobacco Use Types Packs/Day Years [...] Description 12/20/2025 2:00 PM EST Office Visit [facility] Medicine [address] [place] [address] Pippa Shirley MD 234 [facility] 7 [place] [address] [email or web address] 12/31/2025 11:30 AM EST Office Visit [facility] Gastroenterology Clinic [address] [place] [address] Unknown, Unknown, Angela Sen PA-C [address] [place] [address] [email or web address] 02/28/2026 8:30 AM EDT Office Visit [facility] Neurology [address] [place] [address] Albert Lynn MD [address] [place] [address], 2nd [place] [address] [email or web address] 03/11/2026 5:30 PM EDT Appointment [facility], Bone Density - [facility] 30 [place] [address] Pippa Shirley MD 234 [facility] 7 [place] [address] [email or web address] documented as of this encounter Visit Diagnoses Not on filedocumented in this encounter Additional Health Concerns Assessment Noted Time PHQ-2 Depression Total Score: 2 09/08/20 22 4:13 PM EDT documented as of this encounter Care Teams Lay Out Machine Operator Relationship Specialty Start Date End Date Best Aaron MD [address] [address] PCP - General Family Medicine 10/19/19 02/09/24 Pippa Shirley MD [address] [place] [address], [address] [place] [address] [email or web address] PCP - General Family Medicine 02/10/24 Jailyn Grewal DO [address] [place] [address], [address] [place] [address] Historical LMR Provider 09/04/17 Bettye Amaro CNP [address] [place] [address], 2nd [place] [address] [email or web address] Historical LMR Provider 09/04/17 Ninoska Sanchez MD [address] [place] [address] [address] [place] [address] [email or web address] Historical LMR Provider 09/04/17 Best Aaron MD [address] [place] [address] 7 [place] [address] [email or web address] Historical LMR Provider 09/04/17 Saurav Cornelius MD [address] [place] [address] [address] [place] [phone] [email or web address] Historical LMR Provider 09/04/17 Best Aaron MD [address] [place] [address] 7 [place] [address] Insurance Assigned Provider 09/18/1702/19/24 Jailyn Grewal DO [address] [place] [address], [facility] 7 [place] [address] [email or web address] Insurance Assigned Provider 02/19/24 Pippa Shirley MD [address] [place] [address], [facility] 7 [place] [address] [email or web address] Insurance Assigned Provider 02/18/25 documented as of this encounter Additional Source Comments The information contained in this document represents components of the legal health record. It is not the complete legal health record.[facility]
--- OUTSIDE RECORDS SUMMARY | 2025-10-25 19:20 | XMS_ITS | Encounter Summary ---
Author Organization [facility] Address [address] [employer] [facility] [address] [place] [address] Phone Care Team Providers Care Air Analysis Technician Name Role Phone Jailyn Grewal DO Unavailable Bettye Amaro RESIDENT INTERN Unavailable Ninoska Sanchez MD Unavailable Best Aaron MD Unavailable Saurav Cornelius MD Unavailable Pippa Shirley MD Primary Care Provider Jailyn Grewal DO Unavailable Pippa Shirley MD Unavailable Encounter Details Date Type Department Care Team (Late st Contact Info) Description 07/01/2024 Procedure Pass [facility], Ct Scan - [address] [address] Social History Tobacco Use Types Packs/Day Years [...] 1:45 PM EDT Bessie Guadarrama, RN * [place] Suicide Severity Rating Scale (Screener/Recent Self-Report) Question Answer Date of Assessment Author 1. Wish to be (Past 1 Month) No 024 1:45 PM EDT Bessie Hines, RN 2. Non-Specific Active Suici wayne Thoughts (Past 1 Month) No 07/01/2024 1:45 PM EDT Jose Hines RN 6. Suicidal Behavior (Lifetime) No 4 1:45 PM EDT Bessie Hines, RN documented as of this encounter Plan of Treatment Upcoming Encounters Date Type Department Care Team (Late st Contact Info) Description 12/20/2025 2:00 PM EST Office Visit [address] [address] Pippa Shirley MD [address] [place] [address], [facility] 7 [place] [address] [email or web address] 12/31/2025 11:30 AM EST Office Visit [facility] Gastro[facility]ology Clinic [address] [place] [address] Unknown, Unknown, Angela Sen PA-C [address] [place] [address] 02/28/2026 8:30 AM EDT Office Visit [facility] Neurology [address] [place] [address] Albert Lynn MD [address] [place] [address], 2nd [place] [address] 03/11/2026 5:30 PM EDT Appointment [facility], Bone Density - [facility] [address] [place] [address] Pippa Shirley MD [address] [place] [address], [address] [place] [address] [email or web address] documented as of this encounter Visit Diagnoses Not on filedocumented in this encounter Additional Health Concerns Assessment Noted Time PHQ-2 Depression Total Score: 2 09/08/20 22 4:13 PM EDT documented as of this encounter Care Teams Air Analysis Technician Relationship Specialty Start Date End Date Pippa Shirley MD [address] [place] [address] 7 [place] [address] [email or web address] PCP - General Family Medicine 02/10/24 Jailyn Grewal DO [address] [place] [address] 7 [place] [address] Historical LMR Provider 09/04/17 Bettye Amaro CNP [address] [place] [address], 2nd [place] [address] [email or web address] Historical LMR Provider 09/04/17 Ninoska Sanchez MD [address] [place] [address] 7 [place] [address] Historical LMR Provider 09/04/17 Best Aaron MD [address] [place] [address] 7 [place] [address] Historical LMR Provider 09/04/17 Saurav Cornelius MD [address] [place], [place] [address] [place] [address] [email or web address] Historical LMR Provider 09/04/17 Jailyn Grewal DO 234 [facility], [address] [place] [address] [email or web address] Insurance Assigned Provider 02/19/24 Pippa Shirley MD 234 [facility], [address] [place] [address] [email or web address] Insurance Assigned Provider 02/18/25 documented as of this encounter Additional Source Comments The information contained in this document represents components of the legal health record. It is not the complete legal health record.[facility]
--- OUTSIDE RECORDS SUMMARY | 2025-10-25 19:20 | XMS_ITS | Encounter Summary ---
Author Organization [facility] Address [address] [employer] [facility] [address] [place] [address] Phone Care Team Providers Care Family Literacy Coordinator Name Role Phone Jailyn Grewal DO Unavailable Bettye Amaro SKIVER BOX TOE Unavailable Ninoska Sanchez MD Unavailable Best Aaron MD Unavailable Saurav Cornelius MD Unavailable Pippa Shirley MD Primary Care Provider Jailyn Grewal DO Unavailable Pippa Shirley MD Unavailable [phone] Encounter Details Date Type Department Care Team (Late st Contact Info) Description 01/11/2025 Procedure Pass [facility], Ct Scan - [address] [address] Social History Tobacco Use Types Packs/Day Years [...] 01/11/2025 1:49 PM Alessandra Victor RN * [place] Suicide Severity Rating Scale (Screener/Recent Self-Report) Question [...] Description 12/20/2025 2:00 PM EST Office Visit [facility] [address] [place] [address] Pippa Shirley MD [address] [place] [address], [address] [place] [address] [email or web address] 12/31/2025 11:30 AM EST Office Visit [facility] Gastroenterology Clinic [address] [place] [address] Unknown, Unknown, Angela Sen PA-C [address] [place] [address] 02/28/2026 8:30 AM EDT Office Visit [facility] Neurology [address] [place] [address] Albert Lynn MD [address] [address] 03/11/2026 5:30 PM EDT Appointment [facility], Bone Density - [address] [address] Pippa Shirley MD 234 [facility] 7 [place] [address] [email or web address] documented as of this encounter Visit Diagnoses Not on filedocumented in this encounter Additional Health Concerns Assessment Noted Time PHQ-2 Depression Total Score: 2 08/08/20 24 5:13 PM EDT documented as of this encounter Care Teams Family Literacy Coordinator Relationship Specialty Start Date End Date Pippa Shirley MD [address] [place] [address] [email or web address] PCP - General Family Medicine 02/10/24 Jailyn Grewal DO [address] [place] [address] Historical LMR Provider 09/04/17 Bettye Amaro CNP [address] [address] Historical LMR Provider 09/04/17 Ninoska Sanchez MD [address] [place] [address] Historical LMR Provider 09/04/17 Best Aaron MD [address] [place] [address], [address] [place] [address] [email or web address] Historical LMR Provider 09/04/17 Saurav Cornelius MD [address] [place] [address] [address] [place] [phone] [email or web address] Historical LMR Provider 09/04/17 Jailyn Grewal DO [address] [place] [address], [address] [place] [address] [email or web address] Insurance Assigned Provider 02/19/24 Ppipa Shirley MD [address] [place] [address], [address] [place] [address] [email or web address] Insurance Assigned Provider 02/18/25 documented as of this encounter Additional Source Comments The information contained in this document represents components of the legal health record. It is not the complete legal health record.[facility]
--- OUTSIDE RECORDS SUMMARY | 2025-10-25 19:20 | XMS_ITS | Encounter Summary ---
Author Organization [facility] Address [facility] [employer] [facility] [address] [place] [address] Phone Care Team Providers Care Clerk Manager Name Role Phone Jailyn Grewal DO Unavailable [phone] Sondra Bettyeminh Leggett DRAWBRIDGE TENDER Unavailable Ninoska Sanchez MD Unavailable [phone] Best Aaron MD Unavailable [phone] Saurav Cornelius MD Unavailable Pippa Shirley MD Primary Care Provider [phone] Pippa Shirley MD Unavailable [phone] Reason for Referral * MRI/CAT Scan - New Request Specialty Diagnoses / Procedures Referred By Contac t Referred To Contact Radiology Diagnoses Cyst of pancreas Renal mass Procedures CT Abdomen Only (No Pelvis) Vladimir Mccoy MD [address] [place] [address] Phone: tel: fax: mailto:[email or web address] Referral ID Status Reason Start Date Expiration Date V isits Requested Visits Authorized [id number] New Request 10/18/2025 1 1 Encounter Details Date Type Department Care Team (Late st Contact Info) Description 10/18/2025 Orders Only [facility] IR Rad [address] [place] [address] Vladimir Mccoy MD [address] [place] [address] [email or web address] Cyst of pancreas (Primary Dx); Renal mass Social History Tobacco Use Types Packs/Day Years [...] Description 12/20/2025 2:00 PM EST Office Visit [facility] [address] [place] [address] Pippa Shirley MD [address] [place] [address], [address] [place] [address] [email or web address] 12/31/2025 11:30 AM EST Office Visit [facility] [address] [place] [address] Unknown, Unknown, Angela Sen PA-C [address] [place] [address] 02/28/2026 8:30 AM EDT Office Visit [facility] Neurology 22 [place] [address] Albert Lynn MD [address] [address] [email or web address] 03/11/2026 5:30 PM EDT Appointment [facility], Bone Density - [address] [address] Pippa Shirley MD 234 [facility] 7 [place] [address] [email or web address] Scheduled Orders Name Type Priority Associated Diagnoses Orde r Schedule CT Abdomen Only (No Pelvis) Imaging Routine Cyst of pancreas Renal mass Expected: 10/18/2026, Expires: 04/18/2027 documented as of this encounter Visit Diagnoses Diagnosis Cyst of pancreas- Primary Cyst and pseudocyst of pancreas Renal mass Unspecified disorder of kidney and ureter documented in this encounter Additional Health Concerns Assessment Noted Time PHQ-2 Depression Total Score: 2 09/27/20 25 2:01 PM EST documented as of this encounter Care Teams Clerk Manager Relationship Specialty Start Date End Date Pippa Shirley MD [address] [place] [address] 7 [place] [address] [email or web address] PCP - General Family Medicine 02/10/24 Jailyn Grewal DO [address] [place] [address], [facility] 7 [place] [address] [email or web address] Historical LMR Provider 09/04/17 Bettye Amaro, ROBERTO 15 [facility], [address] [place] [address] [email or web address] Historical LMR Provider 09/04/17 Ninoska Sanchez MD [address] [place] [address], [address] [place] [address] Historical LMR Provider 09/04/17 Best Aaron MD [address] [place] [address] 7 [place] [address] [email or web address] Historical LMR Provider 09/04/17 Saurav Cornelius MD [address] [place], [place] [address] [place] [phone] [email or web address] Historical LMR Provider 09/04/17 Pippa Shirley MD [address] [place] [address] [address] [place] [address] [email or web address] Insurance Assigned Provider 02/18/25 documented as of this encounter Additional Source Comments The information contained in this document represents components of the legal health record. It is not the complete legal health record.[facility]
--- OUTSIDE RECORDS SUMMARY | 2025-10-25 19:20 | XMS_ITS | Encounter Summary ---
Author Organization [facility] Address [address] [employer] [facility] [address] [place] [address] Phone Care Team Providers Care Rn Midwife Name Role Phone Jailyn Grewal DO Unavailable Bettye Amaro MANAGEMENT DEVELOPMENT SPECIALIST Unavailable Ninoska Sanchez MD Unavailable Best Aaron MD Unavailable Saurav Cornelius MD Unavailable Pippa Shirley MD Primary Care Provider Jailyn Grewal DO Unavailable Pippa Shirley MD Unavailable Encounter Details Date Type Department Care Team (Late st Contact Info) Description 07/01/2024 Procedure Pass [facility], Ct Scan - [address] [address] Social History Tobacco Use Types Packs/Day Years [...] 1:45 PM EDT Bessie Guadarrama, RN * [facility] Suicide Severity Rating Scale (Screener/Recent Self-Report) Question [...] Description 12/20/2025 2:00 PM EST Office Visit [address] [address] Pippa Shirley MD [address] [place] [address], [facility] 7 [place] [address] [email or web address] 12/31/2025 11:30 AM EST Office Visit [facility] [address] [place] [address] Unknown, Unknown, Angela Sen PA-C [address] [place] [address] 02/28/2026 8:30 AM EDT Office Visit [facility] Neurology [address] [place] [address] Albert Lynn MD [address] [place] [address], 2nd [place] [address] 03/11/2026 5:30 PM EDT Appointment [facility], Bone Density - [facility] [address] [place] [address] Pippa Shirley MD [address] [place] [address], [address] [place] [address] [email or web address] documented as of this encounter Visit Diagnoses Not on filedocumented in this encounter Additional Health Concerns Assessment Noted Time PHQ-2 Depression Total Score: 2 09/08/20 22 4:13 PM EDT documented as of this encounter Care Teams Rn Midwife Relationship Specialty Start Date End Date Pippa Shirley MD [address] [place] [address] 7 [place] [address] [email or web address] PCP - General Family Medicine 02/10/24 Jailyn Grewal DO [address] [place] [address] 7 [place] [address] Historical LMR Provider 09/04/17 Bettye Amaro CNP [address] [place] [address], 2nd [place] [address] [email or web address] Historical LMR Provider 09/04/17 Ninoska Sanchez MD [address] [place] [address] 7 [place] [address] Historical LMR Provider 09/04/17 Best Aaron MD [address] [place] [address] 7 [place] [address] Historical LMR Provider 09/04/17 Saurav Cornelius MD [address] [place], [place] [address] [place] [phone] [email or web address] Historical LMR Provider 09/04/17 Jailyn Grewal DO 234 [facility], [address] [place] [address] [email or web address] Insurance Assigned Provider 02/19/24 Pippa Shirley MD 234 [facility], [address] [place] [address] [email or web address] Insurance Assigned Provider 02/18/25 documented as of this encounter Additional Source Comments The information contained in this document represents components of the legal health record. It is not the complete legal health record.[facility]
--- OUTSIDE RECORDS SUMMARY | 2025-10-25 19:20 | XMS_ITS | Encounter Summary ---
Author Organization [facility] Address [facility] [employer] [facility] [address] [place] [address] Phone Care Team Providers Care Assistant Secretary Name Role Phone Jailyn Grewal DO Unavailable Sondra Bettyeminh Leggett NUCLEAR FUEL ENRICHMENT TECHNICIAN Unavailable Ninoska Sanchez MD Unavailable [phone] Best Aaron MD Unavailable [phone] Saurav Cornelius MD Unavailable [phone] Best Aaron MD Unavailable Best Aaron MD Primary Care Provider Pippa Shirley MD Primary Care Provider [phone] Jailyn Grewal DO Unavailable Pippa Shirley MD Unavailable [phone] Reason for Referral * Physical Therapy (Routine) - Closed Specialty Diagnoses / Procedures Referred By Burke t Referred To Contact Physical Therapy Diagnoses Encounter for rehabilitation Marquita Roldan NP Phone: tel: fax: mailto:[email or web address] 30 [place] [address] Phone: tel: Referral ID Status Reason Start Date Expiration Date Visits Re quested Visits Authorized [id number] Closed 10/20/2023 99 99 Encounter Details Date Type Department Care Team (Latest Contact Info) Description 10/20/2023 Transcribe Orders [facility] Rehabilitation Services [address] [place] [address] Marquita Roldan NP [address] [place] [phone] [email or web address] Encounter for rehabilitation (Primary Dx) Social History [...] Description 12/20/2025 2:00 PM EST Office Visit [facility] 234 [place] [address] Pippa Shirley MD [address] [place] [address], [facility] 7 [place] [address] [email or web address] 12/31/2025 11:30 AM EST Office Visit [facility] G[facility]ology Clinic [address] [place] [address] Unknown, Unknown, Angela Sen PA-C [address] [place] [address] 02/28/2026 8:30 AM EDT Office Visit [facility] Neurology [address] [place] [address] [place] [address] Albert Lynn MD [address] [place] [address], 2nd [place] [address] 03/11/2026 5:30 PM EDT Appointment [facility], Bone Density - [address] [address] Pippa Shirley MD 234 [facility] 7 [place] [address] [email or web address] documented as of this encounter Procedures Procedure Name Priority Date/Time Associated Diagnosis Comments AMB REFERRAL TO [facility] PHYSICAL THERAPY Routine 12/21/2023 1:47 PM EST Encounter for rehabilitation documented in this encounter Results * Ambulatory referral to [facility] Physical Therapy (12/21/2023 1:47 PM EST) Other us Marquita Roldan FLOORING SALES MANAGER AMB [facility] REFERRALS Final Result documented in this encounter Visit Diagnoses Diagnosis Encounter for rehabilitation- Primary documented in this encounter Additional Health Concerns Assessment Noted Time PHQ-2 Depression Total Score: 2 09/08/20 22 4:13 PM EDT documented as of this encounter Care Teams Assistant Secretary Relationship Specialty Start Date End Date Bset Aaron MD [address] [place], [place] [address] [id number] PCP - General Family Medicine 10/19/19 02/09/24 Pippa Shirley MD [address] [place] [address] 7 [place] [address] [email or web address] PCP - General Family Medicine 02/10/24 Jailyn Grewal DO [address] [place] [address] 7 [place] [address] [email or web address] Historical LMR Provider 09/04/17 Bettye Amaro, NUCLEAR FUEL ENRICHMENT TECHNICIAN 15 [facility], 2nd [place] [address] [email or web address] Historical LMR Provider 09/04/17 Ninoska Sanchez MD [address] [place] [address], [facility] 7 [place] [address] Historical LMR Provider 09/04/17 Best Aaron MD [address] [place] [address] 7 [place] [address] [email or web address] Historical LMR Provider 09/04/17 Saurav Cornelius MD [address] [place], [place] [address] [place] [phone] [email or web address] Historical LMR Provider 09/04/17 Best Aaron MD [address] [place] [address] [place] [address] [email or web address] Insurance Assigned Provider 09/18/1702/19/24 Jailyn Grewal DO [address] [place] [address] [place] [address] Insurance Assigned Provider 02/19/24 Pippa Shirley MD [address] [place] [address] 7 [place] [address] [email or web address] [facility] beds [facility] Insurance Assigned Provider 02/18/25 documented as of this encounter Additional Source Comments The information contained in this document represents components of the legal health record. It is not the complete legal health record.[facility]
--- OUTSIDE RECORDS SUMMARY | 2025-10-25 19:20 | XMS_ITS | Encounter Summary ---
Author Organization [facility] Address [facility] [address] [place] [address] Phone Care Team Providers Care Engineering Faculty Name Role Phone Jailyn Grewal DO Unavailable Bettye Amaro FORMING MACHINE ADJUSTER Unavailable Ninoska Sanchez MD Unavailable Best Aaorn MD Unavailable Saurav Cornelius MD Unavailable Pippa Shirley MD Primary Care Provider [phone] Pippa Shirley MD Unavailable Encounter Details Date Type Department Care Team (Late st Contact Info) Description 10/15/2025 Orders Only [facility] [address] [place] [address] Pippa Shirley MD [address] [place] [address] [address] [place] [address] [email or web address] Elevated alkaline phosphatase level (Primary Dx) Social History Tobacco Use Types [...] Description 12/20/2025 2:00 PM EST Office Visit [address] [address] Pippa Shirley MD [address] [place] [address] 7 [place] [address] [email or web address] .[email or web address] 12/31/2025 11:30 AM EST Office Visit [facility]ology Clinic [address] [place] [address] Unknown, Unknown, Angela Sen PA-C [address] [place] [address] 02/28/2026 8:30 AM EDT Office Visit [facility] Neurology [address] [place] [address] Albert Lynn MD [address] [place] [address], 2nd [place] [address] 03/11/2026 5:30 PM EDT Appointment [facility], Bone Density - [address] [address] Pippa Shirley MD [address] [place] [address], [facility] 7 [place] [address] [email or web address] Scheduled Orders Name Type Priority Associated Diagnoses Orde r Schedule Gamma Glutamyl Transferase (GGT) Lab Routine Elevated alkaline phosphatase level Expected: 10/15/2025, Expires: 10/15/2026 documented as of this encounter Visit Diagnoses Diagnosis Elevated alkaline phosphatase level- Primary documented in this encounter Additional Health Concerns Assessment Noted Time PHQ-2 Depression Total Score: 2 09/27/20 25 2:01 PM EST documented as of this encounter Care Teams Engineering Faculty Relationship Specialty Start Date End Date Pippa Shirley MD [address] [place] [address] 7 [place] [address] [email or web address] PCP - General Family Medicine 02/10/24 Jailyn Grewal DO [address] [place] [address] 7 [place] [address] [email or web address] Historical LMR Provider 09/04/17 Bettye Amaro CNP [address] [place] [address], [address] [place] [address] [email or web address] Historical LMR Provider 09/04/17 Ninoska Sanchez MD [address] [place] [address] 7 [place] [address] [email or web address] Historical LMR Provider 09/04/17 Best Aaron MD [address] [place] [address] 7 [place] [address] [email or web address] Historical LMR Provider 09/04/17 Saurav Cornelius MD [address] [place], [place] [address] [place] [phone] [email or web address] Historical LMR Provider 09/04/17 Pippa Shirley MD 234 [facility], [address] [place] [address] [email or web address] Insurance Assigned Provider 02/18/25 documented as of this encounter Additional Source Comments The information contained in this document represents components of the legal health record. It is not the complete legal health record.[facility]
--- OUTSIDE RECORDS SUMMARY | 2025-10-25 19:21 | XMS_ITS | Encounter Summary ---
Author Organization [facility] Address [facility] [address] [place] [address] Phone Care Team Providers Care Sales Training Representative Name Role Phone Jailyn Grewal DO Unavailable Sondra Bettyeminh Leggett ENGINE PILOT Unavailable Ninoska Sanchez MD Unavailable Best Aaron MD Unavailable Saurav Cornelius MD Unavailable Pippa Shirley MD Primary Care Provider Jailyn Grewal DO Unavailable Pippa Shirley MD Unavailable [phone] Encounter Details Date Type Department Care Team (Late st Contact Info) Description 05/29/2024 Procedure Pass [address] [place] [address] Social History Tobacco Use Types Packs/Day Years [...] Description 12/20/2025 2:00 PM EST Office Visit [facility] Medicine 234 [place] [address] Pippa Shirley MD 234 [facility] 7 [place] [address] [email or web address] 12/31/2025 11:30 AM EST Office Visit [facility] 10 [place] [address] Unknown, Unknown, Angela Sen PA-C [address] [address] [email or web address] 02/28/2026 8:30 AM EDT Office Visit [facility] Neurology [address] [place] [address] Albert Lynn MD [address] [place] [address], 2nd [place] [address] [email or web address] 03/11/2026 5:30 PM EDT Appointment [facility], [facility] - [address] [address] Pippa Shirley MD [address] [address] [email or web address] documented as of this encounter Visit Diagnoses Not on filedocumented in this encounter Additional Health Concerns Assessment Noted Time PHQ-2 Depression Total Score: 2 09/08/20 22 4:13 PM EDT documented as of this encounter Care Teams Sales Training Representative Relationship Specialty Start Date End Date Pippa Shirley MD [address] [place] [address] [email or web address] PCP - General Family Medicine 02/10/24 Jailyn Grewal DO [address] [place] [address], [address] [place] [address] Historical LMR Provider 09/04/17 Sondra Bettye Tineoz, ROBERTO [address] [place] [address], 2nd [place] [address] Historical LMR Provider 09/04/17 Ninoska Sanchez MD [address] [place] [address] [place] [address] [email or web address] Historical LMR Provider 09/04/17 Best Aaron MD [address] [place] [address] [place] [address] Historical LMR Provider 09/04/17 Saurav Cornelius MD [address] [place], [place] [address] [place] [phone] [email or web address] Historical LMR Provider 09/04/17 Jailyn Grewal DO [address] [place] [address] [place] [address] Insurance Assigned Provider 02/19/24 Pippa Shirley MD [address] [place] [address] [place] [address] [email or web address] Insurance Assigned Provider 02/18/25 documented as of this encounter Additional Source Comments The information contained in this document represents components of the legal health record. It is not the complete legal health record.[facility]
--- OUTSIDE RECORDS SUMMARY | 2025-10-25 19:22 | XMS_ITS | Encounter Summary ---
Author Organization [facility] Address [facility]ly [facility] CG Scholar [facility] [address] [place] [address] Phone Care Team Providers Care Medical Record Retrieval Specialist Name Role Phone Jailyn Grewal DO Unavailable Sondra Bettyeminh Leggett PEANUT ROASTER Unavailable Ninoska Sanchez MD Unavailable [phone] Best Aaron MD Unavailable [phone] Saurav Cornelius MD Unavailable [phone] Best Aaron MD Unavailable Best Aaron MD Primary Care Provider Pippa Shirley MD Primary Care Provider [phone] Jailyn Grewal DO Unavailable Pippa Shirley MD Unavailable [phone] Encounter Details Date Type Department Care Team (Late st Contact Info) Description 03/27/2023 Ancillary Orders [facility] Main [address] [place] [address] Marquita Roldan, UX INFORMATION ARCHITECT [address] [place] [phone] [email or web address] Social History Tobacco Use Types Packs/Day Years [...] high school, GED, job training, learning the [place] Islander language, technical skills, or developing parenting [...] Description 12/20/2025 2:00 PM EST Office Visit [facility] [address] [place] [address] Pippa Shirley MD 234 [facility], [facility] 7 [place] [address] [email or web address] 12/31/2025 11:30 AM EST Office Visit [facility] Gastro[facility]ology Clinic 10 [place] [address] Unknown, Unknown, Angela Sen PA-C [address] [address] [email or web address] 02/28/2026 8:30 AM EDT Office Visit [facility] Neurology [address] [place] [address] Albert Lynn MD 22 [facility], 2nd [place] [address] [email or web address] 03/11/2026 5:30 PM EDT Appointment [facility], [facility] - [facility] 30 [place] [address] Pippa Shirley MD 234 [facility], [facility] 7 [place] [address] [email or web address] documented as of this encounter Visit Diagnoses Not on filedocumented in this encounter Additional Health Concerns Infection Onset Date Last Indicated Resolved Time COVID-19 06/15/2023 06/15/2023 07/06/2023 1:23 AM EDT Assessment Noted Time PHQ-2 Depression Total Score: 2 09/08/20 4:13 PM EDT documented as of this encounter Care Teams Medical Record Retrieval Specialist Relationship Specialty Start Date End Date Best Aaron MD [address] [place] [address] 7 [place] [address] PCP - General Family Medicine 10/19/19 02/09/24 Pippa Shirley MD [address] [place] [address] 7 [place] [address] [email or web address] PCP - General Family Medicine 02/10/24 Jailyn Grewal DO [address] [place] [address] 7 [place] [address] Historical LMR Provider 09/04/17 Bettye Amaro CNP [address] [place] [address] [email or web address] Historical LMR Provider 09/04/17 Ninoska Sanchez MD [address] [place] [address] 7 [place] [address] [email or web address] Historical LMR Provider 09/04/17 Best Aaron MD [address] [place] [address] 7 [place] [address] [email or web address] Historical LMR Provider 09/04/17 Saurav Corneluis MD [address] [place], [place] [address] [place] [phone] [email or web address] Historical LMR Provider 09/04/17 Best Aaron MD [address] [place] [address], [address] [place] [address] [email or web address] Insurance Assigned Provider 09/18/1702/19/24 Jailyn Grewal DO [address] [place] [address], [address] [place] [address] Insurance Assigned Provider 02/19/24 Pippa Shirley MD [address] [place] [address], [address] [place] [address] [email or web address] Insurance Assigned Provider 02/18/25 documented as of this encounter Additional Source Comments The information contained in this document represents components of the legal health record. It is not the complete legal health record.[facility]
--- OUTSIDE RECORDS SUMMARY | 2025-10-25 19:22 | XMS_ITS | Encounter Summary ---
Author Organization [facility] Address [facility] [address] [place] [address] Phone Care Team Providers Care Gaggerman Name Role Phone Alysa Benito RETURNS SUPERVISOR Unavailable Jailyn Grewal DO Unavailable Esperanza Cisneros RETURNS SUPERVISOR Unavailable Bettye Amaro FISH NET MAKER Unavailable Caprice Johns RETURNS SUPERVISOR Unavailable [phone] Noe Fitzpatrick MD Unavailable Adelaida Awad MD Unavailable Kadi Nazario RETURNS SUPERVISOR Unavailable Ninoska Sanchez MD Unavailable Best Aaron MD Unavailable Yashira Felix RETURNS SUPERVISOR Unavailable [phone] Belinda Wolfe MD Unavailable [phone] Carlos Miranda MD Unavailable [phone] Juanis Boyd MD Unavailable Saurav Cornelius MD Unavailable Giulia Alarcon MD Unavailable Albert Ley MD Unavailable [phone] LalitomarineLuis Carlos king FISH NET MAKER Unavailable Best Aaron MD Unavailable [phone] Best Aaron MD Primary Care Provider [phone] Pippa Shirley MD Primary Care Provider [phone] Jailyn Grewal DO Unavailable [phone] Pippa Shirley MD Unavailable [phone] Encounter Details Date Type Department Care Team (Late st Contact Info) Description 04/03/2021 Procedure Pass [facility] - [address] [place] [address] Social History Tobacco Use Types Packs/Day Years [...] Description 12/20/2025 2:00 PM EST Office Visit [address] [address] Pippa Shirley MD [address] [place] [address], [address] [place] [address] [email or web address] 12/31/2025 11:30 AM EST Office [facility] Gastroenterology Clinic [address] [place] [address] Unknown, Unknown, Angela Sen PA-C [address] [place] [address] 02/28/2026 8:30 AM EDT Office Visit [facility] Neurology [address] [place] [address] [place] [address] Albert Lynn MD [address] [place] [address], 2nd [place] [address] 03/11/2026 5:30 PM EDT Appointment [facility], [facility] Density - [facility] 30 [place] [address] Pippa Shirley MD 234 [facility], [address] [place] [address] [email or web address] documented as of this encounter [...] documented as of this encounter Care Teams Gaggerman Relationship Specialty Start Date End Date Best Aaron MD 234 [facility], [facility] 7 [place] [address] [email or web address] PCP - General Family Medicine 10/19/19 02/09/24 Pippa Shirley MD 234 [facility], [facility] 7 [place] [address] [email or web address] PCP - General Family Medicine 02/10/24 Alysa Benito RETURNS SUPERVISOR 1 [place] [address] Historical LMR Provider 09/04/1711/22/ 2 Jailyn Grewal DO [address] [place] [address], [facility] 7 [place] [address] Historical LMR Provider 09/04/17 Esperanza Csineros, BRIEN [address] [place] [address] Historical LMR Provider 09/04/17 2 Bettye Amaro, ROBERTO [address] [place] [address] [email or web address] Historical LMR Provider 09/04/17 Caprice Johns NP [address] [place] [address] [email or web address] Historical LMR Provider 09/04/17 11/22/21 Noe Fitzpatrick MD [address] [place] [address] [email or web address] Historical LMR Provider 09/04/17 11/22/21 Adelaida Awad MD [address] [place] [address] [email or web address] Historical LMR Provider 09/04/17 Kadi Nazario, BRIEN [address] [place] [address] Historical LMR Provider 09/04/17 2 Ninoska Sanhcez MD [address] [place] [address] 7 [place] [address] [email or web address] Historical LMR Provider 09/04/17 Best Aaron MD [address] [place] [address] Historical LMR Provider 09/04/17 Yashira Felix NP 30 [place] [address] Historical LMR Provider 09/04/17 2 Belinda Wolfe MD [address], [place] [address] Historical LMR Provider 09/04/17 2 Carlos Miranda MD [address] [place] [address] Historical LMR Provider 09/04/17 11/22/21 Juanis Boyd MD [address] [place] [address] [email or web address] Historical LMR Provider 09/04/17 11/22/21 Saurav Cornelius MD [address] [place], [place] [address] [place] [address] [email or web address] Historical LMR Provider 09/04/17 Giulia Alarcon MD [address] [place] [address] [email or web address] Historical LMR Provider 09/04/17 11/22/21 Albert Ley MD 61 [place] [address] Historical LMR Provider 09/04/17 2 Luis Carlos De Jesus CNP [address] [place] [address], [address] [place] [address] Historical LMR Provider 09/04/17 Best Aaron MD [address] [place] [address], [address] [place] [address] Insurance Assigned Provider 09/18/17 02/19/24 Jailyn Grewal DO [address] [place] [address], [facility] 7 [place] [address] Insurance Assigned Provider 02/19/24 02/18/25 Pippa Shirley MD [address] [place] [address], [address] [place] [address] [email or web address] Insurance Assigned Provider 02/18/25 documented as of this encounter Additional Source Comments The information contained in this document represents components of the legal health record. It is not the complete legal health record.[facility]
--- OUTSIDE RECORDS SUMMARY | 2025-10-25 19:22 | XMS_ITS | Encounter Summary ---
Author Organization [facility] Address [facility] [address] [place] [address] Phone Care Team Providers Care Finisher Screwdown Name Role Phone Jailyn Grewal DO Unavailable Sondra Bettyeminh Leggett DISTRICT OPERATIONS MANAGER Unavailable Ninoska Sanchez MD Unavailable [phone] Best Aaron MD Unavailable [phone] Saurav Cornelius MD Unavailable [phone] Best Aaron MD Unavailable Best Aaron MD Primary Care Provider Pippa Shirley MD Primary Care Provider [phone] Jailyn Grewal DO Unavailable Pippa Shirley MD Unavailable [phone] Encounter Details Date Type Department Care Team (Latest Contact Info) Description 03/27/2023 Ancillary Orders [facility], X[facility]Ray - [facility] [address] [place] [address] Marquita Roldan, AUTO PARKER [address] [place] [phone] [email or web address] Social History Tobacco Use Types [...] high school, GED, job training, learning the Australian language, technical skills, or developing parenting skills)? [...] Description 12/20/2025 2:00 PM EST Office Visit [facility] Medicine 234 [place] [address] Pippa Shirley MD 234 [facility] 7 [place] [address] [email or web address] 12/31/2025 11:30 AM EST Office Visit [facility] Gastro[facility]ology Clinic 10 [place] [address] Unknown, Unknown, Angela Sen PA-C [address] [address] [email or web address] 02/28/2026 8:30 AM EDT Office Visit [facility] Neurology [address] [place] [address] Albert Lynn MD [address] [place] [address], 2nd [place] [address] [email or web address] 03/11/2026 5:30 PM EDT Appointment [facility], Bone Density - [address] [address] Pippa Shirley MD 234 [facility] 7 [place] [address] [email or web address] documented as of this encounter Results * [...] documented as of this encounter Care Teams Finisher Screwdown Relationship Specialty Start Date End Date Best Aaron MD [address] [place] [address] 7 [place] [address] PCP - General Family Medicine 10/19/19 02/09/24 Pippa Shirley MD [address] [place] [address] 7 [place] [address] [email or web address] PCP - General Family Medicine 02/10/24 Jailyn Grewal DO [address] [place] [address] 7 [place] [address] Historical LMR Provider 09/04/17 Bettye Amaro, ROBERTO [address] [place] [address], 2nd [place] [address] Historical LMR Provider 09/04/17 Ninoska Sanchez MD [address] [place] [address] 7 [place] [address] Historical LMR Provider 09/04/17 Best Aaron MD [address] [place] [address] 7 [place] [address] Historical LMR Provider 09/04/17 Saurav Cornelius MD [address] [place], [place] [address] [place] [phone] [email or web address] Historical LMR Provider 09/04/17 Best Aaron MD [address] [place] [address], [address] [place] [address] [email or web address] Insurance Assigned Provider 09/18/1702/19/24 Jailyn Grewal DO [address] [place] [address] 7 [place] [address] Insurance Assigned Provider 02/19/24 Pippa Shirley MD [address] [place] [address], [facility] 7 [place] [address] [email or web address] Insurance Assigned Provider 02/18/25 documented as of this encounter Additional Source Comments The information contained in this document represents components of the legal health record. It is not the complete legal health record.[facility]
--- OUTSIDE RECORDS SUMMARY | 2025-10-25 19:22 | XMS_ITS | Encounter Summary ---
Author Organization [facility] Address [facility] [address] [place] [address] Phone Care Team Providers Care City Tax Auditor Name Role Phone Jailyn Grewal DO Unavailable Sondra Bettyeminh Leggett AUTOMATIC BANDSAW TENDER Unavailable Ninoska Sanchez MD Unavailable [phone] Best Aaron MD Unavailable [phone] Saurav Cornelius MD Unavailable [phone] Best Aaron MD Unavailable Best Aaron MD Primary Care Provider Pippa Shirley MD Primary Care Provider [phone] Jailyn Grewal DO Unavailable Pippa Shirley MD Unavailable Encounter Details Date Type Department Care Team (Late st Contact Info) Description 03/09/2023 Procedure Pass [facility] Admitting Dept Virtual Department 30 [place] [address] Social History Tobacco Use Types Packs/Day Years [...] high school, GED, job training, learning the Paragu[place] language, technical skills, or developing parenting skills)? [...] 12/20/2025 2:00 PM EST Office Visit [facility] Family Medicine [address] [place] [address] Pippa Shirley MD 234 [facility], [address] [place] [address] [email or web address] 12/31/2025 11:30 AM EST Office Visit [facility] Gastroenterology Clinic 10 [place] [address] Unknown, Unknown, Angela Sen PA-C [address] [address] [email or web address] 02/28/2026 8:30 AM EDT Office Visit [facility] Neurology [address] [place] [address] Albert Lynn MD [address] [place] [address], 2nd [place] [address] [email or web address] 03/11/2026 5:30 PM EDT Appointment [facility], Bone Density - [address] [address] Pippa Shirley MD 234 [facility], [facility] 7 [place] [address] [email or web address] documented as of this encounter Visit Diagnoses Not on filedocumented in this encounter Additional Health Concerns Infection Onset Date Last Indicated Resolved Time COVID-19 06/15/2023 06/15/2023 07/06/2023 1:23 AM EDT Assessment Noted Time PHQ-2 Depression Total Score: 2 09/08/20 4:13 PM EDT documented as of this encounter Care Teams City Tax Auditor Relationship Specialty Start Date End Date Best Aaron MD [address] [place] [address], [address] [place] [address] PCP - General Family Medicine 10/19/19 02/09/24 Pippa Shirley MD [address] [place] [address] 7 [place] [address] [email or web address] PCP - General Family Medicine 02/10/24 Jailyn Grewal DO [address] [place] [address] 7 [place]an [address] Historical LMR Provider 09/04/17 Bettye Amaro CNP [address] [place] [address], 2nd [place] [address] Historical LMR Provider 09/04/17 Ninoska Sanchez MD [address] [place] [address] 7 [place] [address] [email or web address] Historical LMR Provider 09/04/17 Best Aaron MD [address] [place] [address] 7 [place] [address] [email or web address] Historical LMR Provider 09/04/17 Saurav Cornelius MD [address] [place], [place] [address] [place] [address] [email or web address] Historical LMR Provider 09/04/17 Best Aaron MD [address] [place] [address] 7 [place] [address] [email or web address] Insurance Assigned Provider 09/18/1702/19/24 Jailyn Grewal DO 234 [facility], [address] [place] [address] [email or web address] Insurance Assigned Provider 02/19/24 Pippa Shirley MD 234 [facility], [address] [place] [address] [email or web address] Insurance Assigned Provider 02/18/25 documented as of this encounter Additional Source Comments The information contained in this document represents components of the legal health record. It is not the complete legal health record.[facility]
--- OUTSIDE RECORDS SUMMARY | 2025-10-25 19:22 | XMS_ITS | Encounter Summary ---
Author Organization [facility] Address [facility] [employer] [facility] [address] [place] [address] Phone Care Team Providers Care Model Builder Display Name Role Phone Jailyn Grewal DO Unavailable Sondra Bettyeminh Leggett INTERNAL CONTROL SPECIALIST Unavailable Ninoska Sanchez MD Unavailable [phone] Best Aaron MD Unavailable [phone] Saurav Cornelius MD Unavailable [phone] Best Aaron MD Unavailable Best Aaron MD Primary Care Provider Pippa Shirley MD Primary Care Provider [phone] Jailyn Grewal DO Unavailable Pippa Shirley MD Unavailable [phone] Encounter Details Date Type Department Care Team (Late st Contact Info) Description 03/29/2023 Procedure Pass [facility], [facility] - [address] [place] [address] Social History Tobacco Use Types Packs/Day Years [...] high school, GED, job training, learning the Nauruan language, technical skills, or developing parenting skills)? [...] Description 12/20/2025 2:00 PM EST Office Visit [facility] Family Medicine [address] [place] [address] Pippa Shirley MD 234 [facility], [address] [place] [address] [email or web address] 12/31/2025 11:30 AM EST Office Visit [facility] Gastroenterology Clinic 10 [place] [address] Unknown, Unknown, Angela Sen PA-C [address] [address] [email or web address] 02/28/2026 8:30 AM EDT Office Visit [facility] Neurology [address] [place] [address] Albert Lynn MD [address] [place] [address], 2nd [place] [address] [email or web address] 03/11/2026 5:30 PM EDT Appointment [facility], Bone Density - [address] [address] Pippa Shirley MD 234 [facility], [facility] 7 [place] [address] [email or web address] documented as of this encounter Visit Diagnoses Not on filedocumented in this encounter Additional Health Concerns Infection Onset Date Last Indicated Resolved Time COVID-19 06/15/2023 06/15/2023 07/06/2023 1:23 AM EDT Assessment Noted Time PHQ-2 Depression Total Score: 2 09/08/20 4:13 PM EDT documented as of this encounter Care Teams Model Builder Display Relationship Specialty Start Date End Date Best Aaron MD [address] [place] [address], [address] [place] [address] PCP - General Family Medicine 10/19/19 02/09/24 Pippa Shirley MD [address] [place] [address] 7 [place] [address] [email or web address] PCP - General Family Medicine 02/10/24 Jailyn Grewal DO [address] [place] [address] 7 [place] Payan [address] Historical LMR Provider 09/04/17 Bettye Amaro CNP [address] [place] [address], 2nd [place] [address] Historical LMR Provider 09/04/17 Ninoska Sanchez MD [address] [place] [address] 7 [place] [address] [email or web address] Historical LMR Provider 09/04/17 Best Aaron MD [address] [place] [address] 7 [place] [address] [email or web address] Historical LMR Provider 09/04/17 Saurav Cornelius MD [address] [place], [place] [address] [place] [address] [email or web address] Historical LMR Provider 09/04/17 Best Aaron MD [address] [place] [address] 7 [place] [address] [email or web address] Insurance Assigned Provider 09/18/1702/19/24 Jailyn Grewal DO 234 [facility], [address] [place] [address] [email or web address] Insurance Assigned Provider 02/19/24 Pippa Shirley MD 234 [facility], [address] [place] [address] [email or web address] Insurance Assigned Provider 02/18/25 documented as of this encounter Additional Source Comments The information contained in this document represents components of the legal health record. It is not the complete legal health record.[facility]
--- OUTSIDE RECORDS SUMMARY | 2025-10-25 19:22 | XMS_ITS | Clinical Summary ---
Author Organization 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 Name Role Phone Jailyn Grewal DO Unavailable Bettye Amaro CASTING INSPECTOR Unavailable Ninoska Sanchez MD Unavailable Best Aaron MD Unavailable Saurav Cornelius MD Unavailable Pippa Shirley MD Primary Care Provider Pippa Shirley MD Unavailable Allergies Active Allergy Reactions Criticality Noted Date Comments Bupropion Hcl 12/29/2023 Side effects Sumatriptan Other (See Comments) High 07/09/2017 Feels like blood rushing through my body Sulfa (Sulfonamide Antibiotics) Itching,Rash High 04/07/2012 Medications cholecalciferol (VITAMIN D3) 5,000 unit capsule Take 1,000 Units by mouth 2 (two) times a day. 01/22/20 21 Active valacyclovir HCl (VALACYCLOVIR ORAL) Apply 1 application. topically as needed (cold sores). apply every 3 hours as needed for coldsores x 7 days 01/22/20 21 Active sodium fluoride-potassi um nitrate (PREVIDENT 5000 SENSITIVE) 1.1-5 % Pste 10/13/20 22 Active traZODone (DESYREL) 50 MG tablet TAKE ONE TABLET BY MOUTH DAILY AT BEDTIME 90 tablet 3 02/20/20 25 Active sertraline (ZOLOFT) 100 MG tabletIndication s:Moderate episode of recurrent major depressive disorder Take 2 tablets (200 mg total) by mouth daily. 180 tablet 1 06/08/20 25 Active LORazepam (ATIVAN) 0.5 MG tablet Take 2 tablets (1 mg total) by mouth every 8 (eight) hours as needed for anxiety. 60 tablet 1 06/08/20 25 Active latanoprost (XALATAN) 0.005 % ophthalmic solution Place 1 drop into each eye daily. 2.5 mL 3 06/08/20 25 Active olmesartan (BENICAR) 20 mg tablet TAKE ONE TABLET BY MOUTH EVERY DAY 90 tablet 3 06/15/20 25 Active chlorthalidone (HYGROTON) 25 MG tabletIndication s:Essential hypertension TAKE ONE TABLET BY MOUTH EVERY DAY 90 tablet 3 10/09/20 25 Active atorvastatin (LIPITOR) 20 MG tablet Take 1 tablet (20 mg total) by mouth daily. 90 tablet 1 10/15/20 25 Active atorvastatin (LIPITOR) 10 MG tabletIndication s:Hyperlipidemia TAKE ONE TABLET BY MOUTH EVERY DAY 90 tablet 3 01/11/20 25 025 Discontinued chlorthalidone (HYGROTON) 25 MG tabletIndication s:Essential hypertension Take 1 tablet (25 mg total) by mouth every morning. 02/03/20 25 025 Discontinued Active Problems Problem Noted Date Diagnosed Date [...] recurrent major depression 03/09/2025 Assessment & Plan (09/27/2025 2:48 PM EST): - Stable. On sertraline 200 mg daily. Assessment & Plan (03/09/2025 9:57 [...] > 400$ we will send vial to [facility] Reduce topiramate to 25 mg BID. Muscle mass is low. Asked her to restart resistance training. She is reluctant due to back pain. I asked her to see her PCP about this & to do PT. Needs to increase calorie intake. She was having a protein shake & a indonesian yogurt during the day & she will [...] felt very good on Zepbound but her [id number] cost was still high. It is possible [...] protein shake or a protein bar or Botswanan yogurt or cottage cheese to be consumed [...] referral for neuromodulator with physiatry, referral to [facility] placed. Degenerative disc disease, lumbar 08/06/2020 Assessment & Plan (05/29/2024 3:39 PM EDT): Chronic back pain following spinal surgery 8 years ago, requesting referral to neurosurgery at [facility]. Referral placed today. No red flag s/s. Chronic bilateral low back pain without sciatica 02/19/2020 Assessment & Plan (09/27/2025 2:48 PM EST): - S/P surgery 2020. Has referral to pain management pending. Assessment & Plan (02/19/2020 11:51 AM EDT): Recommend NSAID, gentle stretching, gabapentin at bedtime. POssible med side effects reviewed. Sent HEP via [facility]. Since she is already going to PT [...] level today. Anxiety 09/26/2017 Assessment & Plan (09/27/2025 2:48 PM EST): - Takes lorazepam 0.5mg as needed, rarely takes per patient. Assessment & Plan (06/08/2025 10:33 AM EDT): [...] 09/26/2017 Essential hypertension 09/26/2017 Assessment & Plan (09/27/2025 12:59 PM EST): - Stable, at goal. Olemartan 20mg daily. Chlorthalidone 25mg. Assessment & Plan (08/16/2025 4:51 PM EDT): [...] 09/26/2017 Mixed hyperlipidemia 09/26/2017 Assessment & Plan (09/27/2025 12:59 PM EST): - Stable. On atorvastatin 10mg daily. Assessment & Plan (08/16/2025 4:52 PM EDT): [...] Encounters Date Type Department Care Team Description 10/18/2025 3:45 PM EST Follow-Up [facility] Interventional Rad [address] [place] [address] Vladimir Mccoy MD Right kidney mass (Primary Dx) 10/18/2025 2:33 PM EST - 10/18/2025 11:59 PM EST Hospital Encounter [facility], Ct Scan - [facility] [address] [place] [address] Vladimir Mccoy MD Discharge Disposition: Home or Self Care 10/18/2025 Orders Only [facility] IMG IR Rad [address] [place] [address] Vladimir Mccoy MD Cyst of pancreas (Primary Dx); Renal mass 10/15/2025 Orders Only [facility] [address] [place] [address] Pippa Shirley MD Elevated alkaline phosphatase level (Primary Dx) 10/08/[address] [address] Pippa Shirley MD Medication Refill 09/27/2025 2:00 PM EST Telemedicine [facility] [address] [place] [address] Mamie Navarro, SE[employer]ANT [employer] Medicare annual wellness visit, subsequent (Primary Dx); Moderate recurrent major depression; Mixed hyperlipidemia; Essential hypertension; Anxiety; Osteopenia of lumbar spine; Chronic bilateral low back pain without sciatica; Need for hepatitis C screening test 09/19/2025 Telephone [facility] -[facility] TEAM [address] [place] [address] Pippa Shirley MD Care Coordination ([facility] Virtual AW[facility] Outreach/) 09/18/2025 Orders Only [address] [address] Afia King MD 09/04/2025 10:30 AM EDT Office Visit [address] [address] Roxi Virgen MD Visit for suture removal (Primary Dx); Skin tear of left upper arm without complication, initial encounter 08/29/2025 Telephone [facility] -[facility] TE[facility] [address] [place] [address] Pippa Shirley MD Care Coordination ([facility] Virtual AW[facility] Outreach/) 08/28/[address] [address] Pippa Shirley MD Follow-up ([facility]) 08/26/2025 2:40 PM EDT Office Visit [facility] [address] [place] [address] Yrn Lentz PA-C Laceration of skin of left hand, initial encounter (Primary Dx) 08/16/2025 4:30 PM EDT Office Visit [facility] [address] [place] [address] Pippa Shirley MD Mixed hyperlipidemia (Primary Dx); Screening for condition; Chronic bilateral low back pain without sciatica; Normocytic anemia; Essential hypertension; Hypercalcemia; Overweight; Degenerative lumbar spinal stenosis; Primary insomnia; Moderate episode of recurrent major depressive disorder 08/07/2025 5:07 PM EDT - 08/07/2025 11:59 PM EDT Hospital Encounter [facility] Specimen Processing [address] [place] [address] Pippa Shirley MD Discharge Disposition: Home or Self Care 05/01/2025 Procedure Pass [facility], Ct Scan - [facility] [address] [place] [address] from Last 3 Months Immunizations Immunization Administration Dates Next Due COVID-19 (Pre-09/06) [employer] Vaccine, mRNA, PF 01/27/2021,12/18/2020 INFLUENZA, SPLIT VIRUS, [...] Description 12/20/2025 2:00 PM EST Office Visit [facility] [address] [place] [address] Pippa Shirley MD [address] [facility], [address] [place] [address] [email or web address] 12/31/2025 11:30 AM EST Office Visit [facility] [address] [place] [address] Unknown, Unknown, Angela Sen PA-C [address] [place] [phone] [email or web address] 02/28/2026 8:30 AM EDT Office Visit [facility] Neurology [address] [place] [phone] Albert Lynn MD [address] [facility], 2nd [place] [address] [email or web address] 03/11/2026 5:30 PM EDT Appointment [facility], Bone Density - [address] [address] Pippa Shirley MD [address] [place] [address], [address] [place] [address] [email or web address] Health Maintenance Due Date Last Done Comments COLOGUARD 1995 FOBT 1995 SIGMOIDOSCOPY 1995 VIRTUAL COLONOSCOPY 1995 COVID-19 VACCINE ( season) 2026 08/20/2025, 08/09/2024, 11/25/2023, Additional history exists MAMMOGRAM 02/27/2026 02/27/2025, 05/2023, 07/07/2022, Additional history exists BLOOD PRESSURE 03/05/2026 09/04/2025 FIT TEST 08/07/2026 08/07/2025 DEPRESSION SCREENING 09/27/2026 09/27/2025 CREATININE LEVEL 10/12/2026 10/12/2025, , 03/13/2025, Additional history exists POTASSIUM LEVEL 10/12/2026 10/12/2025, 09/16, 03/13/2025, Additional history exists COLONOSCOPY 10/22/2028 06/25/2025, 06/2023, 06/23/2018 COLORECTAL CANCER SCREENING 10/22/2028 LIPID PANEL 10/12/2030 10/12/2025, 06/0 05/2024, 01/23/2022, Additional history exists Adult Td,Tdap Booster 08/26/2035 08/26/2025 , 06/07/2020, 01/19/2013, Additional history exists PNEUMOCOCCAL VACCINES (50+ years) Completed 12/03/2016, 10/09/2015, 10/01/2015 OSTEOPOROSIS SCREENING INITIAL (ONE-TIME) Completed 08/17/2019 ZOSTER VACCINES Completed 08/20/2020, 08/17, 01/19/2013 INFLUENZA VACCINE Completed 08/16/2025, , 11/25/2023, Additional history exists SMOKING STATUS SCREENING (Once After 26 Yrs) Completed 08/16/2025 RSV VACCINE Completed 08/20/2025 HEPATITIS C SCREENING Completed 10/12/2025 HEPATITIS A VACCINES Aged Out No long [...] this topic Medical Devices Implanted Type Area Screen Tender Device Identifier Shelf Expiration Date Model / Serial / Lot Right Hip Reedley Suture 6.5mm Cuff Wedge Titanium Bx/5ea - [id number] Implanted:Qty: 1 on 08/18/2018 by Prince Rodriguez MD at [facility] Left: Shoulder [employer] ENDOSCOPY 03/09/2020 3910-100- [id number] / / [id number] Description:The implant type , laterality (when applicable), size, and expiration date have been visually and verbally confirmed by the Surgeon, Circulating RN and Scrub Personnel. Reedley Suture 6.5mm Wedge Ii Titanium 2 Strand Force Fiber Bx/5ea - [id number] Implanted:Qty: 1 on 11/23/2019 by Prince Rodriguez MD at [facility] Right: Shoulder [employer]MIN ENDOSCOPY 04/27/2021 3910-100- [id number] / / [id number] Description:The implant type , laterality (when applicable), size, and expiration date have been visually and verbally confirmed by the Surgeon, Circulating RN and Scrub Personnel. Reedley Suture 6.5mm Wedge Ii Titanium 2 Strand Force Fiber Bx/5ea - [id number] Implanted:Qty: 1 on 11/23/2019 by Prince Rodriguez MD at [facility] Right: Shoulder [employer]MIN ENDOSCOPY 01/22/2021 3910-100- 045 / / [id number] Description:The implant type , laterality (when applicable), size, and expiration date have been visually and verbally confirmed by the Surgeon, Circulating RN and Scrub Personnel. Procedures Procedure Name Priority Date/Time Associated Diagnosis Comments CT ABDOMEN (RENAL MASS) WITH AND WITHOUT CONTRAST Routine 10/18/2025 3:05 PM EST Renal mass BASIC METABOLIC PANEL (BMP) Routine 10/12/2025 3:58 PM EST Right renal mass CBC AND DIFFERENTIAL Routine 10/12/2025 3:52 PM EST Screening for condition CBC AND DIFFERENTIAL Routine 10/12/2025 3:52 PM EST Screening for condition COMPREHENSIVE METABOLIC PANEL (CMP) Routine 10/12/2025 3:52 PM EST Screening for condition LIPID PANEL Routine 10/12/2025 3:52 PM EST Mixed hyperlipidemia HEPATITIS C ANTIBODY, QUALITATIVE Routine 10/12/2025 3:52 PM EST Need for hepatitis C screening test OUTSIDE XR SPINE REPORT ONLY Routine 09/18/2025 12:12 PM EST OUTSIDE XR IMAGING REPORT ONLY Routine 09/18/2025 9:24 AM EST LACERATION REPAIR Routine 08/26/2025 4:5 6 PM EDT Laceration of skin of left hand, initial encounter FECAL IMMUNOCHEMICAL BLOOD TEST X1 (FIT) Routine 08/07/2025 5:07 PM EDT Anemia, unspecified type HM COLONOSCOPY FOR RESULT ENTRY ONLY Routine 06/25/2025 BI MAMMOGRAM SCREENING WITH TOMOSYNTHESIS WITH CAD (BILATERAL) Routine 02/27/2025 7:55 AM EDT Breast screening BD DXA AXIAL (SPINE) WITH HIP Routine 08/17/2019 7:59 AM EDT Screening for condition from Last 3 Months or Most Recently Relevant to Health Maintenance Results * CT ABDOMEN (RENAL MASS) WITH AND WITHOUT CONTRAST (10/18/2025 3:05 PM EST) Anatomical Region Laterality Modality Abdomen, Abdominal Vasculature C omputed Tomography 10/18/2025 3:37 PM EST Impressions 10/18/2025 4:41 PM EST 1. Diminished conspicuity of superior medial right renal mass, a reassuring current appearance. 2. No suspicious pancreatic mass identified. Small cystic lesions shown previously are not well seen on CT but given very small size and essentially normal appearance to the pancreas on current study, no recommendation for further action at this time. 3. Stable appearance to liver lesions including right lobe cysts and cavernous hemangioma. 4. Recommend follow-up CT in one year to document stability of renal lesion and prove there is no developing concerning pancreatic abnormality. 5. Patient was seen in the IR section of [facility] following CT scanning and imaging findings and recommendations were directly relayed to her. At her request an order for the follow-up scan in one year was placed. Narrative 10/18/2025 4:[address] ABDOMEN (RENAL MASS) WITH AND WITHOUT CONTRAST Referring clinician's provided indication for this examination in Epic: * Renal mass, normal renal function; follow-up 7 mm superior, medial right renal mass Additional clinical history: Previous MRI demonstration of small 3-4 mm low- density cystic lesions. Hepatic cyst and cavernous hemangioma. Chronic severe back pain. TECHNIQUE: Multidetector-row CT of the abdomen was performed before and after administration of intravenous contrast using tailored dose modulation techniques. Images were reconstructed in the axial, coronal, and sagittal planes COMPARISON: MRI abdomen with and without contrast 04/16/[address] abdomen and pelvis with IV contrast 03/20/2025. FINDINGS: Lower Chest: Linear opacities again seen at both lung bases, present previously; therefore, most consistent with chronic atelectasis/scar. No effusion. Liver: 1.9 and 3.3 cm cyst within right lobe of the liver, lower segment 8 and mid to upper posterior lateral segment 7. Cavernous hemangioma bridging segments 6-7 measuring roughly 3.5 x 4.3 cm transversely. 1.0 x 1.4 cm sagittal diameter hypodense non-simple cystic mass evident within the anterior medial liver segment 8 (7:10 and 11:80). No suspicious liver mass. Biliary: Normal. No biliary ductal dilatation. Spleen: Normal. No splenomegaly or focal lesions. Pancreas: Subtle hypodensity within the anterior aspect of the mid pancreatic body (e.g. 3:159 may represent one of the cystic lesion shown on recent CT. No suspicious pancreatic mass identified. No enhancement or adjacent fat stranding. Adrenal Glands: Normal. No nodules. Kidneys/Ureters: Low density mass affecting the superior medial right kidney is quite subtle on current examination, best seen on coronal postcontrast enhanced images (10:61) measuring approximately 6 mm, mildly smaller than that shown previously. No suspicious renal mass evident currently. No calculi or hydronephrosis. No ureteral dilation. Bowel: Gas and debris filled duodenal diverticulum projects from junction of second and third portions of the duodenum. No intestinal dilation, mural thickening or adjacent fat stranding Peritoneum/Retroperitoneum: No ascites, focal fluid collection, mass or ectopic gas. Lymph Nodes: Normal. No lymphadenopathy. Vessels: Mural calcification without aneurysmal dilation or flow-limiting stenosis affects aorta and proximal iliac arteries. Normal appearance to the IVC and portal veins. Bones/Soft Tissues: Moderate severity scoliosis convex right mid abdomen with associated degenerative changes affecting disc spaces and facet joints. No aggressive focal bony lesion identified. Procedure Note Vladimir Mccoy MD - 10/18/2025 CT ABDOMEN (RENAL MASS) WITH AND WITHOUT CONTRAST Referring clinician's provided indication for this examination in Epic: *Renal mass, normal renal function; follow-up 7 mm superior, medial rightrenal mass Additional clinical history: Previous MRI demonstration of small 3-4 mmlow- density cystic lesions. Hepatic cyst and cavernous hemangioma. Chronicsevere back pain. TECHNIQUE: Multidetector-row CT of the abdomen was performed before andafter administration of intravenous contrast using tailored dosemodulation techniques. Images were reconstructed in the axial, coronal,and sagittal planes COMPARISON: MRI abdomen with and without contrast 04/16/[address] abdomenand pelvis with IV contrast 03/20/2025. FINDINGS: Lower Chest: Linear opacities again seen at both lung bases, presentpreviously; therefore, most consistent with chronic atelectasis/scar. Noeffusion. Liver: 1.9 and 3.3 cm cyst within right lobe of the liver, lower segment 8and mid to upper posterior lateral segment 7. Cavernous hemangiomabridging segments 6-7 measuring roughly 3.5 x 4.3 cm transversely. 1.0 x1.4 cm sagittal diameter hypodense non-simple cystic mass evident withinthe anterior medial liver segment 8 (7:10 and 11:80). No suspicious livermass. Biliary: Normal. No biliary ductal dilatation. Spleen: Normal. No splenomegaly or focal lesions. Pancreas: Subtle hypodensity within the anterior aspect of the midpancreatic body (e.g. 3:159 may represent one of the cystic lesion shownon recent CT. No suspicious pancreatic mass identified. No enhancement oradjacent fat stranding. Adrenal Glands: Normal. No nodules. Kidneys/Ureters: Low density mass affecting the superior medial rightkidney is quite subtle on current examination, best seen on coronalpostcontrast enhanced images (10:61) measuring approximately 6 mm, mildlysmaller than that shown previously. No suspicious renal mass evidentcurrently. No calculi or hydronephrosis. No ureteral dilation. Bowel: Gas and debris filled duodenal diverticulum projects from junctionof second and third portions of the duodenum. No intestinal dilation,mural thickening or adjacent fat stranding Peritoneum/Retroperitoneum: No ascites, focal fluid collection, mass orectopic gas. Lymph Nodes: Normal. No lymphadenopathy. Vessels: Mural calcification without aneurysmal dilation or flow- limitingstenosis affects aorta and proximal iliac arteries. Normal appearance tothe IVC and portal veins. Bones/Soft Tissues: Moderate severity scoliosis convex right mid abdomenwith associated degenerative changes affecting disc spaces and facetjoints. No aggressive focal bony lesion identified. IMPRESSION: 1. Diminished conspicuity of superior medial right renal mass, areassuring current appearance. 2. No suspicious pancreatic mass identified. Small cystic lesions shownpreviously are not well seen on CT but given very small size andessentially normal appearance to the pancreas on current study, norecommendation for further action at this time. 3. Stable appearance to liver lesions including right lobe cysts andcavernous hemangioma. 4. Recommend follow-up CT in one year to document stability of renallesion and prove there is no developing concerning pancreaticabnormality. 5. Patient was seen in the IR section of [facility] following CT scanning andimaging findings and recommendations were directly relayed to her. At herrequest an order for the follow-up scan in one year was placed. us Vladimir Mccoy MD IMG CT XSPECIALTY ORD ERABLES Final Result * (ABNORMAL) Basic Metabolic Panel (BMP) (10/12/2025 3:58 PM EST) Sodium 143 136 - 145 mmol/L 10/12/2025 7:16 PM [facility] Potassium 3.5 3.4 - 5.1 mmol/L 10/12/2025 7:16 PM [facility] Chloride 105 98 - 107 mmol/L 10/12/2025 7:16 PM [facility] CO2 30 20 - 31 mmol/L 10/12/2025 7:16 PM [facility] Anion Gap 8 3 - 17 mmol/L 10/12/2025 7:16 PM [facility] BUN 17 6 - 23 mg/dL 10/12/2025 7:16 PM [facility] Creatinine 0.80 0.50 - 1.00 mg/dL 10/12/2025 7:16 PM [facility] eGFR 77 >59 mL/min/1.7 3m2 10/12/2025 7:16 PM [facility] Comment:Estimated glomerular filtration rate calculated using the CKD-EPI refit equation. Glucose 120(H) 70 - 99 mg/dL 10/12/2025 7:16 PM [facility] Calcium 10.3 8.5 - 10.5 mg/dL 10/12/2025 7:16 PM [facility] Blood (Blood) Venipuncture / Unknown 10/12/2025 3:58 PM EST 10/12/2025 3:58 PM EST us Vladimir Mccoy MD LAB BLOOD BKR ORDERAB LES Final Result [facility] [address] [place] [address] * (ABNORMAL) Comprehensive Metabolic Panel (CMP) (10/12/2025 3:52 PM EST) Sodium 143 136 - 145 mmol/L 10/12/2025 7:12 PM [facility] Potassium 3.6 3.4 - 5.1 mmol/L 10/12/2025 7:12 PM [facility] Chloride 105 98 - 107 mmol/L 10/12/2025 7:12 PM [facility] CO2 31 20 - 31 mmol/L 10/12/2025 7:12 PM [facility] Anion Gap 7 3 - 17 mmol/L 10/12/2025 7:12 PM [facility] BUN 17 6 - 23 mg/dL 10/12/2025 7:12 PM [facility] Creatinine 0.80 0.50 - 1.00 mg/dL 10/12/2025 7:12 PM [facility] eGFR 77 >59 mL/min/1.7 3m2 10/12/2025 7:12 PM [facility] Comment:Estimated glomerular filtration rate calculated using the CKD-EPI refit equation. Glucose 122(H) 70 - 99 mg/dL 10/12/2025 7:12 PM [facility] Calcium 10.5 8.5 - 10.5 mg/dL 10/12/2025 7:12 PM [facility] AST 28 <33 U/L 10/12/2025 7:12 PM [facility] ALT 30 <34 U/L 10/12/2025 7:12 PM [facility] Alkaline Phosphatase 156(H) 40 - 130 U/L 10/12/2025 7:12 PM [facility] Bilirubin, Total 0.2 0.0 - 1.2 mg/dL 10/12/2025 7:12 PM [facility] Total Protein 6.7 6.4 - 8.3 g/dL 10/12/2025 7:12 PM [facility] Albumin 4.0 3.5 - 5.2 g/dL 10/12/2025 7:12 PM [facility] Globulin 2.7 1.9 - 4.1 g/dL 10/12/2025 7:12 PM [facility] Blood (Blood) Venipuncture / Unknown 10/12/2025 3:52 PM EST 10/12/2025 3:52 PM EST us Pippa Shirley MD LAB BLOOD BKR ORDERABLES Fi nal Result [facility] [address], [place] [id number] * (ABNORMAL) CBC and Differential (10/12/2025 3:52 PM EST) WBC 7.99 4.00 - 11.00 K/uL 10/12/2025 6:59 PM [facility] RBC 3.89(L) 4.00 - 5.20 M/uL 10/12/2025 6:59 PM [facility] Hemoglobin 12.0 12.0 - 16.0 g/dL 10/12/2025 6:59 PM [facility] Hematocrit 36.3 36.0 - 46.0 % 10/12/2025 6:59 PM [facility] MCV 93.3 80.0 - 100.0 fL 10/12/2025 6:59 PM [facility] MCH 30.8 27.0 - 31.0 pg 10/12/2025 6:59 PM [facility] MCHC 33.1 32.0 - 36.0 g/dL 10/12/2025 6:59 PM [facility] MPV 10.3 8.4 - 12.0 fL 10/12/2025 6:59 PM [facility] RDW-CV 13.3 11.5 - 14.5 % 10/12/2025 6:59 PM [facility] PLT 286 150 - 450 K/uL 10/12/2025 6:59 PM [facility] Neutrophils 72.6 % 10/12/2025 6:59 PM [facility] Lymphocytes 18.0 % 10/12/2025 6:59 PM [facility] Monocytes 6.5 % 10/12/2025 6:59 PM [facility] Eosinophils 2.0 % 10/12/2025 6:59 PM [facility] Basophils 0.4 % 10/12/2025 6:59 PM [facility] Imm Grans 0.5 % 10/12/2025 6:59 PM [facility] NRBC 0.0 <=0.0 /100 WBCs 10/12/2025 6:59 PM [facility] Absolute Neutrophils 5.80 1.92 - 7.60 K/uL 10/12/2025 6:59 PM [facility] Absolute Lymphocytes 1.44 0.72 - 4.10 K/uL 10/12/2025 6:59 PM [facility] Absolute Monocytes 0.52 0.16 - 1.10 K/uL 10/12/2025 6:59 PM [facility] Absolute Eosinophils 0.16 0.00 - 0.50 K/uL 10/12/2025 6:59 PM [facility] Absolute Basophils 0.03 0.00 - 0.15 K/uL 10/12/2025 6:59 PM [facility] Absolute Imm Grans 0.04 0.00 - 0.09 K/uL 10/12/2025 6:59 PM [facility] Absolute NRBC 0.00 <=0.00 K cells/uL 10/12/2025 6:59 PM [facility] Absolute Neutrophils 5.80 1.92 - 7.60 K/uL 10/12/2025 6:59 PM [facility] Comment:Automated cell count . Manual ANC may differ if performed. Diff Type Auto 10/12/2025 6:59 PM [facility] Blood (Blood) Venipuncture / Unknown 10/12/2025 3:52 PM EST 10/12/2025 3:52 PM EST us Pippa Shirley MD LAB BLOOD BKR ORDERABLES Fi nal Result [facility] [address] [place] [address] * Hepatitis C Antibody (10/12/2025 3:52 PM EST) [facility] Hepatitis C Antibody Non-Reacti ve Non-Reacti ve 10/12/2025 7:29 PM [facility] Blood (Blood) Venipuncture / Unknown 10/12/2025 3:52 PM EST 10/12/2025 3:52 PM EST Narrative [facility] - 10/12/2025 7:29 PM EST Test performed by Giorgi electrochemiluminescent immunoassay (ECLIA). Pippa Shirley MD LAB BLOOD BKR ORDERABLES Fi nal Result [facility] [address] [place] [address] * (ABNORMAL) Lipid Panel (10/12/2025 3:52 PM EST) [facility] Cholesterol 212(H) <200 mg/dL 10/12/2025 7:12 PM [facility] HDL 71 >=40 mg/dL 10/12/2025 7:12 PM [facility] Calculated LDL 118 <130 mg/dL 10/12/2025 7:12 PM [facility] Comment:LDL is calculated us ing the Hurtado-NIH equation (JOURDAN Cardiol. 2019March 15;5(5):540-548). Non-HDL Cholesterol 141 mg/dL 10/12/2025 7:12 PM [facility] Comment:Guidelines suggest a non-HDL cholesterol goal 30 mg/dL higher than the patient-specific LDL cholesterol goal. Cardiac Risk Ratio 3.0 0.0 - 5.0 2024 7:12 PM [facility] Triglycerides 130 <=150 mg/dL 10/12/2025 7:12 PM [facility] Blood (Blood) Venipuncture / Unknown 10/12/2025 3:52 PM EST 10/12/2025 3:52 PM EST Pippa Shirley MD LAB BLOOD BKR ORDERABLES Fi nal Result [address] [address] * Outside XR Spine Report Only (09/18/2025 12:12 PM EST) Historical Provider MD CHAVEZ XR SPINE Final Res ult * Outside XR Imaging Report Only (09/18/2025 9:24 AM EST) Historical Provider MD CHAVEZ XR CHEST Final Res ult * LACERATION REPAIR (08/26/2025 4:56 PM EDT) [...] the procedure well with no immediate complications Yrn trujillo PA-C PROCEDURE/MINOR SURGICAL ORDERABLES Final Result * Fecal immunochemical test x1 (FIT) (08/07/2025 5:07 PM EDT) Immuno Fecal Occult Negative Negative [facility] Stool (Stool) 08/07/2025 5:0 7 PM EDT 08/07/2025 5:10 PM EDT Pippa Shirley MD LAB BODY FLUIDS AND STOOL O RDERABLES Final Result [facility] [address] [place] [address] * COLONOSCOPY FOR RESULT ENTRY ONLY (06/25/2025) Colonoscopy External Historical Provider HEALTH MAINTENANCE Final Result * BI MAMMOGRAM SCREENING WITH TOMOSYNTHESIS WITH [...] IMG MG EXAMS Final Resul t * BD DXA AXIAL (SPINE) WITH HIP (08/17/2019 7:59 AM EDT) Anatomical Region Laterality Modality Bone Density Bone Density 08/17/2019 8:11 AM EDT Impressions 08/17/2019 8:13 AM EDT New lumbar spine osteopenia. Normal left hip bone density. POS - [id number] Narrative 08/17/2019 8:13 AM EDT COMPARISON: 01/05/2007. [...] the left hip was calculated at 0.924 gm/vh9uzcc a T-score of -0.2 falling within the WHO classification of normal.Z-score of 1.3. IMPRESSION: New lumbar spine osteopenia. Normal left hip bone density. POS - [id number] Best Aaron MD IMG BD BONE DENSITY DEXA Jennifer l Result from Last 3 Months or Most Recently Relevant to Health Maintenance Insurance MEDICARE PART A & B [facility] MEDICARE PART A & B [facility] MED[facility]ARE PART A & B [facility] MEDICARE PART A & [place] [address] [place] [address] MEDICARE PART A & B [facility] MEDICARE PART A & B [facility] MEDICARE PART A & B [facility] MEDICARE PART A & B [facility] MEDICARE PART A & B [facility] MEDICARE PART A & B [facility] Advance Directives For more information, please contact: [phone] (9AM - 5PM [facility], Wednesday-Wednesday) Documents on File Type Date Recorded Patient Tool Lapper Hand Expl gt Healthcare Proxy 01/06/2021 Living Will 01/06/2021 * Full Code (Latest Code Status on File) Date Activated Date Inactivated Comments 01/08/2021 12:24 PM Question Answer Comments Code Status Confirmed With: Patient Healthcare Agents on File Name Relationship Healthcare Agent Marya gastelum Communication Lola Marques Daughter .Primary Health Care Agent (Proxy form on file) [email or web address] Care Teams Canal Lock Tender Chief Operator Relationship Specialty Start Date End Date Pippa Shirley MD [address] [place] [address], [facility] [address] [place] [address] [email or web address] PCP - General Family Medicine 02/10/24 Jailyn Grewal DO [address] [place] [address] 7 [place] [address] Historical LMR Provider 09/04/17 Bettye Amaro CNP [address] [place] [address], 2nd [place] [address] Historical LMR Provider 09/04/17 Ninoska Sanchez MD [address] [place] [address] 7 [place] [address] Historical LMR Provider 09/04/17 Best Aaron MD [address] [place] [address] 7 [place] [address] Historical LMR Provider 09/04/17 Saurav Cornelius MD [address] [place], [place] [address] [place] [id number] [email or web address] Historical LMR Provider 09/04/17 Pippa Shirley MD [address] [place] [address] [address] [place] [address] [email or web address] Insurance Assigned Provider 02/18/25 Additional Source Comments The information contained in this document represents components of the legal health record. It is not the complete legal health record.[facility]
--- OUTSIDE RECORDS SUMMARY | 2025-10-25 19:23 | XMS_ITS | Encounter Summary ---
Author Organization [facility] Address [address] [employer] [address] [facility] [address] [place] [address] Phone Care Team Providers Care Patrol Officer Name Role Phone Jailyn Grewal DO Unavailable Sondra Bettyeminh Leggett CHANNEL LIP WETTER Unavailable Ninoska Sanchez MD Unavailable Best Aaron MD Unavailable Saurav Cornelius MD Unavailable Pippa Shirley MD Primary Care Provider Jailyn Grewal DO Unavailable Pippa Shirley MD Unavailable Encounter Details Date Type Department Care Team (Latest Contact Info) Description 09/05/2024 Transcribe Orders [facility] Department [address] [place] [address] Pippa Shirley MD [address] [facility], [address] [place] [address] [email or web address] Breast screening (Primary Dx) Social History Tobacco [...] Description 12/20/2025 2:00 PM EST Office Visit [address] [address] Pippa Shirley MD [address] [place] [address] [email or web address] 12/31/2025 11:30 AM EST Office Visit [facility] [address] [place] [address] Unknown, Unknown, Angela Sen PA-C [address] [place] [address] 02/28/2026 8:30 AM EDT Office Visit [facility] Neurology [address] [place] [address] [place] [address] Albert Lynn MD [address] [facility], 2nd [place] [address] 03/11/2026 5:30 PM EDT Appointment [facility], Bone Density - [facility] [address] [place] [address] Pippa Shirley MD [address] [place] [address] 7 [place] [address] [email or web address] documented as of this encounter [...] documented as of this encounter Care Teams Patrol Officer Relationship Specialty Start Date End Date Pippa Shirley MD [address] [place] [address], [address] [place] [address] [email or web address] PCP - General Family Medicine 02/10/24 Jailyn Grewal DO [address] [place] [address], [address] [place] [address] Historical LMR Provider 09/04/17 Bettye Amaro CNP [address] [place] [address], 2nd [place] [address] Historical LMR Provider 09/04/17 Ninoska Sanchez MD [address] [place] [address] 7 [place] [address] Historical LMR Provider 09/04/17 Best Aaron MD [address] [place] [address] 7 [place] [address] Historical LMR Provider 09/04/17 Saurav Cornelius MD [address] [place], [place] [address] [place] [phone] [email or web address] Historical LMR Provider 09/04/17 Jailyn Grewal DO [address] [place] [address] 7 [place] [address] [email or web address] Insurance Assigned Provider 02/19/24 Pippa Shirley MD [address] [place] [address] 7 [place] [address] [email or web address] Insurance Assigned Provider 02/18/25 documented as of this encounter Additional Source Comments The information contained in this document represents components of the legal health record. It is not the complete legal health record.[facility]
--- OUTSIDE RECORDS SUMMARY | 2025-10-25 19:23 | XMS_ITS | Encounter Summary ---
Author Organization [facility] Address [facility] [address] [place] [address] Phone Care Team Providers Care Stitch Bonding Machine Tender Helper Name Role Phone Alysa Benito SPREADING MACHINE OPERATOR Unavailable Jailyn Grewal DO Unavailable Esperanza Cisneros SPREADING MACHINE OPERATOR Unavailable Bettye Amaro MANAGER COMPLETIONS Unavailable Caprice Johns SPREADING MACHINE OPERATOR Unavailable [phone] Noe Fitzpatrick MD Unavailable Adelaida Awad MD Unavailable Kadi Nazario SPREADING MACHINE OPERATOR Unavailable Ninoska Sanchze MD Unavailable Best Aaron MD Unavailable Yashira Felix SPREADING MACHINE OPERATOR Unavailable [phone] Belinda Wolfe MD Unavailable [phone] Carlos Miranda MD Unavailable Juanis Boyd MD Unavailable Saurav Cornelius MD Unavailable Giulia Alarcon MD Unavailable Albert eLy MD Unavailable [phone] Luis Carlos De Jesus MANAGER COMPLETIONS Unavailable Best Aaron MD Unavailable Best Aaron MD Primary Care Provider [phone] [facility] MD Primary Care Provider [phone] Jailyn Grewal DO Unavailable [phone] Pippa Shirley MD Unavailable [phone] Encounter Details Date Type Department Care Team (Latest Contact Info) Description 04/03/2021 Transcribe Orders Virtual Department [address] [place] [address] Shaina eHbert MD [address] [place] [address], [facility] [address] [place] [address] [email or web address] Breast screening [...] high school, GED, job training, learning the [place]ine[place] language, technical skills, or developing parenting skills)? [...] Description 12/20/2025 2:00 PM EST Office Visit [address] [address] Pippa Shirley MD [address] [place] [address], [address] [place] [address] [email or web address] 12/31/2025 11:30 AM EST Office Visit [facility] 10 [place] [address] Unknown, Unknown, Angela Sen PA-C [address] [place] [address] 02/28/2026 8:30 AM EDT Office Visit [facility] Neurology [address] [place] [address] lAbert Lynn MD [address] [facility], 2nd [place] [address] [email or web address] 03/11/2026 5:30 PM EDT Appointment [facility], Bone Density - [facility] 30 [place] [address] Pippa Shirley MD [address] [place] [address], [address] [place] [address] [email or web address] documented as of this encounter Results * [...] documented as of this encounter Care Teams Stitch Bonding Machine Tender Helper Relationship Specialty Start Date End Date Best Aaron MD [address] [facility], [facility] 7 [place] [address] PCP - General Family Medicine 10/19/19 02/09/24 Pippa Shirley MD [address] [facility], [facility] 7 [place] [address] [email or web address] PCP - General Family Medicine 02/10/24 Alysa Benito NP 1 [facility] [place] [address] Historical LMR Provider 09/04/17 2 Jailyn Grewal DO [address] [place] [address], [facility] 7 [place] [address] Historical LMR Provider 09/04/17 Esperanza Cisneros, BRIEN [address] [place] [address] Historical LMR Provider 09/04/17 2 Bettye Amaro CNP [address] [place] [address] [email or web address] Historical LMR Provider 09/04/17 Caprice Johns NP [address] [place] [address] [email or web address] Historical LMR Provider 09/04/17 11/22/21 Noe Fitzpatrick MD [address] [place] [address] [email or web address] Historical LMR Provider 09/04/17 11/22/21 Adelaida Awad MD [address] [place] [address] [email or web address] Historical LMR Provider 09/04/17 Kadi Nazario NP [address] [place] [address] Historical LMR Provider 09/04/17 2 Ninoska Sanchez MD [address] [place] [address] 7 [place] [address] [email or web address] Historical LMR Provider 09/04/17 Best Aaron MD [address] [place] [address] [email or web address] Historical LMR Provider 09/04/17 Yashira Felix NP 30 [place] [address] Historical LMR Provider 09/04/17 2 Belinda Wolfe MD [address], [place] [address] Historical LMR Provider 09/04/17 2 Carlos Miranda MD [address] [place] [address] [email or web address] Historical LMR Provider 09/04/17 11/22/21 Juanis Boyd MD [address] [place] [address] [email or web address] Historical LMR Provider 09/04/17 11/22/21 Saurav Cornelius MD [address] [place], [place] [address] [place] [address] [email or web address] Historical LMR Provider 09/04/17 Giulia Alarcon MD [address] [place] [address] Historical LMR Provider 09/04/17 11/22/21 Albert Ley MD 61 [place] [address] Historical LMR Provider 09/04/17 2 Luis Carlos De Jesus CNP [address] [place] [address], [address] [place] [address] Historical LMR Provider 09/04/17 Best Aaron MD [address] [place] [address], [address] [place] [address] [email or web address] Insurance Assigned Provider 09/18/17 02/19/24 Jailyn Grewal DO [address] [place] [address], [facility] 7 [place] [address] Insurance Assigned Provider 02/19/24 02/18/25 Pippa Shirley MD [address] [place] [address], [address] [place] [address] [email or web address] Insurance Assigned Provider 02/18/25 documented as of this encounter Additional Source Comments The information contained in this document represents components of the legal health record. It is not the complete legal health record.[facility]
--- OUTSIDE RECORDS SUMMARY | 2025-10-25 19:23 | XMS_ITS | Encounter Summary ---
Author Organization [facility] Address [facility] [address] [place] [address] Phone Care Team Providers Care Heat Treat Technician Name Role Phone Alysa Benito CELL PREPARER Unavailable Jailyn Grewal DO Unavailable Esperanza Cisneros CELL PREPARER Unavailable Bettye Amaro NEWCOMER HOSTESS Unavailable Caprice Johns CELL PREPARER Unavailable [phone] Noe Fitzpatrick MD Unavailable Adelaida Awad MD Unavailable Kadi Nazario CELL PREPARER Unavailable Ninoska Sanchez MD Unavailable Best Aaron MD Unavailable Yashira Felix CELL PREPARER Unavailable [phone] Belinda Wolfe MD Unavailable [phone] Carlos Miranda MD Unavailable Juanis Boyd [...] st Contact Info) Description 01/08/2021 Procedure Pass [facility] Periop [address] [place] [address] Social History Tobacco Use Types Packs/Day Years [...] 9:00 PM EST Reshma Sanders RN * [place] Suicide Severity Rating Scale (Screener/Recent Self-Report) Question Answer Date of Assessment Author 1. Wish to be (Past 1 Month) No 01/08/2021 9:00 PM Corrine Watkins RN 2. Non-Specific Active Suicidal Thoughts (Past 1 Month) No 01/08/2021 9:00 PM Corrine Watkins RN 6. Suicidal Behavior (Lifetime) No 01/08/2021 9:00 PM Corrine Watkins RN documented as of this encounter Plan of Treatment Upcoming Encounters Date Type Department Care Team (Late st Contact Info) Description 12/20/2025 2:00 PM EST Office Visit [address] [address] Pippa Shirley MD [address] [facility], [facility] 7 [place] [address] [email or web address] 12/31/2025 11:30 AM EST Office [facility]ology [facility] [address] [place] [address] Unknown, Unknown, Angela Sen PA-C [address] [place] [address] [email or web address] 02/28/2026 8:30 AM EDT Office Visit [facility] Neurology [address] [place] [address] Albert Lynn MD [address] [place] [address], 2nd [place] [address] 03/11/2026 5:30 PM EDT Appointment [facility], Bone [facility] - [facility] 30 [place] [address] Pippa Shirley MD [address] [facility], [address] [place] [address] [email or web address] documented as of this encounter Visit [...] documented as of this encounter Care Teams Heat Treat Technician Relationship Specialty Start Date End Date Best Aaron MD [address] [place] [address] 7 [place] [address] PCP - General Family Medicine 10/19/19 02/09/24 Pippa Shirley MD [address] [place] [address] 7 [place] [address] [email or web address] PCP - General Family Medicine 02/10/24 Alysa Benito NP [address] [place] [address] Historical LMR Provider 09/04/17 2 Jailyn Grewal DO [address] [place] [address] 7 [place] [address] Historical LMR Provider 09/04/17 Esperanza Cisneros NP 29 [place] [address] Historical LMR Provider 09/04/17 2 Bettye Amaro CNP [address] [place] [address] [email or web address] Historical LMR Provider 09/04/17 Caprice Johns CELL PREPARER [address] [place] [address] [email or web address] Historical LMR Provider 09/04/17 11/22/21 Noe Fitzpatrick MD [address] [place] [address] [email or web address] Historical LMR Provider 09/04/17 11/22/21 Adelaida Awad MD [address] [place] [address] [email or web address] Historical LMR Provider 09/04/17 Kadi Nazario, BRIEN [address] [place] [address] Historical LMR Provider 09/04/17 2 Ninoska Sanchez MD [address] [place] [address] 7 [place] [address] [email or web address] Historical LMR Provider 09/04/17 Best Aaron MD [address] [place] [address] 7 [place] [address] [email or web address] Historical LMR Provider 09/04/17 Yashira Felix NP [address] [place] [address] Historical LMR Provider 09/04/17 2 Belinda Wolfe MD [address] [place] [address] Historical LMR Provider 09/04/17 2 Carlos Miranda MD [address] [place] [address] Historical LMR Provider 09/04/17 11/22/21 Juanis Boyd MD [address] [place] [address] [email or web address] Historical LMR Provider 09/04/17 11/22/21 Saurav Cornelius MD [address] [place] [address] [place] [id number] [email or web address] Historical LMR Provider 09/04/17 Giulia Alarcon MD [address] [address] [email or web address] Historical LMR Provider 09/04/17 11/22/21 Albert Ley MD 61 [place] [address] Historical LMR Provider 09/04/17 2 Luis Carlos De Jesus, ROBERTO [address] [facility], [address] [place] [address] [email or web address] Historical LMR Provider 09/04/17 Best Aaron MD [address] [place] [address], [facility] 7 [place] [address] [email or web address] Insurance Assigned Provider 09/18/17 02/19/24 Jailyn Grewal DO [address] [place] [address], [facility] 7 [place] [address] [email or web address] Insurance Assigned Provider 02/19/24 02/18/25 Pippa Shirley MD [address] [place] [address], [facility] 7 [place] [address] [email or web address] Insurance Assigned Provider 02/18/25 documented as of this encounter Additional Source Comments The information contained in this document represents components of the legal health record. It is not the complete legal health record.[facility]
--- OUTSIDE RECORDS SUMMARY | 2025-10-25 19:23 | XMS_ITS | Encounter Summary ---
Author Organization [facility] Address Formerly [facility] [employer] [facility] [address] [place] [address] Phone Care Team Providers Care Sap Portal Developer Name Role Phone Jailyn Grewal DO Unavailable Sondra Bettyeminh Leggett CLAIMS PROCESSOR Unavailable Ninoska Sanchez MD Unavailable [phone] Best Aaron MD Unavailable [phone] Saurav Cornelius MD Unavailable [phone] Best Aaron MD Unavailable Best Aaron MD Primary Care Provider [phone] Pippa Shirley MD Primary Care Provider [phone] Jailyn Grewal DO Unavailable Pippa Shirley MD Unavailable Encounter Details Date Type Department Care Team (Late st Contact Info) Description 05/15/2022 Procedure Pass [facility] - [address] [place] [address] Social History Tobacco Use Types Packs/Day Years [...] high school, GED, job training, learning the [place]se language, technical skills, or developing parenting skills)? [...] Description 12/20/2025 2:00 PM EST Office Visit [facility] [address] [place] [address] Pippa Shirley MD 234 [facility], [facility] 7 [place] [address] [email or web address] 12/31/2025 11:30 AM EST Office Visit [facility] 10 [place] [address] Unknown, Unknown, Angela Sen PA-C [address] [address] [email or web address] 02/28/2026 8:30 AM EDT Office Visit [facility] Neurology [address] [place] [address] Albert Lynn MD [address] [place] [address], 2nd [place] [address] [email or web address] 03/11/2026 5:30 PM EDT Appointment [facility], Bone [facility] - [address] [address] Pippa Shirley MD 234 [facility], [facility] 7 [place] [address] [email or web address] documented as of this encounter Visit Diagnoses Not on filedocumented in this encounter Additional Health Concerns Infection Onset Date Last Indicated Resolved Time CoV-Risk 11/23/2022 11/23/2022 12/04/2022 1:22 AM EST COVID-19 06/15/2023 06/15/2023 07/06/2023 1:23 AM EDT Assessment Noted Time PHQ-2 Depression Total Score: 1 06/06/20 19 9:11 AM EDT documented as of this encounter Care Teams Sap Portal Developer Relationship Specialty Start Date End Date Best Aaron MD [address] [place] [address], [facility] [address] [place] [id number] PCP - General Family Medicine 10/19/19 02/09/24 Pippa Shirley MD [address] [place] [address], [address] [place] [address] [email or web address] PCP - General Family Medicine 02/10/24 Jailyn Grewal DO [address] [place] [address], [address] [place] [id number] Historical LMR Provider 09/04/17 Bettye Amaro, ROBERTO [address] [place] [address], [address] [place] [address] [email or web address] Historical LMR Provider 09/04/17 Ninoska Sanchez MD [address] [place] [address], [address] [place] [address] [email or web address] Historical LMR Provider 09/04/17 Best Aaron MD [address] [place] [address] 7 [place] [address] [email or web address] Historical LMR Provider 09/04/17 Saurav Cornelius MD [address] [place], [place] [address] [place] [phone] [email or web address] Historical LMR Provider 09/04/17 Best Aaron MD [address] [place] [address] 7 [place] [address] Insurance Assigned Provider 09/18/1702/19/24 Jailyn Grewal DO [address] [place] [address], [address] [place] [address] [email or web address] Insurance Assigned Provider 02/19/24 Pippa Shirley MD [address] [place] [address], [facility] 7 [place] [address] [email or web address] Insurance Assigned Provider 02/18/25 documented as of this encounter Additional Source Comments The information contained in this document represents components of the legal health record. It is not the complete legal health record.[facility]
--- OUTSIDE RECORDS SUMMARY | 2025-10-25 19:23 | XMS_ITS | Encounter Summary ---
Author Organization [facility] Address [facility] [employer] [facility] [address] [place] [address] Phone Care Team Providers Care Roto Rooter Operator Name Role Phone Jailyn Grewal DO Unavailable Sondra Bettyeminh Leggett HONING MACHINE OPERATOR Unavailable Ninoska Sanchez MD Unavailable [phone] Best Aaron MD Unavailable [phone] Saurav Cornelius MD Unavailable [phone] Best Aaron MD Unavailable Best Aaron MD Primary Care Provider Pippa Shirley MD Primary Care Provider [phone] Jailyn Grewal DO Unavailable Pippa Shirley MD Unavailable [phone] Encounter Details Date Type Department Care Team (Latest Contact Info) Description 05/15/2022 Transcribe Orders Virtual Department 30 [place] [address] Best Aaron MD [address] [place] [address], [address] [place] [address] [email or web address] Breast screening (Primary Dx) Social [...] high school, GED, job training, learning the Polish language, technical skills, or developing parenting skills)? [...] Description 12/20/2025 2:00 PM EST Office Visit [address] [address] Pippa Shirley MD 234 [facility], [facility] 7 [place] [address] [email or web address] 12/31/2025 11:30 AM EST Office Visit [facility] [address] [place] [address] Unknown, Unknown, Angela Sen PA-C [address] [address] [email or web address] 02/28/2026 8:30 AM EDT Office Visit [facility] Neurology [address] [place] [address] Albert Lynn MD [address] [place] [address], 2nd [place] [address] [email or web address] 03/11/2026 5:30 PM EDT Appointment [facility], Bone Density - [address] [address] Pippa Shirley MD 234 [facility] 7 [place] [address] [email or web address] documented as of this encounter Results * [...] Negative. DENSITY: There are scattered fibroglandular densities. Best Aaron MD IMG MG EXAMS Final [...] documented as of this encounter Care Teams Roto Rooter Operator Relationship Specialty Start Date End Date Best Aaron MD [address] [place] [address], [facility] 7 [place] [phone] PCP - General Family Medicine 10/19/19 02/09/24 Pippa Shirley MD [address] [place] [address] 7 [place] [address] [email or web address] PCP - General Family Medicine 02/10/24 Jailyn Grewal DO [address] [place] [address] 7 [place] [address] Historical LMR Provider 09/04/17 Bettye Amaro, HONING MACHINE OPERATOR [address] [place] [address] Historical LMR Provider 09/04/17 Ninoska Sanchez MD [address] [place] [address] 7 [place] [id number] Historical LMR Provider 09/04/17 Best Aaron MD [address] [place] [address] 7 [place] [address] Historical LMR Provider 09/04/17 Saurav Cornelius MD [address] [place], [place] [address] [place] [phone] [email or web address] Historical LMR Provider 09/04/17 Best Aaron MD [address] [place] [address], [address] [place] [address] [email or web address] Insurance Assigned Provider 09/18/1702/19/24 Jailyn Grewal DO [address] [place] [address], [address] [place] [address] Insurance Assigned Provider 02/19/24 Pippa Shirley MD [address] [place] [address], [address] [place] [address] [email or web address] Insurance Assigned Provider 02/18/25 documented as of this encounter Additional Source Comments The information contained in this document represents components of the legal health record. It is not the complete legal health record.[facility]
--- OUTSIDE RECORDS SUMMARY | 2025-10-25 19:24 | XMS_ITS | Encounter Summary ---
Author Organization [facility] Address [facility] [address] [place] [address] Phone Care Team Providers Care Mold Shaker Name Role Phone Best Aaron MD Primary Care Provider Alysa Benito FINANCIAL AID COUNSELOR Unavailable Jailyn Grewal DO Unavailable [phone] Esperanza Cisneros FINANCIAL AID COUNSELOR Unavailable Bettye Amaro STUDIO CAMERA OPERATOR Unavailable Caprice Johns FINANCIAL AID COUNSELOR Unavailable [phone] Noe Fitzpatrick MD Unavailable Adelaida Awad MD Unavailable Kadi Nazario FINANCIAL AID COUNSELOR Unavailable Ninoska Sanchez MD Unavailable Best Aaron MD Unavailable Yashira Felix NP Unavailable [phone] Belinda Wolfe MD Unavailable [phone] Carlos Miranda MD Unavailable Juanis Boyd MD Unavailable Saurav Cornelius MD Unavailable Giulia Alarcon MD Unavailable Albert Ley MD Unavailable [phone] Luis Carlos De Jesus STUDIO CAMERA OPERATOR Unavailable Best Aaron MD Unavailable Best Aaron MD Primary Care Provider [phone] Pippa Shirley MD Primary Care Provider Jailyn Grewal DO Unavailable Pippa Shirley MD Unavailable [phone] Encounter Details Date Type Department Care Team (Late st Contact Info) Description 02/21/2018 Ancillary Orders [facility] [address] [phone] Best Aaron MD [address] [place] [address], [address] [place], [place] [phone] [email or web address] Breast screening Social History Tobacco Use Types [...] Description 12/20/2025 2:00 PM EST Office Visit [facility] [address] [place] [address] Pippa Shirley MD 234 [facility], [address] [place] [address] [email or web address] 12/31/2025 11:30 AM EST Office Visit [facility] 10 [place] [address] Unknown, Unknown, Angela Sen PA-C [address] [address] [email or web address] 02/28/2026 8:30 AM EDT Office Visit [facility] Neurology [address] [place] [address] Albert Lynn MD [address] [place] [address], 2nd [place] [address] [email or web address] 03/11/2026 5:30 PM EDT Appointment [facility], Bone Density - [facility] 30 [place] [address] Pippa Shirley MD 234 [facility], [address] [place] [address] [email or web address] documented as of [...] documented as of this encounter Care Teams Mold Shaker Relationship Specialty Start Date End Date Best Aaron MD [address] [place] [address] 7 [place] [address] [email or web address] PCP - General 09/02/17 10/18/19 Best Aaron MD [address] [place] [address] 7 [place] [address] [email or web address] PCP - General Family Medicine 10/19/19 02/09/24 Pippa Shirley MD [address] [place] [address] [email or web address] PCP - General Family Medicine 02/10/24 Alysa Benito FINANCIAL AID COUNSELOR [address] [place] [address] Historical LMR Provider 09/04/17 2 Jailyn Grewal DO [address] [place] [address] [email or web address] Historical LMR Provider 09/04/17 Esperanza Cisneros NP 29 [place] [address] Historical LMR Provider 09/04/17 2 Bettye Amaro CNP [address] [facility], 2nd [place] [address] [email or web address] Historical LMR Provider 09/04/17 Caprice Johns FINANCIAL AID COUNSELOR 30 [place] [address] [email or web address] Historical LMR Provider 09/04/17 11/22/21 Noe Fitzpatrick MD [address] [place] [address] [email or web address] Historical LMR Provider 09/04/17 11/22/21 Adelaida Awad MD [address] [place] [address] [email or web address] Historical LMR Provider 09/04/17 Kadi Nazario NP [address] [place] [address] Historical LMR Provider 09/04/17 2 Ninoska Sanchez MD [address] [place] [address] [email or web address] Historical LMR Provider 09/04/17 Best Aaron MD [address] [place] [address] [email or web address] Historical LMR Provider 09/04/17 Yashira Felix NP [address] [place] [address] Historical LMR Provider 09/04/17 2 Belinda Wolfe MD [address] [place] [address] Historical LMR Provider 09/04/17 2 Carlos Miranda MD [address] [place] [address] Historical LMR Provider 09/04/17 11/22/21 Juanis Boyd MD [address] [place] [address] 7 [place] [address] Historical LMR Provider 09/04/17 11/22/21 Saurav Cornelius MD [address] [place] [address] [address] [place] [phone] [email or web address] Historical LMR Provider 09/04/17 Giulia Alarcon MD [address] [place] [address] Historical LMR Provider 09/04/17 11/22/21 Albert Ley MD [address] [place] [address] Historical LMR Provider 09/04/17 2 Luis Carlos De Jesus, ROBERTO [address] [place] [address], [address] [place] [address] Historical LMR Provider 09/04/17 Best Aaron MD [address] [place] [address] 7 [place] [address] [email or web address] Insurance Assigned Provider 09/18/17 02/19/24 Jailyn Grewal DO [address] [place] [address] 7 [place] [address] [email or web address] Insurance Assigned Provider 02/19/24 02/18/25 Pippa Shirley MD [address] [place] [address] 7 [place] [address] [email or web address] Insurance Assigned Provider 02/18/25 documented as of this encounter Additional Source Comments The information contained in this document represents components of the legal health record. It is not the complete legal health record.[facility]
--- OUTSIDE RECORDS SUMMARY | 2025-10-25 19:24 | XMS_ITS | Encounter Summary ---
Author Organization [facility] Address [facility] [address] [place] [address] Phone Care Team Providers Care Trade Specialist Name Role Phone Alysa Benito JAIL MANAGER Unavailable Jailyn Grewal DO Unavailable Esperanza Cisneros JAIL MANAGER Unavailable Bettye Amaro POWER SAW MECHANIC Unavailable Caprice Johns JAIL MANAGER Unavailable Noe Fitzpatrick MD Unavailable Adelaida Awad MD Unavailable Kadi Nazario JAIL MANAGER Unavailable Ninoska Sanchez MD Unavailable Best Aaron MD Unavailable Yashira Felix JAIL MANAGER Unavailable [phone] Belinda Wolfe MD Unavailable [phone] Carlos Miranda MD Unavailable Juanis Boyd MD Unavailable Saurav Cornelius MD Unavailable Giulia Alarcon MD Unavailable Albert Ley MD Unavailable [phone] Luis Carlos De Jesus CNP Unavailable Best Aaron MD Unavailable Best Aaron MD Primary Care Provider [phone] Pippa Shirley MD Primary Care Provider Jailyn Grewal DO Unavailable Pippa Shirley MD Unavailable Encounter Details Date Type Department Care Team (Late st Contact Info) Description 04/10/2020 Ancillary Orders [facility] [address] [place] [address] Shaina Hebert MD [address] [place] [address], [address] [place] [address] [email or web address] Breast screening Social History Tobacco Use Types [...] 12/20/2025 2:00 PM EST Office Visit [facility] 234 [place] [address] Pippa Shirley MD 234 [facility], [address] [place] [address] [email or web address] 12/31/2025 11:30 AM EST Office Visit [facility] 10 [place] [address] Unknown, Unknown, Angela Sen PA-C [address] [address] [email or web address] 02/28/2026 8:30 AM EDT Office Visit [facility] Neurology [address] [place] [address] Albert Lynn MD [address] [place] [address], 2nd [place] [address] [email or web address] 03/11/2026 5:30 PM EDT Appointment [facility] - [facility] 30 [place] [address] Pippa Shirley MD 234 [facility], [address] [place] [address] [email or web address] documented as of this encounter [...] and compared with multiple prior studies, most sevpsnvy04/13/2019, with utilization of computer-aided detection. The breasts [...] documented as of this encounter Care Teams Trade Specialist Relationship Specialty Start Date End Date Best Aaron MD [address] [place] [address] 7 [place] [address] PCP - General Family Medicine 10/19/19 02/09/24 Pippa Shirley MD [address] [place] [address] 7 [place] [address] [email or web address] PCP - General Family Medicine 02/10/24 Alysa Benito NP 1 [place] [address] Historical LMR Provider 09/04/17 2 Jailyn Grewal DO [address] [place] [address] 7 [place] [address] [email or web address] Historical LMR Provider 09/04/17 Esperanza Cisneros NP [address] [place] [address] Historical LMR Provider 09/04/17 2 Bettye Amaro CNP [address] [facility], 2nd [place] [address] Historical LMR Provider 09/04/17 Caprice Johns NP [address] [place] [address] [email or web address] Historical LMR Provider 09/04/17 11/22/21 Noe Fitzpatrick MD [address] [place] [address] [email or web address] Historical LMR Provider 09/04/17 11/22/21 Adelaida Awad MD 15 [facility], 2nd [place] [address] [email or web address] Historical LMR Provider 09/04/17 Kadi Nazario, BRIEN [address] [place] [address] Historical LMR Provider 09/04/17 2 Ninoska Sanchez MD [address] [place] [address] [email or web address] Historical LMR Provider 09/04/17 Best Aaron MD [address] [place] [address] Historical LMR Provider 09/04/17 Yashira Felix NP [address] [place] [address] Historical LMR Provider 09/04/17 2 Belinda Wolfe MD [address] [place] [address] Historical LMR Provider 09/04/17 2 Carlos Miranda MD [address] [address] Historical LMR Provider 09/04/17 11/22/21 Juanis Boyd MD [address] [place] [address] 7 [place] [address] Historical LMR Provider 09/04/17 11/22/21 Saurav Cornelius MD [address] [place] [address] [address] [place] [phone] [email or web address] Historical LMR Provider 09/04/17 Giulia Alarcon MD [address] [place] [address] [address] [place] [address] [email or web address] Historical LMR Provider 09/04/17 11/22/21 Albert Ley MD [address] [place] [address] Historical LMR Provider 09/04/17 Luis Carlos Saldivar CNP [address] [place] [address], [address] [place] [address] Historical LMR Provider 09/04/17 Best Aaron MD [address] [place] [address] 7 [place] [address] Insurance Assigned Provider 09/18/17 02/19/24 Jailyn Grewal DO [address] [place] [address] 7 [place] [address] Insurance Assigned Provider 02/19/24 02/18/25 Pippa Shirley MD [address] [place] [address], [address] [place] [address] [email or web address] Insurance Assigned Provider 02/18/25 documented as of this encounter Additional Source Comments The information contained in this document represents components of the legal health record. It is not the complete legal health record.[facility]
--- OUTSIDE RECORDS SUMMARY | 2025-10-25 19:24 | XMS_ITS | Encounter Summary ---
Author Organization [facility] Address Formerly [facility] [employer] [facility] [address] [place] [address] Phone Care Team Providers Care Veterinary Practice Manager Name Role Phone Best Aaron MD Primary Care Provider [phone] Alysa Benito ELECTRONICS DESIGN ENGINEER Unavailable Jailyn Grewal DO Unavailable Esperanza Cisneros ELECTRONICS DESIGN ENGINEER Unavailable [phone] Bettye Amaro COLLEGE PROFESSOR Unavailable Caprice Johns ELECTRONICS DESIGN ENGINEER Unavailable Noe Fitzpatrick MD Unavailable Adelaida Awad MD Unavailable Kadi Nazario ELECTRONICS DESIGN ENGINEER Unavailable Ninoska Sanchez MD Unavailable Best Aaron MD Unavailable Yashira Felix NP Unavailable Belinda Wolfe MD Unavailable [phone] Carlos Miranda MD Unavailable Juanis Boyd MD Unavailable Saurav Cornelius MD Unavailable Giulia Alarcon MD Unavailable Albert Ley MD Unavailable [phone] Luis Carlos De Jesus COLLEGE PROFESSOR Unavailable Best Aaron MD Unavailable Best Aaron MD Primary Care Provider Pippa Shirley MD Primary Care Provider Jailyn Grewal DO Unavailable Pippa Shirley MD Unavailable Encounter Details Date Type Department Care Team (Late st Contact Info) Description 07/12/2018 Procedure Pass [address] [place] [address] Social History Tobacco Use Types Packs/Day Years [...] Description 12/20/2025 2:00 PM EST Office Visit [facility] [address] [place] [address] Pippa Shirley MD 234 [facility], [facility] 7 [place] [address] [email or web address] 12/31/2025 11:30 AM EST Office Visit [facility] 10 [place] [address] Unknown, Unknown, Angela Sen PA-C [address] [address] [email or web address] 02/28/2026 8:30 AM EDT Office Visit [facility] Neurology [address] [place] [address] Albert Lynn MD [address] [place] [address], 2nd [place] [address] [email or web address] 03/11/2026 5:30 PM EDT Appointment [facility], Bone Density - [facility] 30 [place] [address] Pippa Shirley MD [address] [facility], [facility] 7 [place] [address] [email or web address] documented as of this encounter Visit Diagnoses Not on filedocumented in this encounter Additional Health Concerns Infection Onset Date Last Indicated Resolved Time CoV-Exposed Comment:Dc from rehab facility 01/20 full PPE fro 14 days 01/23/2021 01/23/2021 02/04/2021 1:23 AM EDT CoV-Risk 03/10/2022 03/10/202203/2103/21/2022 1:24 AM EDT CoV-Risk 11/23/2022 11/23/2022 12/04/2022 1:22 AM EST COVID-19 06/15/2023 06/15/2023 07/06/2023 1:23 AM EDT Assessment Noted Time PHQ-2 Depression Total Score: 0 03/29/20 3:26 PM EDT documented as of this encounter Care Teams Veterinary Practice Manager Relationship Specialty Start Date End Date Best Aaron MD [address] [place] [address] 7 [place] [address] [email or web address] PCP - General 09/02/17 10/18/19 Best Aaron MD [address] [place] [address] 7 [place] [address] PCP - General Family Medicine 10/19/19 02/09/24 Pippa Shirley MD [address] [place] [address] 7 [place] [address] [email or web address] [place] [email or web address] PCP - General Family Medicine 02/10/24 Alysa Benito NP 1 [place] [address] Historical LMR Provider 09/04/17 2 Jailyn Grewal DO [address] [place] [address] 7 [place] [address] [email or web address] Historical LMR Provider 09/04/17 Esperanza Cisneros NP [address] [place] [address] Historical LMR Provider 09/04/17 2 Bettye Amaro, ROBERTO [address] [place] [address] [email or web address] Historical LMR Provider 09/04/17 Caprice Johns NP [address] [place] [address] [email or web address] Historical LMR Provider 09/04/17 11/22/21 Noe Fitzpatrick MD [address] [place] [address] [email or web address] Historical LMR Provider 09/04/17 11/22/21 Adelaida Awad MD [address] [place] [address] [email or web address] Historical LMR Provider 09/04/17 Kadi Nazario NP [address] [place] [address] Historical LMR Provider 09/04/17 2 Ninoska Sanchez MD [address] [place] [address] 7 [place] [address] [email or web address] Historical LMR Provider 09/04/17 Best Aaron MD [address] [place] [address] 7 [place] [address] [email or web address] Historical LMR Provider 09/04/17 Yashira Felix ELECTRONICS DESIGN ENGINEER 30 [place] [address] Historical LMR Provider 09/04/17 2 Belinda Wolfe MD [address] [place] [address] Historical LMR Provider 09/04/17 2 Carlos Miranda MD [address] [place] [address] Historical LMR Provider 09/04/17 11/22/21 Juanis Boyd MD [address] [place] [address] Historical LMR Provider 09/04/17 11/22/21 Saurav Cornelius MD [address] [place], [place] [address] [place] [phone] [email or web address] Historical LMR Provider 09/04/17 Giulia Alarcon MD [address] [place] [address] Historical LMR Provider 09/04/17 11/22/21 Albert Ley MD 61 [place] [address] Historical LMR Provider 09/04/17 2 Luis Carlos De Jesus, ROBERTO 22 [facility], [address] [place] [address] [email or web address] Historical LMR Provider 09/04/17 Best Aaron MD [address] [place] [address] 7 [place] [address] [email or web address] Insurance Assigned Provider 09/18/17 02/19/24 Jailyn Grewal DO [address] [place] [address] 7 [place] [address] [email or web address] Insurance Assigned Provider 02/19/24 02/18/25 Pippa Shirley MD [address] [place] [address], [facility] 7 [place] [address] [email or web address] Insurance Assigned Provider 02/18/25 documented as of this encounter Additional Source Comments The information contained in this document represents components of the legal health record. It is not the complete legal health record.[facility]
--- OUTSIDE RECORDS SUMMARY | 2025-10-25 19:24 | XMS_ITS | Encounter Summary ---
Author Organization [facility] Address Formerly [facility] [employer] [facility] [address] [place] [address] Phone Care Team Providers Care Oil Distributor Name Role Phone Best Aaron MD Primary Care Provider Alysa Benito MATERIAL DAMAGE APPRAISER Unavailable Jailyn Grewal DO Unavailable Esperanza Cisneros MATERIAL DAMAGE APPRAISER Unavailable Bettye Amaro HEAT TREAT FURNACE OPERATOR Unavailable Caprice Johns MATERIAL DAMAGE APPRAISER Unavailable [phone] Noe Fitzpatrick MD Unavailable Adelaida Awad MD Unavailable Kadi Nazario MATERIAL DAMAGE APPRAISER Unavailable Ninoska Sanchez MD Unavailable [phone] Best Aaron MD Unavailable IsidroYashira Mehdi MATERIAL DAMAGE APPRAISER Unavailable [phone] Belinda Wolfe MD Unavailable [phone] Carlos Miranda MD Unavailable Juanis Boyd MD Unavailable Saurav Cornelius MD Unavailable Giulia Alarcon MD Unavailable Albert Ley MD Unavailable [phone] Luis Carlos De Jesus HEAT TREAT FURNACE OPERATOR Unavailable Best Aaron MD Unavailable Best Aaron MD Primary Care Provider Pippa Shirley MD Primary Care Provider [phone] Jailyn Grewal DO Unavailable [phone] Pippa Shirley MD Unavailable [phone] Reason for Referral * Physical Therapy (Routine) - Closed Specialty Diagnoses / Procedures Referred By Burke gomez Referred To Contact Physical Therapy Diagnoses Encounter for rehabilitation Prince Rodriguez MD Phone: tel: fax: mailto:[email or web address] [address] [place] [address] Phone: tel: Referral ID Status Reason Start Date Expiration Date Visits Re quested Visits Authorized [id number] Closed 08/01/2018 08/01/2019 99 99 Encounter Details Date Type Department Care Team (Latest Contact Info) Description 08/01/2018 Transcribe Orders [facility] [address] [place] [address] Prince Rodriguez MD [address] [place] [address] [email or web address] Encounter for rehabilitation (Primary Dx) Social History [...] Description 12/20/2025 2:00 PM EST Office Visit [address] [address] Pippa Shirley MD [address] [place] [address] 7 [place] [address] [email or web address] 12/31/2025 11:30 AM EST Office Visit [facility] [address] [place] [address] Unknown, Unknown, Angela Sen PA-C [address] [place] [address] 02/28/2026 8:30 AM EDT Office Visit [facility] Neurology [address] [place] [address] Albert Lynn MD 22 [facility], 2nd [place] [address] 03/11/2026 5:30 PM EDT Appointment [facility], [facility] - [facility] [address] [place] [address] Pippa Shirley MD 234 [facility], [facility] 7 [place] [address] [email or web address] Scheduled Referrals Name Type Priority Associated Diagnoses Orde r Schedule Ambulatory referral to [facility] Physical Therapy Outpatient Referral Routine Encounter for [...] as of this encounter Care Teams Oil Distributor Relationship Specialty Start Date End Date Best Aaron MD [address] [place] [address], [facility] 7 [place] [address] [email or web address] PCP - General 09/02/17 10/18/19 Best Aaron MD [address] [place] [address] 7 [place] [address] [email or web address] PCP - General Family Medicine 10/19/19 02/09/24 Pippa Shirley MD [address] [place] [address], [facility] 7 [place] [address] [email or web address] PCP - General Family Medicine 02/10/24 Alysa Benito NP 1 [facility] [place] [address] Historical LMR Provider 09/04/17 2 Jailyn Grewal DO [address] [place] [address] 7 [place] [address] [email or web address] Historical LMR Provider 09/04/17 Esperanza Cisneros, BRIEN [address] [place] [address] Historical LMR Provider 09/04/17 2 Bettye Amaro CNP [address] [place] [address] [email or web address] Historical LMR Provider 09/04/17 Caprice Johns NP [address] [place] [address] [email or web address] Historical LMR Provider 09/04/17 11/22/21 Noe Fitzpatrick MD [address] [place] [address] [email or web address] Historical LMR Provider 09/04/17 11/22/21 Adelaida Awad MD [address] [place] [address] [email or web address] Historical LMR Provider 09/04/17 Kadi Nazario, BRIEN [address] [place] [address] Historical LMR Provider 09/04/17 2 Ninoska Sanchez MD [address] [place] [address] 7 [place] [address] [email or web address] Historical LMR Provider 09/04/17 Best Aaron MD [address] [place] [address] 7 [place] [address] [email or web address] Historical LMR Provider 09/04/17 Yashira Felix NP [address] [place] [address] Historical LMR Provider 09/04/17 2 Belinda Wolfe MD [address] [place] [address] Historical LMR Provider 09/04/17 2 Carlos Miranda MD [address] [place] [address] [email or web address] Historical LMR Provider 09/04/17 11/22/21 Juanis Boyd MD [address] [place] [address] [email or web address] Historical LMR Provider 09/04/17 11/22/21 Saurav Cornelius MD [address] [place], [place] [address] [place] [address] [email or web address] Historical LMR Provider 09/04/17 Giulia Alarcon MD [address] [place] [address] Historical LMR Provider 09/04/17 11/22/21 Albert Ley MD [address] [place] [address] Historical LMR Provider 09/04/17 2 Luis Carlos De Jesus, ROBERTO [address] [place] [address], [address] [place] [address] Historical LMR Provider 09/04/17 Best Aaron MD [address] [place] [address] 7 [place] [address] Insurance Assigned Provider 09/18/17 02/19/24 Jailyn Grewal DO [address] [place] [address] 7 [place] [address] Insurance Assigned Provider 02/19/24 02/18/25 Pippa Shirley MD [address] [place] [address] 7 [place] [address] [email or web address] Insurance Assigned Provider 02/18/25 documented as of this encounter Additional Source Comments The information contained in this document represents components of the legal health record. It is not the complete legal health record.[facility]
--- OUTSIDE RECORDS SUMMARY | 2025-10-25 19:24 | XMS_ITS | Encounter Summary ---
Author Organization [facility] Address [facility] [employer] [facility] [address] [place] [address] Phone Care Team Providers Care Price Lister Name Role Phone Best Aaron MD Primary Care Provider Alysa Benito SECURITY SYSTEMS MANAGER Unavailable [phone] Jailyn Grewal DO Unavailable Esperanza Cisneros SECURITY SYSTEMS MANAGER Unavailable Bettye Amaro GOSPEL WORKER Unavailable Caprice Johns SECURITY SYSTEMS MANAGER Unavailable [phone] Noe Fitzpatrick MD Unavailable Adelaida Awad MD Unavailable Kadi Nazario SECURITY SYSTEMS MANAGER Unavailable Ninoska Sanchez MD Unavailable Best Aaron MD Unavailable Yashira Felix NP Unavailable [phone] Belinda Wolfe MD Unavailable [phone] Carlos Miranda MD Unavailable Juanis Boyd MD Unavailable Saurav Cornelius MD Unavailable Giulia Alarcon MD Unavailable Albert Ley MD Unavailable [phone] Luis Carlos De Jesus GOSPEL WORKER Unavailable Best Aaron MD Unavailable Best Aaron MD Primary Care Provider Pippa Shirley MD Primary Care Provider [phone] Jailyn Grewal DO Unavailable Pippa Shirley MD Unavailable [phone] Encounter Details Date Type Department Care Team (Late st Contact Info) Description 03/10/2019 Ancillary Orders [facility] [address] [place] [address] Shaina Hebert MD [address] [place] [address], [address] [place] [address] [email or web address] Breast screening Social History Tobacco Use Types [...] Description 12/20/2025 2:00 PM EST Office Visit [facility] Medicine [address] [place] [address] Pippa Shirley MD 234 [facility], [address] [place] [address] [email or web address] 12/31/2025 11:30 AM EST Office Visit [facility] 10 [place] [address] Unknown, Unknown, Angela Sen PA-C [address] [address] [email or web address] 02/28/2026 8:30 AM EDT Office Visit [facility] Neurology [address] [place] [address] Albert Lynn MD 22 [facility], 2nd [place] [address] [email or web address] 03/11/2026 5:30 PM EDT Appointment [facility], [facility] - [facility] 30 [place] [address] Pippa Shirley MD 234 [facility], [facility] 7 [place] [address] [email or web address] documented as of this encounter Results * BI MAMMOGRAM SCREENING WITH TOMOSYNTHESIS WITH CAD (BILATERAL) (03/27/2019 10:54 AM EDT) Anatomical Region Laterality Modality Breast Left, Breast Right, Breast Bilateral Bila teral Mammography 03/27/2019 10:4 7 AM EDT Impressions 03/27/2019 10:49 AM EDT No mammographic change indicative of malignancy. Annual screening is recommended in light of family history. BI-RADS CATEGORY: 2 - Benign finding. DENSITY: There are scattered fibroglandular densities. POS -CDHMAMA Narrative 03/27/2019 10:49 AM EDT Bilateral full-field digital screening mammography is obtained and read in conjunction with computer-aided detection. Tomosynthesis as well as 2-D C view imaging of both breasts in two planes also obtained. Comparison made to multiple prior, most recent 03/24/2018, and most remote 02/20/2013. No dominant mass, architectural distortion, worrisome asymmetry, or suspicious calcification is identified. No skin or nipple finding of concern is appreciated. Faintly nodular area by the left nipple is unchanged over the interval exams. Procedure Note Sonia Joyner MD - 03/27/2019 Bilateral full-field digital screening mammography is obtained and read inconjunction with computer-aided detection. Tomosynthesis as well as 2-D Cview imaging of both breasts in two planes also obtained. Comparison madeto multiple prior, most recent 03/24/2018, and most remote 02/20/2013. No dominant mass, architectural distortion, worrisome asymmetry, orsuspicious calcification is identified. No skin or nipple finding ofconcern is appreciated. Faintly nodular area by the left nipple isunchanged over the interval exams. IMPRESSION: No mammographic change indicative of malignancy. Annual screening isrecommended in light of family history. BI-RADS CATEGORY: 2 - Benign finding. DENSITY: There are scattered fibroglandular densities. POS -CDHMAMA Shaina Hebert MD IMG MG EXAMS Final [...] documented as of this encounter Care Teams Price Lister Relationship Specialty Start Date End Date Best Aaron MD [address] [place] [address] [address] [place] [address] [email or web address] PCP - General 09/02/17 10/18/19 Best Aaron MD [address] [place] [address] [address] [place] [address] PCP - General Family Medicine 10/19/19 02/09/24 Pippa Shirley MD [address] [place] [address] [address] [place] [address] [email or web address] PCP - General Family Medicine 02/10/24 Alysa Benito SECURITY SYSTEMS MANAGER 1 [place] [address] Historical LMR Provider 09/04/17 2 Jailyn Grewal DO [address] [place] [address] 7 [place] [address] [email or web address] Historical LMR Provider 09/04/17 Esperanza Cisneros NP [address] [place] [address] Historical LMR Provider 09/04/17 2 Bettye Amaro CNP [address] [place] [address] [email or web address] Historical LMR Provider 09/04/17 Caprice Johns NP [address] [place] [address] [email or web address] Historical LMR Provider 09/04/17 11/22/21 Noe Fitzpatrick MD [address] [place] [address] [email or web address] Historical LMR Provider 09/04/17 11/22/21 Adelaida Awad MD [address] [place] [address] [email or web address] Historical LMR Provider 09/04/17 Kadi Nazario NP [address] [place] [address] Historical LMR Provider 09/04/17 2 Ninoska Sanchez MD [address] [place] [address] [email or web address] Historical LMR Provider 09/04/17 Best Aaron MD [address] [place] [address] [email or web address] Historical LMR Provider 09/04/17 Yashira Felix NP [address] [place] [address] Historical LMR Provider 09/04/17 2 Belinda Wolfe MD [address], [place] [address] Historical LMR Provider 09/04/17 2 Carlos Miranda MD [address] [place] [address] Historical LMR Provider 09/04/17 11/22/21 Juanis Boyd MD [address] [place] [address] Historical LMR Provider 09/04/17 11/22/21 Saurav Cornelius MD [address] [place], [place] [address] [place] [phone] [email or web address] Historical LMR Provider 09/04/17 Giulia Alarcon MD [address] [place] [address] Historical LMR Provider 09/04/17 11/22/21 Albert Ley MD [address] [place] [address] Historical LMR Provider 09/04/17 2 Luis Carlos De Jesus, ROBERTO [address] [place] [address], [address] [place] [address] [email or web address] Historical LMR Provider 09/04/17 Best Aaron MD [address] [place] [address] 7 [place] [address] [email or web address] Insurance Assigned Provider 09/18/17 02/19/24 Jailyn Grewal DO [address] [place] [address] 7 [place] [address] [email or web address] Insurance Assigned Provider 02/19/24 02/18/25 Pippa Shirley MD [address] [place] [address] 7 [place] [address] [email or web address] Insurance Assigned Provider 02/18/25 documented as of this encounter Additional Source Comments The information contained in this document represents components of the legal health record. It is not the complete legal health record.[facility]
--- OUTSIDE RECORDS SUMMARY | 2025-10-25 19:24 | XMS_ITS | Encounter Summary ---
Author Organization [facility] Address [facility] LikeWhere [facility] [address] [place] [address] Phone Care Team Providers Care Quarry Worker Name Role Phone Best Aaron MD Primary Care Provider Alysa Benito BEHAVIOR THERAPIST Unavailable Jailyn Grewal DO Unavailable [phone] Esperanza Cisneros BEHAVIOR THERAPIST Unavailable Bettye Amaro COMMUNICATION TECHNICIAN Unavailable Caprice Johns BEHAVIOR THERAPIST Unavailable [phone] Noe Fitzpatrick MD Unavailable Adelaida Awad MD Unavailable Kadi Nazario BEHAVIOR THERAPIST Unavailable Ninoska Sanchez MD Unavailable Best Aaron MD Unavailable Isidro Yashirafabi Harding NP Unavailable [phone] Belinda oWlfe MD Unavailable [phone] Carlos Miranda MD Unavailable Juanis Boyd MD Unavailable Saurav Cornelius MD Unavailable Giulia Alarcon MD Unavailable Albert Ley MD Unavailable [phone] Luis Carlos De Jesus CNP Unavailable Best Aaron MD Unavailable Best Aaron MD Primary Care Provider Pippa Shirley MD Primary Care Provider Jailyn Grewal DO Unavailable Pippa Shirley MD Unavailable Encounter Details Date Type Department Care Team (Late st Contact Info) Description 06/23/2018 Procedure Pass [facility] Endoscopy Admitting Dept Virtual Department [address] [place] [address] Social History Tobacco Use Types Packs/Day Years [...] Description 12/20/2025 2:00 PM EST Office Visit [facility] [address] [place] [address] Pippa Shirley MD [address] [place] [address], [address] [place] [address] [email or web address] 12/31/2025 11:30 AM EST Office Visit [facility] G[facility]ology [facility] 10 [place] [address] Unknown, Unknown, Angela Sen PA-C [address] [address] [email or web address] 02/28/2026 8:30 AM EDT Office Visit [facility] Neurology [address] [place] [address] Albert Lynn MD 22 [facility], 2nd [place] [address] [email or web address] 03/11/2026 5:30 PM EDT Appointment [facility], Bone [address] [address] Pippa Shirley MD 234 [facility], [address] [place] [address] [email or web address] documented as of this encounter [...] documented as of this encounter Care Teams Quarry Worker Relationship Specialty Start Date End Date Best Aaron MD [address] [place] [address] 7 [place] [address] [email or web address] PCP - General 09/02/17 10/18/19 Best Aaron MD [address] [place] [address] 7 [place] [address] [email or web address] PCP - General Family Medicine 10/19/19 02/09/24 Pippa Shirley MD [address] [place] [address] 7 [place] [address] [email or web address] PCP - General Family Medicine 02/10/24 Alysa Benito NP [address] [place] [address] Historical LMR Provider 09/04/17 2 Jailyn Grewal DO [address] [place] [address] [email or web address] Historical LMR Provider 09/04/17 Esperanza Cisneros, BRIEN [address] [place] [address] Historical LMR Provider 09/04/17 2 Bettye Amaro, ROBERTO 15 [facility], 2nd [place] [address] [email or web address] Historical LMR Provider 09/04/17 Caprice Johns, BEHAVIOR THERAPIST 30 [place] [address] [email or web address] Historical LMR Provider 09/04/17 11/22/21 Noe Fitzpatrick MD [address] [place] [address] [email or web address] Historical LMR Provider 09/04/17 11/22/21 Adelaida Awad MD [address] [place] [address], [address] [place] [address] [email or web address] Historical LMR Provider 09/04/17 Kadi Nazario NP [address] [place] [address] Historical LMR Provider 09/04/17 2 Ninoska Sanchez MD [address] [place] [address] 7 [place] [address] [email or web address] Historical LMR Provider 09/04/17 Best Aaron MD [address] [place] [address] 7 [place] [address] [email or web address] Historical LMR Provider 09/04/17 Yashira Felix NP [address] [place] [address] Historical LMR Provider 09/04/17 2 Belinda Wolfe MD [address] [address] Historical LMR Provider 09/04/17 2 Carlos Miranda MD [address] [place] [address] Historical LMR Provider 09/04/17 11/22/21 Juanis Boyd MD [address] [place] [address] Historical LMR Provider 09/04/17 11/22/21 Saurav Cornelius MD [address] [place] [address] [address] [place] [id number] [email or web address] Historical LMR Provider 09/04/17 Giulia Alarcon MD [address] [place] [address] Historical LMR Provider 09/04/17 11/22/21 Albert Ley MD [address] [place] [address] Historical LMR Provider 09/04/17 2 Luis Carlos De Jesus, ROBERTO [address] [place] [address], [address] [place] [address] Historical LMR Provider 09/04/17 Best Aaron MD [address] [place] [address] Insurance Assigned Provider 09/18/17 02/19/24 Jailyn Grewal DO [address] [place] [address], [facility] 7 [place] [address] [email or web address] Insurance Assigned Provider 02/19/24 02/18/25 Pippa Shirley MD [address] [place] [address], [facility] 7 [place] [address] [email or web address] Insurance Assigned Provider 02/18/25 documented as of this encounter Additional Source Comments The information contained in this document represents components of the legal health record. It is not the complete legal health record.[facility]
--- OUTSIDE RECORDS SUMMARY | 2025-10-25 19:24 | XMS_ITS | Encounter Summary ---
Author Organization [facility] Address [facility] [employer] [facility] [address] [place] [address] Phone Care Team Providers Care Roof Panel Hanger Name Role Phone Best Aaron MD Primary Care Provider Alysa Benito EMERGENCY GENERATOR MECHANIC Unavailable [phone] Jailyn Grewal DO Unavailable Esperanza Cisneros EMERGENCY GENERATOR MECHANIC Unavailable Bettye Amaro PIE ICER MACHINE Unavailable Caprice Johns EMERGENCY GENERATOR MECHANIC Unavailable [phone] Noe Fitzpatrick MD Unavailable Adelaida Awad MD Unavailable Kadi Nazario EMERGENCY GENERATOR MECHANIC Unavailable Ninoska Sanchez MD Unavailable Best Aaron MD Unavailable IsidroYashira Mehdi TESFAYE Unavailable [phone] Belinda Wolfe MD Unavailable [phone] Carlos Miranda MD Unavailable Juanis Boyd MD Unavailable Saurav Cornelius MD Unavailable Giulia Alarcon MD Unavailable Albert Ley MD Unavailable [phone] Luis Carlos De Jesus CNP Unavailable Best Aaron MD Unavailable Best Aaron MD Primary Care Provider [phone] Pippa Shirley MD Primary Care Provider Jailyn Grewal DO Unavailable Pippa Shirley MD Unavailable Encounter Details Date Type Department Care Team (Late st Contact Info) Description 08/18/2018 Procedure Pass [facility] PERIOPERATIVE DEPT [address] [place] [address] Social History Tobacco Use Types [...] Description 12/20/2025 2:00 PM EST Office Visit [facility] 234 [place], [place] [phone] Pippa Shirley MD 234 [facility], [address] [place] [address] [email or web address] 12/31/2025 11:30 AM EST Office Visit [facility] Gastroenterology Clinic 10 [place] [address] Unknown, Unknown, Angela Sen PA-C [address] [address] [email or web address] 02/28/2026 8:30 AM EDT Office Visit [facility] Neurology [address] [place] [address] Albert Lynn MD [address] [place] [address], 2nd [place] [address] [email or web address] 03/11/2026 5:30 PM EDT Appointment [facility], Bone [address] [address] Pippa Shirley MD [address] [place] [address], [address] [place] [address] [email or web address] documented as of this encounter Visit Diagnoses [...] documented as of this encounter Care Teams Roof Panel Hanger Relationship Specialty Start Date End Date Best Aaron MD [address] [place] [address] 7 [place] [address] [email or web address] PCP - General 09/02/17 10/18/19 Best Aaron MD [address] [place] [address] 7 [place] [address] [email or web address] PCP - General Family Medicine 10/19/19 02/09/24 Pippa Shirley MD [address] [place] [address] [email or web address] PCP - General Family Medicine 02/10/24 Alysa Benito NP [address] [place] [address] Historical LMR Provider 09/04/17 2 Jailyn Grewal DO [address] [place] [address] [email or web address] Historical LMR Provider 09/04/17 Esperanza Cisneros NP [address] [place] [address] Historical LMR Provider 09/04/17 2 Bettye Amaro CNP [address] [address] [email or web address] Historical LMR Provider 09/04/17 Caprice Johns NP [address] [place] [address] [email or web address] Historical LMR Provider 09/04/17 11/22/21 Noe Fitzpatrick MD [address] [place] [address] [email or web address] Historical LMR Provider 09/04/17 11/22/21 Adelaida Awad MD [address] [place] [address], [address] [place] [address] [email or web address] Historical LMR Provider 09/04/17 Kadi Nazario NP [address] [place] [address] Historical LMR Provider 09/04/17 2 Ninoska Sanchez MD [address] [place] [address] 7 [place] [address] [email or web address] Historical LMR Provider 09/04/17 Best Aaron MD [address] [place] [address] 7 [place] [address] [email or web address] Historical LMR Provider 09/04/17 Yashira Felix NP 30 [place] [address] Historical LMR Provider 09/04/17 2 Belinda Wolfe MD [address] [address] Historical LMR Provider 09/04/17 2 Carlos Miranda MD [address] [place] [address] Historical LMR Provider 09/04/17 11/22/21 Juanis Boyd MD [address] [place] [address] 7 [place] [address] Historical LMR Provider 09/04/17 11/22/21 Saurav Cornelius MD [address] [place] [address] [address] [place] [address] [email or web address] Historical LMR Provider 09/04/17 Giulia Alarcon MD [address] [place] [address] Historical LMR Provider 09/04/17 11/22/21 Albert Ley MD [address] [place] [address] Historical LMR Provider 09/04/17 2 Luis Carlos De Jesus, ROBERTO [address] [place] [address], [address] [place] [address] Historical LMR Provider 09/04/17 Best Aaron MD [address] [place] [address] 7 [place] [address] Insurance Assigned Provider 09/18/17 02/19/24 Jailyn Grewal DO 234 [facility], [address] [place] [address] [email or web address] Insurance Assigned Provider 02/19/24 02/18/25 Pippa Shirley MD 234 [facility], [facility] 7 [place] [address] [email or web address] Insurance Assigned Provider 02/18/25 documented as of this encounter Additional Source Comments The information contained in this document represents components of the legal health record. It is not the complete legal health record.[facility]
--- OUTSIDE RECORDS SUMMARY | 2025-10-25 19:24 | XMS_ITS | Encounter Summary ---
Author Organization [facility] Address [facility] [address] [place] [address] Phone Care Team Providers Care Bell Neck Hammerer Name Role Phone Best Aaron MD Primary Care Provider Alysa Benito EARLY EDUCATION TEACHER Unavailable Jailyn Grewal DO Unavailable Esperanza Cisneros EARLY EDUCATION TEACHER Unavailable Bettye Amaro SALESFORCE BUSINESS ANALYST Unavailable Caprice Johns EARLY EDUCATION TEACHER Unavailable [phone] Noe Fitzpatrick MD Unavailable Adelaida Awad MD Unavailable Kadi Nazario EARLY EDUCATION TEACHER Unavailable Ninoska Sanchez MD Unavailable Best Aaron MD Unavailable Yashira Felix NP Unavailable [phone] Belinda Wolfe MD Unavailable [phone] Carlos Miranda MD Unavailable Juanis Boyd MD Unavailable Saurav Cornelius MD Unavailable Giulia Alarcno MD Unavailable Albert Ley MD Unavailable [phone] Luis Carlos De Jesus SALESFORCE BUSINESS ANALYST Unavailable Best Aaron MD Unavailable Best Aarno MD Primary Care Provider [phone] Pippa Shirley MD Primary Care Provider Jailyn Grewal DO Unavailable Pippa Shirley MD Unavailable [phone] Reason for Referral * MRI/CAT Scan - Closed Specialty Diagnoses / Procedures Referred By Burke gomez Referred To Contact Radiology Diagnoses Sprain of right rotator cuff capsule, sequela Procedures MRI Shoulder (Right) Marquita Roldan NP Phone: tel: fax: mailto:[email or web address] Referral ID Status Reason Start Date Expiration Date Visits Re quested Visits Authorized [id number] Closed 03/21/2018 03/21/2019 1 1 Encounter Details Date Type Department Care Team (Late st Contact Info) Description 03/21/2018 Ancillary Orders [facility] External Provider Virtual Department 30 [place] [address] Marquita Roldan NP [address] [place] [phone] [email or web address] Sprain of right rotator cuff capsule, [...] Description 12/20/2025 2:00 PM EST Office Visit [address] [address] Pippa Shirley MD [address] [place] [address] [email or web address] 12/31/2025 11:30 AM EST Office Visit [facility] Gastroenterology Clinic [address] [place] [address] Unknown, Unknown, Angela Sen PA-C [address] [place] [address] 02/28/2026 8:30 AM EDT Office Visit [facility] Neurology [address] [place] [address] Albert Lynn MD [address] [place] [address], 2nd [place] [address] 03/11/2026 5:30 PM EDT Appointment [facility], Bone Density - [address] [address] Pippa Shirley MD [address] [place] [address], [facility] 7 [place] [address] [email or web address] documented as of this encounter [...] changes may predispose to impingement. POS - [id number] Narrative 03/29/2018 2:00 PM EDT HISTORY: Pain, [...] changes may predispose to impingement. POS - [id number] Marquita Roldan NP IMG MR EXTREMITY Final Result documented in this [...] documented as of this encounter Care Teams Bell Neck Hammerer Relationship Specialty Start Date End Date Best Aaron MD [address] [place] [address], [address] [place] [address] PCP - General 09/02/17 10/18/19 Best Aaron MD [address] [place] [address] 7 [place] [address] PCP - General Family Medicine 10/19/19 02/09/24 Pippa Shirley MD [address] [place] [address] 7 [place] [address] [email or web address] PCP - General Family Medicine 02/10/24 Alysa Benito NP [address] [place] [address] Historical LMR Provider 09/04/17 2 Jailyn Grewal DO [address] [place] [address] 7 [place] [address] Historical LMR Provider 09/04/17 Esperanza Cisneros NP [address] [place] [address] Historical LMR Provider 09/04/17 2 Bettye Amaro CNP [address] [address] Historical LMR Provider 09/04/17 Caprice Johns NP [address] [place] [address] Historical LMR Provider 09/04/17 11/22/21 Noe Fitzpatrick MD [address] [place] [address] [email or web address] Historical LMR Provider 09/04/17 11/22/21 Adelaida Awad MD [address] [facility], 2nd [place] [address] [email or web address] Historical LMR Provider 09/04/17 Kadi Nazario NP [address] [place] [address] Historical LMR Provider 09/04/17 2 Ninoska Sanchez MD [address] [place] [address] 7 [place] [address] [email or web address] Historical LMR Provider 09/04/17 Best Aaron MD [address] [place] [address] [email or web address] Historical LMR Provider 09/04/17 Yashira Felix NP [address] [place] [address] Historical LMR Provider 09/04/17 2 Belinda Wolfe MD [address] [address] Historical LMR Provider 09/04/17 2 Carlos Miranda MD [address] [facility], [address] [place] [address] Historical LMR Provider 09/04/17 11/22/21 Juanis Boyd MD [address] [place] [address] 7 [place] [address] Historical LMR Provider 09/04/17 11/22/21 Saurav Cornelius MD [address] [place] [address] [address] [place] [phone] [email or web address] Historical LMR Provider 09/04/17 Giulia Alarcon MD [address] [place] [address] 102 [place] [address] Historical LMR Provider 09/04/17 11/22/21 Albert Ley MD [address] [place] [address] Historical LMR Provider 09/04/17 Luis Carlos Saldivar, ROBERTO [address] [place] [address], [address] [place] [address] Historical LMR Provider 09/04/17 Best Aaron MD [address] [place] [address] 7 [place] [address] Insurance Assigned Provider 09/18/17 02/19/24 Jailyn Grewal DO [address] [place] [address] [address] [place] [address] [email or web address] Insurance Assigned Provider 02/19/24 02/18/25 Pippa Shirley MD [address] [place] [address] 7 [place] [address] [email or web address] Insurance Assigned Provider 02/18/25 documented as of this encounter Additional Source Comments The information contained in this document represents components of the legal health record. It is not the complete legal health record.[facility]
--- OUTSIDE RECORDS SUMMARY | 2025-10-25 19:24 | XMS_ITS | Encounter Summary ---
Author Organization [facility] Address [facility] [employer] [facility] [address] [place] [address] Phone Care Team Providers Care Program Analyst Name Role Phone Jailyn Grewal DO Unavailable Sondra Bettyeminh Leggett SALES REPRESENTATIVE PUBLICATIONS Unavailable Ninoska Sanchez MD Unavailable [phone] Best Aaron MD Unavailable [phone] Saurav Cornelius MD Unavailable [phone] Best Aaron MD Unavailable Best Aaron MD Primary Care Provider [phone] Pippa Shirley MD Primary Care Provider [phone] Jailyn Grewal DO Unavailable Pippa Shirley MD Unavailable Encounter Details Date Type Department Care Team (Late Contact Info) Description 07/21/2022 Procedure Pass [facility], Ct Scan - [address] [address] Social History Tobacco Use Types Packs/Day Years [...] high school, GED, job training, learning the Yemeni language, technical skills, or developing parenting skills)? [...] Description 12/20/2025 2:00 PM EST Office Visit [facility] Medicine 234 [place] [address] Pippa Shirley MD 234 [facility], [facility] 7 [place] [address] [email or web address] 12/31/2025 11:30 AM EST Office Visit [facility] Gastroenterology Clinic 10 [place] [address] Unknown, Unknown, Angela Sen PA-C [address] [address] [email or web address] 02/28/2026 8:30 AM EDT Office Visit [facility] Neurology [address] [place] [address] Albert Lynn MD [address] [place] [address], 2nd [place] [address] [email or web address] 03/11/2026 5:30 PM EDT Appointment [facility], Bone [facility] - [address] [address] Pippa Shirley MD [address] [facility], [facility] 7 [place] [address] [email or web address] documented as of this encounter Visit Diagnoses Not on filedocumented in this encounter Additional Health Concerns Infection Onset Date Last Indicated Resolved Time CoV-Risk 11/23/2022 11/23/2022 12/04/2022 1:22 AM EST COVID-19 06/15/2023 06/15/2023 07/06/2023 1:23 AM EDT Assessment Noted Time PHQ-2 Depression Total Score: 1 06/06/20 19 9:11 AM EDT documented as of this encounter Care Teams Program Analyst Relationship Specialty Start Date End Date Best Aaron MD [address] [place] [address], [facility] 7 [place] [address] PCP - General Family Medicine 10/19/19 02/09/24 Pippa Shirley MD [address] [place] [address], [address] [place] [address] [email or web address] PCP - General Family Medicine 02/10/24 Jailyn Grewal DO [address] [place] [address], [address] [place] [address] Historical LMR Provider 09/04/17 Bettye Amaro, ROBERTO [address] [place] [address], [address] [place] [address] [email or web address] Historical LMR Provider 09/04/17 Ninoska Sanchez MD [address] [place] [address], [address] [place] [address] [email or web address] Historical LMR Provider 09/04/17 Best Aaron MD [address] [place] [address] 7 [place] [address] [email or web address] Historical LMR Provider 09/04/17 Saurav Cornelius MD [address] [place], [place] [address] [place] [phone] [email or web address] Historical LMR Provider 09/04/17 Best Aaron MD [address] [place] [address] 7 [place] [address] Insurance Assigned Provider 09/18/1702/19/24 Jailyn Grewal DO [address] [place] [address], [address] [place] [address] [email or web address] Insurance Assigned Provider 02/19/24 Pippa Shirley MD [address] [place] [address], [facility] 7 [place] [address] [email or web address] Insurance Assigned Provider 02/18/25 documented as of this encounter Additional Source Comments The information contained in this document represents components of the legal health record. It is not the complete legal health record.[facility]
--- OUTSIDE RECORDS SUMMARY | 2025-10-25 19:25 | XMS_ITS | Encounter Summary ---
Author Organization [facility] Address [facility] Loot! [facility] [address] [place] [address] Phone Care Team Providers Care Clinical Laboratory Assistant Name Role Phone Jailyn Grewal DO Unavailable [phone] Bettye Amaro SOURCING INTERN Unavailable Ninoska Sanchez MD Unavailable Best Aaron MD Unavailable [phone] Saurav Cornelius MD Unavailable Pippa Shirley MD Primary Care Provider [phone] Pippa Shirley MD Unavailable Encounter Details Date Type Department Care Team (Late st Contact Info) Description 03/28/2025 Procedure Pass [facility], [address] [address] Social History Tobacco Use Types Packs/Day Years [...] Description 12/20/2025 2:00 PM EST Office Visit [facility] Medicine [address] [place] [address] Pippa Shirley MD 234 [facility] 7 [place] [address] [email or web address] 12/31/2025 11:30 AM EST Office Visit [facility] 10 [place] [address] Unknown, Unknown, Angela Sen PA-C [address] [address] [email or web address] 02/28/2026 8:30 AM EDT Office Visit [facility] Neurology [address] [place] [address] Albert Lynn MD [address] [place] [address], 2nd [place] [address] 03/11/2026 5:30 PM EDT Appointment [facility], Bone Density - [facility] 30 [place] [address] Pippa Shirley MD 234 [facility], [facility] 7 [place] [address] [email or web address] documented as of this encounter Visit Diagnoses Not on filedocumented in this encounter Additional Health Concerns Assessment Noted Time PHQ-2 Depression Total Score: 2 08/08/20 24 5:13 PM EDT documented as of this encounter Care Teams Clinical Laboratory Assistant Relationship Specialty Start Date End Date Pippa Shirley MD [address] [place] [address] 7 [place] [address] [email or web address] PCP - General Family Medicine 02/10/24 Jailyn Grewal DO [address] [place] [address] 7 [place] [address] Historical LMR Provider 09/04/17 Bettye Amaro CNP [address] [place] [address], 2nd [place] [address] Historical LMR Provider 09/04/17 Ninoska Sanchez MD [address] [place] [address] 7 [place] [address] Historical LMR Provider 09/04/17 Best Aaron MD [address] [place] [address] 7 [place] [address] Historical LMR Provider 09/04/17 Saurav Cornelius MD [address] [place], [place] [address] [place] [phone] [email or web address] Historical LMR Provider 09/04/17 Pippa Shirley MD [address] [place] [address] 7 [place] [address] [email or web address] Insurance Assigned Provider 02/18/25 documented as of this encounter Additional Source Comments The information contained in this document represents components of the legal health record. It is not the complete legal health record.[facility]
--- OUTSIDE RECORDS SUMMARY | 2025-10-25 19:25 | XMS_ITS | Encounter Summary ---
Author Organization [facility] Address [facility] [address] [place] [address] Phone Care Team Providers Care Retread Technician Name Role Phone Best Aaron MD Primary Care Provider [phone] Alysa Benito DISK OPERATOR Unavailable Jailyn Grewal DO Unavailable Esperanza Cisneros DISK OPERATOR Unavailable Bettye Amaro HAND ROUNDER Unavailable Caprice Johns DISK OPERATOR Unavailable [phone] Noe Fitzpatrick MD Unavailable Adelaida Awad MD Unavailable Kadi Nazario DISK OPERATOR Unavailable Ninoska Sanchez MD Unavailable Best Aaron MD Unavailable Isidro Yashirafabi Harding NP Unavailable [phone] Belinda Wolfe MD Unavailable [phone] Carlos Miranda MD Unavailable Juanis Boyd MD Unavailable Saurav Cornelius MD Unavailable Giulia Alarcon MD Unavailable Albert Ley MD Unavailable [phone] Luis Carlos De Jesus CNP Unavailable Best Araon MD Unavailable Best Aaron MD Primary Care Provider Pippa Shirley MD Primary Care Provider Jailyn Grewal DO Unavailable Pippa Shirley MD Unavailable Encounter Details Date Type Department Care Team (Late st Contact Info) Description 2018 Procedure Pass [address] [place] [address] Social History Tobacco Use Types Packs/Day Years [...] Description 12/20/2025 2:00 PM EST Office Visit [address] [address] Pippa Shirley MD [address] [place] [address], [address] [place] [address] [email or web address] 12/31/2025 11:30 AM EST Office Visit [facility] 10 [place] [address] Unknown, Unknown, Angela Sen PA-C [address] [address] [email or web address] 02/28/2026 8:30 AM EDT Office Visit [facility] Neurology [address] [place] [address] Albert Lynn MD 22 [facility], 2nd [place] [address] [email or web address] 03/11/2026 5:30 PM EDT Appointment [facility], Bone Density [address] [address] Pippa Shirley MD 234 [facility], [address] [place] [address] [email or web address] documented as of this encounter Visit [...] documented as of this encounter Care Teams Retread Technician Relationship Specialty Start Date End Date Best Aaron MD [address] [place] [address] 7 [place] [address] [email or web address] PCP - General 09/02/17 10/18/19 Best Aaron MD [address] [place] [address], [place] 7 [place] [address] PCP - General Family Medicine 10/19/19 02/09/24 Pippa Shirley MD [address] [place] [address] 7 [place] [address] [email or web address] PCP - General Family Medicine 02/10/24 Alysa Benito NP [address] [place] [address] Historical LMR Provider 09/04/17 2 Jailyn Grewal DO [address] [place] [address] 7 [place] [address] [email or web address] Historical LMR Provider 09/04/17 Esperanza Cisneros NP [address] [place] [address] Historical LMR Provider 09/04/17 2 Bettye Amaro CNP [address] [address] [email or web address] Historical LMR Provider 09/04/17 Caprice Johns NP [address] [place] [address] [email or web address] Historical LMR Provider 09/04/17 11/22/21 Noe Fitzpatrick MD [address] [place] [address] [email or web address] Historical LMR Provider 09/04/17 11/22/21 Adelaida Awad MD [address] [place] [address] [email or web address] Historical LMR Provider 09/04/17 Kadi Nazario NP [address] [place] [address] Historical LMR Provider 09/04/17 2 Ninoska Sanchez MD [address] [place] [address] [email or web address] Historical LMR Provider 09/04/17 Best Aaron MD [address] [place] [address] [email or web address] Historical LMR Provider 09/04/17 Yashira Felix NP [address] [place] [address] Historical LMR Provider 09/04/17 2 Belinda Wolfe MD [address] [address] Historical LMR Provider 09/04/17 2 Carlos Miranda MD [address] [place] [address] Historical LMR Provider 09/04/17 11/22/21 Juanis Boyd MD [address] [place] [address] 7 [place] [address] Historical LMR Provider 09/04/17 11/22/21 Saurav Cornelius MD [address] [place] [address] [address] [place] [address] [email or web address] Historical LMR Provider 09/04/17 Giulia Alarcon MD [address] [place] [address] Historical LMR Provider 09/04/17 11/22/21 Albert Ley MD [address] [place] [address] Historical LMR Provider 09/04/17 2 Luis Carlos De Jesus CNP [address] [place] [address], [address] [place] [address] Historical LMR Provider 09/04/17 Best Aaron MD [address] [place] [address] 7 [place] [address] Insurance Assigned Provider 09/18/17 02/19/24 Jailyn Grewal DO [address] [place] [address], [address] [place] [address] [email or web address] Insurance Assigned Provider 02/19/24 02/18/25 Pippa Shirley MD 234 [facility], [address] [place] [address] [email or web address] Insurance Assigned Provider 02/18/25 documented as of this encounter Additional Source Comments The information contained in this document represents components of the legal health record. It is not the complete legal health record.[facility]
--- OUTSIDE RECORDS SUMMARY | 2025-10-25 19:25 | XMS_ITS | Encounter Summary ---
Author Organization [facility] Address [facility] [address] [place] [address] Phone Care Team Providers Care Electronics Detail Draftsperson Name Role Phone Best Aaron MD Primary Care Provider Alysa Benito FOLDER MACHINE ADJUSTER Unavailable Jailyn Grewal DO Unavailable Esperanza Cisneros FOLDER MACHINE ADJUSTER Unavailable Bettye Amaro POST EXCHANGE MANAGER Unavailable Caprice Johns FOLDER MACHINE ADJUSTER Unavailable [phone] Noe Fitzpatrick MD Unavailable Adelaida Awad MD Unavailable Kadi Nazario FOLDER MACHINE ADJUSTER Unavailable Ninoska Sanchez MD Unavailable [phone] Best Aaron MD Unavailable Isidro Yashirafabi Harding NP Unavailable [phone] Belinda Wolfe MD Unavailable [phone] Carlos Miranda MD Unavailable Juanis Boyd MD Unavailable Saurav Cornelius MD Unavailable Giulia Alarcon MD Unavailable Albert Ley MD Unavailable [phone] Luis Carlos De Jesus CNP Unavailable Best Aaron MD Unavailable Best Aaron MD Primary Care Provider Pippa Shirley MD Primary Care Provider Jailyn Grewal DO Unavailable Pippa Shirley MD Unavailable Encounter Details Date Type Department Care Team (Late st Contact Info) Description 03/21/2018 Procedure Pass [address] [place] [address] Social History Tobacco Use Types Packs/Day Years [...] Description 12/20/2025 2:00 PM EST Office Visit [address] [address] Pippa Shirley MD [address] [place] [address], [address] [place] [address] [email or web address] 12/31/2025 11:30 AM EST Office Visit [facility] 10 [place] [address] Unknown, Unknown, Angela Sen PA-C [address] [address] [email or web address] 02/28/2026 8:30 AM EDT Office Visit [facility] Neurology [address] [place] [address] Albert Lynn MD 22 [facility], 2nd [place] [address] [email or web address] 03/11/2026 5:30 PM EDT Appointment [facility], Bone [address] [address] Pippa Shirley MD 234 [facility], [address] [place] [address] [email or web address] documented as [...] documented as of this encounter Care Teams Electronics Detail Draftsperson Relationship Specialty Start Date End Date Best Aaron MD [address] [place] [address] 7 [place] [address] [email or web address] PCP - General 09/02/17 10/18/19 Best Aaron MD [address] [place] [address] 7 [place] [address] [email or web address] PCP - General Family Medicine 10/19/19 02/09/24 Pippa Shirley MD [address] [place] [address] 7 [place] [address] [email or web address] PCP - General Family Medicine 02/10/24 Alysa Benito FOLDER MACHINE ADJUSTER [address] [place] [address] Historical LMR Provider 09/04/17 2 Jailyn Grewal DO [address] [place] [address] 7 [place] [address] [email or web address] Historical LMR Provider 09/04/17 Esperanza Cisneros, BRIEN [address] [place] [address] Historical LMR Provider 09/04/17 2 Bettye Amaro, ROBERTO [address] [facility], 2nd [place] [address] [email or web address] Historical LMR Provider 09/04/17 Caprice Johns, FOLDER MACHINE ADJUSTER 30 [place] [address] [email or web address] Historical LMR Provider 09/04/17 11/22/21 Noe Fitzpatrick MD [address] [place] [address] [email or web address] Historical LMR Provider 09/04/17 11/22/21 Adelaida Awad MD [address] [place] [address] [email or web address] Historical LMR Provider 09/04/17 Kadi Nazario NP [address] [place] [address] Historical LMR Provider 09/04/17 2 Ninoska Sanchez MD [address] [place] [address] [email or web address] Historical LMR Provider 09/04/17 Best Aaron MD [address] [place] [address] [email or web address] Historical LMR Provider 09/04/17 Yashira Felix NP [address] [place] [address] Historical LMR Provider 09/04/17 2 Belinda Wolfe MD [address], [place] [address] Historical LMR Provider 09/04/17 2 Carlos Miranda MD [address] [place] [address] Historical LMR Provider 09/04/17 11/22/21 Juanis Boyd MD [address] [place] [address] 7 [place] [address] Historical LMR Provider 09/04/17 11/22/21 Saurav Cornelius MD [address] [place] [address] [address] [place] [phone] [email or web address] Historical LMR Provider 09/04/17 Giulia Alarcon MD [address] [place] [address] Historical LMR Provider 09/04/17 11/22/21 Albert Ley MD [address] [place] [address] Historical LMR Provider 09/04/17 2 Luis Carlos De Jesus, ROBERTO [address] [place] [address], [address] [place] [address] Historical LMR Provider 09/04/17 Best Aaron MD [address] [place] [address] 7 [place] [address] Insurance Assigned Provider 09/18/17 02/19/24 Jailyn Grewal DO [address] [place] [address], [address] [place] [address] [email or web address] Insurance Assigned Provider 02/19/24 02/18/25 Pippa Shirley MD [address] [place] [address], [facility] 7 [place] [address] [email or web address] Insurance Assigned Provider 02/18/25 documented as of this encounter Additional Source Comments The information contained in this document represents components of the legal health record. It is not the complete legal health record.[facility]
--- OUTSIDE RECORDS SUMMARY | 2025-10-25 19:25 | XMS_ITS | Encounter Summary ---
Author Organization [facility] Address [facility] [place] [address] [place] [address] Phone Care Team Providers Care Mechanical Manufacturing Technician Name Role Phone Best Aaron MD Primary Care Provider [phone] Alysa Benito SENIOR MOBILE APPLICATION DEVELOPER Unavailable Jailyn Grewal DO Unavailable Esperanza Cisneros SENIOR MOBILE APPLICATION DEVELOPER Unavailable Bettye Amaro SAP PPM CONSULTANT Unavailable Caprice Johns SENIOR MOBILE APPLICATION DEVELOPER Unavailable [phone] Noe Fitzpatrick MD Unavailable Adelaida Awad MD Unavailable Kadi Nazario SENIOR MOBILE APPLICATION DEVELOPER Unavailable Ninoska Sanchez MD Unavailable [phone] Best Aaron MD Unavailable Yashira Felix NP Unavailable [phone] Belinda Wolfe MD Unavailable [phone] Carlos Miranda MD Unavailable Juanis Boyd MD Unavailable Saurav Cornelius MD Unavailable Giulia Alarcon MD Unavailable Albert Ley MD Unavailable [phone] Luis Carlos De Jesus CNP Unavailable Best Aaron MD Unavailable Best Aaron MD Primary Care Provider Pippa Shirley MD Primary Care Provider [phone] Jailyn Grewal DO Unavailable Pippa Shirley MD Unavailable [phone] Reason for Referral * MRI/CAT Scan - Closed Specialty Diagnoses / Procedures Referred By Burke gomez Referred To Contact Radiology Diagnoses Cervical radiculopathy Procedures MRI Cervical Spine Marquita Roldan NP Phone: tel: fax: mailto:[email or web address] Referral ID Status Reason Start Date Expiration Date Visits Re quested Visits Authorized [id number] Closed 2018 2019 1 1 Encounter Details Date Type Department Care Team (Latest Contact Info) Description 2018 Ancillary Orders Virtual Department 30 [place] [address] Marquita Roldan NP [address] [place] [phone] [email or web address] Cervical radiculopathy Social History Tobacco Use [...] Description 12/20/2025 2:00 PM EST Office Visit [address] [address] Pippa Shirley MD [address] [place] [address] 7 [place] [address] [email or web address] 12/31/2025 11:30 AM EST Office Visit [facility] G[facility]ology Clinic [address] [place] [address] Unknown, Unknown, Angela Sen PA-C [address] [place] [address] 02/28/2026 8:30 AM EDT Office Visit [facility] Neurology [address] [place] [address] Albert Lynn MD [address] [place] [address], 2nd [place] [address] 03/11/2026 5:30 PM EDT Appointment [facility], Bone Density - [facility] 30 [place] [address] Pippa Shirley MD 234 [facility], [address] [place] [address] [email or web address] documented as of this encounter Results * MRI CERVICAL SPINE (NEURO) FOCUS WITHOUT CONTRAST (02/02/2018 3:20 PM EDT) Anatomical Region Laterality Modality C-spine Magnetic Resonan ce 02/02/2018 3:25 PM EDT Impressions 02/02/2018 3:34 PM EDT Small to moderate-sized broad-based/right paramedian C5-6 disc protrusion. Moderate broad-based C4-5 disc bulge. Left C5-6 and C6-7 neural foraminal narrowing. POS - [id number] Narrative 02/02/2018 3:34 PM EDT COMPARISON:07/05/2017 radiographs [...] disc space narrowing and a small to xfpmoxoz-stkvevvkzc-obysd/right paramedian disc protrusion approximating the ventralmargin of [...] C5-6 and C6-7 neuralforaminal narrowing. POS - [id number] Marquita Roldan SENIOR MOBILE APPLICATION DEVELOPER IMG MR XSPECIALTY Final Result documented in [...] documented as of this encounter Care Teams Mechanical Manufacturing Technician Relationship Specialty Start Date End Date Best Aaron MD [address] [place] [address] 7 [place] [address] [email or web address] PCP - General 09/02/17 10/18/19 Best Aaron MD [address] [place] [address] 7 [place] [address] [email or web address] PCP - General Family Medicine 10/19/19 02/09/24 Pippa Shirley MD [address] [place] [address] 7 [place] [address] [email or web address] PCP - General Family Medicine 02/10/24 Alysa Benito, SENIOR MOBILE APPLICATION DEVELOPER 1 [facility] [place] [address] Historical LMR Provider 09/04/17 2 Jailyn Grewla DO [address] [place] [address], [facility] 7 [place] [address] Historical LMR Provider 09/04/17 Esperanza Cisneros, BRIEN 29 [place] [address] Historical LMR Provider 09/04/17 2 Bettye Amaro, ROBERTO [address] [place] [address] [email or web address] Historical LMR Provider 09/04/17 Caprice Johns SENIOR MOBILE APPLICATION DEVELOPER [address] [place] [address] [email or web address] Historical LMR Provider 09/04/17 11/22/21 Noe Fitzpatrick MD [address] [place] [address] [email or web address] Historical LMR Provider 09/04/17 11/22/21 Adelaida Awad MD [address] [address] [email or web address] Historical LMR Provider 09/04/17 Kadi Nazario, BRIEN [address] [place] [address] Historical LMR Provider 09/04/17 2 Ninoska Sanchez MD [address] [place] [address] 7 [place] [address] [email or web address] Historical LMR Provider 09/04/17 Best Aaron MD [address] [place] [address] 7 [place] [address] Historical LMR Provider 09/04/17 Yashira Felix NP 30 [place] [address] Historical LMR Provider 09/04/17 2 Belinda Wolfe MD [address] [place] [address] Historical LMR Provider 09/04/17 2 Carlos Miranda MD [address] [place] [address] Historical LMR Provider 09/04/17 11/22/21 Juanis Boyd MD [address] [place] [address] [email or web address] Historical LMR Provider 09/04/17 11/22/21 Saurav Cornelius MD [address] [place], [place] [address] [place] [id number] [email or web address] Historical LMR Provider 09/04/17 Giulia Alarcon MD [address] [place] [address] Historical LMR Provider 09/04/17 11/22/21 Albert Ley MD 61 [place] [address] Historical LMR Provider 09/04/17 2 Luis Carlos De Jesus CNP 22 [facility], [address] [place] [address] Historical LMR Provider 09/04/17 Best Aaron MD [address] [place] [address] 7 [place] [address] [email or web address] Insurance Assigned Provider 09/18/17 02/19/24 Jailyn Grewal DO [address] [place] [address] 7 [place] [address] Insurance Assigned Provider 02/19/24 02/18/25 Pippa Shirley MD [address] [place] [address] 7 [place] [address] [email or web address] Insurance Assigned Provider 02/18/25 documented as of this encounter Additional Source Comments The information contained in this document represents components of the legal health record. It is not the complete legal health record.[facility]
--- OUTSIDE RECORDS SUMMARY | 2025-10-25 19:25 | XMS_ITS | Encounter Summary ---
Author Organization [facility] Address [facility] [address] [place] [address] Phone Care Team Providers Care Supervisor Graphite Name Role Phone Best Aaron MD Primary Care Provider Alysa Benito SOFTWARE CLERK Unavailable Jailyn Grewal DO Unavailable Esperanza Cisneros SOFTWARE CLERK Unavailable Bettye Amaro RETIREMENT SALES CONSULTANT Unavailable Caprice Johns SOFTWARE CLERK Unavailable [phone] Noe Fitzpatrick MD Unavailable Adelaida Awad MD Unavailable Kadi Nazario SOFTWARE CLERK Unavailable Ninoska Sanchez MD Unavailable [phone] Best Aaron MD Unavailable Yashira Felix SOFTWARE CLERK Unavailable [phone] Belinda Wolfe MD Unavailable [phone] Carlos Miranda MD Unavailable Juanis Boyd MD Unavailable Saurav Cornelius MD Unavailable Giulia Alarcon MD Unavailable Albert Ley MD Unavailable [phone] Luis Carlos De Jesus RETIREMENT SALES CONSULTANT Unavailable Best Aaron MD Unavailable Best Aaron MD Primary Care Provider Pippa Shirley MD Primary Care Provider [phone] Jailyn Grewal DO Unavailable Pippa Shirley MD Unavailable [phone] Encounter Details Date Type Department Care Team (Latest Contact Info) Description 10/22/2017 Transcribe Orders [facility] Phleb Main [address] [place], [place] [phone] Best Aaron MD [address] [place] [address], [address] [place] [address] [email or web address] Chronic low back pain without sciatica, [...] Description 12/20/2025 2:00 PM EST Office Visit [facility] [address] [place] [address] Pippa Shirley MD 234 [facility], [address] [place] [address] [email or web address] 12/31/2025 11:30 AM EST Office Visit [facility] Gastroenterology Clinic 10 [place] [address] Unknown, Unknown, Angela Sen PA-C [address] [address] [email or web address] 02/28/2026 8:30 AM EDT Office Visit [facility] Neurology [address] [place] [address] Albert Lynn MD [address] [place] [address], 2nd [place] [address] [email or web address] 03/11/2026 5:30 PM EDT Appointment [facility], Bone Density - [facility] 30 [place] [address] Pippa Shirley MD 234 [facility], [address] [place] [address] [email or web address] documented as of this encounter Procedures Procedure [...] EST) SODIUM 137 133 - 146 mmol/L [facility] POTASSIUM 4.5 3.3 - 5.1 mmol/L [facility] CHLORIDE 98 96 - 108 mmol/L [facility] CO2 25 21 - 35 mmol/L [facility] BUN 15 6 - 19 mg/dL [facility] CREATININE 0.80 0.5 - 1.5 mg/dL [facility] GLUCOSE 124(H) 70 - 99 mg/dL [facility] ALBUMIN 4.4 3.9 - 4.8 g/dL [facility] TOTAL PROTEIN 7.4 6.5 - 8.0 g/dL [facility] CALCIUM 10.2 8.4 - 10.3 mg/dL [facility] ALKALINE PHOSPHATASE 103 39 - 117 U/L [facility] TOTAL BILIRUBIN 0.3 0 - 1.2 mg/dL [facility] AST 19 0 - 37 U/L [facility] ALT 19 0 - 40 U/L [facility] GLOBULIN 3.0 1 - 4.8 g/dL [facility] EGFR >60 60 - 1000 mL/min/1.7 3m2 [facility] Comment:Abnormal if <60. If patient is -Martiniquais, multiply the result by 1.21. ANION GAP 19 10 - 20 mmol/L [facility] Blood 10/22/2017 10:2 5 AM EST 10/22/2017 10:26 AM EST us Best Aaron MD LAB BLOOD BKR ORDERABLES Jennifer seaman Result [address] [address] * CBC and differential (10/22/2017 10:25 AM EST) WBC 7.41 3.40 - 11.20 K/uL [facility] RBC 4.07 3.80 - 4.80 M/uL [facility] HGB 12.3 12.0 - 15.0 g/dL [facility] HCT 36.9 36.0 - 46.0 % [facility] PLT 284 130 - 400 K/uL [facility] MCV 90.7 79.0 - 98.0 fL [facility] MCH 30.2 27.0 - 34.8 pg [facility] MCHC 33.3 31.5 - 36.0 g/dL [facility] RDW 13.6 10.8 - 14.6 % [facility] MPV 10.2 9.4 - 12.4 fl [facility] NRBC 0.00 /100 WBCs [facility] ABSOLUTE NRBC 0.00 K/uL [facility] DIFF METHOD Auto [facility] NEUTS 73.3 45.30 - 77.70 % [facility] LYMPHS 16.5 12.30 - 39.70 % [facility] MONOS 6.6 4.10 - 12.80 % [facility] EOS 2.8 0 - 7.2 % [facility] BASOS 0.4 0 - 2.80 % [facility] Granulocytes, immature (%) 0.4 0.0 - 0.9 % [facility] ABSOLUTE NEUTS 5.43 1.40 - 7.70 K/uL [facility] ABSOLUTE LYMPHS 1.22 0.60 - 3.20 K/uL [facility] ABSOLUTE MONOS 0.49 0.11 - 0.59 K/uL [facility] ABSOLUTE EOS 0.21 0.01 - 0.50 K/uL [facility] ABSOLUTE BASOS 0.03 0.00 - 0.08 K/uL [facility] Granulocytes, immature 0.03 0.00 - 0.05 K/uL [facility] Blood 10/22/2017 10:2 5 AM EST 10/22/2017 10:26 AM EST us Best Aaron MD LAB BLOOD BKR ORDERABLES Jennifer seaman Result [facility] 30 [place] [address] documented in this encounter Visit Diagnoses Diagnosis [...] documented as of this encounter Care Teams Supervisor Graphite Relationship Specialty Start Date End Date Best Aaron MD [address] [place] [address] 7 [place] [address] PCP - General 09/02/17 10/18/19 Best Aaron MD [address] [place] [address] 7 [place] [address] PCP - General Family Medicine 10/19/19 02/09/24 Pippa Shirley MD [address] [place] [address] 7 [place] [address] [email or web address] PCP - General Family Medicine 02/10/24 Alysa Benito SOFTWARE CLERK 1 [place] [address] Historical LMR Provider 09/04/17 2 Jailyn Grewal DO [address] [place] [address] 7 [place] [address] [email or web address] Historical LMR Provider 09/04/17 Esperanza Cisneros NP [address] [place] [address] Historical LMR Provider 09/04/17 2 Bettye Amaro, ROBERTO [address] [place] [address] [email or web address] Historical LMR Provider 09/04/17 Caprice Johns SOFTWARE CLERK [address] [place] [address] [email or web address] Historical LMR Provider 09/04/17 11/22/21 Noe Fitzpatrick MD [address] [place] [address] [email or web address] Historical LMR Provider 09/04/17 11/22/21 Adelaida Awad MD [address] [place] [address] [email or web address] Historical LMR Provider 09/04/17 Kadi Nazario NP [address] [place] [address] Historical LMR Provider 09/04/17 2 Ninoska Sanchez MD [address] [place] [address] [email or web address] Historical LMR Provider 09/04/17 Best Aaron MD [address] [place] [address] [email or web address] Historical LMR Provider 09/04/17 Yashira Felix NP [address] [place] [address] Historical LMR Provider 09/04/17 2 Belinda Wolfe MD [address] [place] [address] Historical LMR Provider 09/04/17 2 Carlos Miranda MD [address] [place] [address] Historical LMR Provider 09/04/17 11/22/21 Juanis Boyd MD [address] [place] [address] Historical LMR Provider 09/04/17 11/22/21 Saurav Cornelius MD [address] [place], [place] [address] [place] [phone] [email or web address] Historical LMR Provider 09/04/17 Giulia Alarcon MD [address] [place] [address] Historical LMR Provider 09/04/17 11/22/21 Albert Ley MD [address] [place] [address] Historical LMR Provider 09/04/17 2 Luis Carlos De Jesus CNP [address] [place] [address], [address] [place] [address] [email or web address] Historical LMR Provider 09/04/17 Best Aaron MD [address] [place] [address] 7 [place] [address] [email or web address] Insurance Assigned Provider 09/18/17 02/19/24 Jailyn Grewal DO [address] [place] [address] 7 [place] [address] [email or web address] Insurance Assigned Provider 02/19/24 02/18/25 Pippa Shirley MD [address] [place] [address] 7 [place] [address] [email or web address] Insurance Assigned Provider 02/18/25 documented as of this encounter Additional Source Comments The information contained in this document represents components of the legal health record. It is not the complete legal health record.[facility]
--- OUTSIDE RECORDS SUMMARY | 2025-10-25 19:25 | XMS_ITS | Encounter Summary ---
Author Organization [facility] Address [facility] [address] [place] [address] Phone Care Team Providers Care Steeplechase Jockey Name Role Phone Alysa Benito CHANNELER Unavailable Jailyn Grewal DO Unavailable Esperanza Cisneros CHANNELER Unavailable Bettye Amaro PAYROLL REPRESENTATIVE Unavailable Caprice Johns CHANNELER Unavailable [phone] Noe Fitzpatrick MD Unavailable Adelaida Awad MD Unavailable Kadi Nazario CHANNELER Unavailable Ninoska Sanchez MD Unavailable Best Aaron MD Unavailable Yasihra Felix CHANNELER Unavailable [phone] Belinda Wolfe MD Unavailable [phone] Carlos Miranda MD Unavailable Juanis Boyd MD Unavailable Saurav Cornelius MD Unavailable Giulia Alarcon MD Unavailable Albert Ley MD Unavailable [phone] Luis Carlos De Jesus CNP Unavailable Best Aaron MD Unavailable Best Aaron MD Primary Care Provider [phone] Pippa Shirley MD Primary Care Provider Jailyn Grewal DO Unavailable Pippa Shirley MD Unavailable Encounter Details Date Type Department Care Team (Late st Contact Info) Description 11/23/2019 Procedure Pass [facility] PERIOPERATIVE DEPT [address] [place] [address] Social History Tobacco Use Types [...] Description 12/20/2025 2:00 PM EST Office Visit [facility] Medicine [address] [place], [place] [phone] Pippa Shirley MD 234 [facility], [address] [place], [place] [address] [email or web address] 12/31/2025 11:30 AM EST Office Visit [facility] G[facility]ology [facility] 10 [place] [address] Unknown, Unknown, Angela Sen PA-C [address] [address] [email or web address] 02/28/2026 8:30 AM EDT Office Visit [facility] Neurology [address] [place] [address] Albert Lynn MD [address] [place] [address], 2nd [place] [address] [email or web address] 03/11/2026 5:30 PM EDT Appointment [facility], Bone Density - [address] [address] Pippa Shirley MD [address] [place] [address], [address] [place] [address] [email or web address] documented as of this encounter [...] documented as of this encounter Care Teams Steeplechase Jockey Relationship Specialty Start Date End Date Best Aaron MD [address] [place] [address] 7 [place] [address] PCP - General Family Medicine 10/19/19 02/09/24 Pippa Shirley MD [address] [place] [address] 7 [place] [address] [email or web address] PCP - General Family Medicine 02/10/24 Alysa Benito NP 1 [place] [address] Historical LMR Provider 09/04/17 2 Jailyn Grewal DO [address] [place] [address] 7 [place] [address] [email or web address] Historical LMR Provider 09/04/17 Esperanza Cisneros NP [address] [place] [address] Historical LMR Provider 09/04/17 2 Bettye Amaro CNP [facility], 2nd [place] [address] Historical LMR Provider 09/04/17 Caprice Johns NP [address] [place] [address] Historical LMR Provider 09/04/17 11/22/21 Noe Fitzpatrick MD [address] [place] [address] [email or web address] Historical LMR Provider 09/04/17 11/22/21 Adelaida Awad MD [address] [facility], [address] [place] [address] [email or web address] Historical LMR Provider 09/04/17 Kadi Nazario NP [address] [place] [address] Historical LMR Provider 09/04/17 2 Ninoska Sanchez MD [address] [place] [address] [email or web address] Historical LMR Provider 09/04/17 Best Aaron MD [address] [place] [address] [email or web address] Historical LMR Provider 09/04/17 Yashira Felix NP [address] [place] [address] Historical LMR Provider 09/04/17 2 Belinda Wolfe MD [address] [place] [address] Historical LMR Provider 09/04/17 2 Carlos Miranda MD [address] [address] Historical LMR Provider 09/04/17 11/22/21 Juanis Boyd MD [address] [place] [address] 7 [place] [address] [email or web address] Historical LMR Provider 09/04/17 11/22/21 Saurav Cornelius MD [address] [place] [address] [address] [place] [phone] [email or web address] Historical LMR Provider 09/04/17 Giulia Alarcon MD [address] [place] [address] [address] [place] [address] [email or web address] Historical LMR Provider 09/04/17 11/22/21 Albert Ley MD [address] [place] [address] Historical LMR Provider 09/04/17 Luis Carlos Saldivar CNP [address] [place] [address], [address] [place] [address] [email or web address] Historical LMR Provider 09/04/17 Best Aaron MD [address] [place] [address] 7 [place] [address] Insurance Assigned Provider 09/18/17 02/19/24 Jailyn Grewal DO [address] [place] [address] 7 [place] [address] [email or web address] Insurance Assigned Provider 02/19/24 02/18/25 Pippa Shirley MD [address] [place] [address], [address] [place] [address] [email or web address] Insurance Assigned Provider 02/18/25 documented as of this encounter Additional Source Comments The information contained in this document represents components of the legal health record. It is not the complete legal health record.[facility]
--- OUTSIDE RECORDS SUMMARY | 2025-10-25 19:25 | XMS_ITS | Encounter Summary ---
Author Organization [facility] Address [address] [employer] [facility] [address] [place] [address] Phone Care Team Providers Care Motor Grader Rough Grade Name Role Phone Jailyn Grewal DO Unavailable Bettye Amaro EXCAVATING SUPERVISOR Unavailable Ninoska Sanchez MD Unavailable Best Aaron MD Unavailable [phone] Saurav Cornelius MD Unavailable Pippa Shirley MD Primary Care Provider [phone] Pippa Shirley MD Unavailable [phone] Encounter Details Date Type Department Care Team (Late st Contact Info) Description 03/12/2025 Procedure Pass [facility], Ct Scan - [address] [address] Social History Tobacco Use Types Packs/Day Years [...] Description 12/20/2025 2:00 PM EST Office Visit [facility] Medicine 234 [place] [address] Pippa Shirley MD 234 [facility] 7 [place] [address] [email or web address] 12/31/2025 11:30 AM EST Office Visit [facility] Gastroenterology Clinic [address] [place] [address] Unknown, Unknown, Angela Sen PA-C [address] [place] [address] [email or web address] 02/28/2026 8:30 AM EDT Office Visit [facility] Neurology [address] [place] [address] Albert Lynn MD [address] [place] [address], 2nd [place] [address] 03/11/2026 5:30 PM EDT Appointment [facility], Bone Density - [facility] 30 [place] [address] Pippa Shirley MD 234 [facility] 7 [place] [address] [email or web address] documented as of this encounter Visit Diagnoses Not on filedocumented in this encounter Additional Health Concerns Assessment Noted Time PHQ-2 Depression Total Score: 2 09/24/20 24 5:13 PM EDT documented as of this encounter Care Teams Motor Grader Rough Grade Relationship Specialty Start Date End Date Pippa Shirley MD [address] [place] [address], [facility] 7 [place] [address] [email or web address] PCP - General Family Medicine 02/10/24 Jailyn Grewal DO [address] [place] [address] 7 [place] [address] Historical LMR Provider 09/04/17 Bettye Amaro CNP [address] [place] [address], 2nd [place] [address] Historical LMR Provider 09/04/17 Ninoska Sanchez MD [address] [place] [address] 7 [place] [address] Historical LMR Provider 09/04/17 Best Aaron MD [address] [place] [address] 7 [place] [address] Historical LMR Provider 09/04/17 Saurav Cornelius MD [address] [place], [place] [address] [place] [phone] [email or web address] Historical LMR Provider 09/04/17 Pippa Shirley MD [address] [place] [address] 7 [place] [address] [email or web address] Insurance Assigned Provider 02/18/25 documented as of this encounter Additional Source Comments The information contained in this document represents components of the legal health record. It is not the complete legal health record.[facility]
--- OUTSIDE RECORDS SUMMARY | 2025-10-25 19:25 | XMS_ITS | Encounter Summary ---
Author Organization [facility] Address [facility] [address] [place] [address] Phone Care Team Providers Care Model Making Supervisor Name Role Phone Alysa Benito BRAID PATTERN SETTER Unavailable Jailyn Grewal DO Unavailable Esperanza Cisneros BRAID PATTERN SETTER Unavailable Bettye Amaro MAIL CARRIERS SUPERVISOR Unavailable Caprice Johns BRAID PATTERN SETTER Unavailable [phone] Noe Fitzpatrick MD Unavailable Adelaida Awad MD Unavailable Kadi Nazario BRAID PATTERN SETTER Unavailable Ninoska Sanchez MD Unavailable Best Aaron MD Unavailable Yashira Felix BRAID PATTERN SETTER Unavailable [phone] Belinda Wolfe MD Unavailable [phone] Carlos Miranda MD Unavailable Juanis Boyd [...] st Contact Info) Description 07/01/2020 Procedure Pass [facility] MR Imaging, [place] [address] [place] [address] Social History Tobacco Use Types Packs/Day Years [...] Description 12/20/2025 2:00 PM EST Office Visit [facility] [address] [place] [address] Pippa Shirley MD 234 [facility], [address] [place] [address] [email or web address] 12/31/2025 11:30 AM EST Office Visit [facility] Gastroenterology Clinic 10 [place] [address] Unknown, Unknown, Angela Sen PA-C [address] [address] [email or web address] 02/28/2026 8:30 AM EDT Office Visit [facility] Neurology [address] [place] [address] Albert Lynn MD [address] [place] [address], 2nd [place] [address] [email or web address] 03/11/2026 5:30 PM EDT Appointment [facility], Bone Density - [facility] 30 [place] [address] Pippa Shirley MD 234 [facility], [address] [place] [address] [email or web address] documented as of this encounter [...] as of this encounter Care Teams Model Making Supervisor Relationship Specialty Start Date End Date Best Aaron MD [address] [place] [address] 7 [place] [address] PCP - General Family Medicine 10/19/19 02/09/24 Pippa Shirley MD [address] [place] [address] 7 [place] [address] [email or web address] PCP - General Family Medicine 02/10/24 Alysa Benito NP 1 [place] [address] Historical LMR Provider 09/04/17 2 Jailyn Grewal DO [address] [place] [address] 7 [place] [address] [email or web address] Historical LMR Provider 09/04/17 Esperanza Cisneros NP 29 [place] [address] Historical LMR Provider 09/04/17 2 Bettye Amaro CNP [address] [address] [email or web address] Historical LMR Provider 09/04/17 Caprice Johns NP 30 [place] [address] [email or web address] Historical LMR Provider 09/04/17 11/22/21 Noe Fitzpatrick MD [address] [place] [address] [email or web address] Historical LMR Provider 09/04/17 11/22/21 Adelaida Awad MD [address] [place] [address] [email or web address] Historical LMR Provider 09/04/17 Kadi Nazario NP [address] [place] [address] Historical LMR Provider 09/04/17 2 Ninoska Sanchez MD [address] [place] [address] 7 [place] [address] [email or web address] Historical LMR Provider 09/04/17 Best Aaron MD [address] [place] [address] [email or web address] Historical LMR Provider 09/04/17 Yashira Felix NP [address] [place] [address] Historical LMR Provider 09/04/17 2 Belinda Wolfe MD [address], [place] [address] Historical LMR Provider 09/04/17 2 Carlos Miranda MD [address] [place] [address] Historical LMR Provider 09/04/17 11/22/21 Juanis Boyd MD [address] [place] [address] 7 [place] [address] Historical LMR Provider 09/04/17 11/22/21 Saurav Cornelius MD [address] [place], [place] [address] [place] [address] [email or web address] Historical LMR Provider 09/04/17 Giulia Alarcon MD [address] [place] [address] Historical LMR Provider 09/04/17 11/22/21 Albert Ley MD [address] [place] [address] Historical LMR Provider 09/04/17 2 Luis Carlos De Jesus, ROBERTO [address] [place] [address], [address] [place] [address] Historical LMR Provider 09/04/17 Best Aaron MD [address] [place] [address] 7 [place] [address] Insurance Assigned Provider 09/18/17 02/19/24 Jailyn Grewal DO [address] [place] [address], [address] [place] [address] [email or web address] Insurance Assigned Provider 02/19/24 02/18/25 Pippa Shirley MD 234 [facility], [address] [place] [address] [email or web address] Insurance Assigned Provider 02/18/25 documented as of this encounter Additional Source Comments The information contained in this document represents components of the legal health record. It is not the complete legal health record.[facility]
--- OUTSIDE RECORDS SUMMARY | 2025-10-25 19:25 | XMS_ITS | Encounter Summary ---
Author Organization Located Within [facility] Address Critical access hospital [facility] [address] [place] [address] Phone Care Team Providers Care Assembler Unit Name Role Phone Best Aaron MD Primary Care Provider Alysa Benito UNIFORM ROOM ATTENDANT Unavailable Jailyn Grewal DO Unavailable [phone] Esperanza Cisneros UNIFORM ROOM ATTENDANT Unavailable Bettye Amaro DOCK CLERK Unavailable Caprice Johns UNIFORM ROOM ATTENDANT Unavailable [phone] Noe Fitzpatrick MD Unavailable Adelaida Awad MD Unavailable Kadi Nazario UNIFORM ROOM ATTENDANT Unavailable Ninoska Sanchez MD Unavailable Best Aaron MD Unavailable Yashira Felix UNIFORM ROOM ATTENDANT Unavailable [phone] Belinda Wolfe MD Unavailable [phone] Carlos Miranda MD Unavailable Juanis Boyd MD Unavailable Saurav Cornelius MD Unavailable Giulia Alarcon MD Unavailable Albert Ley MD Unavailable [phone] Luis Carlos De Jesus DOCK CLERK Unavailable Best Aaron MD Unavailable Best Aaron MD Primary Care Provider Pippa Shirley MD Primary Care Provider Jailyn Grewal DO Unavailable Pippa Shirley MD Unavailable Encounter Details Date Type Department Care Team (Late Contact Info) Description 01/12/2018 Ancillary Orders [facility], X-Ray - [address] [place] [address] Marquita Roldan, UNIFORM ROOM ATTENDANT [address] [place] [phone] [email or web address] Right shoulder pain, unspecified chronicity Social History [...] Description 12/20/2025 2:00 PM EST Office Visit [address] [address] Pippa Shirley MD 234 [facility], [address] [place] [address] [email or web address] 12/31/2025 11:30 AM EST Office Visit [facility] 10 [place] [address] Unknown, Unknown, Angela Sen PA-C [address] [address] [email or web address] 02/28/2026 8:30 AM EDT Office Visit [facility] [address] [place] [address] Albert Lynn MD [address] [facility], 2nd [place] [address] [email or web address] 03/11/2026 5:30 PM EDT Appointment [facility], Bone Density - [facility] 30 [place] [address] Pippa Shirley MD 234 [facility], [facility] 7 [place] [address] [email or web address] documented as of this encounter Results * XR SHOULDER 2 VIEWS (RIGHT) (01/12/2018 6:00 PM EST) Anatomical Region Laterality Modality Shoulder Right Radiographic Ashley ging 01/12/2018 6:11 PM EST Impressions 01/12/2018 6:13 PM EST Mild degenerative change at the acromioclavicular joint. Minimal degenerative change at the glenohumeral joint. POS - [id number] Narrative 01/12/2018 6:13 PM EST HISTORY: Pain. [...] change at the glenohumeral joint. POS - [id number] us Marquita Roldan UNIFORM ROOM ATTENDANT IMG XR UPPER EXTREMITY Final Res ult [...] documented as of this encounter Care Teams Assembler Unit Relationship Specialty Start Date End Date Best Aaron MD [address] [place] [address], [address] [place] [address] PCP - General 09/02/17 10/18/19 Best Aaron MD [address] [place] [address] 7 [place] [address] PCP - General Family Medicine 10/19/19 02/09/24 Pippa Shirley MD [address] [place] [address] 7 [place] [address] [email or web address] PCP - General Family Medicine 02/10/24 Alysa Benito NP [address] [place] [address] Historical LMR Provider 09/04/17 2 Jailyn Grewal DO [address] [place] [address] 7 [place] [address] Historical LMR Provider 09/04/17 Esperanza Cisneros NP 29 [place] [address] Historical LMR Provider 09/04/17 2 Bettye Amaro CNP 15 [facility] 2nd [place] [address] Historical LMR Provider 09/04/17 Caprice Johns NP [address] [place] [address] Historical LMR Provider 09/04/17 11/22/21 Noe Fitzpatrick MD 4 [place] [address] [email or web address] Historical LMR Provider 09/04/17 11/22/21 Adelaida Awad MD [address] [facility], 2nd [place] [address] [email or web address] Historical LMR Provider 09/04/17 Kadi Nazario NP [address] [place] [address] Historical LMR Provider 09/04/17 2 Ninoska Sanchez MD [address] [place] [address] [email or web address] Historical LMR Provider 09/04/17 Best Aaron MD [address] [place] [address] [email or web address] Historical LMR Provider 09/04/17 Yashira Felix NP [address] [place] [address] Historical LMR Provider 09/04/17 2 Belinda Wolfe MD [address], [place] [address] Historical LMR Provider 09/04/17 2 Carlos Miranda MD [address] [address] Historical LMR Provider 09/04/17 11/22/21 Juanis Boyd MD [address] [place] [address] 7 [place] [address] Historical LMR Provider 09/04/17 11/22/21 Saurav Cornelius MD [address] [place] [address] [address] [place] [phone] [email or web address] Historical LMR Provider 09/04/17 Giulia Alarcon MD [address] [place] [address] [address] [place] [address] Historical LMR Provider 09/04/17 11/22/21 Albert Ley MD [address] [place] [address] Historical LMR Provider 09/04/17 2 Luis Carlos De Jesus, ROBERTO [address] [place] [address], [address] [place] [address] Historical LMR Provider 09/04/17 Best Aaron MD [address] [place] [address] 7 [place] [address] Insurance Assigned Provider 09/18/17 02/19/24 Jailyn Grewal DO [address] [place] [address] 7 [place] [address] [email or web address] Insurance Assigned Provider 02/19/24 02/18/25 Pippa Shirley MD [address] [place] [address] 7 [place] [address] [email or web address] Insurance Assigned Provider 02/18/25 documented as of this encounter Additional Source Comments The information contained in this document represents components of the legal health record. It is not the complete legal health record.[facility]
--- OUTSIDE RECORDS SUMMARY | 2025-10-25 19:25 | XMS_ITS | Encounter Summary ---
Author Organization [facility] Address [address] [facility] [address] [place] [address] Phone Care Team Providers Care Marketing Systems Manager Name Role Phone Jailyn Grewal DO Unavailable Sondra Bettyeminh Leggett ROCKET TEST FIRE WORKER Unavailable Ninoska Sanchez MD Unavailable Best Aaron MD Unavailable Saurav Cornelius MD Unavailable Pippa Shirley MD Primary Care Provider Jailyn Grewal DO Unavailable Pippa Shirley MD Unavailable [phone] Encounter Details Date Type Department Care Team (Late st Contact Info) Description 04/21/2024 Procedure Pass [facility] 30 [place] [address] Social History Tobacco Use Types Packs/Day Years [...] 12/20/2025 2:00 PM EST Office Visit [facility] [address] [place] [address] Pippa Shirley MD 234 [facility] 7 [place] [address] [email or web address] 12/31/2025 11:30 AM EST Office Visit [facility] [address] [place] [address] Unknown, Unknown, Angela Sen PA-C [address] [address] [email or web address] 02/28/2026 8:30 AM EDT Office Visit [facility]rology [address] [place] [address] Albert Lynn MD [address] [place] [address], 2nd [place] [address] [email or web address] 03/11/2026 5:30 PM EDT Appointment [facility], Bone Density - [address] [address] Pippa Shirley MD [address] [address] [email or web address] documented as of this encounter Visit Diagnoses Not on filedocumented in this encounter Additional Health Concerns Assessment Noted Time PHQ-2 Depression Total Score: 2 09/08/20 22 4:13 PM EDT documented as of this encounter Care Teams Marketing Systems Manager Relationship Specialty Start Date End Date Pippa Shirley MD [address] [place] [address] [email or web address] PCP - General Family Medicine 02/10/24 Jailyn Grewal DO [address] [place] [address] 7 [place] Cain [address] Historical LMR Provider 09/04/17 Bettye Amaro, ROCKET TEST FIRE WORKER 15 [facility], 2nd [place] [address] Historical LMR Provider 09/04/17 Ninoska Sanchez MD [address] [place] [address] 7 [place] [address] Historical LMR Provider 09/04/17 Best Aaron MD [address] [place] [address] 7 [place] Cain [address] Historical LMR Provider 09/04/17 Saurav Cornelius MD [address] [place], [place] [address] [place] [phone] [email or web address] Historical LMR Provider 09/04/17 Jailyn Grewal DO [address] [place] [address] 7 [place] [address] Insurance Assigned Provider 02/19/24 Pippa Shirley MD [address] [place] [address] 7 [place] [address] [email or web address] Insurance Assigned Provider 02/18/25 documented as of this encounter Additional Source Comments The information contained in this document represents components of the legal health record. It is not the complete legal health record.[facility]
--- OUTSIDE RECORDS SUMMARY | 2025-10-25 19:25 | XMS_ITS | Encounter Summary ---
Author Organization [facility] Address [facility] [address] [place] [address] Phone Care Team Providers Care V Belt Coverer Name Role Phone Jailyn Grewal DO Unavailable Bettye Amaro ELECTRONICS WARFARE TECHNICIAN Unavailable Ninoska Sanchez MD Unavailable Best Aaron MD Unavailable Saurav Cornelius MD Unavailable Pippa Shirley MD Primary Care Provider [phone] Pippa Shirley MD Unavailable Encounter Details Date Type Department Care Team (Late st Contact Info) Description 04/26/2025 Procedure Pass [facility] Cardiovascular And Interventional Radiology 30 [place] [address] Social History Tobacco Use Types Packs/Day Years [...] EST Office Visit [facility] Medicine [address] [place] [address] Pippa Shirley MD [address] [place] [address] 7 [place] [address] [email or web address] 12/31/2025 11:30 AM EST Office Visit [facility]ology [facility] [address] [place] [address] Unknown, Unknown, Angela Sen PA-C [address] [address] 02/28/2026 8:30 AM EDT Office Visit [facility] Neurology [address] [place] [address] Albert Lynn MD [address] [place] [address], 2nd [place] [address] 03/11/2026 5:30 PM EDT Appointment [facility], Bone Density - [facility] 30 [place] [address] Pippa Shirley MD 234 [facility], [facility] 7 [place] [address] [email or web address] documented as of this encounter Visit Diagnoses Not on filedocumented in this encounter Additional Health Concerns Assessment Noted Time PHQ-2 Depression Total Score: 2 08/08/20 5:13 PM EDT documented as of this encounter Care Teams V Belt Coverer Relationship Specialty Start Date End Date Pippa Shirley MD [address] [place] [address] 7 [place] [address] [email or web address] PCP - General Family Medicine 02/10/24 Jailyn Grewal DO [address] [place] [address] 7 [place] [address] Historical LMR Provider 09/04/17 Bettye Amaro CNP [address] [place] [address], 2nd [place] [address] Historical LMR Provider 09/04/17 Ninoska Sanchez MD [address] [place] [address] 7 [place] [address] Historical LMR Provider 09/04/17 Best Aaron MD [address] [place] [address] 7 [place] [address] Historical LMR Provider 09/04/17 Saurav Cornelius MD [address] [place], [place] [address] [place] [phone] [email or web address] Historical LMR Provider 09/04/17 Pippa Shirley MD [address] [place] [address] 7 [place] [address] [email or web address] Insurance Assigned Provider 02/18/25 documented as of this encounter Additional Source Comments The information contained in this document represents components of the legal health record. It is not the complete legal health record.[facility]
--- OUTSIDE RECORDS SUMMARY | 2025-10-25 19:26 | XMS_ITS | Encounter Summary ---
Author Organization [facility] Address [facility] [employer] [facility] [address] [place] [address] Phone Care Team Providers Care Shelter Case Manager Name Role Phone Best Aaron MD Primary Care Provider Alysa Benito SHELTER CASE MANAGER Unavailable [phone] Jailyn Grewal DO Unavailable Esperanza Cisneros SHELTER CASE MANAGER Unavailable Bettye Amaro STAINED GLASS PAINTER Unavailable Caprice Johns SHELTER CASE MANAGER Unavailable [phone] Noe Fitzpatrick MD Unavailable Adelaida Awad MD Unavailable Kadi Nazario SHELTER CASE MANAGER Unavailable [phone] Ninoska Sanchez MD Unavailable Best Aaron MD Unavailable Yashira Felix NP Unavailable [phone] Belinda Wolfe MD Unavailable [phone] Carlos Miranda MD Unavailable Juanis Boyd MD Unavailable Saurav Cornelius MD Unavailable Giulia Alarcon MD Unavailable Albert Ley MD Unavailable [phone] Luis Carlos De Jesus STAINED GLASS PAINTER Unavailable Best Aaron MD Unavailable Best Aaron MD Primary Care Provider Pippa Shirley MD Primary Care Provider Jailyn Grewal DO Unavailable Pippa Shirley MD Unavailable [phone] Encounter Details Date Type Department Care Team (Late st Contact Info) Description 09/29/2017 Ancillary Orders [address] [address] Best Aaron MD [address] [place] [address], [facility] 7 [place] [address] [email or web address] Bilateral hip pain; Pain Social History Tobacco [...] 12/20/2025 2:00 PM EST Office Visit [address] [place] [address] Pippa Shirley MD 234 [facility], [address] [place] [address] [email or web address] 12/31/2025 11:30 AM EST Office Visit [facility] 10 [place] [address] Unknown, Unknown, Angela Sen PA-C [address] [address] [email or web address] 02/28/2026 8:30 AM EDT Office Visit [facility] Neurology [address] [place] [address] Albert Lynn MD [address] [place] [address], 2nd [place] [address] [email or web address] 03/11/2026 5:30 PM EDT Appointment [facility], Bone Density - [address] [address] Pippa Shirley MD 234 [facility], [address] [place] [address] [email or web address] documented as of this encounter Results * XR HIP 2-3 VW RIGHT (09/29/2017 2:29 PM EST) Anatomical Region Laterality Modality Hip Right Radiographic Ashley ging 09/29/2017 2:37 PM EST Impressions 09/29/2017 2:39 PM EST Status post right total hip arthroplasty. No explanation for right hip pain is seen. S/S: Right hip pain, status post right total hip arthroplasty POS - [id number] Narrative 09/29/2017 2:39 PM EST COMPARISON: None [...] post right total hip arthroplasty POS - [id number] Best Aaron MD IMG XR PELVIS Final Result * XR HIP 2-3 VW LEFT (09/29/2017 2:29 PM EST) Anatomical Region Laterality Modality Hip Left Radiographic Ashley ging 09/29/2017 2:36 PM EST Impressions 09/29/2017 2:37 PM EST Unremarkable evaluation of the left hip. S/S: Left hip pain POS - [id number] Narrative 09/29/2017 2:37 PM EST COMPARISON: None [...] hip. S/S: Left hip pain POS - [id number] Best Aaron MD IMG XR PELVIS Final [...] hip pain, right hip replacement POS - [id number] Narrative 09/29/2017 2:36 PM EST COMPARISON: None [...] hip pain, right hip replacement POS - [id number] Best Aaron MD IMG XR PELVIS Final [...] documented as of this encounter Care Teams Shelter Case Manager Relationship Specialty Start Date End Date Best Aaron MD [address] [place] [address] 7 [place] [address] [email or web address] PCP - General 09/02/17 10/18/19 Best Aaron MD [address] [place] [address] 7 [place] [address] [email or web address] PCP - General Family Medicine 10/19/19 02/09/24 Pippa Shirley MD [address] [place] [address] 7 [place] [address] [email or web address] PCP - General Family Medicine 02/10/24 Alysa Benito SHELTER CASE MANAGER 1 [place] [address] Historical LMR Provider 09/04/17 2 Jailyn Grewal DO [address] [place] [address] 7 [place] [address] [email or web address] Historical LMR Provider 09/04/17 Esperanza Cisneros NP 29 [place] [address] Historical LMR Provider 09/04/17 2 Bettye Amaro CNP [address] [address] [email or web address] Historical LMR Provider 09/04/17 Caprice Johns NP [address] [place] [address] [email or web address] Historical LMR Provider 09/04/17 11/22/21 Noe Fitzpatrick MD [address] [place] [address] [email or web address] Historical LMR Provider 09/04/17 11/22/21 Adelaida Awad MD [address] [place] [address] [email or web address] Historical LMR Provider 09/04/17 Kadi Nazario NP [address] [place] [address] Historical LMR Provider 09/04/17 2 Ninoska Sanchez MD [address] [place] [address] 7 [place] [address] [email or web address] Historical LMR Provider 09/04/17 Best Aaron MD [address] [place] [address] 7 [place] [address] [email or web address] Historical LMR Provider 09/04/17 Yashira Felix NP [address] [place] [address] Historical LMR Provider 09/04/17 2 Belinda Wolfe MD [address] [address] Historical LMR Provider 09/04/17 2 Carlos Miranda MD [address] [place] [address] Historical LMR Provider 09/04/17 11/22/21 Juanis Boyd MD [address] [place] [address] [email or web address] Historical LMR Provider 09/04/17 11/22/21 Saurav Cornelius MD [address] [place] [address] [address] [place] [phone] [email or web address] Historical LMR Provider 09/04/17 Giulia Alarcon MD [address] [place] [address] [email or web address] Historical LMR Provider 09/04/17 11/22/21 Albert Ley MD [address] [place] [address] Historical LMR Provider 09/04/17 2 Luis Carlos De Jesus, ROBERTO [address] [place] [address], [address] [place] [address] Historical LMR Provider 09/04/17 Best Aaron MD [address] [place] [address], [address] [place] [address] [email or web address] Insurance Assigned Provider 09/18/17 02/19/24 Jailyn Grewal DO [address] [place] [address], [facility] 7 [place] [address] [email or web address] Insurance Assigned Provider 02/19/24 02/18/25 Pippa Shirley MD [address] [place] [address], [facility] 7 [place] [address] [email or web address] Insurance Assigned Provider 02/18/25 documented as of this encounter Additional Source Comments The information contained in this document represents components of the legal health record. It is not the complete legal health record.[facility]
--- OUTSIDE RECORDS SUMMARY | 2025-10-25 19:26 | XMS_ITS | Encounter Summary ---
Author Organization [facility] Address [facility] [employer] [facility] [address] [place] [phone] Phone Care Team Providers Care Washer Assembler Name Role Phone Best Aaron MD Primary Care Provider [phone] Alysa Benito ELECTRIC TRIPPER MACHINE OPERATOR Unavailable Jailyn Grewal DO Unavailable [phone] Esperanza Cisneros ELECTRIC TRIPPER MACHINE OPERATOR Unavailable [phone] Bettye Amaro STRIP CLEANER Unavailable Caprice Johns ELECTRIC TRIPPER MACHINE OPERATOR Unavailable [phone] Noe Fitzpatrick MD Unavailable Adelaida Awad MD Unavailable Kadi Nazaroi ELECTRIC TRIPPER MACHINE OPERATOR Unavailable Ninoska Sanchez MD Unavailable Best Aaron MD Unavailable Yashira Felix NP Unavailable [phone] Belinda Wolfe MD Unavailable [phone] Carlos Miranda MD Unavailable Juanis Boyd MD Unavailable Saurav Cornelius MD Unavailable Giulia Alarcon MD Unavailable Albert Ley MD Unavailable [phone] Luis Carlos De Jesus STRIP CLEANER Unavailable Best Aaron MD Unavailable Best Aaron MD Primary Care Provider Pippa Shirley MD Primary Care Provider Jailyn Grewal DO Unavailable Pippa Shirley MD Unavailable Encounter Details Date Type Department Care Team (Late st Contact Info) Description 10/05/2017 Procedure Pass [facility], [address] [address] Social History Tobacco Use Types Packs/Day Years [...] Description 12/20/2025 2:00 PM EST Office Visit [facility] [place] [address] [place] [address] Pippa Shirley MD [address] [facility], [address] [place] [address] [email or web address] 12/31/2025 11:30 AM EST Office Visit [facility] [address] [place] [address] Unknown, Unknown, Angela Sen PA-C [address] [address] [email or web address] 02/28/2026 8:30 AM EDT Office Visit [facility] Neurology [address] [place] [address] Albert yLnn MD [address] [place] [address], [address] [place] [address] [email or web address] 03/11/2026 5:30 PM EDT Appointment [facility], Bone Density - [facility] [address] [place] [address] Pippa Shirley MD [address] [facility], [facility] [address] [place] [address] [email or web address] documented as of [...] documented as of this encounter Care Teams Washer Assembler Relationship Specialty Start Date End Date Best Aaron MD [address] [place] [address] 7 [place] [id number] [email or web address] PCP - General 09/02/17 10/18/19 Best Aaron MD [address] [place] [address] [place] [address] [email or web address] PCP - General Family Medicine 10/19/19 02/09/24 Pippa Shirley MD [address] [place] [address] [place] [address] [email or web address] PCP - General Family Medicine 02/10/24 Alysa Benito ELECTRIC TRIPPER MACHINE OPERATOR [address] [place] [address] Historical LMR Provider 09/04/17 2 Jailyn Grewal DO [address] [place] [address] 7 [place] [address] [email or web address] Historical LMR Provider 09/04/17 Esperanza Cisneros, BRIEN [address] [place] [address] Historical LMR Provider 09/04/17 2 Bettye Amaro CNP [facility] 2nd [place] [address] [email or web address] Historical LMR Provider 09/04/17 Caprice Johns NP [address] [place] [address] [email or web address] Historical LMR Provider 09/04/17 11/22/21 Noe Fitzpatrick MD [address] [place] [address] [email or web address] Historical LMR Provider 09/04/17 11/22/21 Adelaida Awad MD [address] [place] [address] [email or web address] Historical LMR Provider 09/04/17 Kadi Nazario NP [address] [place] [address] Historical LMR Provider 09/04/17 2 Ninoska Sanchez MD [address] [place] [address] [email or web address] Historical LMR Provider 09/04/17 Best Aaron MD [address] [place] [address] [email or web address] Historical LMR Provider 09/04/17 Yashira Felix NP [address] [place] [address] Historical LMR Provider 09/04/17 2 Belinda Wolfe MD [address] [place] [address] Historical LMR Provider 09/04/17 2 Carlos Miranda MD [address] [place] [address] Historical LMR Provider 09/04/17 11/22/21 Juanis Boyd MD [address] [place] [address] Historical LMR Provider 09/04/17 11/22/21 Saurav Cornelius MD [address] [place], [place] [address] [place] [id number] [email or web address] Historical LMR Provider 09/04/17 Giulia Alarcon MD [address] [place] [address] Historical LMR Provider 09/04/17 11/22/21 Albert Ley MD [address] [place] [address] Historical LMR Provider 09/04/17 2 Luis Carlos De Jesus, ROBERTO [address] [place] [address], [address] [place] [address] Historical LMR Provider 09/04/17 Best Aaron MD [address] [place] [address] 7 [place] [address] [email or web address] Insurance Assigned Provider 09/18/17 02/19/24 Jailyn Grewal DO [address] [place] [address], [facility] 7 [place] [address] [email or web address] Insurance Assigned Provider 02/19/24 02/18/25 Pippa Shirley MD [address] [place] [address], [address] [place] [address] [email or web address] Assigned Provider 02/18/25 documented as of this encounter Additional Source Comments The information contained in this document represents components of the legal health record. It is not the complete legal health record.[facility]
== END 2025-10-25 13:48 | disposition home or self-care (01) ==
LOC: HO.HNS 12:43
PROVIDERS: PCP Student in an Organized Health Care Education/Training Program; Referring Provider Nurse Practitioner Family; Visit Provider Physician Assistant
DX: M54.50 Low back pain, unspecified (principal); G89.29 Other chronic pain
CPT/HCPCS: 99204

== ENCOUNTER 2025-10-25 12:42 | Outpatient (REF) | payer MEDICARE, BC, SELFPAY ==
--- NOTE | ~2025-10-25 | XR_ITS ---
EXAMINATION: XR LUMBOSACRAL SPINE CLINICAL INFORMATION: M54.50 - Low back pain, unspecified COMPARISON: July 07, 2023 TECHNIQUE: Lateral views in neutral, flexion and extension position. AP view. FINDINGS: Dextroconvex rotoscoliosis apex at L2. Multilevel endplate sclerosis subchondral cyst formation and decreased intervertebral disc pronounced at L2-3, L4-5 and L5-S1 levels. No acute cortical disruption or gross malalignment. No malalignment during flexion and or extension position. Vascular calcifications, aorta. XR/XR lumbar spine 4V min IMPRESSION: Dextroconvex rotoscoliosis and multilevel spondylosis without acute fracture or listhesis or gross instability. Electronically signed by: Sebastien Glynn MD 10/25/2025 02:00 PM NELLY
== END 2025-10-25 12:43 | disposition home or self-care (01) ==
LOC: HO.HOSX 12:42
PROVIDERS: PCP Student in an Organized Health Care Education/Training Program; Referring Provider Nurse Practitioner Family; Visit Provider Physician Assistant
DX: G89.29 Other chronic pain (principal); M54.50 Low back pain, unspecified
CPT/HCPCS: 72110; 99202

== ENCOUNTER → 2025-10-25 13:49 | Outpatient (BNV) | payer MEDICARE, BC, SELFPAY | PROVIDERS: PCP Student in an Organized Health Care Education/Training Program; Referring Provider Nurse Practitioner Family; Visit Provider Radiology Diagnostic Radiology | DX: M47.816 Spondylosis without myelopathy or radiculopathy, lumbar region (principal) | CPT/HCPCS: 72110 ==